=== PATIENT | male | born 1940 | race Caucasian/White ===

== ENCOUNTER 2017-05-14 09:44 | Inpatient (IN) | payer MEDICARE, OTHER ==
[2017-05-14] MEDS ORDERED: Sodium Chloride 0.9% 1000 ML 1,000 ML IV STA ×2 (09:52→10:19)
[2017-05-14] MEDS ORDERED: TYLENOL 325 MG PO STA (10:02)
[2017-05-14] MEDS: Sodium Chloride 0.9% 1000 ML 1,000 ML IV SCH ×5 (10:09→23:11)
--- NOTE | 2017-05-14 10:10 | ERPHSYRPT ---
- History of Present Illness Time Seen by Provider: 05/14/17 09:48 Source: patient Exam Limitations: clinical condition Patient Subjective Stated Complaint: patient fell at home having weakness this morning, loss of bowels , nausea, has history of stroke, left side weakness from original stroke Triage Nursing Assessment: patient alert and oriented x3, lung sounds clear diminished, handgrips equal bialteral , smile symetrical, able to hold both hands up without issue , pulses equal bialteral r adius, pedal pulses present bialteral, bowel sounds present x4, skin warm to touch clean, dry and intact Physician History: PATIENT WITH HISTORY OF CVA WITH RESIDUAL LEFT HEMIPARESIS, SLID OUT OF HIS BED LANDING ONTO HIS BUTTOCKS, DENIES PAIN, HEAD OR NECK INJURY. UNABLE TO GET BACK INTO BED BY FRIENDS. PATIENT DENIES COMPLAINS OF PAIN, COUGH, FEVER, URINARY SYMPTOMS. Occurred: just prior to arrival Reason for Fall: slipped Injuries/Pain Location: no injury Loss of Consciousness: no loss of consciousness Quality: other (WEAKNESS) Severity of Pain-Max: none Severity of Pain-Current: none Modifying Factors: Improves With: nothing Associated Symptoms (Fall): other (GENERALIZED WEAKNESS) Allergies/Adverse Reactions: Sulfa (Sulfonamide Antibiotics) Allergy (Unknown, Verified 04/14/13 03:26) STATES CAN'T REMEMBER THE REACTION, BUT TOLD NOT TO TAKE IT ANYMORE. Home Medications: Metoprolol Tartrate 50 mg [Lopressor 50 MG] 50 mg PO DAILY 04/13/13 [ History] Warfarin Sodium 7 mg PO DAILY 04/13/13 [History] Hx Tetanus, Diphtheria Vaccination/Date Given: Yes Hx Influenza Vaccination/Date Given: Yes Hx Pneumococcal Vaccination/Date Given: Yes Immunizations Up to Date: Yes - Review of Systems Constitutional: Weakness Eyes: No Symptoms Ears, Nose, & Throat: No Symptoms Respiratory: No Symptoms, No Cough, No Dyspnea Cardiac: No Symptoms, No Chest Pain, No Edema, No Syncope Abdominal/Gastrointestinal: Nausea, No Abdominal Pain, No Vomiting, No Diarrhea Genitourinary Symptoms: No Symptoms, No Dysuria Musculoskeletal: No Symptoms, No Back Pain, No Neck Pain Skin: No Symptoms, No Rash Neurological: No Dizziness, No Focal Weakness, No Sensory Changes Psychological: No Symptoms Endocrine: No Symptoms All Other Systems: Reviewed and Negative - Past Medical History Pertinent Past Medical History: No Neurological History: Stroke ENT History: Cataracts Cardiac History: Arrhythmia, Hypertension Respiratory History: No Pertinent History Endocrine Medical History: No Pertinent History Musculoskeletal History: Arthritis GI Medical History: No Pertinent History History: No Pertinent History Psycho-Social History: No Pertinent History Male Reproductive Disorders: No Pertinent History Other Medical History: R TKA 12/08; R CVA W/ L HEMIPLEGIA 2003, A FIB. - Past Surgical History Past Surgical History: Yes Neuro Surgical History: No Pertinent History Cardiac: No Pertinent History Respiratory: No Pertinent History Gastrointestinal: No Pertinent History Genitourinary: No Pertinent History Musculoskeletal: No Pertinent History Male Surgical History: Prostate Surgery - Social History Smoking Status: Former smoker Exposure to second hand smoke: No Drug Use: none Patient Lives Alone: Yes - Nursing Vital Signs Nursing Vital Signs: Initial Vital Signs Temperature 103.8 F 05/14/17 09:45 Pulse Rate 102 H 05/14/17 09:45 Respiratory Rate 20 05/14/17 09:45 Blood Pressure 101/42 05/14/17 09:45 O2 Sat by Pulse Oximetry 92 L 05/14/17 09:45 Pain Scale Pain Intensity 0 - [place] Coma Score Best Eye Response (Alice): (4) open spontaneously Best Verbal Response (Alice): (5) oriented Best Motor Response (Alice): (6) obeys commands [place] Total: 15 - Physical Exam General Appearance: no apparent distress Head Injury: no evidence of injury Eye Exam: PERRL/EOMI ENT Exam: other (DRY MUCOUS MEMBRANES) Neck Exam: supple, trachea midline Respiratory/Chest Exam: normal breath sounds Cardiovascular Exam: normal heart sounds, tachycardia Back Exam: normal inspection, No vertebral tenderness Extremity Exam: normal inspection, normal range of motion, pelvis stable, No deformities Peripheral Pulses: carotid (R): 2+, carotid (L): 2+, femoral (R): 2+, femoral (L ): 2+, dorsalis-pedis (R): 2+, dorsalis-pedis (L): 2+ Neurologic Exam: alert, oriented x 3, other (LEFT HEMIPARESIS) SpO2 Interpretation: normal SpO2: 97 - Course EKG Interpreted by Me: RATE, Sinus Rhythm, Sinus Tach, Right [place] Deviation, 1st degree AV Block - Radiology Exams Chest X-ray Interpretation: Interpreted by me (RIGHT LOWER LOBE INFILTRATE) - CT Exams Head CT Interpretation: Tele-radiologist Report (STABLE ATROPHY AND STABLE CHRONIC RIGHT SIDED INFARCT) Ordered Tests: Active Orders 24 hr Category Date Time Status Up With Assistance ROUTINE Activity 05/14/17 13:06 Ordered Admission/Status Order ROUTINE Care 05/14/17 13:06 Ordered Call Admit Doctor for Orders ON ADMISSION Care 05/14/17 13:07 Ordered Code Status Order ROUTINE Care 05/14/17 13:06 Ordered EKG-ER Only STAT Care 05/14/17 09:52 Active IV Care Q6H Care 05/14/17 13:06 Ordered IV Insertion STAT Care 05/14/17 09:52 Active IV Insertion STAT Care 05/14/17 10:19 Active Intake and Output TID Care 05/14/17 13:06 Ordered Oxygen-ED Only NASAL CANNULA 2 lpm Care 05/14/17 09:52 Active Telemetry ROUTINE Care 05/14/17 13:06 Ordered Vital Signs Q4H Care 05/14/17 13:06 Ordered Regular Diet Diet 05/14/17 Dinner Ordered CHEST 1 VIEW (PORTABLE) Stat Exams 05/14/17 09:54 Taken HEAD WITHOUT CONTRAST [CT] Stat Exams 05/14/17 09:55 Taken ABG [ARTERIAL BLOOD GASES] Stat Lab 05/14/17 12:15 Completed ARTERIAL BLOOD GASES Stat Lab 05/14/17 10:10 Completed BLOOD CULTURE Stat Lab 05/14/17 10:20 Received CBC W DIFF Stat Lab 05/14/17 10:20 Completed CMP Routine Lab 05/14/17 10:20 Completed CULTURE,URINE Stat Lab 05/14/17 12:00 Received Lactic Acid Stat Lab 05/14/17 10:10 Completed Lactic Acid Stat Lab 05/14/17 12:15 Results Manual Differential NC Stat Lab 05/14/17 10:20 Completed PROTIME WITH INR Stat Lab 05/14/17 10:20 Completed TROPONIN Q3H Lab 05/14/17 10:20 Completed TROPONIN Q3H Lab 05/14/17 12:58 Received TROPONIN Q3H Lab 05/14/17 16:00 Ordered TROPONIN Q3H Lab 05/14/17 19:00 Ordered TROPONIN Q3H Lab 05/14/17 22:00 Ordered UA W/ MICROSCOPIC Stat Lab 05/14/17 12:00 Completed Oxygen NASAL CANNULA 4 lpm RT 05/14/17 13:06 Ordered Respiratory Nebulizer STAT RT 05/14/17 10:26 Completed Transfer Order Routine Transfer 05/14/17 Ordered Medication Summary Generic Name Dose Route Start Last Admin Trade Name Freq PRN Reason Stop Dose Admin Sodium Chloride 1,000 mls @ 999 mls/hr 05/14/17 10:00 05/14/17 12:05 Sodium Chloride 0.9% 1000 Ml IV 05/14/17 13:00 999 mls/hr .Q1H1M HALINA Administration Cefepime HCl 2 g/ Dextrose 100 mls @ 200 mls/hr 05/14/17 11:30 05/14/17 11:31 IV 06/13/17 11:29 200 mls/hr Q12HT HALINA Administration Discontinued Medications Generic Name Dose Route Start Last Admin Trade Name Harrisonq PRN Reason Stop Dose Admin Acetaminophen 975 mg 05/14/17 10:02 05/14/17 10:11 Tylenol 325 Mg PO 05/14/17 10:03 975 mg STAT STA Administration Acetaminophen Confirm 05/14/17 10:11 Tylenol 325 Mg Administered 05/14/17 10:12 Dose 975 mg .ROUTE .STK-MED ONE Albuterol/Ipratropium 3 ml 05/14/17 10:26 05/14/17 10:27 Duoneb 0.5-3 Mg/3 Ml Neb IH 05/14/17 10:27 3 ml STAT ONE Administration Albuterol/Ipratropium Confirm 05/14/17 10:26 Duoneb 0.5-3 Mg/3 Ml Neb Administered 05/14/17 10:27 Dose 3 ml IH .STK-MED ONE Sodium Chloride 1,000 mls @ 500 mls/hr 05/14/17 09:52 05/14/17 12:12 Sodium Chloride 0.9% 1000 Ml IV 05/14/17 11:51 Not Given .Q2H STA Sodium Chloride 1,000 mls @ 999 mls/hr 05/14/17 10:19 05/14/17 11:20 Sodium Chloride 0.9% 1000 Ml IV 05/14/17 11:19 999 mls/hr .Q1H1M STA Administration Lab/Rad Data: Laboratory Result Diagrams 05/14/17 10:20 05/14/17 10:20 Laboratory Results 11/19/17 11/19/17 11/19/17 Range/Units 12:15 12:15 12:00 WBC (4.0-10.5) K/mm3 RBC (4.1-5.6) M/mm3 Hgb (12.5-18.0) gm/dl Hct (42-50) % MCV (78-100) fl MCH (26-32) pg MCHC (32-36) g/dl RDW (11.5-14.0) % Plt Count (150-450) K/mm3 MPV (6-9.5) fl Segmented Neutrophils (36.-66.) % Band Neutrophils (0.0-2.0) % Lymphocytes (Manual) (24-44) % Differential Comment Toxic Granulation Platelet Estimate (NORMAL) INR (0.8-3.0) Puncture Site RIGHT BRACHIAL pCO2 30 L (35-45) mmHg pO2 66 L (75-100) mmHg Base Excess -3.8 L (-2.0-2.0) O2 Saturation 94.4 (94-100) g/dF ABG pH 7.42 (7.35-7.45) ABG HCO3 19.5 L (22-28) ABG O2 Sat (Measured) 98.6 (95-100) % Arsenio Test YES A-a Gradient 182 a/A Ratio 0.27 Hemoglobin 14.4 Carboxyhemoglobin 3.7 (0.0-6.9) % THgb Methemoglobin 0.6 L (1.4-1.5) % Potassium 3.6 (3.5-5.1) Temperature 37.0 C POC O2 Flow Rate 40 % Sodium (136-145) mEq/L Chloride (98-107) mEq/L Carbon Dioxide (21-32) mEq/L Anion Gap (5-15) MEQ/L BUN (9-20) mg/dL Creatinine (0.55-1.30) mg/dl Estimated GFR ML/MIN Glucose (70-110) MG/DL Lactic Acid 2.8 H (0.4-2.0) Calcium (8.5-10.1) mg/dL Total Bilirubin (0.2-1.0) mg/dL AST (15-37) U/L ALT (12-78) U/L Alkaline Phosphatase (46-116) U/L Troponin I (0.000-0.056) ng/ml Serum Total Protein (6.4-8.2) gm/dL Albumin (3.4-5.0) g/dL Ur Collection Type VOID Urine Color DARK YELLOW (YELLOW) Urine Appearance HAZY (CLEAR) Urine pH 5.0 (5-6) Ur Specific [place] 1.015 (1.005-1.025) Urine Protein 2+ (Negative) Urine Ketones NEGATIVE (NEGATIVE) Urine Blood 250 (0-5) Hitesh/ul Urine Nitrite NEGATIVE (NEGATIVE) Urine Bilirubin NEGATIVE (NEGATIVE) Urine Urobilinogen NORMAL (0-1) mg/dL Ur Leukocyte Esterase 2+ (NEGATIVE) Urine Microscopic RBC >100 (0-2) /HPF Urine Microscopic WBC >100 (0-5) /HPF Ur Epithelial Cells FEW (FEW) /HPF Urine Bacteria MODERATE (NEGATIVE) /HPF Urine Culture Reflexed YES (NO) Urine Glucose NEGATIVE (NEGATIVE) mg/dL Influenza Type A Ag (NEGATIVE) Influenza Type B Ag (NEGATIVE) RSV (PCR) (Negative) Specimen Received 05/14/17 1200 05/14/17 05/14/17 05/14/17 Range/Units 10:20 10:20 10:20 WBC (4.0-10.5) K/mm3 RBC (4.1-5.6) M/mm3 Hgb (12.5-18.0) gm/dl Hct (42-50) % MCV (78-100) fl MCH (26-32) pg MCHC (32-36) g/dl RDW (11.5-14.0) % Plt Count (150-450) K/mm3 MPV (6-9.5) fl Segmented Neutrophils (36.-66.) % Band Neutrophils (0.0-2.0) % Lymphocytes (Manual) (24-44) % Differential Comment Toxic Granulation Platelet Estimate (NORMAL) INR 1.96 (0.8-3.0) Puncture Site pCO2 (35-45) mmHg pO2 (75-100) mmHg Base Excess (-2.0-2.0) O2 Saturation (94-100) g/dF ABG pH (7.35-7.45) ABG HCO3 (22-28) ABG O2 Sat (Measured) (95-100) % Arsenio Test A-a Gradient a/A Ratio Hemoglobin Carboxyhemoglobin (0.0-6.9) % THgb Methemoglobin (1.4-1.5) % Potassium 4.2 (3.5-5.1) Temperature C POC O2 Flow Rate % Sodium 138 (136-145) mEq/L Chloride 105 (98-107) mEq/L Carbon Dioxide 19.6 L (21-32) mEq/L Anion Gap 17.7 H (5-15) MEQ/L BUN 16 (9-20) mg/dL Creatinine 1.49 H (0.55-1.30) mg/dl Estimated GFR 48 ML/MIN Glucose 145 H (70-110) MG/DL Lactic Acid (0.4-2.0) Calcium 9.0 (8.5-10.1) mg/dL Total Bilirubin 1.00 (0.2-1.0) mg/dL AST 26 (15-37) U/L ALT 20 (12-78) U/L Alkaline Phosphatase 97 (46-116) U/L Troponin I < 0.017 (0.000-0.056) ng/ml Serum Total Protein 7.2 (6.4-8.2) gm/dL Albumin 3.5 (3.4-5.0) g/dL Ur Collection Type Urine Color (YELLOW) Urine Appearance (CLEAR) Urine pH (5-6) Ur Specific [place] (1.005-1.025) Urine Protein (Negative) Urine Ketones (NEGATIVE) Urine Blood (0-5) Hitesh/ul Urine Nitrite (NEGATIVE) Urine Bilirubin (NEGATIVE) Urine Urobilinogen (0-1) mg/dL Ur Leukocyte Esterase (NEGATIVE) Urine Microscopic RBC (0-2) /HPF Urine Microscopic WBC (0-5) /HPF Ur Epithelial Cells (FEW) /HPF Urine Bacteria (NEGATIVE) /HPF Urine Culture Reflexed (NO) Urine Glucose (NEGATIVE) mg/dL Influenza Type A Ag NEGATIVE (NEGATIVE) Influenza Type B Ag NEGATIVE (NEGATIVE) RSV (PCR) NEGATIVE (Negative) Specimen Received 05/14/17 05/14/17 05/14/17 Range/Units 10:20 10:10 10:10 WBC 21.9 H (4.0-10.5) K/mm3 RBC 4.88 (4.1-5.6) M/mm3 Hgb 15.9 (12.5-18.0) gm/dl Hct 47.7 (42-50) % MCV 97.7 (78-100) fl MCH 32.6 H (26-32) pg MCHC 33.3 (32-36) g/dl RDW 13.4 (11.5-14.0) % Plt Count 144 L (150-450) K/mm3 MPV 11.2 H (6-9.5) fl Segmented Neutrophils 94 H (36.-66.) % Band Neutrophils 4 H (0.0-2.0) % Lymphocytes (Manual) 2 L (24-44) % Differential Comment NORMAL Toxic Granulation 1+ Platelet Estimate NORMAL (NORMAL) INR (0.8-3.0) Puncture Site LEFT BRACHIAL pCO2 30 L (35-45) mmHg pO2 48 L* (75-100) mmHg Base Excess -1.8 (-2.0-2.0) O2 Saturation 89.1 L (94-100) g/dF ABG pH 7.45 (7.35-7.45) ABG HCO3 20.9 L (22-28) ABG O2 Sat (Measured) 92.9 L (95-100) % Arsenio Test YES A-a Gradient 64 a/A Ratio 0.43 Hemoglobin 16.2 Carboxyhemoglobin 3.2 (0.0-6.9) % THgb Methemoglobin 0.9 L (1.4-1.5) % Potassium 4.0 (3.5-5.1) Temperature 37.0 C POC O2 Flow Rate 21 % Sodium (136-145) mEq/L Chloride (98-107) mEq/L Carbon Dioxide (21-32) mEq/L Anion Gap (5-15) MEQ/L BUN (9-20) mg/dL Creatinine (0.55-1.30) mg/dl Estimated GFR ML/MIN Glucose (70-110) MG/DL Lactic Acid 3.4 H (0.4-2.0) Calcium (8.5-10.1) mg/dL Total Bilirubin (0.2-1.0) mg/dL AST (15-37) U/L ALT (12-78) U/L Alkaline Phosphatase (46-116) U/L Troponin I (0.000-0.056) ng/ml Serum Total Protein (6.4-8.2) gm/dL Albumin (3.4-5.0) g/dL Ur Collection Type Urine Color (YELLOW) Urine Appearance (CLEAR) Urine pH (5-6) Ur Specific [place] (1.005-1.025) Urine Protein (Negative) Urine Ketones (NEGATIVE) Urine Blood (0-5) Hitesh/ul Urine Nitrite (NEGATIVE) Urine Bilirubin (NEGATIVE) Urine Urobilinogen (0-1) mg/dL Ur Leukocyte Esterase (NEGATIVE) Urine Microscopic RBC (0-2) /HPF Urine Microscopic WBC (0-5) /HPF Ur Epithelial Cells (FEW) /HPF Urine Bacteria (NEGATIVE) /HPF Urine Culture Reflexed (NO) Urine Glucose (NEGATIVE) mg/dL Influenza Type A Ag (NEGATIVE) Influenza Type B Ag (NEGATIVE) RSV (PCR) (Negative) Specimen Received - Progress Progress: improved Progress Note: 05/14/17 10:12 PLACED ONTO SEPSIS PROTOCOL 30ML/127 KG, AT 1015 PULSE OX 98% INITIALLY, TYLENOL 975MG ORALLY, 2 IV SITES 1 LITER BOLUS X 2 05/14/17 10:20- LACTIC ACID 3.5 05/14/17 10:30 AFTER 2 SETS OF BLOOD CULTURES ADMINISTERED LEVAQUIN 750MG IVPB 05/14/17 11:38-REPEAT LACTIC ACID -2.8, CLINICAL EXAM ALERT APPROPRIATE, CHEST CLEAR BREATH SOUNDS, PULSES 2+ 05/14/17 13:00 Discussed with DrGenesis: Darnell (DISCUSSED WITH DR BALBUENA AT 1245 FOR ADMISSION) - Departure Time of Disposition: 13:20 Departure Disposition: In-patient Admission Clinical Impression: ACUTE CYSTITIS, PNEUMONIA, SEPTICEMIA Condition: Stable Critical Care Time: No Referrals: FIDE GOODRICH MD [Primary Care Provider] -
[2017-05-14] MEDS ORDERED: TYLENOL 325 MG ONE (10:11)
[2017-05-14 10:14] LABS: A-aADO2 64; ARTERIAL BLD GAS O2 SATURATION 92.9 % (95-100); ARTERIAL BLOOD GAS BASE EXCESS -1.8 (-2.0-2.0); ARTERIAL BLOOD GAS FIO2 21 %; ARTERIAL BLOOD GAS pH 7.45 (7.35-7.45)
[2017-05-14 10:15] LABS: ALLEN TEST OK? YES; ARTERIAL BLOOD GAS PO2 48 mmHg (75-100)
[2017-05-14 10:17] LABS: Lactic Acid 3.4 (0.4-2.0)
[2017-05-14] MEDS ORDERED: DUONEB 0.5-3 MG/3 ml Neb IH ONE ×2 (10:26)
[2017-05-14 10:31] LABS: Mean Cell Volume 97.7 fl (78-100); Mean Corpuscular Hemoglobin 32.6 pg (26-32); Mean Platelet Volume 11.2 fl (6-9.5); Platelet Count 144 K/mm3 (150-450); Red Blood Count 4.88 M/mm3 (4.1-5.6); Red Cell Distribution Width 13.4 % (11.5-14.0); White Blood Count 21.9 K/mm3 (4.0-10.5)
[2017-05-14 10:40] LABS: INR 1.96 (0.8-3.0); PROTIME 21.9 SECONDS (8.83-12.87)
[2017-05-14 10:49] LABS: ALBUMIN 3.5 g/dL (3.4-5.0); ALKALINE PHOSPHATASE 97 U/L (46-116); ANION GAP 17.7 MEQ/L (5-15); BLOOD UREA NITROGEN 16 mg/dL (9-20); CHLORIDE 105 mEq/L (98-107); Carbon Dioxide 19.6 mEq/L (21-32); Glucose 145 MG/DL (70-110); Potassium 4.2 mEq/L (3.5-5.1); SGOT/AST 26 U/L (15-37); SGPT/ALT 20 U/L (12-78); SODIUM 138 mEq/L (136-145); Total Protein 7.2 gm/dL (6.4-8.2)
[2017-05-14 10:50] LABS: BAND 4 % (0.0-2.0); Platelet Estimate NORMAL (NORMAL); Total Cells Counted 100; Toxic Granulation 1+
[2017-05-14 10:52] LABS: TROPONIN < 0.017 ng/ml (0.000-0.056)
[2017-05-14] MEDS ORDERED: Maxipime 2 GM** 2 G in Dextrose 5%/Water IV Soln. 100ML PLUS BAG 100 ML IV SCH (11:30)
[2017-05-14 12:09] LABS: Collection Type VOID
[2017-05-14 12:10] LABS: ADD URINE CULTURE? YES (NO); Bacteria MODERATE /HPF (NEGATIVE); Bilirubin NEGATIVE (NEGATIVE); Blood 250 Ery/ul (0-5); COMPLETE URINE MICROSCOPIC? YES; Epithelial Cells FEW /HPF (FEW); Glucose NEGATIVE (NEGATIVE); Leukocyte Esterase 2+ (NEGATIVE); WBC >100 /HPF (0-5)
[2017-05-14 12:19] LABS: A-aADO2 182; ARTERIAL BLD GAS O2 SATURATION 98.6 % (95-100); ARTERIAL BLOOD GAS BASE EXCESS -3.8 (-2.0-2.0); ARTERIAL BLOOD GAS FIO2 40 %; ARTERIAL BLOOD GAS PO2 66 mmHg (75-100); ARTERIAL BLOOD GAS pH 7.42 (7.35-7.45)
[2017-05-14 12:20] LABS: ALLEN TEST OK? YES
[2017-05-14 12:21] LABS: Lactic Acid 2.8 (0.4-2.0)
[2017-05-14] MEDS ORDERED: DUONEB 0.5-3 MG/3 ml Neb IH PRN (13:06)
[2017-05-14] MEDS ORDERED: Zofran 4 MG/2 ML VIAL IV PRN (13:06)
[2017-05-14] MEDS ORDERED: TYLENOL 325 MG PO PRN (13:06)
--- NOTE | 2017-05-14 16:53 | XRAY ---
Indication: Weakness. Comparison: April 13, 2013. Portable apical lordotic chest now demonstrates right base infiltrate versus atelectasis. Remaining heart and lungs unremarkable. Bony thorax intact again with mild osteopenia and degenerative changes.
--- NOTE | 2017-05-14 16:59 | XRAY ---
Indication: Weakness. Multiple contiguous axial images obtained through the head without contrast. Comparison: April 13, 2013. Again age-appropriate global atrophy and mild periventricular degenerative microvascular ischemia bilaterally. Stable small old right mid periventricular and right occipital infarcts. New 1 cm focus of old left frontal lobe infarct. No acute intracranial hemorrhage, abnormal extra-axial fluid collection, or mass effect. Fourth ventricle is midline. Bony calvarium intact. Incidental bilateral maxillary sinus subcentimeter polyp/retention cyst. Mastoid air cells clear. Impression: Again nonacute senile brain again with old right ventricular and right occipital infarcts. New finding for small old left frontal lobe infarct. Incidental paranasal sinus polyp/retention cyst. Comment: Preliminary interpretation was made by [facility]. No critical discrepancy. CTDI 62.52
[2017-05-14] MEDS: LEVOFLOXACIN 750MG/150ML D5W 750 MG/150 ML BAG IV SCH ×2 (17:16→17:17)
[2017-05-14] MEDS ORDERED: LEVOFLOXACIN 750MG/150ML D5W 750 MG/150 ML BAG IV ONE (17:16)
[2017-05-14] MEDS: Coumadin 2 MG PO SCH (17:37)
[2017-05-14] MEDS: Coumadin 5 MG PO SCH (17:38)
--- NOTE | 2017-05-14 18:54 | PCM.HP ---
History of Present Illness - Chief Complaint Chief Complaint: SEPSIS, PNEUMONIA, UTI Date: 05/14/17 History of Present Illness: is a 77 year old male. he says he started having a funny feeling when he urinated today but otherwise was feeling ok but tried to get up out of bed and just slid to the ground and was too weak to get up. He came to ED by EMS and was found to be febrile. He does not recall fever or chills at home and no cough or shortness of breath. He denies chest pain nausea, vomiting or diarrhea. - Review of Systems Constitutional: No Fever, No Chills Eyes: No Symptoms Ears, Nose, & Throat: No Symptoms Respiratory: No Cough, No Short Of Breath Cardiac: No Chest Pain, No Edema, No Syncope Abdominal/Gastrointestinal: No Abdominal Pain, No Nausea, No Vomiting, No Diarrhea Genitourinary Symptoms: No Dysuria Musculoskeletal: No Back Pain, No Neck Pain Skin: No Rash Neurological: No Dizziness, No Focal Weakness, No Sensory Changes Psychological: No Symptoms Endocrine: No Symptoms Hematologic/Lymphatic: No Symptoms Immunological/Allergic: No Symptoms Medications & Allergies Home Medications: Home Medication List Metoprolol Tartrate 50 mg [Lopressor 50 MG] 50 mg PO DAILY 04/13/13 [ History Confirmed 05/14/17] Warfarin Sodium 7 mg PO DAILY 04/13/13 [History Confirmed 05/14/17] Cephalexin Mh 500 mg [Keflex 500 mg] 500 mg PO TID 05/14/17 [History Confirmed 05/14/17] Allergies/Adverse Reactions: Allergies Allergy/AdvReac Type Severity Reaction Status Date / Time Sulfa (Sulfonamide Allergy Unknown Verified 04/14/13 03:26 Antibiotics) - Past Medical History Past Medical History: No Neurological History: Stroke ENT History: Cataracts Cardiac History: Arrhythmia, Hypertension Respiratory History: No Pertinent History Endocrine Medical History: No Pertinent History Musculoskelatal History: Arthritis GI Medical History: No Pertinent History History: No Pertinent History Pyscho-Social History: No Pertinent History Male Reproductive Disorders: No Pertinent History Comment: R CVA W/ L HEMIPLEGIA 2003, A FIB. - Past Surgical History Past Surgical History: Yes Neuro Surgical History: No Pertinent History Cardiac History: No Pertinent History Respiratory Surgery: No Pertinent History GI Surgical History: No Pertinent History Genitourinary Surgical Hx: No Pertinent History Musculskeletal Surgical Hx: No Pertinent History Male Surgical History: Prostate Surgery Other Surgical History: Prostate removed 2003, right hip replacement 2014 - Social History Smoking Status: Former smoker Exposure to second hand smoke: No Alcohol: None Drug Use: none - Physical Exam Vital Signs: Vital Signs - 24 hr Temp Pulse Resp BP Pulse Ox 05/14/17 16:34 93 L 05/14/17 16:00 98.3 F 91 H 18 94/52 91 L 05/14/17 15:06 84 20 95 05/14/17 14:10 98.5 F 91 H 115/58 05/14/17 14:09 98.5 F 91 H 115/58 97 05/14/17 13:17 97 05/14/17 12:34 88 22 95/47 93 L 05/14/17 11:25 96 H 20 98 05/14/17 10:31 98 H 22 89 L 05/14/17 09:45 103.8 F 102 H 20 101/42 92 L Oxygen-Last 24 hours O2 Percentage 5 Liters = 40% O2 Percentage 5 Liters = 40% O2 Percentage 6 Liters = 44% O2 Percentage 2 Liters = 28% General Appearance: no apparent distress, alert, obese Neurologic Exam: alert, oriented x 3, cooperative, normal mood/affect, nml cerebellar function, nml station & gait, sensation nml, No motor deficits Eye Exam: PERRL/EOMI, eyes nml inspection Ears, Nose, Throat Exam: normal ENT inspection, TMs normal, pharynx normal, moist mucous membranes Neck Exam: normal inspection, non-tender, supple, full range of motion Respiratory Exam: normal breath sounds, lungs clear, No respiratory distress Cardiovascular Exam: normal heart sounds, normal peripheral pulses, irregular Gastrointestinal/Abdomen Exam: soft, normal bowel sounds, No tenderness, No mass Back Exam: normal inspection, normal range of motion, No CVA tenderness, No vertebral tenderness Extremity Exam: normal inspection, normal range of motion, pelvis stable Skin Exam: normal color, warm, dry, No rash Lymphatic Exam: No adenopathy Results - Labs Lab/Micro Results: Lab Results-Last 24 Hours 05/14/17 Range/Units 16:00 Troponin I 0.023 (0.000-0.056) ng/ml - Other Procedures and Tests Respiratory Therapy 05/14/17 13:06 Oxygen NASAL CANNULA 4 lpm 05/14/17 15:05 Respiratory Nebulizer UD Assessment/Plan (1) UTI (urinary tract infection) Current Visit: Yes Status: Acute Assessment & Plan: he received 3 L of NS in ED bolus and was started on 150 mL/h NS. his lactic acid improved vital remain stable. he has good peripheral perfusion now eating and drinking well will decrease iv fluids now to 60mL/h on levaquin will continue for now monitor cultures continue warfarin he had troponins ordered and the 3rd shows some very minimal increase below cutoff will complete the series but he has no chest pain now and denies any previous. 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
[2017-05-15 06:11] LABS: Mean Corpuscular Hemoglobin 32.2 pg (26-32); Mean Platelet Volume 11.3 fl (6-9.5); Platelet Count 124 K/mm3 (150-450); Red Blood Count 4.32 M/mm3 (4.1-5.6); Red Cell Distribution Width 13.8 % (11.5-14.0)
[2017-05-15 06:13] LABS: White Blood Count 25.1 K/mm3 (4.0-10.5)
[2017-05-15 06:52] LABS: BAND 3 % (0.0-2.0); Total Cells Counted 100
[2017-05-15 06:59] LABS: Platelet Estimate NORMAL (NORMAL)
[2017-05-15 07:00] LABS: ALBUMIN 2.7 g/dL (3.4-5.0); ANION GAP 15.6 MEQ/L (5-15); BILIRUBIN,TOTAL 1.2 mg/dL (0.2-1.0); Carbon Dioxide 20.1 mEq/L (21-32); Potassium 3.9 mEq/L (3.5-5.1); Total Protein 6.1 gm/dL (6.4-8.2)
[2017-05-15 07:29] LABS: INR 2.49 (0.8-3.0); PROTIME 27.9 SECONDS (8.83-12.87)
--- NOTE | 2017-05-15 08:13 | PCM.NOTE ---
Date and Time: 05/15/17809 Subjective Assessment: patient has very little cough, has been able to ambulate to his restroom with no problems. strength seems a little better. tolerating po, no vomiting or diarrhea. no abd pain Objective Exam General Appearance: no apparent distress, alert Respiratory Exam: normal breath sounds, lungs clear, No respiratory distress Cardiovascular Exam: regular rate/rhythm, normal heart sounds Gastrointestinal/Abdomen Exam: soft, No tenderness, No mass Extremity Exam: normal inspection, normal range of motion OBJECTIVE DATA Vital Signs: Vital Signs - 24 hr Temp Pulse Resp BP Pulse Ox 05/15/17 07:00 98.5 F 73 18 113/57 93 L 05/15/17 04:00 97.8 F 69 21 110/56 96 05/15/17 00:00 12 05/14/17 23:53 98.4 F 78 12 104/56 92 L 05/14/17 20:00 99.5 F 85 20 107/53 93 L 05/14/17 19:40 18 05/14/17 16:34 93 L 05/14/17 16:00 98.3 F 91 H 18 94/52 91 L 05/14/17 15:06 84 20 95 05/14/17 14:10 98.5 F 91 H 115/58 05/14/17 14:09 98.5 F 91 H 115/58 97 05/14/17 13:17 97 05/14/17 12:34 88 22 95/47 93 L 05/14/17 11:25 96 H 20 98 05/14/17 10:31 98 H 22 89 L 05/14/17 09:45 103.8 F 102 H 20 101/42 92 L Oxygen-Last 24 hours O2 Percentage 3 Liters = 32% O2 Percentage 4 Liters = 36% O2 Percentage 4 Liters = 36% O2 Percentage 5 Liters = 40% O2 Percentage 5 Liters = 40% O2 Percentage 5 Liters = 40% O2 Percentage 6 Liters = 44% O2 Percentage 2 Liters = 28% Pain Assessment - Last Documented Pain Scale Used 0-10 Pain Scale Intake and Output: Intake & Output 05/12/17 05/13/17 05/14/17 05/15/17 11:59 11:59 11:59 11:59 Intake Total 1686 Output Total 750 Balance 936 Weight 128.775 kg Lab Results: Lab Results-Last 24 Hours 05/14/17 05/14/17 05/14/17 Range/Units 16:00 19:12 22:13 WBC (4.0-10.5) K/mm3 RBC (4.1-5.6) M/mm3 Hgb (12.5-18.0) gm/dl Hct (42-50) % MCV (78-100) fl MCH (26-32) pg MCHC (32-36) g/dl RDW (11.5-14.0) % Plt Count (150-450) K/mm3 MPV (6-9.5) fl Segmented Neutrophils (36.-66.) % Band Neutrophils (0.0-2.0) % Lymphocytes (Manual) (24-44) % Monocytes (Manual) (0.0-12.0) % Differential Comment Platelet Estimate (NORMAL) INR (0.8-3.0) Sodium (136-145) mEq/L Potassium (3.5-5.1) mEq/L Chloride (98-107) mEq/L Carbon Dioxide (21-32) mEq/L Anion Gap (5-15) MEQ/L BUN (9-20) mg/dL Creatinine (0.55-1.30) mg/dl Estimated GFR ML/MIN Glucose (70-110) MG/DL Calcium (8.5-10.1) mg/dL Total Bilirubin (0.2-1.0) mg/dL AST (15-37) U/L ALT (12-78) U/L Alkaline Phosphatase (46-116) U/L Troponin I 0.023 0.055 0.087 H* (0.000-0.056) ng/ml Serum Total Protein (6.4-8.2) gm/dL Albumin (3.4-5.0) g/dL 05/15/17 05/15/17 05/15/17 Range/Units 05:18 05:18 05:18 WBC 25.1 H* (4.0-10.5) K/mm3 RBC 4.32 (4.1-5.6) M/mm3 Hgb 13.9 (12.5-18.0) gm/dl Hct 43.2 (42-50) % MCV 100.0 (78-100) fl MCH 32.2 H (26-32) pg MCHC 32.2 (32-36) g/dl RDW 13.8 (11.5-14.0) % Plt Count 124 L (150-450) K/mm3 MPV 11.3 H (6-9.5) fl Segmented Neutrophils 82 H (36.-66.) % Band Neutrophils 3 H (0.0-2.0) % Lymphocytes (Manual) 13 L (24-44) % Monocytes (Manual) 2 (0.0-12.0) % Differential Comment NORMAL Platelet Estimate NORMAL (NORMAL) INR 2.49 (0.8-3.0) Sodium 141 (136-145) mEq/L Potassium 3.9 (3.5-5.1) mEq/L Chloride 109 H (98-107) mEq/L Carbon Dioxide 20.1 L (21-32) mEq/L Anion Gap 15.6 H (5-15) MEQ/L BUN 21 H (9-20) mg/dL Creatinine 1.35 H (0.55-1.30) mg/dl Estimated GFR 54 ML/MIN Glucose 105 (70-110) MG/DL Calcium 8.0 L (8.5-10.1) mg/dL Total Bilirubin 1.20 H (0.2-1.0) mg/dL AST 41 H (15-37) U/L ALT 17 (12-78) U/L Alkaline Phosphatase 68 (46-116) U/L Troponin I (0.000-0.056) ng/ml Serum Total Protein 6.1 L (6.4-8.2) gm/dL Albumin 2.7 L (3.4-5.0) g/dL Assessment/Plan (1) UTI (urinary tract infection) Current Visit: Yes Status: Acute Assessment & Plan: on Levaquin, no obvious clinical signs of pneumonia in spite of infiltrate vs atelectasis on xray Code(s): N39.0 - URINARY TRACT INFECTION, SITE NOT SPECIFIED (2) Sepsis Current Visit: Yes Status: Acute Assessment & Plan: hemodynamically stable, wbc improving. (3) Atrial fibrillation Current Visit: Yes Status: Acute Assessment & Plan: on coumadin, INR therapeutic today. will monitor due to levaquin use, increased since admission Code(s): I48.91 - UNSPECIFIED ATRIAL FIBRILLATION
[2017-05-15] MEDS ORDERED: Coumadin 5 MG*** 5 MG, Coumadin 2.5 MG*** 2.5 MG PO SCH ×2 (10:00)
[2017-05-15] MEDS ORDERED: FLUZONE HIGH-DOSE 2017-18 SYR IM ONE (10:00)
[2017-05-15] MEDS ORDERED: Lopressor 50 MG PO SCH (10:00)
[2017-05-15] MEDS ORDERED: WARFARIN SODIUM 7 MG PO SCH (10:00)
[2017-05-15] MEDS: Protonix 40MG Tablet PO SCH (11:11)
[2017-05-15] MEDS: LEVOFLOXACIN 750MG/150ML D5W 750 MG/150 ML BAG IV SCH (17:00)
[2017-05-15] MEDS: Coumadin 5 MG PO SCH (17:01)
[2017-05-15] MEDS: Coumadin 2 MG PO SCH (17:01)
[2017-05-15] MEDS: Sodium Chloride 0.9% 1000 ML 1,000 ML IV SCH (18:19)
[2017-05-16 05:38] LABS: BASOPHIL % 0.2 % (0.0-0.4); Eosinophil % 0.4 % (0.00-5.0); Granulocytes % 83.4 % (36.0-66.0); Lymphocytes % 9.3 % (24.0-44.0); Mean Cell Volume 98.4 fl (78-100); Mean Platelet Volume 11.1 fl (6-9.5); Monocytes % 6.7 % (0.0-12.0); Platelet Count 142 K/mm3 (150-450); Red Cell Distribution Width 13.8 % (11.5-14.0)
[2017-05-16 06:18] LABS: ANION GAP 12.2 MEQ/L (5-15); Carbon Dioxide 22.8 mEq/L (21-32); INR 1.63 (0.8-3.0); PROTIME 18.2 SECONDS (8.83-12.87)
[2017-05-16] MEDS: Protonix 40MG Tablet PO SCH (08:04)
--- NOTE | 2017-05-16 08:57 | PCM.NOTE ---
Date and Time: 05/16/17 08 Subjective Assessment: Feeling fine, eating well, denies feeling badly during this hospitalization. hasn't been up much. - Review of Systems Constitutional: No Fever Abdominal/Gastrointestinal: No Vomiting Objective Exam General Appearance: no apparent distress, alert, obese Neurologic Exam: oriented x 3, cooperative Skin Exam: normal color, warm, dry Respiratory Exam: normal breath sounds, lungs clear, No crackles/rales, No rhonchi, No wheezing Cardiovascular Exam: regular rate/rhythm, normal heart sounds, No murmur Gastrointestinal/Abdomen Exam: soft, normal bowel sounds, No tenderness, No distention Extremity Exam: normal inspection, No pedal edema, No swelling OBJECTIVE DATA Vital Signs: Vital Signs - 24 hr Temp Pulse Resp BP Pulse Ox 05/16/17 07:41 97.4 F 65 20 126/60 94 L 05/16/17 03:22 98.3 F 79 20 141/72 94 L 05/16/17 00:00 98.2 F 71 20 145/69 93 L 05/15/17 19:25 97.9 F 73 20 130/89 92 L 05/15/17 16:00 18 05/15/17 15:36 98.9 F 80 18 113/56 93 L 05/15/17 15:05 77 18 93 L 05/15/17 12:00 98.4 F 72 18 112/56 94 L 05/15/17 11:40 18 Oxygen-Last 24 hours O2 Percentage 4 Liters = 36% O2 Percentage 3 Liters = 32% O2 Percentage 3 Liters = 32% O2 Percentage 3 Liters = 32% O2 Percentage 3 Liters = 32% O2 Percentage 3 Liters = 32% Pain Assessment - Last Documented Pain Scale Used 0-10 Pain Scale Intake and Output: Intake & Output 05/13/17 05/14/17 05/15/17 05/16/17 11:59 11:59 11:59 11:59 Intake Total 2166 2394 Output Total 1050 2800 Balance 1116 -406 Weight 128.775 kg Lab Results: Lab Results-Last 24 Hours 05/16/17 05/16/17 05/16/17 Range/Units 05:12 05:12 05:12 WBC 18.0 H (4.0-10.5) K/mm3 RBC 4.40 (4.1-5.6) M/mm3 Hgb 14.1 (12.5-18.0) gm/dl Hct 43.3 (42-50) % MCV 98.4 (78-100) fl MCH 32.0 (26-32) pg MCHC 32.6 (32-36) g/dl RDW 13.8 (11.5-14.0) % Plt Count 142 L (150-450) K/mm3 MPV 11.1 H (6-9.5) fl Gran % 83.4 H (36.0-66.0) % Lymphocytes % 9.3 L (24.0-44.0) % Monocytes % 6.7 (0.0-12.0) % Eosinophils % 0.4 (0.00-5.0) % Basophils % 0.2 (0.0-0.4) % Basophils # 0.03 (0-0.4) INR 1.63 (0.8-3.0) Sodium 140 (136-145) mEq/L Potassium 4.0 (3.5-5.1) mEq/L Chloride 109 H (98-107) mEq/L Carbon Dioxide 22.8 (21-32) mEq/L Anion Gap 12.2 (5-15) MEQ/L BUN 19 (9-20) mg/dL Creatinine 1.26 (0.55-1.30) mg/dl Estimated GFR 59 ML/MIN Glucose 105 (70-110) MG/DL Calcium 8.3 L (8.5-10.1) mg/dL Assessment/Plan (1) Sepsis Current Visit: Yes Status: Acute Qualifiers: Sepsis type: sepsis due to unspecified organism Qualified Code(s): A41.9 - Sepsis, unspecified organism Assessment & Plan: Vitals are stable, his WBC are decreased from 25 to 18. (2) UTI (urinary tract infection) Current Visit: Yes Status: Acute Qualifiers: Urinary tract infection type: acute cystitis Hematuria presence: without hematuria Qualified Code(s): N30.00 - Acute cystitis without hematuria Assessment & Plan: on levaquin Code(s): N39.0 - URINARY TRACT INFECTION, SITE NOT SPECIFIED (3) Atrial fibrillation Current Visit: Yes Status: Acute Qualifiers: Atrial fibrillation type: chronic Qualified Code(s): I48.2 - Chronic atrial fibrillation Assessment & Plan: INR low this morning, 1.63, will increase coumadin to 7.5mg po daily. Code(s): I48.91 - UNSPECIFIED ATRIAL FIBRILLATION
[2017-05-16] MEDS: Coumadin 5 MG PO SCH ×2 (17:04→17:05)
[2017-05-16] MEDS: LEVOFLOXACIN 750MG/150ML D5W 750 MG/150 ML BAG IV SCH (17:06)
[2017-05-16] MEDS ORDERED: Coumadin 2.5 MG PO SCH (18:00)
[2017-05-17] MEDS: Protonix 40MG Tablet PO SCH (08:33)
--- NOTE | 2017-05-17 09:42 | PCM.DS ---
Discharge Summary Date of Admission: 05/14/17 13:50 Admitting Physician: PRATIK BALBUENA Primary Care Provider: FIDE GOODRICH MANA Allergies Allergies Sulfa (Sulfonamide Antibiotics) Allergy (Unknown, Verified 04/14/13 03:26) STATES CAN'T REMEMBER THE REACTION, BUT TOLD NOT TO TAKE IT ANYMORE. Hospital Summary - Hospital Course Hospital Course: Yannick was admitted with weakness and fall at home, he has been steady on his feet with his walker since admission. has proteus in urine culture, chest xray with infiltrate vs atelectasis right base. - Vitals & Intake/Output Vital Signs: Vital Signs Temperature 98.2 F 05/17/17 07:41 Pulse Rate 56 L 05/17/17 07:41 Respiratory Rate 16 05/17/17 08:00 Blood Pressure 134/62 05/17/17 07:41 O2 Sat by Pulse Oximetry 95 05/17/17 08:20 Oxygen-Last Documented O2 Percentage 4 Liters = 36% Intake & Output: Intake & Output 05/14/17 05/15/17 05/16/17 05/17/17 11:59 11:59 11:59 11:59 Intake Total 2166 2394 2460 Output Total 1050 3200 2875 Balance 1116 -806 -415 Weight 128.775 kg 128.775 kg - Lab Result Diagrams: 05/16/17 05:12 05/16/17 05:12 - Procedures and Test Procedures and Tests throughout Hospitalization: Therapy Orders & Screens 05/14/17 13:06 Oxygen NASAL CANNULA 4 lpm Comment: Diagnosis: Shortness of Breath 05/14/17 15:05 Respiratory Nebulizer UD Comment: DUONEB Q4PRN Diagnosis: SEPSIS, PNEUMONIA, ACUTE CYSTITIS 05/16/17 08:58 PT Eval & Treat ( Order) ROUTINE Evaluate: Yes Treat: Yes Reason for Eval:: weakness with UTI Diagnosis: SEPSIS, PNEUMONIA, UTI Discharge Exam General Appearance: no apparent distress, alert Respiratory Exam: normal breath sounds, lungs clear, No respiratory distress Cardiovascular Exam: regular rate/rhythm, normal heart sounds Gastrointestinal/Abdomen Exam: soft, No tenderness, No mass Extremity Exam: normal inspection, normal range of motion Final Diagnosis/Problem List - Final Discharge Diagnosis/Problem (1) UTI (urinary tract infection) Current Visit: Yes Status: Acute Assessment & Plan: home on po augmentin based on urine culture and with coumadin (2) Sepsis Current Visit: Yes Status: Acute (3) Atrial fibrillation Current Visit: Yes Status: Acute - Discharge Disposition: Home, Self-Care Condition: Stable Prescriptions: New Amoxicillin/Potassium Clav [Augmentin 500-125 Tablet] 500 mg PO TID #30 tablet Continue Metoprolol Tartrate 50 mg [Lopressor 50 MG] 50 mg PO DAILY Warfarin Sodium 7 mg PO DAILY PANTOPRAZOLE 40 mg Tablet [Protonix 40MG Tablet] 40 mg PO QAM Discontinued Cephalexin Mh 500 mg [Keflex 500 mg] 500 mg PO TID Follow up with: FIDE GOODRICH MD [Primary Care Provider] -
[2017-05-17 11:58] VITALS: BP 123/60; PULSE 60; O2SAT 92
== END 2017-05-17 13:20 | disposition home or self-care (01) | DRG 689 ==
LOC: ED 09:44 → MED SURG 13:50
PROVIDERS: ADMIT Family Medicine; ATTEND Family Medicine
DX: N30.00 Acute cystitis without hematuria (principal); A41.9 Sepsis, unspecified organism; G81.94 Hemiplegia, unspecified affecting left nondominant side; B96.4 Proteus (mirabilis) (morganii) as the cause of diseases classified elsewhere; I48.2 Chronic atrial fibrillation; Z79.01 Long term (current) use of anticoagulants; I10 Essential (primary) hypertension; M19.90 Unspecified osteoarthritis, unspecified site; Z86.73 Personal history of transient ischemic attack (TIA), and cerebral infarction without residual deficits; W17.89XA Other fall from one level to another, initial encounter; Y93.89 Activity, other specified; Y92.092 Bedroom in other non-institutional residence as the place of occurrence of the external cause; Z87.891 Personal history of nicotine dependence
CPT/HCPCS: 36000; 36415; 36600; 70450; 71010; 80048; 80053; 81000; 82375; 82803; 83605; 84484; 85025; 85610; 87040; 87077; 87086; 87186; 87631; 93005; 94640; 94760; 96360; 96361; 96365; 99285; G0008; J0692; J1956; 90662; A9270-GY

== ENCOUNTER 2017-07-02 18:05 | Inpatient (IN) | payer MEDICARE, OTHER ==
[2017-07-02 18:46] LABS: BASOPHIL % 0.3 % (0.0-0.4); Basophil (Absolute #) 0.04 (0-0.4); Eosinophil % 0.5 % (0.00-5.0); Eosinophil (Absolute #) 0.07 (0-0.5); Granulocyte Absolute (ANC) 11.97 (1.4-6.9); Granulocytes % 79.1 % (36.0-66.0); Hematocrit 46.4 % (42-50); Hemoglobin 15.3 gm/dl (12.5-18.0); Lymphocyte (Absolute #) 1.65 (1.0-4.6); Lymphocytes % 10.9 % (24.0-44.0); Mean Cell Volume 95.7 fl (78-100); Mean Corpuscular Hemoglobin 31.5 pg (26-32); Mean Platelet Volume 10.8 fl (6-9.5); Monocyte (Absolute #) 1.39 (0.0-1.3); Monocytes % 9.2 % (0.0-12.0); Platelet Count 236 K/mm3 (150-450); Red Blood Count 4.85 M/mm3 (4.1-5.6); Red Cell Distribution Width 13.4 % (11.5-14.0); White Blood Count 15.1 K/mm3 (4.0-10.5)
--- NOTE | 2017-07-02 18:47 | ERPHSYRPT ---
- History of Present Illness Source: patient, EMS Patient Subjective Stated Complaint: PT BROUGHT TO ED PER EMS FROM HOME-REPROTS LEFT TESTICULAR PAIN BEGINNING ON MONDAY-WORSENING WITH TIME-DENIES INJURY- DENIES DIFFICUTLY WITH URINATION-STATES IT FEELS LIKE SOMEONE IS STICKING NEEDLES IN ME Triage Nursing Assessment: PT PINK WARM ET [id number] QUESTIONS CORRECTLY-NO SWELLING NOTED-NO INJURY Severity of Pain-Max: severe Severity of Pain-Current: moderate Hx Tetanus, Diphtheria Vaccination/Date Given: Yes Hx Influenza Vaccination/Date Given: Yes Hx Pneumococcal Vaccination/Date Given: Yes Immunizations Up to Date: Yes <PATRICIA CHAVEZ - Last Filed: 07/02/17 18:50> <TREV MENJIVAR - Last Filed: 07/02/17 21:08> - History of Present Illness Time Seen by Provider: 07/02/17 18:18 Physician History: CC: left testicle pain Hx: 77 y/o patient of Dr Torres. He has left testicle pain for 3 days. It is some better but now markedly swollen. No fever or chills. He is able to urinate. Prior prostatectomy for BPH. Came to ER per EMS. (PATRICIA CHAVEZ) Allergies/Adverse Reactions: Sulfa (Sulfonamide Antibiotics) Allergy (Unknown, Verified 07/02/17 18:07) STATES CAN'T REMEMBER THE REACTION, BUT TOLD NOT TO TAKE IT ANYMORE. Home Medications: Metoprolol Tartrate 50 mg [Lopressor 50 MG] 50 mg PO DAILY 04/13/13 [ History] Warfarin Sodium 7 mg PO DAILY 04/13/13 [History] - Past Medical History Pertinent Past Medical History: Yes Neurological History: Stroke ENT History: Cataracts Cardiac History: Arrhythmia, Hypertension Respiratory History: No Pertinent History Endocrine Medical History: No Pertinent History Musculoskeletal History: Arthritis GI Medical History: No Pertinent History History: No Pertinent History Psycho-Social History: No Pertinent History Male Reproductive Disorders: No Pertinent History Other Medical History: R CVA W/ L HEMIPLEGIA 2003, A FIB. - Past Surgical History Past Surgical History: Yes Neuro Surgical History: No Pertinent History Cardiac: No Pertinent History Respiratory: No Pertinent History Gastrointestinal: No Pertinent History Genitourinary: No Pertinent History Musculoskeletal: No Pertinent History Male Surgical History: Prostate Surgery Other Surgical History: Prostate removed 2003, right hip replacement 2014 - Social History Smoking Status: Former smoker Exposure to second hand smoke: No Drug Use: none Patient Lives Alone: No <CHAVEZPATRICIA COUCH - Last Filed: 07/02/17 18:50> - Review of Systems Constitutional: Malaise, No Fever, No Chills Eyes: No Symptoms Ears, Nose, & Throat: No Symptoms Respiratory: No Cough, No Dyspnea Cardiac: No Chest Pain Abdominal/Gastrointestinal: No Abdominal Pain, No Nausea, No Vomiting Genitourinary Symptoms: Testicle Pain (left), Penile Discharge (clear), No Dysuria Skin: No Rash Neurological: No Headache All Other Systems: Reviewed and Negative <SCOTTIDRIS - Last Filed: 07/02/17 18:50> - Physical Exam General Appearance: alert Eye Exam: PERRL/EOMI Ears, Nose, Throat Exam: moist mucous membranes Neck Exam: normal inspection, non-tender, supple Respiratory Exam: normal breath sounds Cardiovascular Exam: regular rate/rhythm Gastrointestinal/Abdomen Exam: soft, No tenderness, No distention Male Genital Exam: uncircumcised (left testicle tender with firm induration, clear penile discharge, phimosis, atrophic right testicle.) Extremity Exam: normal inspection, normal range of motion Neurologic Exam: alert, oriented x 3, cooperative, sensation nml, No motor deficits Skin Exam: warm, dry, No rash Lymphatic Exam: inguinal node tender (L) SpO2 Interpretation: normal SpO2: 94 Oxygen Delivery: Room Air <PATRICIA CHAVEZ - Last Filed: 07/02/17 18:50> - Nursing Vital Signs Nursing Vital Signs: Initial Vital Signs Temperature 98.3 F 07/02/17 18:06 Pulse Rate 73 07/02/17 18:06 Respiratory Rate 20 07/02/17 18:06 Blood Pressure 138/62 07/02/17 18:06 O2 Sat by Pulse Oximetry 94 L 07/02/17 18:06 Pain Scale Pain Intensity 1 - Course Nursing assessment & vital signs reviewed: Yes <PATRICIA CHAVEZ - Last Filed: 07/02/17 18:50> - Radiology Ultrasound Exam Scrotal Ultrasound: Other (TECH REPORT: NO TORSION. EPIDIDYMITIS.) <TREV MENJIVAR - Last Filed: 07/02/17 21:08> Ordered Tests: Active Orders 24 hr Category Date Time Status Clean Catch Urine Specimen STAT Care 07/02/17 18:18 Active IV Insertion STAT Care 07/02/17 18:18 Active TESTICLE [US] Stat Exams 07/02/17 19:15 Taken BLOOD CULTURE Stat Lab 07/02/17 18:30 Received CBC W DIFF Stat Lab 07/02/17 18:40 Completed CMP Stat Lab 07/02/17 18:40 Completed CULTURE,URINE Stat Lab 07/02/17 18:18 Ordered Lactic Acid Stat Lab 07/02/17 18:18 Completed PROTIME WITH INR Stat Lab 07/02/17 18:40 Completed UA W/RFX UR CULTURE Stat Lab 07/02/17 18:18 Ordered Medication Summary Discontinued Medications Generic Name Dose Route Start Last Admin Trade Name Freq PRN Reason Stop Dose Admin Clindamycin HCl/Dextrose 900 mg in 50 mls @ 100 mls/hr 07/02/17 19:15 19:24 Clindamycin-D5w 900 Mg/50 Ml IV 07/02/17 19:44 100 mls/hr STAT STA Administration Clindamycin HCl/Dextrose Confirm 07/02/17 19:19 Clindamycin-D5w 900 Mg/50 Ml Administered 07/02/17 19:20 Dose 900 mg in 50 mls @ ud IV .STK-MED ONE Sodium Chloride 1,000 mls @ 999 mls/hr 07/02/17 19:21 07/02/17 19:25 Sodium Chloride 0.9% 1000 Ml IV 07/02/17 20:21 999 mls/hr .Q1H1M STA Administration Sodium Chloride Confirm 07/02/17 19:26 Sodium Chloride 0.9% 1000 Ml Administered 07/02/17 19:27 Dose 1,000 mls @ ud .ROUTE .STK-MED ONE Lab/Rad Data: Laboratory Result Diagrams 07/02/17 18:40 07/02/17 18:40 Laboratory Results 07/02/17 07/02/17 07/02/17 Range/Units 18:40 18:40 18:40 WBC 15.1 H (4.0-10.5) K/mm3 RBC 4.85 (4.1-5.6) M/mm3 Hgb 15.3 (12.5-18.0) gm/dl Hct 46.4 (42-50) % MCV 95.7 (78-100) fl MCH 31.5 (26-32) pg MCHC 33.0 (32-36) g/dl RDW 13.4 (11.5-14.0) % Plt Count 236 (150-450) K/mm3 MPV 10.8 H (6-9.5) fl Gran % 79.1 H (36.0-66.0) % Lymphocytes % 10.9 L (24.0-44.0) % Monocytes % 9.2 (0.0-12.0) % Eosinophils % 0.5 (0.00-5.0) % Basophils % 0.3 (0.0-0.4) % Basophils # 0.04 (0-0.4) INR 1.50 (0.8-3.0) Sodium 136 (136-145) mEq/L Potassium 3.8 (3.5-5.1) mEq/L Chloride 103 (98-107) mEq/L Carbon Dioxide 21.0 (21-32) mEq/L Anion Gap 15.4 H (5-15) MEQ/L BUN 22 H (9-20) mg/dL Creatinine 1.24 (0.55-1.30) mg/dl Estimated GFR 60 ML/MIN Glucose 139 H (70-110) MG/DL Lactic Acid (0.4-2.0) Calcium 8.7 (8.5-10.1) mg/dL Total Bilirubin 1.40 H (0.2-1.0) mg/dL AST 19 (15-37) U/L ALT 14 (12-78) U/L Alkaline Phosphatase 108 (46-116) U/L Serum Total Protein 7.5 (6.4-8.2) gm/dL Albumin 3.2 L (3.4-5.0) g/dL 07/02/17 Range/Units 18:18 WBC (4.0-10.5) K/mm3 RBC (4.1-5.6) M/mm3 Hgb (12.5-18.0) gm/dl Hct (42-50) % MCV (78-100) fl MCH (26-32) pg MCHC (32-36) g/dl RDW (11.5-14.0) % Plt Count (150-450) K/mm3 MPV (6-9.5) fl Gran % (36.0-66.0) % Lymphocytes % (24.0-44.0) % Monocytes % (0.0-12.0) % Eosinophils % (0.00-5.0) % Basophils % (0.0-0.4) % Basophils # (0-0.4) INR (0.8-3.0) Sodium (136-145) mEq/L Potassium (3.5-5.1) mEq/L Chloride (98-107) mEq/L Carbon Dioxide (21-32) mEq/L Anion Gap (5-15) MEQ/L BUN (9-20) mg/dL Creatinine (0.55-1.30) mg/dl Estimated GFR ML/MIN Glucose (70-110) MG/DL Lactic Acid 1.5 (0.4-2.0) Calcium (8.5-10.1) mg/dL Total Bilirubin (0.2-1.0) mg/dL AST (15-37) U/L ALT (12-78) U/L Alkaline Phosphatase (46-116) U/L Serum Total Protein (6.4-8.2) gm/dL Albumin (3.4-5.0) g/dL <PATRICIA CHAVEZ - Last Filed: 07/02/17 18:50> - Progress Discussed with : Kishor (LKL - [phone]) <TREV MENJIVAR - Last Filed: 07/02/17 21:08> - Progress Progress Note: 07/02/17 18:46 He appears to have left orchitis. 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 Will need Abtx. 07/02/17 18:50 Labs pending. Unable to urinate as yet. Report to Dr Menjivar for further care and disposition. (PATRICIA CHAVEZ) 07/02/17 19:[address] MENJIVAR 1909: PHARYNX PINK, MOIST mm, LUNGS CLEAR, NO CARDIAC RUB, ABDOMINAL B.S. NORMAL, LEFT TESTICLE VERY EDEMATOUS, MILDLY TENDER AND ERYTHEMATOUS, NO ANKLE EDEMA, NO USE OF LEFT UPPER EXTREMITY, GOOD ROM OF LOWER EXTREMITIES, ALERT & COOPERATIVE. (TREV MENJIVAR) <PATRICIA CHAVEZ - Last Filed: 07/02/17 18:50> - Departure Time of Disposition: 21:08 Departure Disposition: Observation Critical Care Time: No <TREV MENJIVAR - Last Filed: 07/02/17 21:08> - Departure Clinical Impression: EPIDIDYMITIS, HTN, ARTHRITIS, HX CVA, HX A.FIB Condition: Stable Referrals: FIDE TORRES MD [Primary Care Provider] -
[2017-07-02 19:00] LABS: INR 1.5 (0.8-3.0)
[2017-07-02 19:12] LABS: ALBUMIN 3.2 g/dL (3.4-5.0); ANION GAP 15.4 MEQ/L (5-15); BILIRUBIN,TOTAL 1.4 mg/dL (0.2-1.0); Calcium 8.7 mg/dL (8.5-10.1); Creatinine 1 1.24 mg/dl (0.55-1.30); Potassium 3.8 mEq/L (3.5-5.1); Total Protein 7.5 gm/dL (6.4-8.2)
[2017-07-02] MEDS ORDERED: CLINDAMYCIN-D5W 900 MG/50 ML*** 900 MG/50 ML BAG IV STA (19:15)
[2017-07-02] MEDS ORDERED: CLINDAMYCIN-D5W 900 MG/50 ML*** 900 MG/50 ML BAG IV ONE (19:19)
[2017-07-02] MEDS ORDERED: Sodium Chloride 0.9% 1000 ML 1,000 ML IV STA (19:21)
[2017-07-02] MEDS ORDERED: Sodium Chloride 0.9% 1000 ML 1,000 ML ONE (19:26)
[2017-07-02] MEDS ORDERED: Phenergan 25 MG INJ IV PRN (21:52)
[2017-07-02] MEDS ORDERED: TYLENOL 325 MG PO PRN (21:52)
[2017-07-02] MEDS: Sodium Chloride 0.9% 1000 ML 1,000 ML IV SCH (22:06)
[2017-07-02 23:57] LABS: Appearance CLEAR (CLEAR)
[2017-07-02 23:59] LABS: Bilirubin NEGATIVE (NEGATIVE); Blood NEGATIVE Ery/ul (0-5); Glucose NEGATIVE (NEGATIVE); Ketones NEGATIVE (NEGATIVE); Leukocyte Esterase NEGATIVE (NEGATIVE); Nitrite NEGATIVE (NEGATIVE); Protein,Urine Dip NEGATIVE (Negative); Urobilinogen 8 mg/dL (0-1)
[2017-07-03] MEDS: CLINDAMYCIN-D5W 600 MG/50 ML*** 600 MG/50 ML BAG IV SCH ×4 (00:34→17:06)
[2017-07-03 06:02] LABS: BASOPHIL % 0.3 % (0.0-0.4); Basophil (Absolute #) 0.04 (0-0.4); Eosinophil % 0.6 % (0.00-5.0); Eosinophil (Absolute #) 0.07 (0-0.5); Granulocyte Absolute (ANC) 9.51 (1.4-6.9); Hematocrit 44.6 % (42-50); Hemoglobin 14.7 gm/dl (12.5-18.0); Lymphocytes % 12.1 % (24.0-44.0); Mean Cell Volume 96.3 fl (78-100); Mean Corpuscular Hemoglobin 31.7 pg (26-32); Mean Platelet Volume 11.2 fl (6-9.5); Monocyte (Absolute #) 1.23 (0.0-1.3); Platelet Count 221 K/mm3 (150-450); Red Blood Count 4.63 M/mm3 (4.1-5.6); Red Cell Distribution Width 13.3 % (11.5-14.0); White Blood Count 12.4 K/mm3 (4.0-10.5)
[2017-07-03 06:29] LABS: ALBUMIN 2.9 g/dL (3.4-5.0); ALKALINE PHOSPHATASE 106 U/L (46-116); ANION GAP 16.4 MEQ/L (5-15); BLOOD UREA NITROGEN 18 mg/dL (9-20); CHLORIDE 103 mEq/L (98-107); Calcium 8.5 mg/dL (8.5-10.1); Carbon Dioxide 20.5 mEq/L (21-32); Creatinine 1 1.03 mg/dl (0.55-1.30); EST GLOMERULAR FILTRATION RATE > 60 ML/MIN; Glucose 109 MG/DL (70-110); Potassium 3.6 mEq/L (3.5-5.1); SGOT/AST 21 U/L (15-37); SGPT/ALT 14 U/L (12-78); SODIUM 136 mEq/L (136-145)
--- NOTE | 2017-07-03 08:28 | PCM.HP ---
History of Present Illness - Chief Complaint Chief Complaint: EPIDIDYMITIS. History of Present Illness: is a 77 year old male who presented to the ER with testicular pain and swelling that began 2 days prior to arrival. He denies any fever, dysuria or other complaints. First noticed tenderness, hasn't had similar incident in the past. - Review of Systems Constitutional: No Fever, No Chills Respiratory: No Cough, No Short Of Breath Abdominal/Gastrointestinal: No Abdominal Pain, No Nausea, No Vomiting, No Diarrhea Genitourinary Symptoms: Testicle Pain, No Dysuria, No Frequency, No Hematuria, No Penile Discharge Skin: No Rash All Other Systems: Reviewed and Negative Medications & Allergies Home Medications: Home Medication List Metoprolol Tartrate 50 mg [Lopressor 50 MG] 50 mg PO DAILY 04/13/13 [ History Confirmed 07/02/17] Warfarin Sodium 7 mg PO DAILY 04/13/13 [History Confirmed 07/02/17] Allergies/Adverse Reactions: Allergies Allergy/AdvReac Type Severity Reaction Status Date / Time Sulfa (Sulfonamide Allergy Unknown Verified 07/02/17 18:07 Antibiotics) Penicillins Allergy Verified 07/03/17 06:34 - Past Medical History Past Medical History: Yes Neurological History: Stroke ENT History: Cataracts Cardiac History: Arrhythmia, Hypertension Respiratory History: No Pertinent History Endocrine Medical History: No Pertinent History Musculoskelatal History: Arthritis GI Medical History: Other History: No Pertinent History Pyscho-Social History: No Pertinent History Male Reproductive Disorders: Scrotal Mass, Other Comment: R CVA W/ L HEMIPLEGIA 2003, A FIB. stomach ulcers, enlarged protate - Past Surgical History Past Surgical History: Yes Neuro Surgical History: No Pertinent History Cardiac History: No Pertinent History Respiratory Surgery: No Pertinent History GI Surgical History: No Pertinent History Genitourinary Surgical Hx: No Pertinent History Musculskeletal Surgical Hx: No Pertinent History Male Surgical History: Prostate Surgery Other Surgical History: Prostate removed 2003, right hip replacement 2014 - Social History Smoking Status: Former smoker Exposure to second hand smoke: No Alcohol: None Drug Use: none - Physical Exam Vital Signs: Vital Signs - 24 hr Temp Pulse Resp BP Pulse Ox 07/03/17 07:46 98.6 F 60 18 104/53 93 L 07/03/17 04:00 98.5 F 57 L 20 159/71 95 07/03/17 00:00 98.5 F 62 20 134/68 95 07/02/17 22:17 98.2 F 64 22 152/73 95 07/02/17 21:05 64 16 115/72 95 07/02/17 19:51 64 16 110/53 93 L 07/02/17 18:51 94 L 07/02/17 18:47 72 18 103/65 92 L 07/02/17 18:06 98.3 F 73 20 138/62 94 L General Appearance: no apparent distress, alert Respiratory Exam: normal breath sounds, lungs clear, No respiratory distress Cardiovascular Exam: regular rate/rhythm, normal heart sounds, normal peripheral pulses Gastrointestinal/Abdomen Exam: soft, normal bowel sounds, No tenderness, No mass Male Genitalia Exam: other (left testicle enlarged, tender and swollen. no obvious fluctuance. warm to palpation, right testicle atrophic) Extremity Exam: normal inspection, normal range of motion, pelvis stable Skin Exam: normal color, warm, dry, No rash Results - Labs Lab/Micro Results: Lab Results-Last 24 Hours 07/02/17 07/03/17 07/03/17 Range/Units 23:35 00:00 05:28 WBC 12.4 H (4.0-10.5) K/mm3 RBC 4.63 (4.1-5.6) M/mm3 Hgb 14.7 (12.5-18.0) gm/dl Hct 44.6 (42-50) % MCV 96.3 (78-100) fl MCH 31.7 (26-32) pg MCHC 33.0 (32-36) g/dl RDW 13.3 (11.5-14.0) % Plt Count 221 (150-450) K/mm3 MPV 11.2 H (6-9.5) fl Gran % 77.0 H (36.0-66.0) % Lymphocytes % 12.1 L (24.0-44.0) % Monocytes % 10.0 (0.0-12.0) % Eosinophils % 0.6 (0.00-5.0) % Basophils % 0.3 (0.0-0.4) % Basophils # 0.04 (0-0.4) Sodium (136-145) mEq/L Potassium (3.5-5.1) mEq/L Chloride (98-107) mEq/L Carbon Dioxide (21-32) mEq/L Anion Gap (5-15) MEQ/L BUN (9-20) mg/dL Creatinine (0.55-1.30) mg/dl Estimated GFR ML/MIN Glucose (70-110) MG/DL Calcium (8.5-10.1) mg/dL Total Bilirubin (0.2-1.0) mg/dL AST (15-37) U/L ALT (12-78) U/L Alkaline Phosphatase (46-116) U/L Serum Total Protein (6.4-8.2) gm/dL Albumin (3.4-5.0) g/dL Ur Collection Type CLEAN CATCH Urine Color PRADEEP (YELLOW) Urine Appearance CLEAR (CLEAR) Urine pH 6.0 (5-6) Ur Specific [place] 1.020 (1.005-1.025) Urine Protein NEGATIVE (Negative) Urine Ketones NEGATIVE (NEGATIVE) Urine Blood NEGATIVE (0-5) Hitesh/ul Urine Nitrite NEGATIVE (NEGATIVE) Urine Bilirubin NEGATIVE (NEGATIVE) Urine Urobilinogen 8 (0-1) mg/dL Ur Leukocyte Esterase NEGATIVE (NEGATIVE) Urine Culture Reflexed NO (NO) Urine Glucose NEGATIVE (NEGATIVE) mg/dL Ur Chlamydia DNA Probe NEGATIVE Urine GC DNA Probe NEGATIVE Specimen Received 07/02/17 2335 07/03/17 Range/Units 05:28 WBC (4.0-10.5) K/mm3 RBC (4.1-5.6) M/mm3 Hgb (12.5-18.0) gm/dl Hct (42-50) % MCV (78-100) fl MCH (26-32) pg MCHC (32-36) g/dl RDW (11.5-14.0) % Plt Count (150-450) K/mm3 MPV (6-9.5) fl Gran % (36.0-66.0) % Lymphocytes % (24.0-44.0) % Monocytes % (0.0-12.0) % Eosinophils % (0.00-5.0) % Basophils % (0.0-0.4) % Basophils # (0-0.4) Sodium 136 (136-145) mEq/L Potassium 3.6 (3.5-5.1) mEq/L Chloride 103 (98-107) mEq/L Carbon Dioxide 20.5 L (21-32) mEq/L Anion Gap 16.4 H (5-15) MEQ/L BUN 18 (9-20) mg/dL Creatinine 1.03 (0.55-1.30) mg/dl Estimated GFR > 60 ML/MIN Glucose 109 (70-110) MG/DL Calcium 8.5 (8.5-10.1) mg/dL Total Bilirubin 1.90 H (0.2-1.0) mg/dL AST 21 (15-37) U/L ALT 14 (12-78) U/L Alkaline Phosphatase 106 (46-116) U/L Serum Total Protein 7.0 (6.4-8.2) gm/dL Albumin 2.9 L (3.4-5.0) g/dL Ur Collection Type Urine Color (YELLOW) Urine Appearance (CLEAR) Urine pH (5-6) Ur Specific [place] (1.005-1.025) Urine Protein (Negative) Urine Ketones (NEGATIVE) Urine Blood (0-5) Hitesh/ul Urine Nitrite (NEGATIVE) Urine Bilirubin (NEGATIVE) Urine Urobilinogen (0-1) mg/dL Ur Leukocyte Esterase (NEGATIVE) Urine Culture Reflexed (NO) Urine Glucose (NEGATIVE) mg/dL Ur Chlamydia DNA Probe Urine GC DNA Probe Specimen Received Assessment/Plan (1) Epididymo-orchitis Current Visit: Yes Status: Acute Assessment & Plan: currently on clindamycin, will continue. had testicular u/s in ER with apparently no abscess, showed epididymitis. GC/CT are negative, will monitor for improvement. Code(s): N45.3 - EPIDIDYMO-ORCHITIS (2) Atrial fibrillation Current Visit: No Status: Acute Qualifiers: Assessment & Plan: continue warfarin and metoprolol Code(s): I48.91 - UNSPECIFIED ATRIAL FIBRILLATION
--- NOTE | 2017-07-03 08:40 | XRAY ---
Indication: Left scrotal pain and swelling. Two-dimensional testicular sonogram performed. Comparison: None Right testicle measures 4.5 x 2.4 x 3.0 cm and the left measures 4.6 x 3.5 x 2.8 cm. Color Doppler flow present, hyperemic on the left. There is moderate left-sided hydrocele with low-level echogenicities. Right epididymis within normal limits with tiny 6 mm cyst. Left epididymis enlarged measuring 1.5 x 2.5 x 1.2 cm with increased color flow. Incidental left epididymal cysts, largest 8 mm. No solid extratesticular mass. Impression: Sonographic features favoring left-sided epididymoorchitis with reactive hydrocele. Tiny bilateral epididymal cysts. Comment: Preliminary report was given.
[2017-07-03] MEDS: Sodium Chloride 0.9% 1000 ML 1,000 ML IV SCH ×2 (09:17→17:47)
[2017-07-03] MEDS ORDERED: WARFARIN SODIUM 7 MG PO SCH (10:00)
[2017-07-03] MEDS: Lopressor 50 MG PO SCH (10:29)
[2017-07-03] MEDS ORDERED: IMODIUM 2 MG PO PRN (16:56)
[2017-07-03] MEDS ORDERED: Coumadin 2 MG PO SCH (18:00)
[2017-07-03] MEDS ORDERED: Coumadin 5 MG PO SCH (18:00)
[2017-07-04] MEDS: CLINDAMYCIN-D5W 600 MG/50 ML*** 600 MG/50 ML BAG IV SCH ×3 (00:07→12:02)
[2017-07-04 07:29] LABS: INR 1.43 (0.8-3.0)
[2017-07-04 07:36] LABS: BASOPHIL % 0.3 % (0.0-0.4); Basophil (Absolute #) 0.03 (0-0.4); Eosinophil % 2.3 % (0.00-5.0); Eosinophil (Absolute #) 0.22 (0-0.5); Granulocyte Absolute (ANC) 6.61 (1.4-6.9); Hematocrit 43.5 % (42-50); Hemoglobin 14.3 gm/dl (12.5-18.0); Lymphocyte (Absolute #) 1.85 (1.0-4.6); Mean Cell Volume 96.5 fl (78-100); Mean Corpuscular Hemoglobin 31.7 pg (26-32); Mean Corpuscular Hgb Concent. 32.9 g/dl (32-36); Mean Platelet Volume 11.6 fl (6-9.5); Monocyte (Absolute #) 1.01 (0.0-1.3); Monocytes % 10.4 % (0.0-12.0); Platelet Count 221 K/mm3 (150-450); Red Blood Count 4.51 M/mm3 (4.1-5.6); Red Cell Distribution Width 13.3 % (11.5-14.0); White Blood Count 9.7 K/mm3 (4.0-10.5)
--- NOTE | 2017-07-04 08:06 | PCM.NOTE ---
Date and Time: 07/04/17800 Subjective Assessment: Pt complains to me of slurred speech this morning that is new on onset, he thinks since 5 or 6 am. He has a hx CVA affecting his L side. He is denying any pain or paresthesia this morning. the L testical is much smaller and much less tender. - Review of Systems Constitutional: No Fever Objective Exam General Appearance: no apparent distress, anxiety Neurologic Exam: alert, cooperative, other (His speech slurred, R cotton roll packer 1/5. L cotton roll packer 3/5. CN III-XII intact bilat. Lower extremities movement intact bilat.) Skin Exam: normal color, warm, dry Neck Exam: normal inspection Respiratory Exam: normal breath sounds, lungs clear, No crackles/rales, No rhonchi, No wheezing Cardiovascular Exam: regular rate/rhythm, normal heart sounds, No murmur Extremity Exam: No pedal edema, No swelling Male Genitalia Exam: other (L testicle enlarged and firm, mildly ttp. no exudates or lesions.) OBJECTIVE DATA Vital Signs: Vital Signs - 24 hr Temp Pulse Resp BP Pulse Ox 07/04/17 07:33 97.4 F 52 L 18 139/65 93 L 07/04/17 04:00 97.6 F 55 L 28 H 132/62 93 L 07/04/17 00:00 97.8 F 58 L 20 132/59 93 L 07/03/17 20:00 98.0 F 55 L 18 152/67 96 07/03/17 16:00 98.5 F 61 22 146/68 94 L 07/03/17 12:00 98.2 F 63 20 133/61 92 L Oxygen-Last 24 hours O2 Percentage 2 Liters = 28% Pain Assessment - Last Documented Pain Intensity 0 Pain Scale Used 0-10 Pain Scale Intake and Output: Intake & Output 07/01/17 07/02/17 07/03/17 07/04/17 11:59 11:59 11:59 11:59 Intake Total 848 2915 Output Total 671 550 Balance 173 2365 Weight 119.068 kg 119.4 kg Lab Results: Lab Results-Last 24 Hours 07/04/17 Range/Units 05:15 WBC 9.7 (4.0-10.5) K/mm3 RBC 4.51 (4.1-5.6) M/mm3 Hgb 14.3 (12.5-18.0) gm/dl Hct 43.5 (42-50) % MCV 96.5 (78-100) fl MCH 31.7 (26-32) pg MCHC 32.9 (32-36) g/dl RDW 13.3 (11.5-14.0) % Plt Count 221 (150-450) K/mm3 MPV 11.6 H (6-9.5) fl Gran % 68.0 H (36.0-66.0) % Lymphocytes % 19.0 L (24.0-44.0) % Monocytes % 10.4 (0.0-12.0) % Eosinophils % 2.3 (0.00-5.0) % Basophils % 0.3 (0.0-0.4) % Basophils # 0.03 (0-0.4) Radiology Exams: Radiology Procedures Category Date Time Status HEAD WITHOUT CONTRAST [CT] Stat Exams 07/04/17 07:58 Ordered Assessment/Plan (1) Slurred speech Current Visit: Yes Status: Acute Assessment & Plan: concern for new CVA. Stat CT head this morning, followed by MRI if negative. ST consult, pt NPO until then. He also has a new deficit in strength of RUE. Code(s): R47.81 - SLURRED SPEECH (2) Epididymo-orchitis Current Visit: Yes Status: Acute Assessment & Plan: Pt indicates this is improved. There is still noticeable enlargement and induration of L testicle. Remain on abx. Check CBC again. Code(s): N45.3 - EPIDIDYMO-ORCHITIS (3) Atrial fibrillation Current Visit: No Status: Chronic Qualifiers: Atrial fibrillation type: chronic Assessment & Plan: on warfarin, but INR was 1.5 when pt was admitted. recheck. Code(s): I48.91 - UNSPECIFIED ATRIAL FIBRILLATION (4) Hemiplegia affecting left nondominant side Current Visit: No Status: Chronic Qualifiers: Hemiplegia type: flaccid Hemiplegia etiology: cerebrovascular Cerebrovascular disease type: unspecified Qualified Code(s): I67.9 - Cerebrovascular disease, unspecified; G81.04 - Flaccid hemiplegia affecting left nondominant side; G81.04 - Flaccid hemiplegia affecting left nondominant side; G81.04 - Flaccid hemiplegia affecting left nondominant side Code(s): G81.94 - HEMIPLEGIA, UNSPECIFIED AFFECTING LEFT NONDOMINANT SIDE
[2017-07-04 08:25] LABS: BLOOD UREA NITROGEN 14 mg/dL (9-20); CHLORIDE 108 mEq/L (98-107); Calcium 8.5 mg/dL (8.5-10.1); Carbon Dioxide 19.3 mEq/L (21-32); Creatinine 1 1.07 mg/dl (0.55-1.30); EST GLOMERULAR FILTRATION RATE > 60 ML/MIN; Glucose 107 MG/DL (70-110); Potassium 3.6 mEq/L (3.5-5.1); SODIUM 139 mEq/L (136-145)
--- NOTE | 2017-07-04 09:00 | XRAY ---
Indication: Slurred speech. History stroke. Multiple contiguous axial images obtained through the head without contrast. Comparison: May 14, 2017. Again age-appropriate global atrophy and mild periventricular degenerative micro-ischemia bilaterally. Also stable small old infarcts in the right mid periventricular region, right occipital lobe, and left frontal lobe. No acute intracranial hemorrhage, hydrocephalus, or mass effect. Fourth ventricle is midline. Bony calvarium intact. Stable incidental paranasal sinus polyps/retention cysts. Impression: 1. Stable nonacute senile brain with again multifocal remote infarcts bilaterally. 2. Stable incidental paranasal sinus polyps/retention cysts. CT DI 69.52
[2017-07-04] MEDS: Lopressor 50 MG PO SCH (09:04)
[2017-07-04] MEDS: Sodium Chloride 0.9% 1000 ML 1,000 ML IV SCH (10:18)
--- NOTE | 2017-07-04 13:27 | XRAY ---
Indication: Slurred speech. Possible CVA. Conventional contrast-enhanced CTA carotid arteries of the neck performed using 100 cc Isovue 370 contrast. Two-dimensional sagittal and coronal reformatted images obtained. Additional three-dimensional reformatted images obtained using a separate workstation. Comparison: None Visualized aortic arch is mildly calcified without aneurysm. Anatomic variant for bovine arch. Examination of the right carotid circulation demonstrates normal course and caliber of the common carotid artery. Very minimal punctate plaquing seen at the level of the bulb extending into the origin of the external carotid artery. Remaining internal and external carotid arteries normal in CTA appearance. Examination of the left carotid circulation demonstrates a few punctate plaquing in the mid common carotid. Minimal eccentric calcified plaquing at the level of the bulb and origin of the internal and external carotid arteries. No critical stenosis or poststenotic dilatation. Remaining visualized internal and external carotid arteries normal in CTA appearance. Vertebral arteries are bilaterally patent. Left vertebral artery is larger in size. Visualized soft tissues demonstrates biapical subpleural cystic changes. Thyroid gland enhances homogeneously. CT head reported separately. Cervical spine demonstrates lordotic reversal and C4-T1 degenerative spondylosis. Old right clavicle head fracture. Impression: 1. Anatomic variant for bovine aortic arch. 2. Very minimal carotid plaquing bilaterally as detailed. Negative for critical stenosis, obstruction, or AV malformation. CT DI 89.54
--- NOTE | 2017-07-04 13:28 | XRAY ---
Indication: Slurred speech. Possible CVA. Conventional contrast-enhanced CTA head performed using 100 cc Isovue 370 contrast. Two-dimensional sagittal and coronal reformatted images obtained. Additional three-dimensional reformatted images obtained using a separate workstation. Comparison: None CTA neck and CT head reported separately. Distal internal carotid arteries are bilaterally symmetric with mild bilateral calcifications at the level of the parasellar segments. No critical stenosis or obstruction. Normal carotid terminus with normal branching A1 and M1 segments bilaterally. More distal anterior and middle cerebral arteries are normal in CTA appearance. Anterior [place] indicating and posterior communicating arteries not seen presumed too small for resolution of exam. Examination of the posterior circulation demonstrates distal vertebral arteries patent with left larger in size. Normal branching posterior inferior cerebellar arteries bilaterally. Basilar artery is normal in course and caliber with normal branching superior cerebellar and anterior inferior cerebellar arteries bilaterally. Normal appearing basilar tip and posterior cerebral arteries bilaterally. No AV malformation. Venous drainage including superior/inferior sagittal, transverse, and sigmoid sinuses unremarkable. Impression: Mild bilateral parasellar internal carotid artery calcifications without critical stenosis/obstruction. Remaining CTA [place] point of [place] is negative. CT DI 89.54
[2017-07-04 16:38] VITALS: BP 143/63; PULSE 51; O2SAT 94
== END 2017-07-04 17:55 | disposition home or self-care (01) | DRG 728 ==
LOC: ED 18:05 → MED SURG 21:37 → OBSVTOIN 07-04 08:01
PROVIDERS: ADMIT Family Medicine; ATTEND Family Medicine
DX: N45.1 Epididymitis (principal); N45.3 Epididymo-orchitis; G81.94 Hemiplegia, unspecified affecting left nondominant side; Z86.73 Personal history of transient ischemic attack (TIA), and cerebral infarction without residual deficits; I48.91 Unspecified atrial fibrillation; I10 Essential (primary) hypertension; M19.90 Unspecified osteoarthritis, unspecified site; N40.0 Benign prostatic hyperplasia without lower urinary tract symptoms; Z87.891 Personal history of nicotine dependence; R47.81 Slurred speech
CPT/HCPCS: 36000; 36415; 70450; 70496; 70498; 76870; 80048; 80053; 81002; 83605; 85025; 85610; 87040; 87077; 87086; 87186; 87491; 87591; 93268; 94760; 96360; 96365; 99285; G0378; A9270-GY

== ENCOUNTER 2018-02-26 17:51 | Inpatient (IN) | payer MEDICARE, OTHER ==
[2018-02-26] MEDS ORDERED: Sodium Chloride 0.9% 1000 ML 1,000 ML ONE (18:07)
--- NOTE | 2018-02-26 18:10 | ERPHSYRPT ---
- History of Present Illness Time Seen by Provider: 02/26/18 18:05 Source: patient, EMS Exam Limitations: no limitations Patient Subjective Stated Complaint: pt here for weakness sudden onset today, was unable to get self out of chair, pt has no other cos Triage Nursing Assessment: pt alert, slurred speech but is normal for pt he had old stroke in past that also left side, he has minimal movement of left arm and leg, pt skin is hot to touch , pink ,no edema Physician History: 77 y/o white male with h/o stroke, htn and afib with residual speech difficulties and left side flaccidity. pt primary c/o weakness that began this am. ordinarily he can maneuver around using his right side. unable to do so today. pt denies cp, pt denies cough, soa, and abd pain. pt denies vomiting and denies diarrhea Timing/Duration: today Severity: moderate Associated Symptoms: fever, weakness, No nausea, No vomiting, No abdominal pain , No shortness of breath, No heartburn, No diaphoresis, No cough, No chest pain , No malaise, No rash, No syncope Allergies/Adverse Reactions: Sulfa (Sulfonamide Antibiotics) Allergy (Unknown, Verified 02/26/18 18:00) STATES CAN'T REMEMBER THE REACTION, BUT TOLD NOT TO TAKE IT ANYMORE. Penicillins Allergy (Verified 02/26/18 18:00) Home Medications: Metoprolol Tartrate 50 mg [Lopressor 50 MG] 50 mg PO DAILY 04/13/13 [ History] Warfarin Sodium 10 mg PO DAILY 04/13/13 [History] Hx Tetanus, Diphtheria Vaccination/Date Given: Yes Hx Influenza Vaccination/Date Given: No Hx Pneumococcal Vaccination/Date Given: Yes Immunizations Up to Date: Yes - Review of Systems Constitutional: Fever, Fatigue, Weakness Eyes: No Symptoms, No Eye Pain Ears, Nose, & Throat: No Symptoms, No Ear Pain, No Nose Congestion, No Mouth Pain, No Throat Pain, No Throat Swelling Respiratory: No Symptoms, No Cough, No Dyspnea, No Wheezing Cardiac: No Symptoms, No Chest Pain, No Palpitations, No Syncope Abdominal/Gastrointestinal: No Symptoms, No Abdominal Pain, No Nausea, No Vomiting, No Diarrhea Genitourinary Symptoms: No Symptoms, No Dysuria, No Frequency, No Hematuria Musculoskeletal: No Symptoms, No Back Pain, No Neck Pain Skin: No Symptoms Neurological: No Symptoms, No Dizziness, No Focal Weakness Psychological: No Symptoms Hematologic/Lymphatic: No Symptoms Immunological/Allergic: No Symptoms All Other Systems: Reviewed and Negative - Past Medical History Pertinent Past Medical History: Yes Neurological History: Stroke ENT History: Cataracts Cardiac History: Arrhythmia, Hypertension Respiratory History: No Pertinent History Endocrine Medical History: No Pertinent History Musculoskeletal History: Arthritis GI Medical History: Other History: No Pertinent History Psycho-Social History: No Pertinent History Male Reproductive Disorders: Scrotal Mass, Other Other Medical History: R CVA W/ L HEMIPLEGIA 2003, A FIB. stomach ulcers, enlarged protate - Past Surgical History Past Surgical History: Yes Neuro Surgical History: No Pertinent History Cardiac: No Pertinent History Respiratory: No Pertinent History Gastrointestinal: No Pertinent History Genitourinary: No Pertinent History Musculoskeletal: No Pertinent History Male Surgical History: Prostate Surgery Other Surgical History: Prostate removed 2003, right hip replacement 2014 - Social History Smoking Status: Former smoker Exposure to second hand smoke: No Drug Use: none Patient Lives Alone: No - Nursing Vital Signs Nursing Vital Signs: Initial Vital Signs Temperature 101.7 F 02/26/18 17:52 Pulse Rate 105 H 02/26/18 17:52 Respiratory Rate 18 02/26/18 17:52 Blood Pressure 128/62 02/26/18 17:52 O2 Sat by Pulse Oximetry 92 L 02/26/18 17:52 Pain Scale Pain Intensity 0 - Physical Exam General Appearance: mild distress, alert Eye Exam: PERRL/EOMI, eyes nml inspection Ears, Nose, Throat Exam: normal ENT inspection, TMs normal Neck Exam: normal inspection, non-tender, supple, full range of motion Respiratory Exam: normal breath sounds, lungs clear, airway intact, accessory muscle use, wheezing, stridor, No chest tenderness, No respiratory distress Cardiovascular Exam: regular rate/rhythm, normal heart sounds, normal peripheral pulses Gastrointestinal/Abdomen Exam: soft, normal bowel sounds, No tenderness, No guarding, No rebound Rectal Exam: not done Extremity Exam: normal inspection, normal range of motion, pelvis stable Neurologic Exam: alert, oriented x 3, cooperative, slurred speech (chronic), other (chronic left side near completely flaccid) Skin Exam: normal color, warm, dry Lymphatic Exam: No adenopathy SpO2 Interpretation: borderline oxygenation SpO2: 92 Oxygen Delivery: Room Air - Course Nursing assessment & vital signs reviewed: Yes Ordered Tests: Active Orders 24 hr Category Date Time Status Services Executive STAT Care 02/26/18 18:18 Active Clean Catch Urine Specimen STAT Care 02/26/18 18:17 Active EKG-ER Only STAT Care 02/26/18 18:17 Active IV Insertion STAT Care 02/26/18 18:17 Active Oxygen-ED Only NASAL CANNULA 2 lpm Care 02/26/18 18:31 Active Pulse Oximetry (ED) STAT Care 02/26/18 18:17 Active CHEST 1 VIEW (PORTABLE) Stat Exams 02/26/18 18:18 Taken BLOOD CULTURE Stat Lab 02/26/18 Ordered CBC W DIFF Stat Lab 02/26/18 18:35 Completed CMP Stat Lab 02/26/18 18:35 Completed CULTURE,URINE Stat Lab 02/26/18 18:35 Received Lactic Acid Stat Lab 02/26/18 18:25 Results Manual Differential NC Stat Lab 02/26/18 18:35 Completed UA W/ MICROSCOPIC Stat Lab 02/26/18 18:35 Completed Transfer Order Routine Transfer 02/26/18 Ordered Medication Summary Generic Name Dose Route Start Last Admin Trade Name Freq PRN Reason Stop Dose Admin Levofloxacin/Dextrose 750 mg in 150 mls @ 100 mls/hr 02/26/18 19:27 02/26/18 19:49 Levofloxacin 750mg/150ml D5w IV 02/26/18 20:56 100 mls/hr STAT STA 100 mls/hr Administration Discontinued Medications Generic Name Dose Route Start Last Admin Trade Name Freq PRN Reason Stop Dose Admin Acetaminophen 650 mg 02/26/18 18:17 02/26/18 18:33 Tylenol 325 Mg PO 02/26/18 18:18 650 mg STAT STA Administration Acetaminophen Confirm 02/26/18 18:33 Tylenol 325 Mg Administered 02/26/18 18:34 Dose 650 mg .ROUTE .STK-MED ONE Sodium Chloride Confirm 02/26/18 18:07 Sodium Chloride 0.9% 1000 Ml Administered 02/26/18 18:08 Dose 1,000 mls @ ud .ROUTE .STK-MED ONE Sodium Chloride 1,000 mls @ 999 mls/hr 02/26/18 18:17 02/26/18 18:34 Sodium Chloride 0.9% 1000 Ml IV 02/26/18 19:17 999 mls/hr .Q1H1M STA Administration Levofloxacin/Dextrose Confirm 02/26/18 19:43 Levofloxacin 750mg/150ml D5w Administered 02/26/18 19:44 Dose 750 mg in 150 mls @ ud IV .STK-MED ONE Lab/Rad Data: Laboratory Result Diagrams 02/26/18 18:35 02/26/18 18:35 Laboratory Results 02/26/18 02/26/18 02/26/18 Range/Units 18:35 18:35 18:35 WBC 17.3 H (4.0-10.5) K/mm3 RBC 4.64 (4.1-5.6) M/mm3 Hgb 15.2 (12.5-18.0) gm/dl Hct 44.4 (42-50) % MCV 95.7 (78-100) fl MCH 32.8 H (26-32) pg MCHC 34.2 (32-36) g/dl RDW 13.7 (11.5-14.0) % Plt Count 152 (150-450) K/mm3 MPV 11.5 H (6-9.5) fl Absolute Granulocytes 15.59 H (1.4-6.9) Segmented Neutrophils 83 H (36.-66.) % Band Neutrophils 7 H (0.0-2.0) % Lymphocytes (Manual) 5 L (24-44) % Monocytes (Manual) 5 (0.0-12.0) % Platelet Estimate NORMAL (NORMAL) RBC Morphology NORMAL Sodium 139 (137-145) mmol/L Potassium 4.0 (3.5-5.1) mmol/L Chloride 104 (98-107) mmol/L Carbon Dioxide 24 (22-30) mmol/L Anion Gap 15.6 H (5-15) MEQ/L BUN 15 (9-20) mg/dL Creatinine 1.00 (0.66-1.25) mg/dL Estimated GFR > 60.0 ML/MIN Glucose 154 H (74-106) mg/dL Lactic Acid (0.4-2.0) Calcium 9.1 (8.4-10.2) mg/dL Total Bilirubin 1.50 H (0.2-1.3) mg/dL AST 27 (17-59) U/L ALT 25 (0-50) U/L Alkaline Phosphatase 126 (38-126) U/L Serum Total Protein 7.2 (6.3-8.2) g/dL Albumin 4.1 (3.5-5.0) g/dL Ur Collection Type VOID Urine Color YELLOW (YELLOW) Urine Appearance CLOUDY (CLEAR) Urine pH 6.0 (5-6) Ur Specific [place] 1.010 (1.005-1.025) Urine Protein TRACE (Negative) Urine Ketones NEGATIVE (NEGATIVE) Urine Blood 50 (0-5) Hitesh/ul Urine Nitrite NEGATIVE (NEGATIVE) Urine Bilirubin NEGATIVE (NEGATIVE) Urine Urobilinogen NORMAL (0-1) mg/dL Ur Leukocyte Esterase 2+ (NEGATIVE) Urine Microscopic RBC 5-10 (0-2) /HPF Urine Microscopic WBC 25-50 (0-5) /HPF Ur Epithelial Cells FEW (FEW) /HPF Urine Bacteria MODERATE (NEGATIVE) /HPF Urine Mucus SLIGHT (NEGATIVE) /HPF Urine Culture Reflexed YES (NO) Urine Glucose NEGATIVE (NEGATIVE) mg/dL Specimen Received 02/26/18 1830 02/26/18 Range/Units 18:25 WBC (4.0-10.5) K/mm3 RBC (4.1-5.6) M/mm3 Hgb (12.5-18.0) gm/dl Hct (42-50) % MCV (78-100) fl MCH (26-32) pg MCHC (32-36) g/dl RDW (11.5-14.0) % Plt Count (150-450) K/mm3 MPV (6-9.5) fl Absolute Granulocytes (1.4-6.9) Segmented Neutrophils (36.-66.) % Band Neutrophils (0.0-2.0) % Lymphocytes (Manual) (24-44) % Monocytes (Manual) (0.0-12.0) % Platelet Estimate (NORMAL) RBC Morphology Sodium (137-145) mmol/L Potassium (3.5-5.1) mmol/L Chloride (98-107) mmol/L Carbon Dioxide (22-30) mmol/L Anion Gap (5-15) MEQ/L BUN (9-20) mg/dL Creatinine (0.66-1.25) mg/dL Estimated GFR ML/MIN Glucose (74-106) mg/dL Lactic Acid 2.2 H (0.4-2.0) Calcium (8.4-10.2) mg/dL Total Bilirubin (0.2-1.3) mg/dL AST (17-59) U/L ALT (0-50) U/L Alkaline Phosphatase (38-126) U/L Serum Total Protein (6.3-8.2) g/dL Albumin (3.5-5.0) g/dL Ur Collection Type Urine Color (YELLOW) Urine Appearance (CLEAR) Urine pH (5-6) Ur Specific [place] (1.005-1.025) Urine Protein (Negative) Urine Ketones (NEGATIVE) Urine Blood (0-5) Hitesh/ul Urine Nitrite (NEGATIVE) Urine Bilirubin (NEGATIVE) Urine Urobilinogen (0-1) mg/dL Ur Leukocyte Esterase (NEGATIVE) Urine Microscopic RBC (0-2) /HPF Urine Microscopic WBC (0-5) /HPF Ur Epithelial Cells (FEW) /HPF Urine Bacteria (NEGATIVE) /HPF Urine Mucus (NEGATIVE) /HPF Urine Culture Reflexed (NO) Urine Glucose (NEGATIVE) mg/dL Specimen Received - Progress Progress: improved Progress Note: 02/26/18 20:10 pt feeling better. spoke with dr. ni. ok for levaquin now secondary to pts reaction to penicillin pruritis. cxr no acute process. Discussed with : Terry Will see patient in: hospital (full admit) Counseled pt/family regarding: lab results, diagnosis, rad results - Departure Time of Disposition: 20:00 Departure Disposition: In-patient Admission Clinical Impression: Sepsis, Fever Condition: Stable Critical Care Time: Yes Critical Care Time(excluding separately billable procedures): 30-74 minutes Referrals: FIDE GOODRICH MD [Primary Care Provider] -
[2018-02-26] MEDS ORDERED: TYLENOL 325 MG PO STA (18:17)
[2018-02-26] MEDS ORDERED: Sodium Chloride 0.9% 1000 ML 1,000 ML IV STA (18:17)
[2018-02-26 18:31] LABS: Lactic Acid 2.2 (0.4-2.0)
[2018-02-26] MEDS ORDERED: TYLENOL 325 MG ONE (18:33)
[2018-02-26 18:42] LABS: Granulocyte Absolute (ANC) 15.59 (1.4-6.9); Hematocrit 44.4 % (42-50); Hemoglobin 15.2 gm/dl (12.5-18.0); Mean Cell Volume 95.7 fl (78-100); Mean Corpuscular Hemoglobin 32.8 pg (26-32); Mean Corpuscular Hgb Concent. 34.2 g/dl (32-36); Mean Platelet Volume 11.5 fl (6-9.5); Platelet Count 152 K/mm3 (150-450); Red Blood Count 4.64 M/mm3 (4.1-5.6); Red Cell Distribution Width 13.7 % (11.5-14.0); White Blood Count 17.3 K/mm3 (4.0-10.5)
[2018-02-26 18:55] LABS: Appearance CLOUDY (CLEAR); Bilirubin NEGATIVE (NEGATIVE); Blood 50 Ery/ul (0-5); Glucose NEGATIVE (NEGATIVE); Ketones NEGATIVE (NEGATIVE); Leukocyte Esterase 2+ (NEGATIVE); Mucus SLIGHT /HPF (NEGATIVE); Nitrite NEGATIVE (NEGATIVE); Protein,Urine Dip TRACE (Negative); Urobilinogen NORMAL mg/dL (0-1)
[2018-02-26 18:56] LABS: Bacteria MODERATE /HPF (NEGATIVE); Epithelial Cells FEW /HPF (FEW); WBC 25-50 /HPF (0-5)
[2018-02-26 18:58] LABS: ALBUMIN 4.1 g/dL (3.5-5.0); ALKALINE PHOSPHATASE 126 U/L (38-126); ANION GAP 15.6 MEQ/L (5-15); BLOOD UREA NITROGEN 15 mg/dL (9-20); CHLORIDE 104 mmol/L (98-107); Calcium 9.1 mg/dL (8.4-10.2); Carbon Dioxide 24 mmol/L (22-30); Glucose 154 mg/dL (74-106); SGOT/AST 27 U/L (17-59); SGPT/ALT 25 U/L (0-50); SODIUM 139 mmol/L (137-145); Total Protein 7.2 g/dL (6.3-8.2)
[2018-02-26 19:17] LABS: BAND 7 % (0.0-2.0); Lymphocytes 5 % (24-44); Monocyte 5 % (0.0-12.0); Neutrophils 83 % (36.-66.); Platelet Estimate NORMAL (NORMAL); Total Cells Counted 100
[2018-02-26] MEDS ORDERED: LEVOFLOXACIN 750MG/150ML D5W 750 MG/150 ML BAG IV STA (19:27)
[2018-02-26] MEDS ORDERED: LEVOFLOXACIN 750MG/150ML D5W 750 MG/150 ML BAG IV ONE (19:43)
--- NOTE | 2018-02-26 20:43 | XRAY ---
Indication: Fever and weakness. Comparison: May 14, 2017. Portable demonstrates new bibasilar infiltrates versus atelectasis and small left effusion. Heart is not enlarged. Bony thorax intact again with mild osteopenia and degenerative changes.
[2018-02-26] MEDS ORDERED: TYLENOL 325 MG PO PRN (20:49)
[2018-02-26 22:02] LABS: INR 3.45 (0.8-3.0)
[2018-02-26] MEDS ORDERED: Coumadin 5 MG PO ONE ×2 (22:17→22:38)
[2018-02-26] MEDS ORDERED: NORCO 5/325 MG PO PRN (22:18)
[2018-02-26] MEDS ORDERED: Coumadin 2 MG ONE (23:20)
[2018-02-27 05:36] LABS: BASOPHIL % 0.4 % (0.0-0.4); Basophil (Absolute #) 0.06 (0-0.4); Eosinophil % 0.3 % (0.00-5.0); Eosinophil (Absolute #) 0.05 (0-0.5); Granulocyte Absolute (ANC) 13.36 (1.4-6.9); Granulocytes % 79.9 % (36.0-66.0); Hematocrit 42.3 % (42-50); Lymphocyte (Absolute #) 1.78 (1.0-4.6); Lymphocytes % 10.7 % (24.0-44.0); Mean Cell Volume 97.5 fl (78-100); Mean Corpuscular Hemoglobin 32.3 pg (26-32); Mean Corpuscular Hgb Concent. 33.1 g/dl (32-36); Mean Platelet Volume 11.3 fl (6-9.5); Monocyte (Absolute #) 1.46 (0.0-1.3); Monocytes % 8.7 % (0.0-12.0); Platelet Count 151 K/mm3 (150-450); Red Blood Count 4.34 M/mm3 (4.1-5.6); Red Cell Distribution Width 13.9 % (11.5-14.0); White Blood Count 16.7 K/mm3 (4.0-10.5)
[2018-02-27 06:03] LABS: ALBUMIN 3.6 g/dL (3.5-5.0); ALKALINE PHOSPHATASE 109 U/L (38-126); ANION GAP 11.9 MEQ/L (5-15); BLOOD UREA NITROGEN 14 mg/dL (9-20); CHLORIDE 107 mmol/L (98-107); Calcium 8.5 mg/dL (8.4-10.2); Carbon Dioxide 25 mmol/L (22-30); Creatinine 1 0.92 mg/dL (0.66-1.25); Glucose 116 mg/dL (74-106); NT PRO BNP 583 pg/mL (0-1800); SGOT/AST 22 U/L (17-59); SGPT/ALT 20 U/L (0-50); SODIUM 140 mmol/L (137-145); Total Protein 6.4 g/dL (6.3-8.2)
[2018-02-27 06:12] LABS: INR 3.41 (0.8-3.0)
[2018-02-27] MEDS: Sodium Chloride 0.9% 1000 ML 1,000 ML IV SCH ×2 (07:47→19:31)
--- NOTE | 2018-02-27 08:58 | PCM.HP ---
History of Present Illness - Chief Complaint Chief Complaint: Sepsis, Fever History of Present Illness: is a 77 year old male pt of Dr. Torres with hx CVA x 3 in June 2017 who was so weak he could not get out of bed yesterday. He came to ER and found to be septic with fever to 101.7 and UTI. He was unaware of fever at home. Was david po fine. - Review of Systems Constitutional: Fever, Weakness Neurological: Focal Weakness (residual L arm and leg weakness from CVA) Psychological: No Anxiety, No Depression, No Suicidal Ideations Medications & Allergies Home Medications: Home Medication List Metoprolol Tartrate 50 mg [Lopressor 50 MG] 50 mg PO DAILY 04/13/13 [ History Confirmed 02/26/18] Warfarin Sodium 10 mg PO DAILY 04/13/13 [History Confirmed 07/02/17] Allergies/Adverse Reactions: Allergies Allergy/AdvReac Type Severity Reaction Status Date / Time Sulfa (Sulfonamide Allergy Unknown Verified 02/26/18 18:00 Antibiotics) Penicillins Allergy Verified 02/26/18 18:00 - Past Medical History Past Medical History: Yes Neurological History: Stroke ENT History: Cataracts Cardiac History: Arrhythmia, Hypertension, Other Respiratory History: No Pertinent History Endocrine Medical History: No Pertinent History Musculoskelatal History: Arthritis GI Medical History: Ulcer History: No Pertinent History Pyscho-Social History: No Pertinent History Male Reproductive Disorders: Scrotal Mass, Other Comment: R CVA W/ L HEMIPLEGIA 2003, A FIB. stomach ulcers, enlarged protate, chronic UTI , patient says he has a "small hole in the back of his heart" - Past Surgical History Past Surgical History: Yes Neuro Surgical History: No Pertinent History Cardiac History: No Pertinent History Respiratory Surgery: No Pertinent History GI Surgical History: No Pertinent History Genitourinary Surgical Hx: No Pertinent History Musculskeletal Surgical Hx: Joint Replacement Male Surgical History: Prostate Surgery Other Surgical History: Prostate removed 2003, right hip replacement 2014 - Social History Smoking Status: Former smoker Exposure to second hand smoke: No Alcohol: None Drug Use: none - Physical Exam Vital Signs: Vital Signs - 24 hr Temp Pulse Resp BP Pulse Ox 02/27/18 07:35 98.9 F 60 20 127/59 97 02/27/18 04:00 98.8 F 65 17 108/59 94 L 02/27/18 00:00 98.8 F 63 20 117/56 96 02/26/18 21:47 99 F 74 27 H 122/58 91 L 02/26/18 21:24 99 F 74 27 H 122/58 91 L 02/26/18 21:10 74 27 H 94 L 02/26/18 20:32 99.0 F 02/26/18 20:19 92 L 02/26/18 19:50 16 99/59 95 02/26/18 19:09 94 H 16 113/66 93 L 02/26/18 18:32 92 L 02/26/18 18:30 89 L 02/26/18 17:52 101.7 F 105 H 18 128/62 92 L Oxygen-Last 24 hours O2 Percentage 2 Liters = 28% O2 Percentage 3 Liters = 32% O2 Percentage 3 Liters = 32% O2 Percentage 3 Liters = 32% O2 Percentage 3 Liters = 32% O2 Percentage 2 Liters = 28% O2 Percentage 2 Liters = 28% General Appearance: no apparent distress, alert Neurologic Exam: oriented x 3, cooperative Eye Exam: eyes nml inspection Respiratory Exam: normal breath sounds, lungs clear, No crackles/rales, No rhonchi, No wheezing Cardiovascular Exam: regular rate/rhythm, normal heart sounds, No murmur Gastrointestinal/Abdomen Exam: soft, normal bowel sounds, No tenderness, No distention, No guarding, No rebound Back Exam: normal inspection, No CVA tenderness, No rash Extremity Exam: No pedal edema, No swelling Skin Exam: normal color, warm, dry, No rash Results - Labs Lab/Micro Results: Lab Results-Last 24 Hours 02/26/18 02/26/18 02/26/18 Range/Units 18:15 18:25 18:35 WBC 17.3 H (4.0-10.5) K/mm3 RBC 4.64 (4.1-5.6) M/mm3 Hgb 15.2 (12.5-18.0) gm/dl Hct 44.4 (42-50) % MCV 95.7 (78-100) fl MCH 32.8 H (26-32) pg MCHC 34.2 (32-36) g/dl RDW 13.7 (11.5-14.0) % Plt Count 152 (150-450) K/mm3 MPV 11.5 H (6-9.5) fl Gran % (36.0-66.0) % Eos # (Auto) (0-0.5) Absolute Lymphs (auto) (1.0-4.6) Absolute Monos (auto) (0.0-1.3) Lymphocytes % (24.0-44.0) % Monocytes % (0.0-12.0) % Eosinophils % (0.00-5.0) % Basophils % (0.0-0.4) % Absolute Granulocytes 15.59 H (1.4-6.9) Segmented Neutrophils 83 H (36.-66.) % Band Neutrophils 7 H (0.0-2.0) % Lymphocytes (Manual) 5 L (24-44) % Monocytes (Manual) 5 (0.0-12.0) % Basophils # (0-0.4) Platelet Estimate NORMAL (NORMAL) RBC Morphology NORMAL PT 40.6 H (8.83-12.87) SECONDS INR 3.45 H (0.8-3.0) Sodium (137-145) mmol/L Potassium (3.5-5.1) mmol/L Chloride (98-107) mmol/L Carbon Dioxide (22-30) mmol/L Anion Gap (5-15) MEQ/L BUN (9-20) mg/dL Creatinine (0.66-1.25) mg/dL Estimated GFR ML/MIN Glucose (74-106) mg/dL Lactic Acid 2.2 H (0.4-2.0) Calcium (8.4-10.2) mg/dL Total Bilirubin (0.2-1.3) mg/dL AST (17-59) U/L ALT (0-50) U/L Alkaline Phosphatase (38-126) U/L NT-Pro-B Natriuret Pep (0-1800) pg/mL Serum Total Protein (6.3-8.2) g/dL Albumin (3.5-5.0) g/dL Ur Collection Type Urine Color (YELLOW) Urine Appearance (CLEAR) Urine pH (5-6) Ur Specific [place] (1.005-1.025) Urine Protein (Negative) Urine Ketones (NEGATIVE) Urine Blood (0-5) Hitesh/ul Urine Nitrite (NEGATIVE) Urine Bilirubin (NEGATIVE) Urine Urobilinogen (0-1) mg/dL Ur Leukocyte Esterase (NEGATIVE) Urine Microscopic RBC (0-2) /HPF Urine Microscopic WBC (0-5) /HPF Ur Epithelial Cells (FEW) /HPF Urine Bacteria (NEGATIVE) /HPF Urine Mucus (NEGATIVE) /HPF Urine Culture Reflexed (NO) Urine Glucose (NEGATIVE) mg/dL Specimen Received 02/26/18 02/26/18 02/26/18 Range/Units 18:35 18:35 21:12 WBC (4.0-10.5) K/mm3 RBC (4.1-5.6) M/mm3 Hgb (12.5-18.0) gm/dl Hct (42-50) % MCV (78-100) fl MCH (26-32) pg MCHC (32-36) g/dl RDW (11.5-14.0) % Plt Count (150-450) K/mm3 MPV (6-9.5) fl Gran % (36.0-66.0) % Eos # (Auto) (0-0.5) Absolute Lymphs (auto) (1.0-4.6) Absolute Monos (auto) (0.0-1.3) Lymphocytes % (24.0-44.0) % Monocytes % (0.0-12.0) % Eosinophils % (0.00-5.0) % Basophils % (0.0-0.4) % Absolute Granulocytes (1.4-6.9) Segmented Neutrophils (36.-66.) % Band Neutrophils (0.0-2.0) % Lymphocytes (Manual) (24-44) % Monocytes (Manual) (0.0-12.0) % Basophils # (0-0.4) Platelet Estimate (NORMAL) RBC Morphology PT (8.83-12.87) SECONDS INR (0.8-3.0) Sodium 139 (137-145) mmol/L Potassium 4.0 (3.5-5.1) mmol/L Chloride 104 (98-107) mmol/L Carbon Dioxide 24 (22-30) mmol/L Anion Gap 15.6 H (5-15) MEQ/L BUN 15 (9-20) mg/dL Creatinine 1.00 (0.66-1.25) mg/dL Estimated GFR > 60.0 ML/MIN Glucose 154 H (74-106) mg/dL Lactic Acid 1.6 (0.4-2.0) Calcium 9.1 (8.4-10.2) mg/dL Total Bilirubin 1.50 H (0.2-1.3) mg/dL AST 27 (17-59) U/L ALT 25 (0-50) U/L Alkaline Phosphatase 126 (38-126) U/L NT-Pro-B Natriuret Pep (0-1800) pg/mL Serum Total Protein 7.2 (6.3-8.2) g/dL Albumin 4.1 (3.5-5.0) g/dL Ur Collection Type VOID Urine Color YELLOW (YELLOW) Urine Appearance CLOUDY (CLEAR) Urine pH 6.0 (5-6) Ur Specific [place] 1.010 (1.005-1.025) Urine Protein TRACE (Negative) Urine Ketones NEGATIVE (NEGATIVE) Urine Blood 50 (0-5) Hitesh/ul Urine Nitrite NEGATIVE (NEGATIVE) Urine Bilirubin NEGATIVE (NEGATIVE) Urine Urobilinogen NORMAL (0-1) mg/dL Ur Leukocyte Esterase 2+ (NEGATIVE) Urine Microscopic RBC 5-10 (0-2) /HPF Urine Microscopic WBC 25-50 (0-5) /HPF Ur Epithelial Cells FEW (FEW) /HPF Urine Bacteria MODERATE (NEGATIVE) /HPF Urine Mucus SLIGHT (NEGATIVE) /HPF Urine Culture Reflexed YES (NO) Urine Glucose NEGATIVE (NEGATIVE) mg/dL Specimen Received 02/26/18 1830 02/27/18 02/27/18 02/27/18 Range/Units 05:15 05:20 05:25 WBC 16.7 H (4.0-10.5) K/mm3 RBC 4.34 (4.1-5.6) M/mm3 Hgb 14.0 (12.5-18.0) gm/dl Hct 42.3 (42-50) % MCV 97.5 (78-100) fl MCH 32.3 H (26-32) pg MCHC 33.1 (32-36) g/dl RDW 13.9 (11.5-14.0) % Plt Count 151 (150-450) K/mm3 MPV 11.3 H (6-9.5) fl Gran % 79.9 H (36.0-66.0) % Eos # (Auto) 0.05 (0-0.5) Absolute Lymphs (auto) 1.78 (1.0-4.6) Absolute Monos (auto) 1.46 H (0.0-1.3) Lymphocytes % 10.7 L (24.0-44.0) % Monocytes % 8.7 (0.0-12.0) % Eosinophils % 0.3 (0.00-5.0) % Basophils % 0.4 (0.0-0.4) % Absolute Granulocytes 13.36 H (1.4-6.9) Segmented Neutrophils (36.-66.) % Band Neutrophils (0.0-2.0) % Lymphocytes (Manual) (24-44) % Monocytes (Manual) (0.0-12.0) % Basophils # 0.06 (0-0.4) Platelet Estimate (NORMAL) RBC Morphology PT 40.2 H (8.83-12.87) SECONDS INR 3.41 H (0.8-3.0) Sodium (137-145) mmol/L Potassium (3.5-5.1) mmol/L Chloride (98-107) mmol/L Carbon Dioxide (22-30) mmol/L Anion Gap (5-15) MEQ/L BUN (9-20) mg/dL Creatinine (0.66-1.25) mg/dL Estimated GFR ML/MIN Glucose (74-106) mg/dL Lactic Acid 1.2 (0.4-2.0) Calcium (8.4-10.2) mg/dL Total Bilirubin (0.2-1.3) mg/dL AST (17-59) U/L ALT (0-50) U/L Alkaline Phosphatase (38-126) U/L NT-Pro-B Natriuret Pep (0-1800) pg/mL Serum Total Protein (6.3-8.2) g/dL Albumin (3.5-5.0) g/dL Ur Collection Type Urine Color (YELLOW) Urine Appearance (CLEAR) Urine pH (5-6) Ur Specific [place] (1.005-1.025) Urine Protein (Negative) Urine Ketones (NEGATIVE) Urine Blood (0-5) Hitesh/ul Urine Nitrite (NEGATIVE) Urine Bilirubin (NEGATIVE) Urine Urobilinogen (0-1) mg/dL Ur Leukocyte Esterase (NEGATIVE) Urine Microscopic RBC (0-2) /HPF Urine Microscopic WBC (0-5) /HPF Ur Epithelial Cells (FEW) /HPF Urine Bacteria (NEGATIVE) /HPF Urine Mucus (NEGATIVE) /HPF Urine Culture Reflexed (NO) Urine Glucose (NEGATIVE) mg/dL Specimen Received 02/27/18 Range/Units 05:25 WBC (4.0-10.5) K/mm3 RBC (4.1-5.6) M/mm3 Hgb (12.5-18.0) gm/dl Hct (42-50) % MCV (78-100) fl MCH (26-32) pg MCHC (32-36) g/dl RDW (11.5-14.0) % Plt Count (150-450) K/mm3 MPV (6-9.5) fl Gran % (36.0-66.0) % Eos # (Auto) (0-0.5) Absolute Lymphs (auto) (1.0-4.6) Absolute Monos (auto) (0.0-1.3) Lymphocytes % (24.0-44.0) % Monocytes % (0.0-12.0) % Eosinophils % (0.00-5.0) % Basophils % (0.0-0.4) % Absolute Granulocytes (1.4-6.9) Segmented Neutrophils (36.-66.) % Band Neutrophils (0.0-2.0) % Lymphocytes (Manual) (24-44) % Monocytes (Manual) (0.0-12.0) % Basophils # (0-0.4) Platelet Estimate (NORMAL) RBC Morphology PT (8.83-12.87) SECONDS INR (0.8-3.0) Sodium 140 (137-145) mmol/L Potassium 4.0 (3.5-5.1) mmol/L Chloride 107 (98-107) mmol/L Carbon Dioxide 25 (22-30) mmol/L Anion Gap 11.9 (5-15) MEQ/L BUN 14 (9-20) mg/dL Creatinine 0.92 (0.66-1.25) mg/dL Estimated GFR > 60.0 ML/MIN Glucose 116 H (74-106) mg/dL Lactic Acid (0.4-2.0) Calcium 8.5 (8.4-10.2) mg/dL Total Bilirubin 1.90 H (0.2-1.3) mg/dL AST 22 (17-59) U/L ALT 20 (0-50) U/L Alkaline Phosphatase 109 (38-126) U/L NT-Pro-B Natriuret Pep 583 (0-1800) pg/mL Serum Total Protein 6.4 (6.3-8.2) g/dL Albumin 3.6 (3.5-5.0) g/dL Ur Collection Type Urine Color (YELLOW) Urine Appearance (CLEAR) Urine pH (5-6) Ur Specific [place] (1.005-1.025) Urine Protein (Negative) Urine Ketones (NEGATIVE) Urine Blood (0-5) Hitesh/ul Urine Nitrite (NEGATIVE) Urine Bilirubin (NEGATIVE) Urine Urobilinogen (0-1) mg/dL Ur Leukocyte Esterase (NEGATIVE) Urine Microscopic RBC (0-2) /HPF Urine Microscopic WBC (0-5) /HPF Ur Epithelial Cells (FEW) /HPF Urine Bacteria (NEGATIVE) /HPF Urine Mucus (NEGATIVE) /HPF Urine Culture Reflexed (NO) Urine Glucose (NEGATIVE) mg/dL Specimen Received Microbiology 02/26/18 18:35 Urine Culture - Preliminary Urine, Void GRAM NEGATIVE ID AND SENSITIVITY PENDING - Radiology Impressions Radiology Exams & Impressions: Radiology Procedures Category Date Time Status CHEST 1 VIEW (PORTABLE) Stat Exams 02/26/18 18:18 Completed - Other Procedures and Tests Respiratory Therapy 02/26/18 21:26 Oxygen NASAL CANNULA 3 lpm 02/26/18 21:27 Respiratory Therapy Assessment DAILY Assessment/Plan (1) UTI (urinary tract infection) Current Visit: Yes Status: Acute Qualifiers: Urinary tract infection type: acute cystitis Hematuria presence: without hematuria Qualified Code(s): N30.00 - Acute cystitis without hematuria Assessment & Plan: on levaquin. will need to stay at least another day; Dr. Torres to re-evaluate in the morning. Code(s): N39.0 - URINARY TRACT INFECTION, SITE NOT SPECIFIED (2) Fever Current Visit: Yes Status: Acute Qualifiers: Fever type: unspecified Qualified Code(s): R50.9 - Fever, unspecified Code(s): R50.9 - FEVER, UNSPECIFIED (3) Sepsis Current Visit: Yes Status: Acute Qualifiers: Sepsis type: sepsis due to unspecified organism Qualified Code(s): A41.9 - Sepsis, unspecified organism Assessment & Plan: Urine and blood cultures pending. On Levaquin day #2. Feeling much better. (4) Atrial fibrillation Current Visit: No Status: Chronic Qualifiers: Atrial fibrillation type: chronic Code(s): I48.91 - UNSPECIFIED ATRIAL FIBRILLATION (5) Hemiplegia affecting left nondominant side Current Visit: No Status: Chronic Qualifiers: Hemiplegia type: flaccid Hemiplegia etiology: cerebrovascular Cerebrovascular disease type: unspecified Code(s): G81.94 - HEMIPLEGIA, UNSPECIFIED AFFECTING LEFT NONDOMINANT SIDE (6) Anticoagulant long-term use Current Visit: Yes Status: Acute Assessment & Plan: on warfarin alternating 10mg and 9mg; however last night had him take 9mg for th esecond night in a row as INR was between 3 and 4. 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
[2018-02-27] MEDS: Protonix 40MG Tablet PO SCH (13:23)
[2018-02-27] MEDS ORDERED: Coumadin 3 MG PO SCH (18:00)
[2018-02-27] MEDS ORDERED: ZOCOR 20MG PO SCH (22:00)
[2018-02-27] MEDS ORDERED: LEVOFLOXACIN 750MG/150ML D5W 750 MG/150 ML BAG IV SCH (22:00)
[2018-02-27] MEDS ORDERED: Coumadin 2 MG PO ONE (22:38)
[2018-02-28 06:02] LABS: Hemoglobin 14.3 gm/dl (12.5-18.0); Mean Cell Volume 97.7 fl (78-100); Mean Corpuscular Hemoglobin 32.5 pg (26-32); Mean Corpuscular Hgb Concent. 33.3 g/dl (32-36); Mean Platelet Volume 11.7 fl (6-9.5); Platelet Count 143 K/mm3 (150-450); Red Cell Distribution Width 13.9 % (11.5-14.0); White Blood Count 9.6 K/mm3 (4.0-10.5)
[2018-02-28 06:10] LABS: ALBUMIN 3.3 g/dL (3.5-5.0); ALKALINE PHOSPHATASE 110 U/L (38-126); ANION GAP 11.4 MEQ/L (5-15); BLOOD UREA NITROGEN 15 mg/dL (9-20); CHLORIDE 109 mmol/L (98-107); Calcium 8.4 mg/dL (8.4-10.2); Carbon Dioxide 23 mmol/L (22-30); Creatinine 1 0.95 mg/dL (0.66-1.25); Glucose 112 mg/dL (74-106); SGOT/AST 18 U/L (17-59); SGPT/ALT 17 U/L (0-50); SODIUM 139 mmol/L (137-145); Total Protein 6.3 g/dL (6.3-8.2)
[2018-02-28] MEDS: Sodium Chloride 0.9% 1000 ML 1,000 ML IV SCH (06:43)
[2018-02-28 07:50] VITALS: O2SAT 94
[2018-02-28] MEDS: Protonix 40MG Tablet PO SCH (09:20)
--- NOTE | 2018-02-28 09:51 | PCM.DS ---
Discharge Summary Date of Admission: 02/26/18 20:41 Admitting Physician: FIDE GOODRICH Primary Care Provider: FIDE GOODRICH Allergies Allergies Sulfa (Sulfonamide Antibiotics) Allergy (Unknown, Verified 02/26/18 18:00) STATES CAN'T REMEMBER THE REACTION, BUT TOLD NOT TO TAKE IT ANYMORE. Penicillins Allergy (Verified 02/26/18 18:00) Hospital Summary - Hospital Course Hospital Course: patient was admitted with weakness, uti, fever and inability to walk. he has been afebrile, on levaquin which klebsiella in urine is sensitive to. he is feeling normal, able to ambulate and tolerating po well. no fever since 02/26/18 - Vitals & Intake/Output Vital Signs: Vital Signs Temperature 97.8 F 02/28/18 07:49 Pulse Rate 54 L 02/28/18 07:49 Respiratory Rate 18 02/28/18 08:00 Blood Pressure 134/65 02/28/18 07:49 O2 Sat by Pulse Oximetry 94 L 02/28/18 07:49 Oxygen-Last Documented O2 Percentage 3 Liters = 32% Intake & Output: Intake & Output 02/25/18 02/26/18 02/27/18 02/28/18 11:59 11:59 11:59 11:59 Intake Total 1098 3761 Output Total 2350 3100 Balance -1252 661 Weight 118.1 kg - Lab Result Diagrams: 02/28/18 05:20 02/28/18 05:20 Lab Results-Last 24 Hrs: Lab Results-Last 24 Hours 02/28/18 02/28/18 Range/Units 05:20 05:20 WBC 9.6 (4.0-10.5) K/mm3 RBC 4.40 (4.1-5.6) M/mm3 Hgb 14.3 (12.5-18.0) gm/dl Hct 43.0 (42-50) % MCV 97.7 (78-100) fl MCH 32.5 H (26-32) pg MCHC 33.3 (32-36) g/dl RDW 13.9 (11.5-14.0) % Plt Count 143 L (150-450) K/mm3 MPV 11.7 H (6-9.5) fl Sodium 139 (137-145) mmol/L Potassium 4.0 (3.5-5.1) mmol/L Chloride 109 H (98-107) mmol/L Carbon Dioxide 23 (22-30) mmol/L Anion Gap 11.4 (5-15) MEQ/L BUN 15 (9-20) mg/dL Creatinine 0.95 (0.66-1.25) mg/dL Estimated GFR > 60.0 ML/MIN Glucose 112 H (74-106) mg/dL Calcium 8.4 (8.4-10.2) mg/dL Total Bilirubin 1.20 (0.2-1.3) mg/dL AST 18 (17-59) U/L ALT 17 (0-50) U/L Alkaline Phosphatase 110 (38-126) U/L Serum Total Protein 6.3 (6.3-8.2) g/dL Albumin 3.3 L (3.5-5.0) g/dL Micro Results-Entire Visit: Microbiology 02/26/18 18:15 Blood Culture - Preliminary Blood NO GROWTH TO DATE 02/26/18 18:35 Urine Culture - Final Urine, Void Klebsiella Oxytoca - Radiology Exams Ordered Rad Exams-Entire Visit: Radiology Procedures Category Date Time Status CHEST 1 VIEW (PORTABLE) Stat Exams 02/26/18 18:18 Completed - Procedures and Test Procedures and Tests throughout Hospitalization: Therapy Orders & Screens 02/26/18 20:49 Respiratory Therapy Consult ROUTINE Comment: Reason For Exam: 02/26/18 21:26 Oxygen NASAL CANNULA 3 lpm Comment: 02/26/18 21:27 Respiratory Therapy Assessment DAILY Comment: 02/26/18 22:07 ST Screen per Nursing Assess Comment: Protocol Order Physician Instructions: Greater than [address] Admission Screening Reason For Exam: Triggered on Admission Diagnosis: Sepsis, Fever CVA/Dyshpagia/Aphasia: Yes Cognitive Deficits: No Dehydration/Nutrition Deficit: No Reflux: No Oral-Motor Difficulties: Yes Pneumonia: No Prison Resident: No Total Points: 8 Discharge Exam General Appearance: no apparent distress, alert Neurologic Exam: alert, oriented x 3, cooperative Skin Exam: normal color, warm, dry Respiratory Exam: normal breath sounds, lungs clear, No respiratory distress Cardiovascular Exam: regular rate/rhythm, normal heart sounds Gastrointestinal/Abdomen Exam: soft, No tenderness, No mass Final Diagnosis/Problem List - Final Discharge Diagnosis/Problem (1) Sepsis Current Visit: Yes Status: Acute Onset Date: ~02/26/18 Assessment & Plan: resolved, doing well (2) UTI (urinary tract infection) Current Visit: Yes Status: Acute Onset Date: ~02/26/18 Assessment & Plan: home on levaquin (3) Anticoagulant long-term use Current Visit: Yes Status: Chronic Onset Date: ~02/26/18 Assessment & Plan: due to INR 3.4 on arrival and current levaquin use, will decrease dose of coumadin to 8mg daily and repeat INR on monday (4) Atrial fibrillation Current Visit: No Status: Chronic (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 please have your INR checked at the hospital on 03/02/18 in the morning. Follow up with: FIDE GOODRICH MD [Primary Care Provider] - 1 Week
[2018-02-28] MEDS ORDERED: NON-FORMULARY ITEM (Warfarin Sodium [Coumadin] 4 MG) PO SCH (10:00)
[2018-02-28] MEDS ORDERED: NON-FORMULARY ITEM (Atorvastatin Calcium 20 MG) PO SCH (10:00)
[2018-02-28 11:51] VITALS: BP 120/59
[2018-02-28 12:16] VITALS: PULSE 60
[2018-02-28] MEDS ORDERED: Coumadin 5 MG PO SCH (18:00)
== END 2018-02-28 14:30 | disposition home or self-care (01) | DRG 872 ==
LOC: ED 17:51 → MED SURG 20:41
PROVIDERS: ADMIT Family Medicine; ATTEND Family Medicine
DX: A41.9 Sepsis, unspecified organism (principal); N30.00 Acute cystitis without hematuria; G81.94 Hemiplegia, unspecified affecting left nondominant side; B96.1 Klebsiella pneumoniae [K. pneumoniae] as the cause of diseases classified elsewhere; R50.9 Fever, unspecified; R53.1 Weakness; I10 Essential (primary) hypertension; M19.90 Unspecified osteoarthritis, unspecified site; Z86.73 Personal history of transient ischemic attack (TIA), and cerebral infarction without residual deficits; N50.89 Other specified disorders of the male genital organs; I48.91 Unspecified atrial fibrillation; N40.0 Benign prostatic hyperplasia without lower urinary tract symptoms; R47.81 Slurred speech; Z79.01 Long term (current) use of anticoagulants; Z79.899 Other long term (current) drug therapy
CPT/HCPCS: 36415; 71045; 80053; 81000; 83605; 83880; 85025; 85027; 85610; 87040; 87077; 87086; 87186; 93005; 93041; 94760; 96360; 96365; 99285; J1956; A9270-GY

== ENCOUNTER 2019-03-25 08:31 | Emergency (ER) | payer MEDICARE, OTHER ==
--- NOTE | 2019-03-25 09:01 | ERPHSYRPT ---
- History of Present Illness Time Seen by Provider: 03/25/19 08:50 Source: patient Exam Limitations: no limitations Patient Subjective Stated Complaint: Began getting dizzy a couple of weeks ago and the doctor placed him on Losartan on Monday, and yesterday morning he began urinating about every 5 minutes, denies pain on urination, stated that it does smell at times Triage Nursing Assessment: Pt brought in via a wheelchair but he does have a walker with him, vitals wnl, denies pain, pulses normal, S1-S2 sounds heard, bowel sounds heard in all 4, lungs clear Physician History: 78 y/o white male presents with 2 weeks h/o dizziness. pt was seen by pcp 4 days ago. dizziness has persisted. pt was placed on losartan. 3 days ago pt has had urinary frequency with a strong odor. 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 he has a h/o of afib and is taking warfarin. pt also has a h/o recurrent utis. pt denies cp, denies abd pain and denies soa. Timing/Duration: week(s) (2) Severity: mild Associated Symptoms: denies symptoms Allergies/Adverse Reactions: Sulfa (Sulfonamide Antibiotics) Allergy (Unknown, Verified 03/25/19 08:48) STATES CAN'T REMEMBER THE REACTION, BUT TOLD NOT TO TAKE IT ANYMORE. Penicillins Allergy (Verified 03/25/19 08:48) Home Medications: Atorvastatin Calcium [Lipitor 20MG Tablet] 20 mg PO DAILY 02/27/18 [History] Warfarin Sodium 4 mg PO QPM 11/27/18 [History] Warfarin Sodium 5 mg PO QPM 11/27/18 [History] Losartan Potassium 50 mg [Cozaar 50 MG] 50 mg PO BID 03/25/19 [History] Hx Tetanus, Diphtheria Vaccination/Date Given: Yes Hx Influenza Vaccination/Date Given: No Hx Pneumococcal Vaccination/Date Given: Yes - Review of Systems Constitutional: No Symptoms Eyes: No Symptoms Ears, Nose, & Throat: No Symptoms Respiratory: No Symptoms Cardiac: No Symptoms Abdominal/Gastrointestinal: No Symptoms Genitourinary Symptoms: Frequency Musculoskeletal: No Symptoms Skin: No Symptoms Neurological: Dizziness Psychological: No Symptoms Endocrine: No Symptoms Hematologic/Lymphatic: No Symptoms Immunological/Allergic: No Symptoms All Other Systems: Reviewed and Negative - Past Medical History Pertinent Past Medical History: Yes Neurological History: Stroke ENT History: Cataracts Cardiac History: Arrhythmia, Hypertension, Other Respiratory History: No Pertinent History Endocrine Medical History: No Pertinent History Musculoskeletal History: Arthritis GI Medical History: Ulcer History: No Pertinent History Psycho-Social History: No Pertinent History Male Reproductive Disorders: Scrotal Mass, Other Other Medical History: R CVA W/ L HEMIPLEGIA 2003, A FIB. stomach ulcers, enlarged protate, chronic UTI , patient says he has a "small hole in the back of his heart" - Past Surgical History Past Surgical History: Yes Neuro Surgical History: No Pertinent History Cardiac: No Pertinent History Respiratory: No Pertinent History Gastrointestinal: No Pertinent History Genitourinary: No Pertinent History Musculoskeletal: Joint Replacement Male Surgical History: Prostate Surgery Other Surgical History: Prostate removed 2003, right hip replacement 2014 - Social History Smoking Status: Former smoker Exposure to second hand smoke: No Drug Use: none Patient Lives Alone: Yes - Nursing Vital Signs Nursing Vital Signs: Initial Vital Signs Temperature 98.5 F 03/25/19 08:33 Pulse Rate 98 H 03/25/19 08:33 Blood Pressure 116/61 03/25/19 08:33 O2 Sat by Pulse Oximetry 95 03/25/19 08:33 Pain Scale Pain Intensity 0 - Physical Exam General Appearance: no apparent distress, alert Eye Exam: PERRL/EOMI, eyes nml inspection Ears, Nose, Throat Exam: dry mucous membranes Neck Exam: normal inspection, non-tender, supple, full range of motion Respiratory Exam: normal breath sounds, lungs clear, airway intact, No chest tenderness, No respiratory distress Cardiovascular Exam: regular rate/rhythm, normal heart sounds, normal peripheral pulses Gastrointestinal/Abdomen Exam: soft, normal bowel sounds, No tenderness Rectal Exam: not done Back Exam: normal inspection, normal range of motion, No CVA tenderness, No vertebral tenderness Extremity Exam: normal inspection, normal range of motion, pelvis stable Neurologic Exam: alert, oriented x 3, cooperative, motor deficits (left side chronic) Skin Exam: normal color, warm, dry Lymphatic Exam: No adenopathy SpO2 Interpretation: normal SpO2: 95 O2 Delivery: Room Air - Course Nursing assessment & vital signs reviewed: Yes EKG Interpreted by Me: RATE (96), Sinus Rhythm, NORMAL AXIS, NORMAL INTERVALS, NORMAL QRS, Non-specific ST Changes, Other (comparison ekg-SI/QIII persistent. new nonspecific st segment changes) Ordered Tests: Active Orders 24 hr Category Date Time Status Historiography Teacher STAT Care 03/25/19 09:08 Active EKG-ER Only STAT Care 03/25/19 09:07 Active IV Insertion STAT Care 03/25/19 09:07 Active HEAD WITHOUT CONTRAST [CT] Stat Exams 03/25/19 09:08 Completed CBC W DIFF Stat Lab 03/25/19 09:20 Completed CMP Stat Lab 03/25/19 09:20 Completed PT INR [PROTIME WITH INR] Stat Lab 03/25/19 09:20 Completed UA W/RFX UR CULTURE Stat Lab 03/25/19 09:07 Ordered Lab/Rad Data: Laboratory Result Diagrams 03/25/19 09:20 03/25/19 09:20 Laboratory Results 03/25/19 03/25/19 03/25/19 Range/Units 09:20 09:20 09:20 WBC 15.9 H (4.0-10.5) K/mm3 RBC 4.85 (4.1-5.6) M/mm3 Hgb 16.0 (12.5-18.0) gm/dl Hct 47.1 (42-50) % MCV 97.1 (78-100) fl MCH 33.0 H (26-32) pg MCHC 34.0 (32-36) g/dl RDW 13.6 (11.5-14.0) % Plt Count 208 (150-450) K/mm3 MPV 11.6 H (6-9.5) fl Gran % 83.4 H (36.0-66.0) % Eos # (Auto) 0.09 (0-0.5) Absolute Lymphs (auto) 1.41 (1.0-4.6) Absolute Monos (auto) 1.12 (0.0-1.3) Lymphocytes % 8.9 L (24.0-44.0) % Monocytes % 7.0 (0.0-12.0) % Eosinophils % 0.6 (0.00-5.0) % Basophils % 0.1 (0.0-0.4) % Absolute Granulocytes 13.27 H (1.4-6.9) Basophils # 0.02 (0-0.4) PT 28.3 H (8.83-12.87) SECONDS INR 2.46 (0.8-3.0) Sodium 139 (137-145) mmol/L Potassium 4.1 (3.5-5.1) mmol/L Chloride 105 (98-107) mmol/L Carbon Dioxide 20 L (22-30) mmol/L Anion Gap 18.2 H (5-15) MEQ/L BUN 17 (9-20) mg/dL Creatinine 0.91 (0.66-1.25) mg/dL Estimated GFR > 60.0 ML/MIN Glucose 159 H (74-106) mg/dL Calcium 9.1 (8.4-10.2) mg/dL Total Bilirubin 1.70 H (0.2-1.3) mg/dL AST 33 (17-59) U/L ALT 21 (0-50) U/L Alkaline Phosphatase 148 H (38-126) U/L Serum Total Protein 7.9 (6.3-8.2) g/dL Albumin 4.2 (3.5-5.0) g/dL - Progress Progress: unchanged Progress Note: 03/25/19 10:40 pt states he does now recall he fell and hit his head just over [address] head-large right subacute subdural hematoma with a few foci of acute blood with mild mid line shift. spoke with dr. Salgado, [facility] hospitalist, he accepts pt in transfer. Discussed with : Other (dr. Salgado [facility] hospitalist) Counseled pt/family regarding: lab results, diagnosis, rad results - Departure Departure Disposition: Home, Transfer Clinical Impression: Subdural hematoma Condition: Stable Critical Care Time: Yes Critical Care Time(excluding separately billable procedures): Critical 30-74 mins Referrals: FIDE GOODRICH MD [Primary Care Provider] -
[2019-03-25 09:24] LABS: Absolute Neutrophil Ct (ANC) 13.27 (1.4-6.9); BASOPHIL % 0.1 % (0.0-0.4); Basophil (Absolute #) 0.02 (0-0.4); Eosinophil % 0.6 % (0.00-5.0); Eosinophil (Absolute #) 0.09 (0-0.5); Hematocrit 47.1 % (42-50); Lymphocyte (Absolute #) 1.41 (1.0-4.6); Lymphocytes % 8.9 % (24.0-44.0); Mean Cell Volume 97.1 fl (78-100); Mean Platelet Volume 11.6 fl (6-9.5); Monocyte (Absolute #) 1.12 (0.0-1.3); Neutrophil % 83.4 % (36.0-66.0); Platelet Count 208 K/mm3 (150-450); Red Blood Count 4.85 M/mm3 (4.1-5.6); Red Cell Distribution Width 13.6 % (11.5-14.0); White Blood Count 15.9 K/mm3 (4.0-10.5)
[2019-03-25 09:28] LABS: INR 2.46 (0.8-3.0); PROTIME 28.3 SECONDS (8.83-12.87)
[2019-03-25 09:32] LABS: ALBUMIN 4.2 g/dL (3.5-5.0); ALKALINE PHOSPHATASE 148 U/L (38-126); ANION GAP 18.2 MEQ/L (5-15); BLOOD UREA NITROGEN 17 mg/dL (9-20); CHLORIDE 105 mmol/L (98-107); Calcium 9.1 mg/dL (8.4-10.2); Carbon Dioxide 20 mmol/L (22-30); Creatinine 1 0.91 mg/dL (0.66-1.25); Glucose 159 mg/dL (74-106); Potassium 4.1 mmol/L (3.5-5.1); SGOT/AST 33 U/L (17-59); SGPT/ALT 21 U/L (0-50); SODIUM 139 mmol/L (137-145); Total Protein 7.9 g/dL (6.3-8.2)
--- NOTE | 2019-03-25 10:14 | XRAY ---
Indication: Lightheaded 3 weeks. Multiple contiguous axial images obtained through the head without contrast. Comparison: July 04, 2017. Right cerebral convexity demonstrates new large predominantly subacute appearing subdural hematoma at least 1.5 cm in thickness. A few foci of acute blood is present and there is approximately 5 mm midline shifting. Elsewhere stable age-appropriate global atrophy, mild periventricular degenerative micro-ischemia, and old right mid periventricular/basal ganglia infarct. Fourth ventricle is midline without hydrocephalus. Bony calvarium intact. Stable left sphenoid sinus polyp/retention cyst. Remaining visualized paranasal sinuses and mastoid air cells are clear. Impression: 1. New large right cerebral subdural hematoma appearing predominantly subacute in appearance with a few foci of acute blood and mild midline shifting. 2. Stable atrophy, degenerative micro-ischemia, and old right periventricular/basal ganglia infarct. 3. Stable left sphenoid sinus polyp/retention cyst. Comment: Telephone report given to Dr. Hansen in the ER at 0955 hours on March 25, 2019. CT DI 70.94
[2019-03-25 10:22] VITALS: BP 138/61; PULSE 92
[2019-03-25 10:27] LABS: Bilirubin NEGATIVE (NEGATIVE); Glucose NEGATIVE (NEGATIVE); Ketones NEGATIVE (NEGATIVE); Mucus SLIGHT /HPF (NEGATIVE); Nitrite NEGATIVE (NEGATIVE)
[2019-03-25 10:44] VITALS: O2SAT 95
[2019-03-25 10:45] LABS: Epithelial Cells RARE /HPF (FEW)
[2019-03-25 11:01] LABS: Appearance SLIGHTLY CLOUDY (CLEAR)
[2019-03-25 11:02] LABS: Leukocyte Esterase SMALL (NEGATIVE)
[2019-03-25 11:03] LABS: Protein,Urine Dip 30 (Negative)
[2019-03-25 11:04] LABS: Urobilinogen 4 mg/dL (0-1)
[2019-03-25 11:05] LABS: Blood SMALL Ery/ul (0-5); WBC 51-100 /HPF (0-5)
[2019-03-25 11:06] LABS: Bacteria MODERATE /HPF (NEGATIVE)
== END 2019-03-25 11:10 | disposition short-term general hospital (02) ==
LOC: ED 08:31
DX: I62.00 Nontraumatic subdural hemorrhage, unspecified (principal); I10 Essential (primary) hypertension; Z86.73 Personal history of transient ischemic attack (TIA), and cerebral infarction without residual deficits; Z79.01 Long term (current) use of anticoagulants; Z79.899 Other long term (current) drug therapy; Z86.79 Personal history of other diseases of the circulatory system
CPT/HCPCS: 36000; 36415; 70450; 80053; 81001; 85025; 85610; 87077; 87086; 87186; 93005; 93041; 99285; 99291

== ENCOUNTER 2019-11-21 08:07 | Emergency (ER) | payer MEDICARE, OTHER ==
--- NOTE | 2019-11-21 08:31 | ERPHSYRPT ---
- History of Present Illness Time Seen by Provider: 11/21/19 08:25 Source: patient Exam Limitations: no limitations Patient Subjective Stated Complaint: pt to ER with complaints of dizziness/ lightheaded feeling. pt was at coumadin clinic and felt dizzy. pt states he fell 2 weeks ago and hit his head. wasnt checked after that. pt states he felt like this in march when he had a head bleed. Triage Nursing Assessment: pt A&Ox4. pt appears to be unsteady on his feet. pt skin pwd. Physician History: This is an 79-year-old gentleman who is on Coumadin and presented to the Coumadin clinic this morning for his routine blood draw. Today's PT/INR is 30/ 2.61 he had complained of some dizziness and lightheadedness. Patient had similar symptoms back in February 2019 after a fall and hitting his head. At that time he was found to have a head bleed. Patient fell 2 weeks ago and has not been evaluated radiographically. Patient has no visual changes. Patient has chronic changes in his speech from a old CVA. His speech has not changed per his report. Patient has no shortness of breath and has no chest pain. She has no abdominal pain. Patient was sent to the emergency department for further management. Patient denies taking any new medications. Timing/Duration: yesterday Severity: mild Character of Deficits: none Deficits: no difficulties Baseline/Normal Cognition: alert oriented x 3 Current Cognition: alert oriented x 3 Baseline Gait: walks w/o assistance Associated Symptoms: other (Lightheaded and dizziness) Allergies/Adverse Reactions: Sulfa (Sulfonamide Antibiotics) Allergy (Unknown, Verified 11/21/19 08:22) STATES CAN'T REMEMBER THE REACTION, BUT TOLD NOT TO TAKE IT ANYMORE. Penicillins Allergy (Verified 11/21/19 08:22) Home Medications: Atorvastatin Calcium [Lipitor 20MG Tablet] 20 mg PO DAILY 02/27/18 [History] Losartan Potassium 50 mg [Cozaar 50 MG] 50 mg PO BID 03/25/19 [History] Pantoprazole Sodium 40 mg PO DAILY 08/22/19 [History] Hx Tetanus, Diphtheria Vaccination/Date Given: No Hx Influenza Vaccination/Date Given: Yes Hx Pneumococcal Vaccination/Date Given: Yes Immunizations Up to Date: Yes Travel Risk - International Travel Have you traveled outside of the country in past 3 weeks: No (N) Have you or anyone close to you been diagnosed with or: No Do your reside in a community with a known COVID-19 case?: Yes If Yes where:: [place] - Coronavirus Screening Has patient experienced Coronavirus symptoms: No - Review of Systems Constitutional: No Symptoms Eyes: No Symptoms Ears, Nose, & Throat: No Symptoms Respiratory: No Symptoms Cardiac: No Symptoms Abdominal/Gastrointestinal: No Symptoms Genitourinary Symptoms: No Symptoms Musculoskeletal: No Symptoms Skin: No Symptoms Neurological: Dizziness, Other (Mild light headedness), No Headache Psychological: No Symptoms Endocrine: No Symptoms Hematologic/Lymphatic: No Symptoms Immunological/Allergic: No Symptoms All Other Systems: Reviewed and Negative - Past Medical History Pertinent Past Medical History: Yes Neurological History: Stroke ENT History: Cataracts Cardiac History: Arrhythmia, Hypertension, Other Respiratory History: No Pertinent History Endocrine Medical History: No Pertinent History Musculoskeletal History: Arthritis GI Medical History: Ulcer History: No Pertinent History Psycho-Social History: No Pertinent History Male Reproductive Disorders: Scrotal Mass, Other Other Medical History: R CVA W/ L HEMIPLEGIA 2003, A FIB. stomach ulcers, enlarged protate, chronic UTI , patient says he has a "small hole in the back of his heart" - Past Surgical History Past Surgical History: Yes Neuro Surgical History: No Pertinent History Cardiac: No Pertinent History Respiratory: No Pertinent History Gastrointestinal: No Pertinent History Genitourinary: No Pertinent History Musculoskeletal: Joint Replacement Male Surgical History: Prostate Surgery Other Surgical History: Prostate removed 2003, right hip replacement 2014 - Social History Smoking Status: Never smoker Exposure to second hand smoke: No Drug Use: none Patient Lives Alone: Yes - Nursing Vital Signs Nursing Vital Signs: Initial Vital Signs Temperature 97.9 F 11/21/19 08:12 Pulse Rate 84 11/21/19 08:12 Respiratory Rate 24 11/21/19 08:12 Blood Pressure 123/57 11/21/19 08:12 O2 Sat by Pulse Oximetry 94 L 11/21/19 08:12 Pain Scale Pain Intensity 0 - [place] Coma Scale Best Eye Response ([place]): (4) open spontaneously Best Verbal Response ([place]): (5) oriented Best Motor Response ([place]): (6) obeys commands [place] Total: 15 - Physical Exam General Appearance: no apparent distress, alert Eye Exam: bilateral eye: normal inspection, PERRL, EOMI Ears, Nose, Throat Exam: normal ENT inspection, moist mucous membranes Neck Exam: normal inspection, non-tender, supple, full range of motion Respiratory: normal breath sounds, lungs clear, airway intact, No chest tenderness, No respiratory distress Cardiovascular: regular rate/rhythm, normal heart sounds, normal peripheral pulses Gastrointestinal: soft, normal bowel sounds, No tenderness Rectal Exam: not done Back Exam: normal inspection, normal range of motion, No CVA tenderness Extremity Exam: normal inspection, normal range of motion, pelvis stable Mental 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 No comparison EKG) Ordered Tests: Active Orders 24 hr Category Date Time Status Manager Of Maintenance STAT Care 11/21/19 08:49 Active EKG-ER Only STAT Care 11/21/19 08:48 Active IV Insertion STAT Care 11/21/19 08:48 Active NPO (ED) STAT Care 11/21/19 08:48 Active Pulse Oximetry (ED) STAT Care 11/21/19 08:48 Active HEAD WITHOUT CONTRAST [CT] Stat Exams 11/21/19 08:48 Completed CBC W DIFF Stat Lab 11/21/19 08:53 Completed CMP Stat Lab 11/21/19 08:53 Completed TROPONIN Q3H Lab 11/21/19 08:53 Completed TROPONIN Q3H Lab 11/21/19 12:00 Ordered TROPONIN Q3H Lab 11/21/19 15:00 Ordered TROPONIN Q3H Lab 11/21/19 18:00 Ordered TROPONIN Q3H Lab 11/21/19 21:00 Ordered UA W/RFX UR CULTURE Stat Lab 11/21/19 08:48 Uncollected Lab/Rad Data: Laboratory Result Diagrams 11/21/19 08:53 11/21/19 08:53 Laboratory Results 11/21/19 11/21/19 11/21/19 Range/Units 08:53 08:53 08:53 WBC 8.8 (4.0-10.5) K/mm3 RBC 5.02 (4.1-5.6) M/mm3 Hgb 16.4 (12.5-18.0) gm/dl Hct 48.7 (42-50) % MCV 97.0 (78-100) fl MCH 32.7 H (26-32) pg MCHC 33.7 (32-36) g/dl RDW 14.2 H (11.5-14.0) % Plt Count 178 (150-450) K/mm3 MPV 12.1 H (7.5-11.0) fl Gran % 63.6 (36.0-66.0) % Eos # (Auto) 0.09 (0-0.5) Absolute Lymphs (auto) 2.38 (1.0-4.6) Absolute Monos (auto) 0.73 (0.0-1.3) Lymphocytes % 26.9 (24.0-44.0) % Monocytes % 8.3 (0.0-12.0) % Eosinophils % 1.0 (0.00-5.0) % Basophils % 0.2 (0.0-0.4) % Absolute Granulocytes 5.62 (1.4-6.9) Basophils # 0.02 (0-0.4) Sodium 142 (137-145) mmol/L Potassium 4.0 (3.5-5.1) mmol/L Chloride 111 H (98-107) mmol/L Carbon Dioxide 18 L (22-30) mmol/L Anion Gap 16.6 H (5-15) MEQ/L BUN 21 H (9-20) mg/dL Creatinine 1.44 H (0.66-1.25) mg/dL Estimated GFR 50.2 ML/MIN Glucose 175 H (74-106) mg/dL Calcium 9.1 (8.4-10.2) mg/dL Total Bilirubin 1.40 H (0.2-1.3) mg/dL AST 36 (17-59) U/L ALT 26 (0-50) U/L Alkaline Phosphatase 177 H (38-126) U/L Troponin I < 0.012 (0.000-0.034) ng/mL Serum Total Protein 7.9 (6.3-8.2) g/dL Albumin 4.3 (3.5-5.0) g/dL - Progress Progress: unchanged Progress Note: 11/21/19 09:58 CAT scan of the head reveals no acute intracranial abnormalities. Counseled pt/family regarding: lab results, diagnosis, need for follow-up, rad results - Departure Departure Disposition: Home Clinical Impression: Lightheadedness Condition: Stable Critical Care Time: No Referrals: [facility]LOCATION] - Additional Instructions: Continue your medication as prescribed. Follow-up with your primary care physician for persistent symptoms.
[2019-11-21 09:08] LABS: ALBUMIN 4.3 g/dL (3.5-5.0); ANION GAP 16.6 MEQ/L (5-15); BILIRUBIN,TOTAL 1.4 mg/dL (0.2-1.3); Calcium 9.1 mg/dL (8.4-10.2); Creatinine 1 1.44 mg/dL (0.66-1.25); Total Protein 7.9 g/dL (6.3-8.2)
--- NOTE | 2019-11-21 09:35 | XRAY ---
Indication: Lightheaded. Status post frontal head injury following fall 2 weeks ago. Multiple contiguous axial images obtained through the head without contrast. Comparison: March 25, 2019. Previous right cerebral subdural hematoma with midline shifting has resolved. Stable age-appropriate global atrophy, mild/moderate periventricular degenerative micro-ischemia, and small old right mid periventricular infarct. No acute intracranial hemorrhage, hydrocephalus, or mass effect. Fourth ventricle is midline. Bony calvarium intact with 2 new right parietal coral holes. Stable small left frontal/sphenoid/maxillary sinus polyp/retention cyst. Remaining paranasal sinuses and mastoid air cells are clear. Impression: 1. Stable atrophy, degenerative micro-ischemia, small old right periventricular infarct, and paranasal sinus polyps/retention cysts. 2. No acute intracranial abnormalities.
[2019-11-21 09:53] LABS: Absolute Neutrophil Ct (ANC) 5.62 (1.4-6.9); BASOPHIL % 0.2 % (0.0-0.4); Basophil (Absolute #) 0.02 (0-0.4); Eosinophil (Absolute #) 0.09 (0-0.5); Hematocrit 48.7 % (42-50); Hemoglobin 16.4 gm/dl (12.5-18.0); Lymphocyte (Absolute #) 2.38 (1.0-4.6); Lymphocytes % 26.9 % (24.0-44.0); Mean Corpuscular Hemoglobin 32.7 pg (26-32); Mean Corpuscular Hgb Concent. 33.7 g/dl (32-36); Mean Platelet Volume 12.1 fl (7.5-11.0); Monocyte (Absolute #) 0.73 (0.0-1.3); Monocytes % 8.3 % (0.0-12.0); Neutrophil % 63.6 % (36.0-66.0); Platelet Count 178 K/mm3 (150-450); Red Blood Count 5.02 M/mm3 (4.1-5.6); Red Cell Distribution Width 14.2 % (11.5-14.0); White Blood Count 8.8 K/mm3 (4.0-10.5)
[2019-11-21 10:08] VITALS: BP 143/73; PULSE 70; O2SAT 96
== END 2019-11-21 10:22 | disposition home or self-care (01) ==
LOC: ED 08:07
DX: R42 Dizziness and giddiness (principal); Z79.01 Long term (current) use of anticoagulants; Z91.81 History of falling; Z87.828 Personal history of other (healed) physical injury and trauma; Z86.79 Personal history of other diseases of the circulatory system
CPT/HCPCS: 36415; 70450; 80053; 84484; 85025; 85610; 93005; 93041; 94760; 99284

== ENCOUNTER 2020-07-28 13:27 | Emergency (ER) | payer MEDICARE, OTHER ==
--- NOTE | 2020-07-28 13:50 | ERPHSYRPT ---
- History of Present Illness Time Seen by Provider: 07/28/20 13:35 Source: patient Exam Limitations: no limitations Patient Subjective Stated Complaint: L hip pain after fall Triage Nursing Assessment: pt to ED by EMS c/o L hip pain after fall outside today. pt states he lost balance and fell to L side. denies CP, SOB, blurred vision prior to fall. rates 4/10 pain in L hip. no obvious signs of trauma to hip, no shortening or rotation. 2 in approx rounda abrasion noted to L elbow. denies pain there. is on blood thinners but denies hitting head and no LOC. Physician History: Patient is a 80-year-old male presents to our ED via EMS for evaluation of left hip pain. Patient has a history of a stroke affecting his left side. Patient states he tends to fall. Patient was outdoors when he states he lost his balance and fell. The fall was not associated with any neuro cardiovascular symptomology. No chest pain or shortness of breath. No numbness tingling or weakness. Patient's left hip pain described as an ache that is well localized. No radiation. Pain rated 4/10. Pain worse with movement. Patient currently on Coumadin. No BHT or LOC. No neck pain. Cervical spine cleared clinically. Patient voices no other complaints or concerns at this time. Timing/Duration: today Severity: moderate Modifying Factors: Improves With: nothing Associated Symptoms: denies symptoms Allergies/Adverse Reactions: Sulfa (Sulfonamide Antibiotics) Allergy (Unknown, Verified 07/28/20 13:43) STATES CAN'T REMEMBER THE REACTION, BUT TOLD NOT TO TAKE IT ANYMORE. Penicillins Allergy (Verified 07/28/20 13:43) Home Medications: Atorvastatin Calcium [Lipitor 20MG Tablet] 20 mg PO DAILY 02/27/18 [History] Losartan Potassium 50 mg [Cozaar 50 MG] 50 mg PO BID 03/25/19 [History] Pantoprazole Sodium 40 mg PO DAILY 08/22/19 [History] Hx Tetanus, Diphtheria Vaccination/Date Given: No Hx Influenza Vaccination/Date Given: Yes Hx Pneumococcal Vaccination/Date Given: Yes Immunizations Up to Date: Yes Travel Risk - International Travel Have you traveled outside of the country in past 3 weeks: No - Coronavirus Screening Are you exhibiting any of the following symptoms?: No Close contact with a COVID-19 positive Pt in past 14-21 Days: No - Review of Systems Constitutional: No Symptoms Eyes: No Symptoms Ears, Nose, & Throat: No Symptoms Respiratory: No Symptoms, No Cough, No Dyspnea Cardiac: No Symptoms, No Chest Pain, No Edema, No Syncope Abdominal/Gastrointestinal: No Symptoms, No Abdominal Pain, No Nausea, No Vomiting, No Diarrhea Genitourinary Symptoms: No Symptoms, No Dysuria Musculoskeletal: No Symptoms, No Back Pain, No Neck Pain Skin: No Symptoms, No Rash Neurological: No Symptoms, Other (Residual left-sided hemiparesis.), No Dizziness, No Focal Weakness, No Sensory Changes Psychological: No Symptoms Endocrine: No Symptoms Hematologic/Lymphatic: No Symptoms Immunological/Allergic: No Symptoms All Other Systems: Reviewed and Negative - Past Medical History Pertinent Past Medical History: Yes Neurological History: Stroke ENT History: Cataracts Cardiac History: Arrhythmia, Hypertension, Other Respiratory History: No Pertinent History Endocrine Medical History: No Pertinent History Musculoskeletal History: Arthritis GI Medical History: Ulcer History: No Pertinent History Psycho-Social History: No Pertinent History Male Reproductive Disorders: Scrotal Mass, Other Other Medical History: R CVA W/ L HEMIPLEGIA 2003, A FIB. stomach ulcers, enlarged protate, chronic UTI , patient says he has a "small hole in the back of his heart" - Past Surgical History Past Surgical History: Yes Neuro Surgical History: No Pertinent History Cardiac: No Pertinent History Respiratory: No Pertinent History Gastrointestinal: No Pertinent History Genitourinary: No Pertinent History Musculoskeletal: Joint Replacement Male Surgical History: Prostate Surgery Other Surgical History: Prostate removed 2003, right hip replacement 2014 - Social History Smoking Status: Never smoker Exposure to second hand smoke: No Drug Use: none Patient Lives Alone: No - Nursing Vital Signs Nursing Vital Signs: Initial Vital Signs Pulse Rate 85 07/28/20 13:29 Respiratory Rate 20 07/28/20 13:29 Blood Pressure 149/63 07/28/20 13:29 O2 Sat by Pulse Oximetry 93 L 07/28/20 13:29 Pain Scale Pain Intensity 4 - Physical Exam General Appearance: no apparent distress, alert Eye Exam: PERRL/EOMI, eyes nml inspection Ears, Nose, Throat Exam: normal ENT inspection, TMs normal, pharynx normal, moist mucous membranes Neck Exam: normal inspection, non-tender, supple, full range of motion Respiratory Exam: normal breath sounds, lungs clear, No respiratory distress Cardiovascular Exam: regular rate/rhythm, normal heart sounds, normal peripheral pulses Gastrointestinal/Abdomen Exam: soft, normal bowel sounds, No tenderness, No mass Back Exam: normal inspection, normal range of motion, No CVA tenderness, No vertebral tenderness Extremity Exam: normal inspection, normal range of motion, pelvis stable, tenderness (Tenderness palpation of left hip. Overlying soft tissue intact. The involved extremity is neurovascularly intact distally. Compartments are soft. Cap refill less than 2 seconds.), other (Abrasion to left elbow. No elbow pain. No bony tenderness. The involved left upper extremity is neurov ascularly a intact distally.) Neurologic Exam: alert, oriented x 3, cooperative, normal mood/affect, nml cerebellar function, sensation nml, No motor deficits, No disoriented, No confusion, No uncooperative, No intoxicated appearance, No depressed mood/affect, No motor weakness Skin Exam: normal color, warm, dry, No rash Lymphatic Exam: No adenopathy SpO2 Interpretation: normal SpO2: 93 O2 Delivery: Room Air - Course Nursing assessment & vital signs reviewed: Yes EKG Interpreted by Me: RATE (79), Sinus Rhythm, NORMAL AXIS, NORMAL INTERVALS, prolonged QT interval - CT Exams Lower Extremity CT Interpretation: Tele-radiologist Report (New impacted subcapital fracture and mild angulation. Osteopenia with progressive joint space narrowing and increase superior acetabular spurring. Extensive scattered vascular calcific ations and mid sigmoid diverticulosis remaining visualized noncontrast soft tissue are unremarkable.) Ordered Tests: Active Orders 24 hr Category Date Time Status Strap Buckler STAT Care 07/28/20 13:43 Active EKG-ER Only STAT Care 07/28/20 13:42 Active IV Insertion STAT Care 07/28/20 13:42 Active Pulse Oximetry (ED) STAT Care 07/28/20 13:42 Active LOWER EXTREMITY WO CONTRAST [CT] Stat Exams 07/28/20 13:41 Completed CBC W DIFF Stat Lab 07/28/20 14:00 Completed CMP Stat Lab 07/28/20 14:00 Completed MAGNESIUM Stat Lab 07/28/20 14:00 Completed Manual Differential NC Stat Lab 07/28/20 14:00 Completed PROTIME WITH INR Stat Lab 07/28/20 14:00 Completed PTT Stat Lab 07/28/20 14:00 Completed TROPONIN Q3H Lab 07/28/20 14:00 Completed TROPONIN Q3H Lab 07/28/20 16:45 Ordered TROPONIN Q3H Lab 07/28/20 19:45 Ordered TROPONIN Q3H Lab 07/28/20 22:45 Ordered TROPONIN Q3H Lab 07/29/20 01:45 Ordered UA W/RFX UR CULTURE Stat Lab 07/28/20 13:43 Ordered Medication Summary Discontinued Medications Generic Name Dose Route Start Last Admin Trade Name Harrisonq PRN Reason Stop Dose Admin Morphine Sulfate 4 mg 07/28/20 14:04 07/28/20 14:09 Morphine Sulfate 4 Mg Inj IV 07/28/20 14:05 4 mg STAT ONE Administration Morphine Sulfate Confirm 07/28/20 14:07 Morphine Sulfate 4 Mg Inj Administered 07/28/20 14:08 Dose 4 mg .ROUTE [employer] ONE Lab/Rad Data: Laboratory Result Diagrams 07/28/20 14:00 07/28/20 14:00 Laboratory Results 07/28/20 07/28/20 07/28/20 Range/Units 14:00 14:00 14:00 WBC (4.0-10.5) K/mm3 RBC (4.1-5.6) M/mm3 Hgb (12.5-18.0) gm/dl Hct (42-50) % MCV (78-100) fl MCH (26-32) pg MCHC (32-36) g/dl RDW (11.5-14.0) % Plt Count (150-450) K/mm3 MPV (7.5-11.0) fl PT 27.9 H (8.83-12.87) SECONDS INR 2.45 (0.8-3.0) APTT 43.4 H (24.1-36.1) SECONDS Sodium 137 (137-145) mmol/L Potassium 3.7 (3.5-5.1) mmol/L Chloride 103 (98-107) mmol/L Carbon Dioxide 22 (22-30) mmol/L Anion Gap 15.0 (5-15) MEQ/L BUN 14 (9-20) mg/dL Creatinine 1.17 (0.66-1.25) mg/dL Estimated GFR > 60.0 ML/MIN Glucose 162 H (74-106) mg/dL Calcium 9.1 (8.4-10.2) mg/dL Magnesium 1.9 (1.6-2.3) mg/dL Total Bilirubin 0.80 (0.2-1.3) mg/dL AST 39 (17-59) U/L ALT 33 (0-50) U/L Alkaline Phosphatase 182 H (38-126) U/L Troponin I < 0.012 (0.000-0.034) ng/mL Serum Total Protein 8.0 (6.3-8.2) g/dL Albumin 4.1 (3.5-5.0) g/dL 07/28/20 Range/Units 14:00 WBC 6.4 (4.0-10.5) K/mm3 RBC 4.81 (4.1-5.6) M/mm3 Hgb 15.2 (12.5-18.0) gm/dl Hct 46.8 (42-50) % MCV 97.3 (78-100) fl MCH 31.6 (26-32) pg MCHC 32.5 (32-36) g/dl RDW 13.6 (11.5-14.0) % Plt Count 136 L (150-450) K/mm3 MPV 11.0 (7.5-11.0) fl PT (8.83-12.87) SECONDS INR (0.8-3.0) APTT (24.1-36.1) SECONDS Sodium (137-145) mmol/L Potassium (3.5-5.1) mmol/L Chloride (98-107) mmol/L Carbon Dioxide (22-30) mmol/L Anion Gap (5-15) MEQ/L BUN (9-20) mg/dL Creatinine (0.66-1.25) mg/dL Estimated GFR ML/MIN Glucose (74-106) mg/dL Calcium (8.4-10.2) mg/dL Magnesium (1.6-2.3) mg/dL Total Bilirubin (0.2-1.3) mg/dL AST (17-59) U/L ALT (0-50) U/L Alkaline Phosphatase (38-126) U/L Troponin I (0.000-0.034) ng/mL Serum Total Protein (6.3-8.2) g/dL Albumin (3.5-5.0) g/dL - Progress Progress: improved Progress Note: 07/28/20 15:04 CAT scan reveals new impacted subcapital fracture. Case discussed with Dr. Greene of trauma service at [facility]. Patient accepted. We will transfer from ED to ED. Plan of care discussed with patient. He agrees to transfer to [facility] for further evaluation and treatment. - Departure Departure Disposition: Transfer Clinical Impression: Fall, Subcapital fracture of hip Condition: Stable Critical Care Time: No Referrals: [facility] [LOCATION] -
[2020-07-28] MEDS ORDERED: MORPHINE SULFATE 4 MG INJ IV ONE (14:04)
[2020-07-28] MEDS ORDERED: MORPHINE SULFATE 4 MG INJ ONE (14:07)
[2020-07-28 14:09] LABS: Hematocrit 46.8 % (42-50); Hemoglobin 15.2 gm/dl (12.5-18.0); Mean Cell Volume 97.3 fl (78-100); Mean Corpuscular Hemoglobin 31.6 pg (26-32); Mean Corpuscular Hgb Concent. 32.5 g/dl (32-36); Platelet Count 136 K/mm3 (150-450); Red Blood Count 4.81 M/mm3 (4.1-5.6); Red Cell Distribution Width 13.6 % (11.5-14.0); White Blood Count 6.4 K/mm3 (4.0-10.5)
[2020-07-28 14:18] LABS: INR 2.45 (0.8-3.0); PROTIME 27.9 SECONDS (8.83-12.87)
[2020-07-28 14:21] LABS: PTT 43.4 SECONDS (24.1-36.1)
[2020-07-28 14:22] LABS: ALBUMIN 4.1 g/dL (3.5-5.0); ALKALINE PHOSPHATASE 182 U/L (38-126); BLOOD UREA NITROGEN 14 mg/dL (9-20); CHLORIDE 103 mmol/L (98-107); Calcium 9.1 mg/dL (8.4-10.2); Carbon Dioxide 22 mmol/L (22-30); Creatinine 1 1.17 mg/dL (0.66-1.25); EST GLOMERULAR FILTRATION RATE > 60.0 ML/MIN; Glucose 162 mg/dL (74-106); MAGNESIUM 1.9 mg/dL (1.6-2.3); Potassium 3.7 mmol/L (3.5-5.1); SGOT/AST 39 U/L (17-59); SGPT/ALT 33 U/L (0-50); SODIUM 137 mmol/L (137-145)
--- NOTE | 2020-07-28 14:42 | XRAY ---
Indication: Pain following fall. Multiple contiguous axial images obtained through the left hip. Sagittal and coronal reformatted images obtained. Comparison: April 13, 2013. Left hip articulation intact with new impacted subcapital fracture and mild angulation. Elsewhere there remains osteopenia with progressive joint space narrowing and increasing superior acetabular spurring. Again extensive diffuse scattered vascular calcifications and mild sigmoid diverticulosis. Remaining visualized noncontrasted soft tissues are unremarkable. Impression: 1. New impacted subcapital fracture. 2. Again incidental osteopenia, degenerative hip arthropathy, sigmoid diverticulosis, and extensive vascular calcifications.
[2020-07-28 15:19] VITALS: BP 155/60; PULSE 74; O2SAT 92
[2020-07-28 15:54] LABS: Lymphocytes 24 % (24-44); Monocyte 2 % (0.0-12.0); Neutrophils 74 % (36.-66.); Total Cells Counted 100
[2020-07-28 15:56] LABS: ANISOCYTOSIS 1+; Platelet Estimate NORMAL (NORMAL)
== END 2020-07-28 15:24 | disposition short-term general hospital (02) ==
LOC: ED 13:27
DX: M25.552 Pain in left hip (principal); S72.012A Unspecified intracapsular fracture of left femur, initial encounter for closed fracture; W18.30XA Fall on same level, unspecified, initial encounter; I10 Essential (primary) hypertension; Z91.81 History of falling; Z79.01 Long term (current) use of anticoagulants; Z86.73 Personal history of transient ischemic attack (TIA), and cerebral infarction without residual deficits
CPT/HCPCS: 36000; 36415; 73700; 80053; 83735; 84484; 85025; 85610; 85730; 93005; 93041; 94760; 96374; 99284; J2270

== ENCOUNTER 2020-07-31 10:54 | Inpatient (IN) | payer MEDICARE, OTHER ==
[2020-07-31] MEDS ORDERED: Aplisol ID ONE (10:58)
[2020-07-31] MEDS ORDERED: TYLENOL EXTRA STRENGTH 500 MG PO PRN (17:23)
[2020-07-31] MEDS ORDERED: Robaxin 500 MG PO PRN (17:23)
[2020-07-31] MEDS ORDERED: Coumadin 3 MG PO SCH (18:00)
[2020-07-31 19:19] LABS: Hematocrit 42.2 % (42-50); Hemoglobin 13.4 gm/dl (12.5-18.0); Mean Cell Volume 99.3 fl (78-100); Mean Corpuscular Hemoglobin 31.5 pg (26-32); Mean Corpuscular Hgb Concent. 31.8 g/dl (32-36); Mean Platelet Volume 11.4 fl (7.5-11.0); Platelet Count 160 K/mm3 (150-450); Red Blood Count 4.25 M/mm3 (4.1-5.6); White Blood Count 10.5 K/mm3 (4.0-10.5)
[2020-07-31 19:39] LABS: Calcium 8.3 mg/dL (8.4-10.2); Creatinine 1 1.35 mg/dL (0.66-1.25); EST GLOMERULAR FILTRATION RATE 53.9 ML/MIN; PREALBUMIN 9.49 mg/dL (17.6-36.0); Potassium 4.2 mmol/L (3.5-5.1)
[2020-07-31] MEDS ORDERED: MICONAZOLE NITRATE TP SCH (22:00)
[2020-07-31] MEDS: Senokot-S Tablet PO SCH (22:25)
[2020-07-31] MEDS: Oxy-IR 5 MG PO PRN (22:25)
[2020-07-31] MEDS: ZOCOR 20MG PO SCH (22:26)
[2020-07-31] MEDS: Cozaar 50 MG PO SCH (22:26)
[2020-07-31] MEDS: NYSTOP POWDER 15 GM TOP SCH (22:27)
[2020-07-31] MEDS: MILK OF MAGNESIA 30 ML PO SCH (22:28)
[2020-08-01 06:24] LABS: INR 2.07 (0.8-3.0); PROTIME 23.6 SECONDS (8.83-12.87)
[2020-08-01] MEDS: Oxy-IR 5 MG PO PRN ×3 (08:40→23:25)
[2020-08-01] MEDS: Senokot-S Tablet PO SCH ×2 (08:41→21:32)
[2020-08-01] MEDS: Protonix 40MG Tablet PO SCH (08:41)
[2020-08-01] MEDS: THERAGRAN MULTIVITAMIN PO SCH (08:41)
[2020-08-01] MEDS: Cozaar 50 MG PO SCH ×2 (08:41→21:33)
[2020-08-01] MEDS: NYSTOP POWDER 15 GM TOP SCH ×2 (08:42→21:33)
[2020-08-01] MEDS: MILK OF MAGNESIA 30 ML PO SCH ×2 (08:42→21:33)
[2020-08-01] MEDS ORDERED: Aplisol ID ONE (10:00)
[2020-08-01] MEDS ORDERED: [UNRECOGNIZED DRUG - OTHER] PO SCH (10:00)
[2020-08-01] MEDS ORDERED: NON-FORMULARY ITEM (Atorvastatin Calcium 20 MG) PO SCH (10:00)
[2020-08-01] MEDS: Coumadin 5 MG PO SCH (17:42)
[2020-08-01] MEDS: Coumadin 3 MG PO SCH (17:42)
[2020-08-01] MEDS ORDERED: WARFARIN SODIUM 8 MG PO SCH (18:00)
[2020-08-01] MEDS: ZOCOR 20MG PO SCH (21:32)
[2020-08-01] MEDS ORDERED: Ativan 2 MG/1 ML VIAL IM ONE (21:40)
[2020-08-01] MEDS ORDERED: Haldol 5 MG IM ONE (21:40)
[2020-08-01] MEDS ORDERED: BENADRYL 25 MG CAPSULE PO PRN (21:41)
[2020-08-01 23:59] LABS: Appearance SLIGHTLY CLOUDY (CLEAR); Bacteria RARE /HPF (NEGATIVE); Bilirubin NEGATIVE (NEGATIVE); Blood LARGE Ery/ul (0-5); Glucose NEGATIVE (NEGATIVE); Ketones NEGATIVE (NEGATIVE); Leukocyte Esterase SMALL (NEGATIVE); Nitrite NEGATIVE (NEGATIVE); Protein,Urine Dip NEGATIVE (Negative); Specific Gravity 1.017 (1.005-1.025); Urobilinogen NEGATIVE mg/dL (0-1); WBC 26-50 /HPF (0-5)
[2020-08-02 00:04] LABS: RBC >101 /HPF (0-2)
[2020-08-02] MEDS: Oxy-IR 5 MG PO PRN ×2 (03:25→08:58)
[2020-08-02] MEDS ORDERED: MOTRIN 600 MG PO ONE (04:06)
[2020-08-02 06:27] LABS: Absolute Neutrophil Ct (ANC) 8.41 (1.4-6.9); BASOPHIL % 0.3 % (0.0-0.4); Basophil (Absolute #) 0.03 (0-0.4); Eosinophil % 0.7 % (0.00-5.0); Eosinophil (Absolute #) 0.08 (0-0.5); Hemoglobin 12.7 gm/dl (12.5-18.0); Lymphocyte (Absolute #) 1.12 (1.0-4.6); Lymphocytes % 10.2 % (24.0-44.0); Mean Cell Volume 97.8 fl (78-100); Mean Corpuscular Hemoglobin 31.1 pg (26-32); Mean Corpuscular Hgb Concent. 31.8 g/dl (32-36); Mean Platelet Volume 11.2 fl (7.5-11.0); Monocyte (Absolute #) 1.39 (0.0-1.3); Monocytes % 12.6 % (0.0-12.0); Neutrophil % 76.2 % (36.0-66.0); Platelet Count 182 K/mm3 (150-450); Red Blood Count 4.09 M/mm3 (4.1-5.6); Red Cell Distribution Width 13.8 % (11.5-14.0)
[2020-08-02 07:34] LABS: ALBUMIN 3.1 g/dL (3.5-5.0); ANION GAP 11.4 MEQ/L (5-15); BILIRUBIN,TOTAL 1.2 mg/dL (0.2-1.3); Calcium 8.4 mg/dL (8.4-10.2); Creatinine 1 1.3 mg/dL (0.66-1.25); EST GLOMERULAR FILTRATION RATE 56.3 ML/MIN; Potassium 4.7 mmol/L (3.5-5.1); Total Protein 6.6 g/dL (6.3-8.2)
[2020-08-02] MEDS: Cozaar 50 MG PO SCH ×2 (08:58→20:53)
[2020-08-02] MEDS: MILK OF MAGNESIA 30 ML PO SCH ×3 (08:59→20:55)
[2020-08-02] MEDS: NYSTOP POWDER 15 GM TOP SCH ×2 (08:59→20:52)
[2020-08-02] MEDS: THERAGRAN MULTIVITAMIN PO SCH (09:27)
[2020-08-02] MEDS: Senokot-S Tablet PO SCH ×2 (09:27→20:55)
[2020-08-02] MEDS ORDERED: Ativan 2 MG/1 ML VIAL IM ONE (09:46)
[2020-08-02] MEDS ORDERED: Haldol 5 MG IM ONE (09:48)
[2020-08-02] MEDS ORDERED: BENADRYL 25 MG CAPSULE PO ONE (09:49)
[2020-08-02] MEDS: ROCEPHIN 1 Gm-D5w 50 ml Bag** 1 G/50 ML IVPB IV SCH (11:02)
--- NOTE | 2020-08-02 12:12 | PCM.HP ---
History of Present Illness - Chief Complaint Chief Complaint: DECONDITIONING R/T L HIP FX REPAIR, FALL History of Present Illness: is a 80 year old male pt of Dr. Torres with hx CVA and hemiplegia, afib, HTN, and hx gastric ulcer who had a hip fx repair and came to [facility] for swing bed/PT. Yesterday he did have a UA that showed 26-50 WBC and RBC; was not seen by me until today. He was recently treated for UTI. Yesterday he was conversant and oriented, but overnight and today he has been disoriented and combative. He pulled out his IV and has been pulling on his piper catheter. CT head was done stat today and is nonacute. CMP and CBC were done this morning, and lactate, Mg, and NH4 are pending. Pt just received haldol and ativan IM so IV could be replaced and rocephin and IV fluids given. - Review of Systems All Other Systems: Unable due to condition Medications & Allergies Home Medications: Home Medication List Atorvastatin Calcium [Lipitor 20MG Tablet] 20 mg PO DAILY 02/27/18 [History Confirmed 07/31/20] Losartan Potassium 50 mg [Cozaar 50 MG] 25 mg PO BID 03/25/19 [History Confirmed 07/31/20] Warfarin Sodium 8 mg PO DAILY@1800 90 Days #180 tablet 07/25/19 [Rx Confirmed 07/31/20] Pantoprazole Sodium 40 mg PO DAILY 08/22/19 [History Confirmed 07/31/20] Acetaminophen 500 mg [Tylenol Extra Strength 500 mg] 1,000 mg PO Q6HPRN PRN 07/31/20 [History Confirmed 07/31/20] Magnesium Hydroxide 30 ml [Milk of Magnesia 30 ml] 30 ml PO BID 07/31/20 [History Confirmed 07/31/20] Methocarbamol 500 mg [Robaxin 500 MG] 500 mg PO Q4HPRN PRN 07/31/20 [History Confirmed 07/31/20] Miconazole Nitrate [Zeasorb AF] 1 applic TP BID 07/31/20 [History Confirmed 07/31/20] Multivit-Min/FA/Lycopen/Lutein [Centrum Silver Ultra Men's Tab] 1 each PO DAILY 07/31/20 [History Confirmed 07/31/20] Oxycodone HCl 5 mg Ir [Oxy-IR 5 MG] 10 mg PO Q4HPRN PRN 07/31/20 [History Confirmed 07/31/20] Sennosides/Docusate Sodium [Senokot-S Tablet] 1 each PO BID 07/31/20 [History Confirmed 07/31/20] Warfarin Sodium 9 mg PO DAILY 07/31/20 [History Confirmed 07/31/20] Allergies/Adverse Reactions: Allergies Allergy/AdvReac Type Severity Reaction Status Date / Time Sulfa (Sulfonamide Allergy Unknown Verified 07/28/20 13:43 Antibiotics) Penicillins Allergy Verified 07/28/20 13:43 - Past Medical History Past Medical History: Yes Neurological History: Stroke ENT History: Cataracts Cardiac History: Arrhythmia, Hypertension, Other Respiratory History: No Pertinent History Endocrine Medical History: No Pertinent History Musculoskelatal History: Arthritis, Fractures GI Medical History: Ulcer History: No Pertinent History Pyscho-Social History: No Pertinent History Male Reproductive Disorders: Scrotal Mass, Other Comment: R CVA W/ L HEMIPLEGIA 2003, A FIB. stomach ulcers, enlarged protate, chronic UTI , patient says he has a "small hole in the back of his heart"; Left hip fracture 08/16 - Past Surgical History Past Surgical History: Yes Neuro Surgical History: No Pertinent History Cardiac History: No Pertinent History Respiratory Surgery: No Pertinent History GI Surgical History: No Pertinent History Genitourinary Surgical Hx: No Pertinent History Musculskeletal Surgical Hx: Joint Replacement Male Surgical History: Prostate Surgery Other Surgical History: Prostate removed 2003, right hip replacement 2014; left hip replacement 08/16 - Social History Smoking Status: Never smoker Exposure to second hand smoke: No Alcohol: None Drug Use: none - Physical Exam Vital Signs: Vital Signs - 24 hr Temp Pulse Resp BP Pulse Ox 08/02/20 07:26 98.1 F 95 H 16 114/60 96 08/02/20 07:08 95 08/02/20 03:45 101 F 98 H 16 143/63 08/01/20 23:43 100.5 F 103 H 12 108/53 93 L 08/01/20 20:15 94 L 08/01/20 20:00 99.4 F 90 16 160/73 94 L General Appearance: other (somnolent; restless but does not wake with exam.) Respiratory Exam: normal breath sounds, lungs clear, No crackles/rales, No rhonchi, No wheezing Cardiovascular Exam: regular rate/rhythm, normal heart sounds, No murmur Gastrointestinal/Abdomen Exam: soft, normal bowel sounds, No distention, No mass Extremity Exam: other (LLE - surgical dressing present lateral thigh, with mild erythema noted and marked by RN) Skin Exam: warm, dry, No rash Wound Assessment: Skin/Wound Assessment Wound/Incision Assessment Start: 07/31/20 18:46 Text: Status: Active Freq: Q6H Protocol: Document 08/02/20 02:00 ROSENDO (Rec: 08/02/20 02:15 ROSENDO [id number]) Wound/Incision Assessment Medial Sacrum Wound Assessment Shift Assessment Wound Type Pressure Ulcer Wound Stage Stage II Drainage Amount None Drainage Odor None/Absent General Appearance Open to air,Clean/Dry Surrounding Tissue [place] Left Hip Wound Assessment Shift Assessment Wound Type Incision Wound Stage Non Pressure Wound Dressing Status Drainage circled Drainage Amount Large Surrounding Tissue [place] Primary Dressing aquacel Comment Circled additional drainage, appears to be a large amount. Drainage contained within bandage Wound Photo Photo Taken Yes Date: 08/01/20 Results - Labs Lab/Micro Results: Lab Results-Last 24 Hours 08/01/20 08/02/20 08/02/20 Range/Units 23:00 05:38 05:38 WBC 11.0 H (4.0-10.5) K/mm3 RBC 4.09 L (4.1-5.6) M/mm3 Hgb 12.7 (12.5-18.0) gm/dl Hct 40.0 L (42-50) % MCV 97.8 (78-100) fl MCH 31.1 (26-32) pg MCHC 31.8 L (32-36) g/dl RDW 13.8 (11.5-14.0) % Plt Count 182 (150-450) K/mm3 MPV 11.2 H (7.5-11.0) fl Gran % 76.2 H (36.0-66.0) % Eos # (Auto) 0.08 (0-0.5) Absolute Lymphs (auto) 1.12 (1.0-4.6) Absolute Monos (auto) 1.39 H (0.0-1.3) Lymphocytes % 10.2 L (24.0-44.0) % Monocytes % 12.6 H (0.0-12.0) % Eosinophils % 0.7 (0.00-5.0) % Basophils % 0.3 (0.0-0.4) % Absolute Granulocytes 8.41 H (1.4-6.9) Basophils # 0.03 (0-0.4) Sodium 134 L (137-145) mmol/L Potassium 4.7 (3.5-5.1) mmol/L Chloride 104 (98-107) mmol/L Carbon Dioxide 23 (22-30) mmol/L Anion Gap 11.4 (5-15) MEQ/L BUN 32 H (9-20) mg/dL Creatinine 1.30 H (0.66-1.25) mg/dL Estimated GFR 56.3 ML/MIN Glucose 139 H (74-106) mg/dL Calcium 8.4 (8.4-10.2) mg/dL Total Bilirubin 1.20 (0.2-1.3) mg/dL AST 56 (17-59) U/L ALT 24 (0-50) U/L Alkaline Phosphatase 167 H (38-126) U/L Serum Total Protein 6.6 (6.3-8.2) g/dL Albumin 3.1 L (3.5-5.0) g/dL Urine Color YELLOW (YELLOW) Urine Appearance SLIGHTLY CLOUDY (CLEAR) Urine pH 6.0 (5-6) Ur Specific [place] 1.017 (1.005-1.025) Urine Protein NEGATIVE (Negative) Urine Ketones NEGATIVE (NEGATIVE) Urine Blood LARGE (0-5) Hitesh/ul Urine Nitrite NEGATIVE (NEGATIVE) Urine Bilirubin NEGATIVE (NEGATIVE) Urine Urobilinogen NEGATIVE (0-1) mg/dL Ur Leukocyte Esterase SMALL (NEGATIVE) Urine WBC (Auto) 26-50 (0-5) /HPF Urine RBC (Auto) >101 (0-2) /HPF U Epithel Cells (Auto) NONE (FEW) /HPF Urine Bacteria (Auto) RARE (NEGATIVE) /HPF Urine Culture Reflexed YES (NO) Urine Glucose NEGATIVE (NEGATIVE) mg/dL - Radiology Impressions Radiology Exams & Impressions: Radiology Procedures Category Date Time Status HEAD WITHOUT CONTRAST [CT] Stat Exams 02/07/21 11:00 Taken Assessment/Plan (1) S/P hip hemiarthroplasty Current Visit: Yes Status: Acute Assessment & Plan: Unsure the surgeon, but RN is finding out - would like to notify him of the erythema and pt's AMS Code(s): Z96.649 - PRESENCE OF UNSPECIFIED ARTIFICIAL HIP JOINT (2) Altered mental status Current Visit: Yes Status: Acute Qualifiers: Altered mental status type: delirium Qualified Code(s): R41.0 - Disorientation, unspecified Assessment & Plan: likely due to UTI. WIll get CXR as well. CT head was neg. Code(s): R41.82 - ALTERED MENTAL STATUS, UNSPECIFIED (3) UTI (urinary tract infection) Current Visit: No Status: Acute Onset Date: ~02/26/18 Qualifiers: Urinary tract infection type: acute cystitis Hematuria presence: without hematuria Qualified Code(s): N30.00 - Acute cystitis without hematuria Assessment & Plan: On rocephin IV day #1. Code(s): N39.0 - URINARY TRACT INFECTION, SITE NOT SPECIFIED
[2020-08-02] MEDS: MORPHINE SULFATE 4 MG INJ IV PRN ×2 (12:13→16:45)
[2020-08-02] MEDS: Protonix 40MG Tablet PO SCH (12:15)
[2020-08-02] MEDS ORDERED: BENADRYL 50 MG/ML IV ONE (12:17)
[2020-08-02] MEDS: Sodium Chloride 0.9% 1000 ML 1,000 ML IV SCH ×2 (12:31→20:52)
[2020-08-02 12:48] LABS: INR 3.56 (0.8-3.0); PROTIME 40.7 SECONDS (8.83-12.87)
[2020-08-02] MEDS: Ativan 2 MG/1 ML VIAL IV PRN ×4 (13:56→21:38)
[2020-08-02] MEDS: Coumadin 3 MG PO SCH (15:53)
[2020-08-02] MEDS: Coumadin 5 MG PO SCH (15:54)
[2020-08-02] MEDS: CLINDAMYCIN-D5W 600 MG/50 ML*** 600 MG/50 ML BAG IV SCH ×3 (15:54→23:04)
--- NOTE | 2020-08-02 18:05 | XRAY ---
Indication: Acute mental status change. Status post hip surgery. Multiple contiguous axial images obtained through the head without contrast. Comparison: November 21, 2019. Stable age-appropriate global atrophy, moderate periventricular degenerative micro-ischemia, and small old right mid periventricular/basal ganglia infarct. No acute intracranial hemorrhage, abnormal extra-axial fluid collection, or mass effect. Fourth ventricle is midline. Bony calvarium intact again with 2 right parietal coral holes. Stable small left frontal/sphenoid/maxillary sinus polyps/retention cysts. Mastoid air cells are clear. Impression: Stable nonacute senile brain with small old right periventricular/basal ganglia infarct, right parietal coral holes, and paranasal sinus polyps/retention cysts. Comment: Preliminary interpretation was made by [facility]. No critical discrepancy.
--- NOTE | 2020-08-02 18:16 | XRAY ---
Indication: Acute mental status change. Comparison: February 26, 2018. Portable chest again demonstrates bibasilar infiltrates/atelectasis slightly improved in the interim with stable small left effusion. Borderline enlarged heart. Bony thorax intact again with osteopenia and degenerative changes. Comment: Preliminary interpretation was made by [facility]. No critical discrepancy.
--- NOTE | 2020-08-02 18:29 | XRAY ---
Indication: Drainage from bandage following hip surgery. Comparison: None Single AP portable left hip demonstrates total hip arthroplasty with intact bipolar prosthesis, osteopenia, scattered vascular calcifications, and multiple cutaneous [place]. No other bony, articular, or soft tissue abnormalities. Comment: Preliminary interpretation was made by [facility]. No critical discrepancy.
[2020-08-02] MEDS: FEVERALL 650 MG PR PRN (19:51)
[2020-08-02] MEDS: ZOCOR 20MG PO SCH (20:56)
[2020-08-03] MEDS: MORPHINE SULFATE 4 MG INJ IV PRN ×4 (00:12→20:51)
[2020-08-03] MEDS: Ativan 2 MG/1 ML VIAL IV PRN ×5 (00:49→23:49)
[2020-08-03] MEDS: CLINDAMYCIN-D5W 600 MG/50 ML*** 600 MG/50 ML BAG IV SCH ×4 (05:23→23:22)
[2020-08-03 08:08] LABS: Hemoglobin 13.6 gm/dl (12.5-18.0); Mean Cell Volume 99.3 fl (78-100); Mean Corpuscular Hemoglobin 32.2 pg (26-32); Mean Corpuscular Hgb Concent. 32.4 g/dl (32-36); Mean Platelet Volume 10.4 fl (7.5-11.0); Platelet Count 161 K/mm3 (150-450); Red Blood Count 4.23 M/mm3 (4.1-5.6); Red Cell Distribution Width 14.3 % (11.5-14.0); White Blood Count 13.1 K/mm3 (4.0-10.5)
--- NOTE | 2020-08-03 08:34 | PCM.NOTE ---
Date and Time: 08/03/20825 Subjective Assessment: Pt had ativan at midnight, then did not require a dose until 8 am (was pulling at his IV and catheter). I did speak to his daughter, Pari ([phone]) who said he has been having frequent UTIs. Pt had fever to 101.1 last night. Objective Exam General Appearance: other (Pt answers some questions with one word.) Neurologic Exam: disoriented (scratching vaguely at face. Moves RUE > LUE.) Skin Exam: normal color, warm, dry, No rash Wound Assessment: Skin/Wound Assessment Wound/Incision Assessment Start: 07/31/20 18:46 Text: Status: Active Freq: Q6H Protocol: Document 08/03/20 02:00 LL (Rec: 08/03/20 02:13 LL [id number]) Wound/Incision Assessment Medial Sacrum Wound Assessment Shift Assessment Wound Type Pressure Ulcer Wound Stage Stage II Drainage Amount None Drainage Description Other Drainage Odor None/Absent General Appearance Clean/Dry Surrounding Tissue [place] Comment MD aware Left Hip Wound Assessment Shift Assessment Wound Type Incision Wound Stage Non Pressure Wound Dressing Status Drainage circled Drainage Amount Large Drainage Odor None/Absent Surrounding Tissue [place] Primary Dressing aquacel Comment drainage, appears to be a large amount and previously marked. Drainage contained within bandage. Red area around dressing marked and no increase from earlier in shift , MD Aware Wound Photo Photo Taken No Ears, Nose, Throat Exam: moist mucous membranes Respiratory Exam: normal breath sounds, lungs clear, other (tachypneic), No crackles/rales, No rhonchi, No wheezing Cardiovascular Exam: regular rate/rhythm, normal heart sounds, No murmur Gastrointestinal/Abdomen Exam: soft, normal bowel sounds, No distention, No mass Extremity Exam: other (wlower extremities with wedge in place. Dressing of L lateral thigh has dried blood surrounding; decreased area of erythema superiorly.) OBJECTIVE DATA Vital Signs: Vital Signs - 24 hr Temp Pulse Resp BP Pulse Ox 08/03/20 07:20 98.8 F 67 26 H 111/58 98 08/03/20 06:52 97 08/03/20 00:00 99.1 F 66 24 101/52 93 L 08/02/20 21:51 99.4 F 70 22 101/46 93 L 08/02/20 19:58 101.1 F 68 24 88/47 95 08/02/20 16:40 100.1 F 16 95 Pain Assessment - Last Documented Pain Intensity 0 Pain Scale Used [facility] Intake and Output: Intake & Output 07/31/20 08/01/20 08/02/20 08/03/20 11:59 11:59 11:59 11:59 Intake Total 784 417 6460 Output Total 825 1200 925 Balance -465 -240 843 Weight 128.6 kg Lab Results: Lab Results-Last 24 Hours 08/02/20 08/02/20 08/02/20 Range/Units 11:33 12:35 12:35 PT 40.7 H (8.83-12.87) SECONDS INR 3.56 H D (0.8-3.0) Lactic Acid 1.7 (0.4-2.0) Magnesium 2.3 (1.6-2.3) mg/dL Ammonia (9-30) umol/L 08/02/20 Range/Units 12:35 PT (8.83-12.87) SECONDS INR (0.8-3.0) Lactic Acid (0.4-2.0) Magnesium (1.6-2.3) mg/dL Ammonia < 9 L (9-30) umol/L Radiology Exams: Radiology Procedures Category Date Time Status CHEST 1 VIEW (PORTABLE) Stat Exams 08/02/20 12:34 Completed HEAD WITHOUT CONTRAST [CT] Stat Exams 08/02/20 11:00 Completed HIP UNILATERAL (1 VIEW) Routine Exams 08/02/20 15:38 Completed Assessment/Plan (1) Altered mental status Current Visit: Yes Status: Acute Qualifiers: Altered mental status type: delirium Qualified Code(s): R41.0 - Disorientation, unspecified Assessment & Plan: He continues to be altered, although seems to me a touch better than yesterday. I think likeyl due to double insult of recent surgery and UTI. When I spoke with his daughter, she noted that he has been acting differently when he has the urinary infections. Code(s): R41.82 - ALTERED MENTAL STATUS, UNSPECIFIED (2) S/P hip hemiarthroplasty Current Visit: Yes Status: Acute Assessment & Plan: POD#5. Treating for infection, although I think it is more likely that it's just bleeding due to his movements when he's disoriented. I spoke with Dr. Dagoberto August yesterday, pt's orthopedist, and he agreed with any antibiotic I would choose. Code(s): Z96.649 - PRESENCE OF UNSPECIFIED ARTIFICIAL HIP JOINT (3) UTI (urinary tract infection) Current Visit: No Status: Acute Onset Date: ~02/26/18 Qualifiers: Urinary tract infection type: acute cystitis Hematuria presence: without hematuria Qualified Code(s): N30.00 - Acute cystitis without hematuria Assessment & Plan: On IV rocephin. UCx is still pending. Code(s): N39.0 - URINARY TRACT INFECTION, SITE NOT SPECIFIED
[2020-08-03 09:18] LABS: PROTIME 59.5 SECONDS (8.83-12.87)
[2020-08-03] MEDS: NYSTOP POWDER 15 GM TOP SCH ×2 (09:42→20:50)
[2020-08-03] MEDS: Sodium Chloride 0.9% 1000 ML 1,000 ML IV SCH ×2 (09:42→19:35)
[2020-08-03] MEDS: ROCEPHIN 1 Gm-D5w 50 ml Bag** 1 G/50 ML IVPB IV SCH (09:43)
[2020-08-03 10:05] LABS: ANION GAP 12.1 MEQ/L (5-15); Calcium 8.1 mg/dL (8.4-10.2); Creatinine 1 1.64 mg/dL (0.66-1.25); EST GLOMERULAR FILTRATION RATE 43.1 ML/MIN; Potassium 4.9 mmol/L (3.5-5.1)
[2020-08-03 10:35] LABS: INR 5.16 (0.8-3.0)
[2020-08-03] MEDS: MILK OF MAGNESIA 30 ML PO SCH ×2 (10:51→21:08)
[2020-08-03] MEDS: Cozaar 50 MG PO SCH ×2 (10:51→21:08)
[2020-08-03] MEDS: THERAGRAN MULTIVITAMIN PO SCH (10:52)
[2020-08-03] MEDS: Protonix 40MG Tablet PO SCH (10:52)
[2020-08-03] MEDS: Senokot-S Tablet PO SCH ×2 (10:52→21:08)
[2020-08-03 11:36] LABS: Eosinophil 2 % (0.00-3.0); Lymphocytes 19 % (24-44); Monocyte 7 % (0.0-12.0); Neutrophils 72 % (36.-66.); Platelet Estimate NORMAL (NORMAL); Total Cells Counted 100
[2020-08-03] MEDS: FEVERALL 650 MG PR PRN ×2 (12:14→20:50)
[2020-08-03] MEDS: ZOCOR 20MG PO SCH (21:09)
[2020-08-04] MEDS: MORPHINE SULFATE 4 MG INJ IV PRN ×4 (00:55→15:18)
[2020-08-04] MEDS: Ativan 2 MG/1 ML VIAL IV PRN ×7 (04:21→21:02)
[2020-08-04] MEDS: Sodium Chloride 0.9% 1000 ML 1,000 ML IV SCH (04:28)
[2020-08-04] MEDS: CLINDAMYCIN-D5W 600 MG/50 ML*** 600 MG/50 ML BAG IV SCH ×4 (04:59→23:49)
[2020-08-04 05:27] LABS: Absolute Neutrophil Ct (ANC) 7.65 (1.4-6.9); BASOPHIL % 0.3 % (0.0-0.4); Basophil (Absolute #) 0.03 (0-0.4); Eosinophil % 3.3 % (0.00-5.0); Eosinophil (Absolute #) 0.34 (0-0.5); Hematocrit 41.7 % (42-50); Hemoglobin 12.9 gm/dl (12.5-18.0); Lymphocyte (Absolute #) 1.42 (1.0-4.6); Lymphocytes % 13.9 % (24.0-44.0); Mean Cell Volume 101.2 fl (78-100); Mean Corpuscular Hemoglobin 31.3 pg (26-32); Mean Corpuscular Hgb Concent. 30.9 g/dl (32-36); Mean Platelet Volume 10.7 fl (7.5-11.0); Monocyte (Absolute #) 0.81 (0.0-1.3); Monocytes % 7.9 % (0.0-12.0); Neutrophil % 74.6 % (36.0-66.0); Platelet Count 171 K/mm3 (150-450); Red Blood Count 4.12 M/mm3 (4.1-5.6); Red Cell Distribution Width 14.4 % (11.5-14.0); White Blood Count 10.3 K/mm3 (4.0-10.5)
[2020-08-04 05:52] LABS: ALBUMIN 2.9 g/dL (3.5-5.0); ANION GAP 11.1 MEQ/L (5-15); BILIRUBIN,TOTAL 2.1 mg/dL (0.2-1.3); Calcium 8.3 mg/dL (8.4-10.2); Creatinine 1 1.63 mg/dL (0.66-1.25); EST GLOMERULAR FILTRATION RATE 43.4 ML/MIN; Potassium 4.4 mmol/L (3.5-5.1); Total Protein 6.3 g/dL (6.3-8.2)
[2020-08-04 05:57] LABS: PROTIME 73.4 SECONDS (8.83-12.87)
[2020-08-04 06:06] LABS: INR 6.44 (0.8-3.0)
[2020-08-04] MEDS ORDERED: Lasix 40 MG/4 ML IV ONE (08:52)
--- NOTE | 2020-08-04 08:54 | PCM.NOTE ---
Date and Time: 08/04/2048 Subjective Assessment: Pt received ativan twice last night and once this morning. received morphine x 1 overnight. Did recognize one of the staff overnight. Occasionally answers questions. Objective Exam General Appearance: no apparent distress, alert Neurologic Exam: disoriented, other (somnolent but rouses briefly to touch) Skin Exam: normal color, warm, dry, No rash Wound Assessment: Skin/Wound Assessment Wound/Incision Assessment Start: 07/31/20 18:46 Text: Status: Active Freq: Q6H Protocol: Document 08/04/20 07:26 LUX (Rec: 08/04/20 07:29 LUX [id number]) Wound/Incision Assessment Medial Sacrum Wound Assessment Shift Assessment Wound Type Pressure Ulcer Wound Stage Stage II Drainage Amount None Drainage Description Other Drainage Odor None/Absent General Appearance Clean/Dry Surrounding Tissue [place] Comment stage II to saccrum, unstageable to sacral area also, left heel with unstageable, pt turned off areas Left Hip Wound Assessment Shift Assessment Wound Type Incision Wound Stage Non Pressure Wound Dressing Status Reinforced Drainage Amount Large Drainage Odor None/Absent General Appearance Draining,Bleeding Surrounding Tissue Bright Red Primary Dressing aquacel Comment - Wound Photo Photo Taken No Ears, Nose, Throat Exam: other (mouth breathing with oximask) Respiratory Exam: diminished breath sounds, crackles/rales (scattered), No rhonchi, No wheezing Cardiovascular Exam: regular rate/rhythm, normal heart sounds, No murmur Gastrointestinal/Abdomen Exam: soft, No normal bowel sounds (hypoactive but present), No tenderness, No distention, No mass Extremity Exam: other (L thigh dressing has been reinforced; no exudate. no erythema) OBJECTIVE DATA Vital Signs: Vital Signs - 24 hr Temp Pulse Resp BP Pulse Ox 08/04/20 08:12 90 L 08/04/20 04:58 97.5 F 71 20 127/55 96 08/03/20 19:55 100.3 F 87 22 124/56 97 08/03/20 19:31 97 08/03/20 15:26 101 F 08/03/20 14:46 24 08/03/20 14:00 100.7 F 08/03/20 11:41 100.3 F 80 24 127/58 94 L Pain Assessment - Last Documented Pain Intensity 0 Pain Scale Used [facility] Intake and Output: Intake & Output 08/01/20 08/02/20 08/03/20 08/04/20 11:59 11:59 11:59 11:59 Intake Total 952 270 0784 2187 Output Total 826 2396 925 900 Balance -465 -654 51327 651 5382 Weight 128.6 kg 121.3 kg Lab Results: Lab Results-Last 24 Hours 08/03/20 08/03/20 08/03/20 Range/Units 07:55 07:55 07:55 WBC 13.1 H (4.0-10.5) K/mm3 RBC 4.23 (4.1-5.6) M/mm3 Hgb 13.6 (12.5-18.0) gm/dl Hct 42.0 (42-50) % MCV 99.3 (78-100) fl MCH 32.2 H (26-32) pg MCHC 32.4 (32-36) g/dl RDW 14.3 H (11.5-14.0) % Plt Count 161 (150-450) K/mm3 MPV 10.4 (7.5-11.0) fl Gran % (36.0-66.0) % Eos # (Auto) (0-0.5) Absolute Lymphs (auto) (1.0-4.6) Absolute Monos (auto) (0.0-1.3) Lymphocytes % (24.0-44.0) % Monocytes % (0.0-12.0) % Eosinophils % (0.00-5.0) % Basophils % (0.0-0.4) % Absolute Granulocytes (1.4-6.9) Segmented Neutrophils 72 H (36.-66.) % Lymphocytes (Manual) 19 L (24-44) % Monocytes (Manual) 7 (0.0-12.0) % Eosinophils (Manual) 2 (0.00-3.0) % Basophils # (0-0.4) Platelet Estimate NORMAL (NORMAL) RBC Morphology NORMAL PT 59.5 H (8.83-12.87) SECONDS INR 5.16 H* D (0.8-3.0) Sodium 138 (137-145) mmol/L Potassium 4.9 (3.5-5.1) mmol/L Chloride 106 (98-107) mmol/L Carbon Dioxide 24 (22-30) mmol/L Anion Gap 12.1 (5-15) MEQ/L BUN 41 H (9-20) mg/dL Creatinine 1.64 H (0.66-1.25) mg/dL Estimated GFR 43.1 ML/MIN Glucose 112 H (74-106) mg/dL POC Glucometer (74 to 106) mg/dL Calcium 8.1 L (8.4-10.2) mg/dL Total Bilirubin (0.2-1.3) mg/dL AST (17-59) U/L ALT (0-50) U/L Alkaline Phosphatase (38-126) U/L NT-Pro-B Natriuret Pep (0-1800) pg/mL Serum Total Protein (6.3-8.2) g/dL Albumin (3.5-5.0) g/dL SARS-CoV-2 (PCR) (NEGATIVE) 08/03/20 08/03/20 08/04/20 Range/Units 16:30 20:36 05:15 WBC (4.0-10.5) K/mm3 RBC (4.1-5.6) M/mm3 Hgb (12.5-18.0) gm/dl Hct (42-50) % MCV (78-100) fl MCH (26-32) pg MCHC (32-36) g/dl RDW (11.5-14.0) % Plt Count (150-450) K/mm3 MPV (7.5-11.0) fl Gran % (36.0-66.0) % Eos # (Auto) (0-0.5) Absolute Lymphs (auto) (1.0-4.6) Absolute Monos (auto) (0.0-1.3) Lymphocytes % (24.0-44.0) % Monocytes % (0.0-12.0) % Eosinophils % (0.00-5.0) % Basophils % (0.0-0.4) % Absolute Granulocytes (1.4-6.9) Segmented Neutrophils (36.-66.) % Lymphocytes (Manual) (24-44) % Monocytes (Manual) (0.0-12.0) % Eosinophils (Manual) (0.00-3.0) % Basophils # (0-0.4) Platelet Estimate (NORMAL) RBC Morphology PT 73.4 H (8.83-12.87) SECONDS INR 6.44 H* (0.8-3.0) Sodium (137-145) mmol/L Potassium (3.5-5.1) mmol/L Chloride (98-107) mmol/L Carbon Dioxide (22-30) mmol/L Anion Gap (5-15) MEQ/L BUN (9-20) mg/dL Creatinine (0.66-1.25) mg/dL Estimated GFR ML/MIN Glucose (74-106) mg/dL POC Glucometer 100 (74 to 106) mg/dL Calcium (8.4-10.2) mg/dL Total Bilirubin (0.2-1.3) mg/dL AST (17-59) U/L ALT (0-50) U/L Alkaline Phosphatase (38-126) U/L NT-Pro-B Natriuret Pep (0-1800) pg/mL Serum Total Protein (6.3-8.2) g/dL Albumin (3.5-5.0) g/dL SARS-CoV-2 (PCR) NEGATIVE (NEGATIVE) 08/04/20 08/04/20 Range/Units 05:15 05:15 WBC 10.3 (4.0-10.5) K/mm3 RBC 4.12 (4.1-5.6) M/mm3 Hgb 12.9 (12.5-18.0) gm/dl Hct 41.7 L (42-50) % MCV 101.2 H (78-100) fl MCH 31.3 (26-32) pg MCHC 30.9 L (32-36) g/dl RDW 14.4 H (11.5-14.0) % Plt Count 171 (150-450) K/mm3 MPV 10.7 (7.5-11.0) fl Gran % 74.6 H (36.0-66.0) % Eos # (Auto) 0.34 (0-0.5) Absolute Lymphs (auto) 1.42 (1.0-4.6) Absolute Monos (auto) 0.81 (0.0-1.3) Lymphocytes % 13.9 L (24.0-44.0) % Monocytes % 7.9 (0.0-12.0) % Eosinophils % 3.3 (0.00-5.0) % Basophils % 0.3 (0.0-0.4) % Absolute Granulocytes 7.65 H (1.4-6.9) Segmented Neutrophils (36.-66.) % Lymphocytes (Manual) (24-44) % Monocytes (Manual) (0.0-12.0) % Eosinophils (Manual) (0.00-3.0) % Basophils # 0.03 (0-0.4) Platelet Estimate (NORMAL) RBC Morphology PT (8.83-12.87) SECONDS INR (0.8-3.0) Sodium 138 (137-145) mmol/L Potassium 4.4 (3.5-5.1) mmol/L Chloride 109 H (98-107) mmol/L Carbon Dioxide 23 (22-30) mmol/L Anion Gap 11.1 (5-15) MEQ/L BUN 44 H (9-20) mg/dL Creatinine 1.63 H (0.66-1.25) mg/dL Estimated GFR 43.4 ML/MIN Glucose 114 H (74-106) mg/dL POC Glucometer (74 to 106) mg/dL Calcium 8.3 L (8.4-10.2) mg/dL Total Bilirubin 2.10 H (0.2-1.3) mg/dL AST 54 (17-59) U/L ALT 26 (0-50) U/L Alkaline Phosphatase 161 H (38-126) U/L NT-Pro-B Natriuret Pep 361 (0-1800) pg/mL Serum Total Protein 6.3 (6.3-8.2) g/dL Albumin 2.9 L (3.5-5.0) g/dL SARS-CoV-2 (PCR) (NEGATIVE) Radiology Exams: Radiology Procedures Category Date Time Status CHEST 1 VIEW (PORTABLE) Stat Exams 08/02/20 12:34 Completed HEAD WITHOUT CONTRAST [CT] Stat Exams 08/02/20 11:00 Completed HIP UNILATERAL (1 VIEW) Routine Exams 08/02/20 15:38 Completed Multi-Disciplinary Progress Notes: Multi-Disciplinary Progress Notes 08/03/20 14:26 Speech Therapy Note by Aurelia Plascencia tx: 08/03/20 at 1427: Patient on full mask oxygen at 3L. Poorly re sponsive to verbal or tactile stimuli. Slight vocalization demonstrated after ST said his name. Oral care completed with nurse at bedside. He made minimal labial/lingual response to swab with ice water stimuli. Recommend npo with alternative feeding method be initiated at this time. Nurse, Destinee, agrees with ST recommendation. notified Dr. Saleh's nurse, who indicated that Dr. Riojas was Dr director of instructional technology at this time. Attempted to call Dr. Riojas. Will await for physician to return call. Helen MS, CCC/TURN DOWN WORKER Initialized on 08/03/20 14:26 - END OF NOTE 08/03/20 13:52 Physical Therapy Note by Aleyda Monae PT. SEEN BY P.T. BID THIS DATE. PT. MINIMALLY RESPONSIVE AND VERY LETHARGIC. C/O OCCASIONAL DIFFUSE PN. P.T. ASSISTED NSG W/ BED MOBILITY FOR PT. CARE. PT. DEPENDENT FOR ALL ROLLING; KEPT ABD PILLOW IN PLACE W/ BED MOBILITY TO PROECT L HIP. REINFORCED POST-OP DRESSING W/ ABDS AND FOAM TAPE. SANGUINEOUS DRAINAGE CONTAINED AT PRESENT. THIS PM ATTEMPTED TO AROUSE PT. W/ MINIMAL RESPONSE. PERFORMED GENTLE L HIP, KNEE AND ANKLE PROM WITHIN LIMITS OF PROTOCOL. ATTEMPTED TO ELICIT PT. ASSISTANCE W/ ROM BUT PT. NOT RESPONSIVE TO THIS. REPOSITIONED ABD PILLOW AND PLACED ROLLED UP BLANKETS UNDER LLS TO ELIMINATE PRESSURE ON HEELS. PT. IN IV ATB FOR UTI. HOPEFUL THAT HE WILL BECOME MORE ALERT UTI RESOLVES. WILL CONT. PT 5X/WK TOLERATED. ALEYDA MONAE, PT Initialized on 08/03/20 13:52 - END OF NOTE Assessment/Plan (1) Altered mental status Current Visit: Yes Status: Acute Qualifiers: Altered mental status type: delirium Qualified Code(s): R41.0 - Disorientation, unspecified Assessment & Plan: Some clearing of mental status intermittently. Can start some po if he is alert enough. Still likely due to double insult of surgery + UTI. Code(s): R41.82 - ALTERED MENTAL STATUS, UNSPECIFIED (2) S/P hip hemiarthroplasty Current Visit: Yes Status: Acute Assessment & Plan: On IV clindamycin day #3. Code(s): Z96.649 - PRESENCE OF UNSPECIFIED ARTIFICIAL HIP JOINT (3) UTI (urinary tract infection) Current Visit: No Status: Acute Onset Date: ~02/26/18 Qualifiers: Urinary tract infection type: acute cystitis Hematuria presence: without hematuria Qualified Code(s): N30.00 - Acute cystitis without hematuria Assessment & Plan: On rocephin day #3; Proteus mirabilis which is susceptible to rocephin. Code(s): N39.0 - URINARY TRACT INFECTION, SITE NOT SPECIFIED (4) Fever Current Visit: No Status: Acute Onset Date: ~02/26/18 Qualifiers: Fever type: due to other condition Qualified Code(s): R50.81 - Fever presenting with conditions classified elsewhere Assessment & Plan: Was Covid negative yesterday. Code(s): R50.9 - FEVER, UNSPECIFIED
[2020-08-04] MEDS: NYSTOP POWDER 15 GM TOP SCH ×2 (09:25→21:13)
[2020-08-04] MEDS: Lactated Ringers 1,000 ML IV SCH ×3 (09:29→23:50)
[2020-08-04] MEDS: MILK OF MAGNESIA 30 ML PO SCH ×2 (09:30→21:23)
[2020-08-04] MEDS: Cozaar 50 MG PO SCH ×2 (09:30→21:23)
[2020-08-04] MEDS: ROCEPHIN 1 Gm-D5w 50 ml Bag** 1 G/50 ML IVPB IV SCH (09:30)
[2020-08-04] MEDS: Protonix 40MG Tablet PO SCH (09:31)
[2020-08-04] MEDS: Senokot-S Tablet PO SCH ×2 (09:31→21:23)
[2020-08-04] MEDS: THERAGRAN MULTIVITAMIN PO SCH (09:31)
[2020-08-04] MEDS: ZOCOR 20MG PO SCH (21:24)
[2020-08-05] MEDS: Ativan 2 MG/1 ML VIAL IV PRN ×5 (02:00→16:43)
[2020-08-05] MEDS: MORPHINE SULFATE 4 MG INJ IV PRN ×3 (02:49→17:21)
[2020-08-05] MEDS: CLINDAMYCIN-D5W 600 MG/50 ML*** 600 MG/50 ML BAG IV SCH (05:00)
[2020-08-05 05:11] LABS: Absolute Neutrophil Ct (ANC) 7.55 (1.4-6.9); BASOPHIL % 0.2 % (0.0-0.4); Basophil (Absolute #) 0.02 (0-0.4); Eosinophil % 2.5 % (0.00-5.0); Eosinophil (Absolute #) 0.25 (0-0.5); Hematocrit 43.4 % (42-50); Hemoglobin 13.6 gm/dl (12.5-18.0); Lymphocyte (Absolute #) 1.33 (1.0-4.6); Lymphocytes % 13.1 % (24.0-44.0); Mean Cell Volume 99.1 fl (78-100); Mean Corpuscular Hemoglobin 31.1 pg (26-32); Mean Corpuscular Hgb Concent. 31.3 g/dl (32-36); Mean Platelet Volume 10.9 fl (7.5-11.0); Monocytes % 9.9 % (0.0-12.0); Neutrophil % 74.3 % (36.0-66.0); Platelet Count 206 K/mm3 (150-450); Red Blood Count 4.38 M/mm3 (4.1-5.6); Red Cell Distribution Width 14.4 % (11.5-14.0); White Blood Count 10.2 K/mm3 (4.0-10.5)
[2020-08-05 05:26] LABS: PROTIME 70.3 SECONDS (8.83-12.87)
[2020-08-05 05:27] LABS: ALBUMIN 3.1 g/dL (3.5-5.0); ANION GAP 11.4 MEQ/L (5-15); BILIRUBIN,TOTAL 2.4 mg/dL (0.2-1.3); Calcium 8.5 mg/dL (8.4-10.2); Creatinine 1 1.35 mg/dL (0.66-1.25); EST GLOMERULAR FILTRATION RATE 53.9 ML/MIN; Potassium 4.6 mmol/L (3.5-5.1); Total Protein 6.7 g/dL (6.3-8.2)
[2020-08-05 05:30] LABS: INR 6.11 (0.8-3.0)
[2020-08-05] MEDS: Lactated Ringers 1,000 ML IV SCH (08:10)
--- NOTE | 2020-08-05 09:01 | PCM.NOTE ---
Date and Time: 08/05/20 0855 Subjective Assessment: patient continues to be agitated, poorly communicative. he does respond to his name, I asked him how he feels and he responded "some better" although he is pulling at his sheets and wearing oxygen mask at this time. Objective Exam General Appearance: mild distress Neurologic Exam: alert, No oriented x 3, No cooperative Wound Assessment: Skin/Wound Assessment Wound/Incision Assessment Start: 07/31/20 18:46 Text: Status: Active Freq: Q6H Protocol: Document 08/05/20 07:59 LIONELKEVAN (Rec: 08/05/20 08:08 LIONELKEVAN [id number]) Wound/Incision Assessment Medial Sacrum Wound Assessment Shift Assessment Wound Type Pressure Ulcer Wound Stage Stage II Drainage Amount None Drainage Odor None/Absent General Appearance Clean/Dry Surrounding Tissue [place] Comment FISSURE NOTED, BARRIER CREAM APPLIED Left Hip Wound Assessment Shift Assessment Wound Type Incision Wound Stage Non Pressure Wound Dressing Status Dry & Intact Drainage Amount None Drainage Odor None/Absent Comment DRESSING IN PLACE, FOAM TAPE Respiratory Exam: crackles/rales Cardiovascular Exam: regular rate/rhythm, normal heart sounds Gastrointestinal/Abdomen Exam: soft, No tenderness, No mass Extremity Exam: other (dressing to left hip, no surrounding erythema, no drainage noted) OBJECTIVE DATA Vital Signs: Vital Signs - 24 hr Temp Pulse Resp BP Pulse Ox 08/05/20 07:35 96.5 F 66 22 132/62 08/05/20 07:20 96 08/04/20 21:29 100.2 F 80 28 H 153/66 98 08/04/20 19:03 96 08/04/20 16:00 97.9 F 88 20 137/67 92 L Pain Assessment - Last Documented Pain Intensity 0 Pain Scale Used 0-10 Pain Scale Intake and Output: Intake & Output 08/02/20 08/03/20 08/04/20 08/05/20 11:59 11:59 11:59 11:59 Intake Total 960 1768 2187 2934 Output Total 1200 047 021 0325 Balance -385 069 4070 -2066 Weight 121.3 kg Lab Results: Lab Results-Last 24 Hours 08/05/20 08/05/20 08/05/20 Range/Units 04:40 04:40 04:40 WBC 10.2 (4.0-10.5) K/mm3 RBC 4.38 (4.1-5.6) M/mm3 Hgb 13.6 (12.5-18.0) gm/dl Hct 43.4 (42-50) % MCV 99.1 (78-100) fl MCH 31.1 (26-32) pg MCHC 31.3 L (32-36) g/dl RDW 14.4 H (11.5-14.0) % Plt Count 206 (150-450) K/mm3 MPV 10.9 (7.5-11.0) fl Gran % 74.3 H (36.0-66.0) % Eos # (Auto) 0.25 (0-0.5) Absolute Lymphs (auto) 1.33 (1.0-4.6) Absolute Monos (auto) 1.00 (0.0-1.3) Lymphocytes % 13.1 L (24.0-44.0) % Monocytes % 9.9 (0.0-12.0) % Eosinophils % 2.5 (0.00-5.0) % Basophils % 0.2 (0.0-0.4) % Absolute Granulocytes 7.55 H (1.4-6.9) Basophils # 0.02 (0-0.4) PT 70.3 H (8.83-12.87) SECONDS INR 6.11 H* (0.8-3.0) D-Dimer (215-500) ng/mL Sodium 138 (137-145) mmol/L Potassium 4.6 (3.5-5.1) mmol/L Chloride 108 H (98-107) mmol/L Carbon Dioxide 24 (22-30) mmol/L Anion Gap 11.4 (5-15) MEQ/L BUN 37 H (9-20) mg/dL Creatinine 1.35 H (0.66-1.25) mg/dL Estimated GFR 53.9 ML/MIN Glucose 106 (74-106) mg/dL Calcium 8.5 (8.4-10.2) mg/dL Total Bilirubin 2.40 H (0.2-1.3) mg/dL AST 55 (17-59) U/L ALT 27 (0-50) U/L Alkaline Phosphatase 190 H (38-126) U/L Serum Total Protein 6.7 (6.3-8.2) g/dL Albumin 3.1 L (3.5-5.0) g/dL 08/05/20 Range/Units 04:40 WBC (4.0-10.5) K/mm3 RBC (4.1-5.6) M/mm3 Hgb (12.5-18.0) gm/dl Hct (42-50) % MCV (78-100) fl MCH (26-32) pg MCHC (32-36) g/dl RDW (11.5-14.0) % Plt Count (150-450) K/mm3 MPV (7.5-11.0) fl Gran % (36.0-66.0) % Eos # (Auto) (0-0.5) Absolute Lymphs (auto) (1.0-4.6) Absolute Monos (auto) (0.0-1.3) Lymphocytes % (24.0-44.0) % Monocytes % (0.0-12.0) % Eosinophils % (0.00-5.0) % Basophils % (0.0-0.4) % Absolute Granulocytes (1.4-6.9) Basophils # (0-0.4) PT (8.83-12.87) SECONDS INR (0.8-3.0) D-Dimer 4278 H* (215-500) ng/mL Sodium (137-145) mmol/L Potassium (3.5-5.1) mmol/L Chloride (98-107) mmol/L Carbon Dioxide (22-30) mmol/L Anion Gap (5-15) MEQ/L BUN (9-20) mg/dL Creatinine (0.66-1.25) mg/dL Estimated GFR ML/MIN Glucose (74-106) mg/dL Calcium (8.4-10.2) mg/dL Total Bilirubin (0.2-1.3) mg/dL AST (17-59) U/L ALT (0-50) U/L Alkaline Phosphatase (38-126) U/L Serum Total Protein (6.3-8.2) g/dL Albumin (3.5-5.0) g/dL Radiology Exams: Radiology Procedures Category Date Time Status CHEST 1 VIEW (PORTABLE) Routine Exams 08/05/20 08:49 Ordered Ultrasound Gallbladder [GALLBLADDER] [US] Routine Exams 08/05/20 Ordered Assessment/Plan (1) UTI (urinary tract infection) Current Visit: No Status: Acute Onset Date: ~02/26/18 Qualifiers: Urinary tract infection type: acute cystitis Hematuria presence: without hematuria Qualified Code(s): N30.00 - Acute cystitis without hematuria Assessment & Plan: on rocephin, proteus is sensitive Code(s): N39.0 - URINARY TRACT INFECTION, SITE NOT SPECIFIED (2) Delirium Current Visit: Yes Status: Acute Assessment & Plan: secondary to UTI as well as recent surgery, 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 Visit: No Status: Chronic Qualifiers: Hemiplegia type: flaccid Hemiplegia etiology: cerebrovascular Cerebrovascular disease type: unspecified Code(s): G81.94 - HEMIPLEGIA, UNSPECIFIED AFFECTING LEFT NONDOMINANT SIDE (7) Elevated bilirubin Current Visit: Yes Status: Acute Assessment & Plan: ruq ultrasound orderd, adding meropenem Code(s): R17 - UNSPECIFIED JAUNDICE (8) Bilateral pulmonary infiltrates on chest x-ray Current Visit: No Status: Acute Onset Date: ~02/26/18 Assessment & Plan: plan to change from clindamycin and rocephin to meropenem and vanc to cover nosocomial pathogens, repeat chest xray pending. ?worsening infiltrates vs volume overload. covid was negative. Code(s): R91.8 - OTHER NONSPECIFIC ABNORMAL FINDING OF LUNG FIELD
[2020-08-05] MEDS ORDERED: Invanz 1 GM*** 1 G in Sodium Chloride 100ML MINI-BAG PLUS 100 ML IV SCH (09:15)
[2020-08-05] MEDS ORDERED: VANCOCIN 1 GM VIAL*** 1 GM in Sodium Chloride 0.9% 250 ML 250 ML IV SCH (09:30)
--- NOTE | 2020-08-05 09:30 | XRAY ---
Indication: Lethargy. Status post hip surgery. Comparison: August 02, 2020. Portable chest demonstrates worsening bibasilar infiltrates/atelectasis again left greater than right. Stable small left effusion and borderline cardiomegaly. Remaining chest unremarkable.
[2020-08-05] MEDS: NYSTOP POWDER 15 GM TOP SCH ×2 (09:40→22:24)
[2020-08-05] MEDS: MERREM 500MG 500 MG in Sodium Chloride 100ML MINI-BAG PLUS 100 ML IV SCH ×3 (09:40→22:14)
--- NOTE | 2020-08-05 10:02 | XRAY ---
Indication: Fever, delirium, and elevated bilirubin. Two-dimensional gallbladder sonogram performed. Comparison: None Census Enumerator notes difficult exam due to uncooperative patient. Gallbladder normally distended without gallstones, wall thickening, or pericholecystic fluid. Common bile duct measures 5.2 mm. No intrahepatic biliary distention. Tail of the pancreas demonstrate subcentimeter hyperechogenicity with posterior shadowing favoring calcification. No other focal solid/cystic pancreatic mass or ductal dilatation. Remaining visualized liver and right kidney appear sonographically unremarkable. Right kidney measures 12.2 cm in length. No ascites. Impression: 1. Pancreatic tail subcentimeter calcification possibly sequela to chronic pancreatitis. CT abdomen with and without contrast exam may yield further information if clinically warranted. 2. Remaining gallbladder sonogram is negative.
[2020-08-05] MEDS: VANCOMYCIN 2 GRAM/400 ML BAG 2 GM/400 ML PIGGYBACK IV SCH (11:07)
[2020-08-05] MEDS: MILK OF MAGNESIA 30 ML PO SCH ×2 (11:07→22:23)
[2020-08-05] MEDS: Protonix 40MG Tablet PO SCH (11:07)
[2020-08-05] MEDS: Senokot-S Tablet PO SCH ×2 (11:07→22:18)
[2020-08-05] MEDS: Cozaar 50 MG PO SCH ×2 (11:07→22:17)
[2020-08-05] MEDS: THERAGRAN MULTIVITAMIN PO SCH (11:07)
[2020-08-05] MEDS ORDERED: Oxy-IR 5 MG PO PRN (17:23)
[2020-08-05] MEDS: ZOCOR 20MG PO SCH (22:18)
[2020-08-06 05:00] LABS: Hematocrit 44.9 % (42-50); Hemoglobin 14.3 gm/dl (12.5-18.0); Mean Cell Volume 98.9 fl (78-100); Mean Corpuscular Hemoglobin 31.5 pg (26-32); Mean Corpuscular Hgb Concent. 31.8 g/dl (32-36); Mean Platelet Volume 10.6 fl (7.5-11.0); Neutrophil % 74.4 % (36.0-66.0); Platelet Count 209 K/mm3 (150-450); Red Blood Count 4.54 M/mm3 (4.1-5.6); Red Cell Distribution Width 14.6 % (11.5-14.0); White Blood Count 7.7 K/mm3 (4.0-10.5)
[2020-08-06 05:15] LABS: ALBUMIN 3.1 g/dL (3.5-5.0); ALKALINE PHOSPHATASE 217 U/L (38-126); ANION GAP 12.7 MEQ/L (5-15); BLOOD UREA NITROGEN 30 mg/dL (9-20); CHLORIDE 106 mmol/L (98-107); Calcium 8.7 mg/dL (8.4-10.2); Carbon Dioxide 22 mmol/L (22-30); Creatinine 1 1.15 mg/dL (0.66-1.25); EST GLOMERULAR FILTRATION RATE > 60.0 ML/MIN; Glucose 110 mg/dL (74-106); Potassium 4.4 mmol/L (3.5-5.1); SGOT/AST 61 U/L (17-59); SGPT/ALT 31 U/L (0-50); SODIUM 136 mmol/L (137-145); Total Protein 6.9 g/dL (6.3-8.2)
[2020-08-06 05:24] LABS: PROTIME 58.7 SECONDS (8.83-12.87)
[2020-08-06 05:49] LABS: INR 5.08 (0.8-3.0)
[2020-08-06 05:54] LABS: BAND 2 % (0.0-2.0); Eosinophil 4 % (0.00-3.0); Lymphocytes 16 % (24-44); Monocyte 8 % (0.0-12.0); Neutrophils 70 % (36.-66.); Total Cells Counted 100
[2020-08-06 05:55] LABS: ANISOCYTOSIS 1+; Platelet Estimate NORMAL (NORMAL); Poikilocytosis 1+; Polychromasia 1+
[2020-08-06] MEDS: MERREM 500MG 500 MG in Sodium Chloride 100ML MINI-BAG PLUS 100 ML IV SCH (06:04)
[2020-08-06] MEDS: Ativan 2 MG/1 ML VIAL IV PRN (06:05)
[2020-08-06] MEDS: MORPHINE SULFATE 4 MG INJ IV PRN ×2 (07:52→12:04)
[2020-08-06] MEDS: Lactated Ringers 1,000 ML IV SCH (07:54)
--- NOTE | 2020-08-06 08:45 | PCM.NOTE ---
Date and Time: 08/06/20 0844 Subjective Assessment: patient continues to be quite agitated and combative, requiring IV ativan and morphine. he is resting comfortably this morning during rounds. Objective Exam General Appearance: no apparent distress Neurologic Exam: No oriented x 3 Skin Exam: normal color, warm, dry Wound Assessment: Skin/Wound Assessment Wound/Incision Assessment Start: 07/31/20 18:46 Text: Status: Active Freq: Q6H Protocol: Document 08/06/20 02:00 LM (Rec: 08/06/20 02:25 LM [id number]) Wound/Incision Assessment Left Heel Wound Assessment Shift Assessment Wound Type Pressure Ulcer Wound Stage Unstageable Drainage Amount None Comment PURPLE AREA NOTED Medial Sacrum Wound Assessment Shift Assessment Wound Type Pressure Ulcer Wound Stage Stage II Drainage Amount None Drainage Odor None/Absent General Appearance Clean/Dry Surrounding Tissue [place] Comment FISSURE NOTED, BARRIER CREAM APPLIED Left Hip Wound Assessment Shift Assessment Wound Type Incision Wound Stage Non Pressure Wound Dressing Status Dry & Intact Drainage Amount None Drainage Odor None/Absent Comment DRESSING IN PLACE, FOAM TAPE Wound Photo Photo Taken No Respiratory Exam: rhonchi Cardiovascular Exam: irregular Gastrointestinal/Abdomen Exam: soft, No tenderness, No mass Extremity Exam: normal inspection, normal range of motion OBJECTIVE DATA Vital Signs: Vital Signs - 24 hr Temp Pulse Resp BP Pulse Ox 08/06/20 07:22 98 08/06/20 07:07 97.9 F 110 H 24 140/63 97 08/06/20 04:38 97.9 F 67 20 155/70 96 08/05/20 21:41 94 L 08/05/20 19:34 98.1 F 66 20 148/73 97 08/05/20 17:44 98.7 F 68 20 169/74 95 08/05/20 11:46 98.3 F 68 18 140/62 92 L Pain Assessment - Last Documented Pain Intensity 4 Pain Scale Used [facility] Intake and Output: Intake & Output 08/03/20 08/04/20 08/05/20 08/06/20 11:59 11:59 11:59 11:59 Intake Total 1768 2187 2934 1679 Output Total 038 695 7461 950 Balance 843 1797 -1682 729 Weight 121.3 kg Lab Results: Lab Results-Last 24 Hours 08/05/20 08/06/20 08/06/20 Range/Units 04:30 04:30 04:30 WBC 7.7 (4.0-10.5) K/mm3 RBC 4.54 (4.1-5.6) M/mm3 Hgb 14.3 (12.5-18.0) gm/dl Hct 44.9 (42-50) % MCV 98.9 (78-100) fl MCH 31.5 (26-32) pg MCHC 31.8 L (32-36) g/dl RDW 14.6 H (11.5-14.0) % Plt Count 209 (150-450) K/mm3 MPV 10.6 (7.5-11.0) fl Gran % 74.4 H (36.0-66.0) % Segmented Neutrophils 70 H (36.-66.) % Band Neutrophils 2 (0.0-2.0) % Lymphocytes (Manual) 16 L (24-44) % Monocytes (Manual) 8 (0.0-12.0) % Eosinophils (Manual) 4 H (0.00-3.0) % Platelet Estimate NORMAL (NORMAL) RBC Morphology ABNORMAL Polychromasia 1+ Poikilocytosis 1+ Anisocytosis 1+ PT 58.7 H (8.83-12.87) SECONDS INR 5.08 H* (0.8-3.0) Sodium (137-145) mmol/L Potassium (3.5-5.1) mmol/L Chloride (98-107) mmol/L Carbon Dioxide (22-30) mmol/L Anion Gap (5-15) MEQ/L BUN (9-20) mg/dL Creatinine (0.66-1.25) mg/dL Estimated GFR ML/MIN Glucose (74-106) mg/dL Calcium (8.4-10.2) mg/dL Total Bilirubin (0.2-1.3) mg/dL AST (17-59) U/L ALT (0-50) U/L Alkaline Phosphatase (38-126) U/L NT-Pro-B Natriuret Pep 574 (0-1800) pg/mL Serum Total Protein (6.3-8.2) g/dL Albumin (3.5-5.0) g/dL 08/06/20 Range/Units 04:30 WBC (4.0-10.5) K/mm3 RBC (4.1-5.6) M/mm3 Hgb (12.5-18.0) gm/dl Hct (42-50) % MCV (78-100) fl MCH (26-32) pg MCHC (32-36) g/dl RDW (11.5-14.0) % Plt Count (150-450) K/mm3 MPV (7.5-11.0) fl Gran % (36.0-66.0) % Segmented Neutrophils (36.-66.) % Band Neutrophils (0.0-2.0) % Lymphocytes (Manual) (24-44) % Monocytes (Manual) (0.0-12.0) % Eosinophils (Manual) (0.00-3.0) % Platelet Estimate (NORMAL) RBC Morphology Polychromasia Poikilocytosis Anisocytosis PT (8.83-12.87) SECONDS INR (0.8-3.0) Sodium 136 L (137-145) mmol/L Potassium 4.4 (3.5-5.1) mmol/L Chloride 106 (98-107) mmol/L Carbon Dioxide 22 (22-30) mmol/L Anion Gap 12.7 (5-15) MEQ/L BUN 30 H (9-20) mg/dL Creatinine 1.15 (0.66-1.25) mg/dL Estimated GFR > 60.0 ML/MIN Glucose 110 H (74-106) mg/dL Calcium 8.7 (8.4-10.2) mg/dL Total Bilirubin 2.70 H (0.2-1.3) mg/dL AST 61 H (17-59) U/L ALT 31 (0-50) U/L Alkaline Phosphatase 217 H (38-126) U/L NT-Pro-B Natriuret Pep (0-1800) pg/mL Serum Total Protein 6.9 (6.3-8.2) g/dL Albumin 3.1 L (3.5-5.0) g/dL Radiology Exams: Radiology Procedures Category Date Time Status ABDOMEN AND PELVIS W/0 CONTRAS [CT] Routine Exams 08/06/20 08:43 Ordered CHEST 1 VIEW (PORTABLE) Routine Exams 08/05/20 08:49 Completed HEAD WITHOUT CONTRAST [CT] Routine Exams 08/06/20 08:42 Ordered Ultrasound Gallbladder [GALLBLADDER] [US] Routine Exams 08/05/20 09:45 Completed Multi-Disciplinary Progress Notes: Multi-Disciplinary Progress Notes 08/05/20 11:43 Speech Therapy Note by Aurelia Plascencia 08/05/20 Swallow Tx addendum: Recommend continue npo with alternative feeding method at this time. Patient is not a candidate for safe oral intake. MS Helen, CCC/BEAD PREPARER Initialized on 08/05/20 11:43 - END OF NOTE 08/05/20 11:39 Speech Therapy Note by Aurelia Plascencia 08/05/20 Swallow Tx: Patient aroused to name and vocalized in response. Strength/volume of vocalization improved from previous ST attempt. Oral care completed. Mouth swabbed with water on toothette. Patient responded to tactile stimuli to tongue and moved tongue in response to toothette. When ST attempted applesauce, patient made no response to teaspoon in oral cavity. Verbal stimuli to name with vocalization again, but patient made no attempt to swallow what was placed in his oral cavity. ST completed oral care again to remove all applesauce from oral cavity. No swallow was attempted by patient. MS Helen, CCC/BEAD PREPARER Initialized on 08/05/20 11:39 - END OF NOTE 08/05/20 09:23 Pharmacy Note by Nic Huston Pharmacokinetic dosing service Date: 08/05/20 Time: Objective: Patient: Floor: Age: 80 yo Serum creatinine: 1.35 mg/dL Height: 74 Inches Weight (kg): 121 Diagnosis:UROSEPSIS Relevant medical/social history:ALSO ON MEROPENEM Cultures and sensitivities: Other labs: Assessment: IBW (kg): 82.20 Dosing wt(kg): 121 Estimated Creatinine clearance (ml/min): 49.9 CRCL method: Cockcroft and Gault using ibw(default). Drug selected: Vancomycin Loading dose (mg): 0 Vd (liters): 90.8 (factor used: 0.75 L/kg) Tyshawn (hr-1): 0.046 Half life (hrs): 15.07 Recommended dose: 2000 mg Interval: 24 hrs Infusion time (hrs): 2.0 Predicted peak (mcg/mL): 31.5 Predicted trough (mcg/mL): 11.45 Total body weight is being used for vancomycin dosing. Renal function is stable [ ] /unstable [X ] Recommendations: Give Vancomycin 2000 mg q 24 hrs with an expected Cpeak of 31.5 mcg/ml and an expected Ctrough of 11.45 mcg/ml Renal dosing of other antibiotics (review renal dosing of other medications and list guidelines here): Thank you for the consult, will continue to follow. Signature: Initialized on 08/05/20 09:23 - END OF NOTE Assessment/Plan (1) UTI (urinary tract infection) Current Visit: No Status: Acute Onset Date: ~02/26/18 Qualifiers: Urinary tract infection type: acute cystitis Hematuria presence: without h ematuria Qualified Code(s): N30.00 - Acute cystitis without hematuria Assessment & Plan: on meropenem, sensitive Code(s): N39.0 - URINARY TRACT INFECTION, SITE NOT SPECIFIED (2) Delirium Current Visit: Yes Status: Acute Code(s): R41.0 - DISORIENTATION, UNSPECIFIED (3) S/P hip hemiarthroplasty Current Visit: Yes Status: Acute Code(s): Z96.649 - PRESENCE OF UNSPECIFIED ARTIFICIAL HIP JOINT (4) Subcapital fracture of hip Current Visit: No Status: Acute Code(s): S72.019A - UNSP INTRACAPSULAR FRACTURE OF UNSP FEMUR, INIT FOR CLOS FX (5) Atrial fibrillation Current Visit: No Status: Chronic Qualifiers: Atrial fibrillation type: chronic Code(s): I48.91 - UNSPECIFIED ATRIAL FIBRILLATION (6) Hemiplegia affecting left nondominant side Current Visit: No Status: Chronic Qualifiers: Hemiplegia type: flaccid Hemiplegia etiology: cerebrovascular Cerebrovascular disease type: unspecified Code(s): G81.94 - HEMIPLEGIA, UNSPECIFIED AFFECTING LEFT NONDOMINANT SIDE (7) Elevated bilirubin Current Visit: Yes Status: Acute Code(s): R17 - UNSPECIFIED JAUNDICE (8) Bilateral pulmonary infiltrates on chest x-ray Current Visit: No Status: Acute Onset Date: ~02/26/18 Code(s): R91.8 - OTHER NONSPECIFIC ABNORMAL FINDING OF LUNG FIELD
[2020-08-06] MEDS: Cozaar 50 MG PO SCH (09:57)
[2020-08-06] MEDS: MILK OF MAGNESIA 30 ML PO SCH (09:58)
[2020-08-06] MEDS: NYSTOP POWDER 15 GM TOP SCH (09:58)
[2020-08-06] MEDS: THERAGRAN MULTIVITAMIN PO SCH (09:59)
[2020-08-06] MEDS: Senokot-S Tablet PO SCH (09:59)
[2020-08-06] MEDS: Protonix 40MG Tablet PO SCH (09:59)
[2020-08-06] MEDS: VANCOMYCIN 2 GRAM/400 ML BAG 2 GM/400 ML PIGGYBACK IV SCH (10:31)
--- NOTE | 2020-08-06 10:49 | XRAY ---
Indication: Acute mental status change. Uncooperative patient. Multiple contiguous axial images obtained through the head without contrast. Comparison: August 02, 2020. Stable age-appropriate global atrophy, moderate periventricular degenerative micro-ischemia, small old right mid periventricular/basal ganglia infarct, and tiny old left cerebellum infarct. Again no acute intracranial hemorrhage, abnormal extra-axial fluid collection, or mass effect. Fourth ventricle is midline. Bony calvarium remains intact again with right parietal coral holes. Stable small left paranasal sinus polyp/retention cyst. Impression: Continued aging brain with small old right cerebral infarct, tiny old left cerebellum infarct, and left paranasal sinus polyps/retention cysts. No new or acute intracranial abnormalities.
--- NOTE | 2020-08-06 10:52 | XRAY ---
Indication: Acute mental status change. Uncooperative patient. Multiple contiguous axial images obtained through the abdomen and pelvis without contrast as ordered. Comparison: None Study is degraded by respiration artifact throughout and beam artifact from patient's arms. Images through the pelvis also markedly limited due to extreme beam artifact from bilateral total hip arthroplasty. Lung bases demonstrates moderate bibasilar infiltrates versus atelectasis and cardiomegaly. Noncontrasted stomach and bowel loops appear grossly nonobstructed. No large free fluid/air. Urinary bladder is empty with Nelson balloon catheter in situ. Gallbladder mildly distended without gallstones or biliary distention. Left kidney mildly atrophic with cortical scarring anteriorly. Remaining liver, gallbladder, pancreas, spleen, adrenal glands, kidneys, and ureters are grossly unremarkable for noncontrast exam. Diffuse scattered vascular calcifications without AAA. Osseous structures demonstrate osteopenia and mild/moderate multilevel thoracolumbar degenerative spondylosis. Impression: 1. Limited exam due to diffuse respiration artifact and beam artifact. 2. Distended gallbladder without gallstones. 3. Chronic findings including left renal atrophy with cortical scarring, scattered arteriosclerotic disease, and chronic bony findings. 4. Bibasilar infiltrates versus atelectasis and cardiomegaly.
[2020-08-06 11:43] VITALS: BP 137/64; PULSE 66; O2SAT 94
== END 2020-08-06 08:44 | disposition critical access hospital (66) | DRG 560 ==
LOC: OBSVTOIN 16:00 → INTOOBSV 16:00 → MED SURG 16:00 → INTOOBSV 08-06 08:04 → OBSVTOIN 08-06 08:04
PROVIDERS: ADMIT Family Medicine; ATTEND Family Medicine
DX: Z47.1 Aftercare following joint replacement surgery (principal); N39.0 Urinary tract infection, site not specified; R17 Unspecified jaundice; G81.94 Hemiplegia, unspecified affecting left nondominant side; Z96.642 Presence of left artificial hip joint; R41.82 Altered mental status, unspecified; L89.152 Pressure ulcer of sacral region, stage 2; R50.9 Fever, unspecified; I48.91 Unspecified atrial fibrillation; R91.8 Other nonspecific abnormal finding of lung field; L89.620 Pressure ulcer of left heel, unstageable
CPT/HCPCS: 36415; 70450; 71045; 73501; 74176; 76705; 80048; 80053; 81001; 82140; 82947; 83605; 83735; 83880; 84134; 84145; 85025; 85027; 85379; 85610; 87040; 87077; 87086; 87186; 94760; J0696; J1200; J1630; J1940; J2060; J2270; L0625; U0003; 97110-GP; A9270-GY; J3370

== ENCOUNTER 2020-08-06 08:44 | Inpatient (IN) | payer MEDICARE, OTHER ==
[2020-08-06] MEDS ORDERED: TYLENOL EXTRA STRENGTH 500 MG PO PRN (13:20)
[2020-08-06] MEDS ORDERED: Robaxin 500 MG PO PRN (13:21)
[2020-08-06] MEDS ORDERED: BENADRYL 25 MG CAPSULE PO PRN (13:23)
[2020-08-06] MEDS ORDERED: Oxy-IR 5 MG PO PRN (13:26)
[2020-08-06] MEDS: MERREM 500MG 500 MG in Sodium Chloride 100ML MINI-BAG PLUS 100 ML IV SCH ×2 (14:08→22:47)
[2020-08-06] MEDS: Lactated Ringers 1,000 ML IV SCH (14:08)
[2020-08-06] MEDS: Ativan 2 MG/1 ML VIAL IV PRN ×2 (15:45→22:47)
[2020-08-06] MEDS: MORPHINE SULFATE 4 MG INJ IV PRN ×2 (16:01→20:08)
[2020-08-06] MEDS ORDERED: ZOCOR 20MG PO SCH (22:00)
[2020-08-06] MEDS: Cozaar 50 MG PO SCH (22:42)
[2020-08-06] MEDS: MILK OF MAGNESIA 30 ML PO SCH (22:42)
[2020-08-06] MEDS: Senokot-S Tablet PO SCH (22:46)
[2020-08-06] MEDS: NYSTOP POWDER 15 GM TOP SCH (22:55)
[2020-08-07] MEDS: MORPHINE SULFATE 4 MG INJ IV PRN ×5 (00:29→21:08)
[2020-08-07 05:18] LABS: Hematocrit 41.2 % (42-50); Hemoglobin 12.9 gm/dl (12.5-18.0); Mean Cell Volume 99.5 fl (78-100); Mean Corpuscular Hemoglobin 31.2 pg (26-32); Mean Corpuscular Hgb Concent. 31.3 g/dl (32-36); Mean Platelet Volume 10.5 fl (7.5-11.0); Platelet Count 202 K/mm3 (150-450); Red Blood Count 4.14 M/mm3 (4.1-5.6); Red Cell Distribution Width 14.6 % (11.5-14.0); White Blood Count 6.8 K/mm3 (4.0-10.5)
[2020-08-07] MEDS: Lactated Ringers 1,000 ML IV SCH (05:33)
[2020-08-07] MEDS: MERREM 500MG 500 MG in Sodium Chloride 100ML MINI-BAG PLUS 100 ML IV SCH ×3 (05:34→21:08)
[2020-08-07 05:36] LABS: INR 4.15 (0.8-3.0); PROTIME 47.6 SECONDS (8.83-12.87)
[2020-08-07 05:40] LABS: ALBUMIN 2.6 g/dL (3.5-5.0); ALKALINE PHOSPHATASE 197 U/L (38-126); ANION GAP 9.2 MEQ/L (5-15); BLOOD UREA NITROGEN 28 mg/dL (9-20); CHLORIDE 107 mmol/L (98-107); Calcium 8.4 mg/dL (8.4-10.2); Carbon Dioxide 25 mmol/L (22-30); EST GLOMERULAR FILTRATION RATE > 60.0 ML/MIN; Glucose 100 mg/dL (74-106); Potassium 4.3 mmol/L (3.5-5.1); SGOT/AST 54 U/L (17-59); SGPT/ALT 30 U/L (0-50); SODIUM 137 mmol/L (137-145); Total Protein 6.1 g/dL (6.3-8.2)
[2020-08-07 07:08] LABS: BAND 13 % (0.0-2.0); Basophil 1 % (0.0-1.0); Eosinophil 2 % (0.00-3.0); Lymphocytes 14 % (24-44); Metamyelocyte 1 %; Monocyte 3 % (0.0-12.0); Neutrophils 66 % (36.-66.); Total Cells Counted 100
[2020-08-07 07:09] LABS: ANISOCYTOSIS 1+; Platelet Estimate NORMAL (NORMAL)
[2020-08-07 07:18] LABS: Absolute Neutrophil Ct (ANC) 5.34 (1.4-6.9)
[2020-08-07] MEDS: Ativan 2 MG/1 ML VIAL IV PRN ×6 (07:37→22:52)
--- NOTE | 2020-08-07 09:05 | PCM.HP ---
History of Present Illness - Chief Complaint Chief Complaint: PNEUMONIA, UTI, DELERIUM History of Present Illness: is a 80 year old male who was transferred to [facility] as a swing bed last weekend following left total hip arthroplasty, he developed fever and altered mental status shortly after arrival, has been treated for bilateral pneumonia and UTI, continues to be agitated and unable to take po, requiring morphine and ativan for agitation therefore he is very somnolent, he does open his eyes and following some simple commands this morning. - Review of Systems All Other Systems: Unable due to condition Medications & Allergies Home Medications: Home Medication List Atorvastatin Calcium [Lipitor 20MG Tablet] 20 mg PO DAILY 02/27/18 [History Confirmed 08/06/20] Losartan Potassium 50 mg [Cozaar 50 MG] 25 mg PO BID 03/25/19 [History Confirmed 08/06/20] Warfarin Sodium 8 mg PO DAILY@1800 90 Days #180 tablet 07/25/19 [Rx Confirmed 08/06/20] Pantoprazole Sodium 40 mg PO DAILY 08/22/19 [History Confirmed 08/06/20] Acetaminophen 500 mg [Tylenol Extra Strength 500 mg] 1,000 mg PO Q6HPRN PRN 07/31/20 [History Confirmed 08/06/20] Magnesium Hydroxide 30 ml [Milk of Magnesia 30 ml] 30 ml PO BID 07/31/20 [History Confirmed 08/06/20] Methocarbamol 500 mg [Robaxin 500 MG] 500 mg PO Q4HPRN PRN 07/31/20 [History Confirmed 08/06/20] Miconazole Nitrate [Zeasorb AF] 1 applic TP BID 07/31/20 [History Confirmed 08/06/20] Multivit-Min/FA/Lycopen/Lutein [Centrum Silver Ultra Men's Tab] 1 each PO DAILY 07/31/20 [History Confirmed 08/06/20] Oxycodone HCl 5 mg Ir [Oxy-IR 5 MG] 10 mg PO Q4HPRN PRN 07/31/20 [History Confirmed 08/06/20] Sennosides/Docusate Sodium [Senokot-S Tablet] 1 each PO BID 07/31/20 [History Confirmed 08/06/20] Warfarin Sodium 9 mg PO DAILY 07/31/20 [History Confirmed 08/06/20] Allergies/Adverse Reactions: Allergies Allergy/AdvReac Type Severity Reaction Status Date / Time Sulfa (Sulfonamide Allergy Unknown Verified 07/28/20 13:43 Antibiotics) Penicillins Allergy Verified 07/28/20 13:43 - Past Medical History Past Medical History: Yes Neurological History: Stroke ENT History: Cataracts Cardiac History: Arrhythmia, Hypertension, Other Respiratory History: No Pertinent History Endocrine Medical History: No Pertinent History Musculoskelatal History: Arthritis, Fractures GI Medical History: Ulcer History: No Pertinent History Pyscho-Social History: No Pertinent History Male Reproductive Disorders: Scrotal Mass, Other Comment: R CVA W/ L HEMIPLEGIA 2003, A FIB. stomach ulcers, enlarged protate, chronic UTI , patient says he has a "small hole in the back of his heart"; Left hip fracture 08/16 - Past Surgical History Past Surgical History: Yes Neuro Surgical History: No Pertinent History Cardiac History: No Pertinent History Respiratory Surgery: No Pertinent History GI Surgical History: No Pertinent History Genitourinary Surgical Hx: No Pertinent History Musculskeletal Surgical Hx: Joint Replacement Male Surgical History: Prostate Surgery Other Surgical History: Prostate removed 2003, right hip replacement 2014; left hip replacement 08/16 - Social History Smoking Status: Unknown if ever smoked Exposure to second hand smoke: No Alcohol: None Drug Use: none - Physical Exam Vital Signs: Vital Signs - 24 hr Temp Pulse Resp BP Pulse Ox 08/07/20 07:09 97.9 F 67 24 144/59 97 08/07/20 06:59 92 L 08/07/20 04:00 97.9 F 61 20 139/65 95 08/07/20 00:00 18 08/06/20 20:18 91 L 08/06/20 19:57 98.1 F 70 18 146/64 95 08/06/20 16:00 98.1 F 64 18 136/58 91 L 08/06/20 13:06 97.8 F 66 20 137/64 94 L 08/06/20 13:05 92 L 08/06/20 12:25 97.8 F 66 20 137/64 94 L Oxygen-Last 24 hours Oxygen Flowrate (L/min)-RT 2 General Appearance: mild distress Neurologic Exam: disoriented, confusion, agitation, No oriented x 3 Respiratory Exam: rhonchi (clearing, improved air exchange clinically) Cardiovascular Exam: irregular Gastrointestinal/Abdomen Exam: soft, normal bowel sounds, No tenderness, No mass Skin Exam: normal color, warm, dry, No rash Wound Assessment: Skin/Wound Assessment Wound/Incision Assessment Start: 08/06/20 13:27 Text: Status: Active Freq: Q6H Protocol: Document 08/07/20 02:00 LB (Rec: 08/07/20 03:38 LB [id number]) Wound/Incision Assessment Left Heel Wound Assessment Shift Assessment Wound Type Pressure Ulcer Wound Stage Deep Tissue Injury Drainage Amount None General Appearance Open to air Length (cm) (cm) 3.5 Width (cm) (cm) 3 Comment barrier cream and heel boot applied Left Hip Wound Assessment Shift Assessment Wound Type Incision Dressing Status Dry & Intact Comment dressing CDI Wound Photo Photo Taken Yes Results - Labs Lab/Micro Results: Lab Results-Last 24 Hours 08/07/20 08/07/20 08/07/20 Range/Units 04:30 04:30 04:30 WBC 6.8 (4.0-10.5) K/mm3 RBC 4.14 (4.1-5.6) M/mm3 Hgb 12.9 (12.5-18.0) gm/dl Hct 41.2 L (42-50) % MCV 99.5 (78-100) fl MCH 31.2 (26-32) pg MCHC 31.3 L (32-36) g/dl RDW 14.6 H (11.5-14.0) % Plt Count 202 (150-450) K/mm3 MPV 10.5 (7.5-11.0) fl Absolute Granulocytes 5.34 (1.4-6.9) Segmented Neutrophils 66 (36.-66.) % Band Neutrophils 13 H (0.0-2.0) % Lymphocytes (Manual) 14 L (24-44) % Monocytes (Manual) 3 (0.0-12.0) % Eosinophils (Manual) 2 (0.00-3.0) % Basophils (Manual) 1 (0.0-1.0) % Metamyelocytes 1 % Platelet Estimate NORMAL (NORMAL) RBC Morphology ABNORMAL Anisocytosis 1+ PT 47.6 H (8.83-12.87) SECONDS INR 4.15 H (0.8-3.0) Sodium 137 (137-145) mmol/L Potassium 4.3 (3.5-5.1) mmol/L Chloride 107 (98-107) mmol/L Carbon Dioxide 25 (22-30) mmol/L Anion Gap 9.2 (5-15) MEQ/L BUN 28 H (9-20) mg/dL Creatinine 1.10 (0.66-1.25) mg/dL Estimated GFR > 60.0 ML/MIN Glucose 100 (74-106) mg/dL Calcium 8.4 (8.4-10.2) mg/dL Total Bilirubin 2.40 H (0.2-1.3) mg/dL AST 54 (17-59) U/L ALT 30 (0-50) U/L Alkaline Phosphatase 197 H (38-126) U/L Serum Total Protein 6.1 L (6.3-8.2) g/dL Albumin 2.6 L (3.5-5.0) g/dL - Other Procedures and Tests Respiratory Therapy 08/06/20 12:54 Oxygen Oxymask LPM 2 lpm Assessment/Plan (1) Sepsis Current Visit: Yes Status: Acute Assessment & Plan: continue meropenem and vanc, afebrile and lungs sounds improving. (2) Pneumonia Current Visit: Yes Status: Acute Assessment & Plan: vanc/meropenem Code(s): J18.9 - PNEUMONIA, UNSPECIFIED ORGANISM (3) UTI (urinary tract infection) Current Visit: Yes Status: Acute Assessment & Plan: sens to meropenem Code(s): N39.0 - URINARY TRACT INFECTION, SITE NOT SPECIFIED (4) S/P hip hemiarthroplasty Current Visit: No Status: Acute Code(s): Z96.649 - PRESENCE OF UNSPECIFIED ARTIFICIAL HIP JOINT (5) Subdural hematoma Current Visit: No Status: Acute Assessment & Plan: remoted history, ct nonacute on 08/06 Code(s): S06.5X9A - TRAUM SUBDR HEM W LOC OF UNSP DURATION, INIT (6) Atrial fibrillation Current Visit: No Status: Chronic Qualifiers: Code(s): I48.91 - UNSPECIFIED ATRIAL FIBRILLATION (7) Elevated INR Current Visit: Yes Status: Acute Assessment & Plan: coumadin on hold, no active bleeding, INR is falling Code(s): R79.1 - ABNORMAL COAGULATION PROFILE
[2020-08-07] MEDS ORDERED: Protonix 40MG Tablet PO SCH (10:00)
[2020-08-07] MEDS ORDERED: THERAGRAN MULTIVITAMIN PO SCH (10:00)
[2020-08-07] MEDS: VANCOMYCIN 2 GRAM/400 ML BAG 2 GM/400 ML PIGGYBACK IV SCH (10:43)
[2020-08-07] MEDS: MILK OF MAGNESIA 30 ML PO SCH (12:19)
[2020-08-07] MEDS: Cozaar 50 MG PO SCH (12:19)
[2020-08-07] MEDS: Senokot-S Tablet PO SCH (12:20)
[2020-08-07] MEDS: NYSTOP POWDER 15 GM TOP SCH ×2 (12:20→21:09)
[2020-08-07] MEDS ORDERED: MERREM 500MG IV ONE (13:25)
[2020-08-08] MEDS: MORPHINE SULFATE 4 MG INJ IV PRN ×4 (02:08→20:47)
[2020-08-08] MEDS: Ativan 2 MG/1 ML VIAL IV PRN ×8 (03:32→22:37)
[2020-08-08] MEDS: MERREM 500MG 500 MG in Sodium Chloride 100ML MINI-BAG PLUS 100 ML IV SCH ×3 (05:53→22:37)
[2020-08-08] MEDS: Lactated Ringers 1,000 ML IV SCH (05:56)
[2020-08-08 06:40] LABS: Hematocrit 44.5 % (42-50); Hemoglobin 13.8 gm/dl (12.5-18.0); Mean Cell Volume 99.6 fl (78-100); Mean Corpuscular Hemoglobin 30.9 pg (26-32); Mean Platelet Volume 10.7 fl (7.5-11.0); Platelet Count 234 K/mm3 (150-450); Red Blood Count 4.47 M/mm3 (4.1-5.6); Red Cell Distribution Width 14.6 % (11.5-14.0); White Blood Count 7.7 K/mm3 (4.0-10.5)
[2020-08-08 06:56] LABS: INR 3.37 (0.8-3.0); PROTIME 38.5 SECONDS (8.83-12.87)
[2020-08-08 07:52] LABS: ALBUMIN 2.8 g/dL (3.5-5.0); ALKALINE PHOSPHATASE 244 U/L (38-126); ANION GAP 9.9 MEQ/L (5-15); BLOOD UREA NITROGEN 26 mg/dL (9-20); CHLORIDE 108 mmol/L (98-107); Calcium 8.8 mg/dL (8.4-10.2); Carbon Dioxide 23 mmol/L (22-30); Creatinine 1 0.98 mg/dL (0.66-1.25); EST GLOMERULAR FILTRATION RATE > 60.0 ML/MIN; Glucose 107 mg/dL (74-106); Potassium 4.6 mmol/L (3.5-5.1); SGOT/AST 66 U/L (17-59); SGPT/ALT 36 U/L (0-50); SODIUM 137 mmol/L (137-145); Total Protein 6.5 g/dL (6.3-8.2)
[2020-08-08 08:15] LABS: BAND 3 % (0.0-2.0); Eosinophil 4 % (0.00-3.0); Lymphocytes 16 % (24-44); Monocyte 4 % (0.0-12.0); Neutrophils 73 % (36.-66.); Platelet Estimate NORMAL (NORMAL); Total Cells Counted 100
[2020-08-08] MEDS ORDERED: TROUGH DRUG LEVELS IJ ONE (09:30)
[2020-08-08] MEDS: VANCOMYCIN 2 GRAM/400 ML BAG 2 GM/400 ML PIGGYBACK IV SCH (11:19)
--- NOTE | 2020-08-08 15:11 | PCM.NOTE ---
Date and Time: 08/08/20 1505 Subjective Assessment: Patient has been restless and pulling on his gown.Ativan has helped. He is on Morphine 4 mg q 4H, S/P left hip fracture and hip replacement 07/29/2020,admitted to Swing bed for rehab on 07/31/20 .He has been disoriented and restless since late 08/01/2020. Remote Hx CVA and subdural hematoma . He is NPO after swallow studies. Currently on IV Meropenem and Vancomycin for UTI and pneumonia. On admission he was admitted to swing bed 07/31/2020 and was alert and Ox3,joking with the staff. Objective Exam General Appearance: mild distress (per nursing he has been anxious or in discomfort lwft hip but comfortable now laynig supine in bed with HOB elevated.) Neurologic Exam: other (responds to name but not answering questions,allows exam but not able to follow commands) Skin Exam: normal color, warm, dry Wound Assessment: Skin/Wound Assessment Wound/Incision Assessment Start: 08/06/20 13:27 Text: Status: Active Freq: Q6H Protocol: Document 08/08/20 08:00 AR (Rec: 08/08/20 11:17 AR [id number]) Wound/Incision Assessment Left Heel Wound Assessment Shift Assessment Wound Type Pressure Ulcer Wound Stage Deep Tissue Injury Drainage Amount None General Appearance Open to air Length (cm) (cm) 3.5 Width (cm) (cm) 3 Comment barrier cream and heel boot applied Left Hip Wound Assessment Shift Assessment Wound Type Incision Dressing Status Dry & Intact Comment dressing CDI Wound Photo Photo Taken No Eye Exam: other (left eye conjuctiva injected with ome crusty matter medial canthus) Ears, Nose, Throat Exam: normal ENT inspection Respiratory Exam: rhonchi (right mid) Cardiovascular Exam: bradycardia (65,regular) Gastrointestinal/Abdomen Exam: soft (BS present) Extremity Exam: other (hip dressing is clean and dry. No pitting edema toes are pink and warm) OBJECTIVE DATA Vital Signs: Vital Signs - 24 hr Temp Pulse Resp BP Pulse Ox 08/08/20 12:00 97.9 F 69 22 137/67 95 08/08/20 08:00 98.2 F 66 24 152/72 93 L 08/08/20 07:02 92 L 08/08/20 03:51 98.2 F 71 22 139/63 92 L 08/07/20 23:37 97.9 F 61 22 129/60 96 08/07/20 20:00 98.1 F 67 20 140/65 95 08/07/20 19:38 96 08/07/20 16:00 98.7 F 67 20 144/67 96 Oxygen-Last 24 hours Oxygen Flowrate (L/min)-RT 2 Pain Assessment - Last Documented Pain Intensity 0 Pain Scale Used [facility] Intake and Output: Intake & Output 08/06/20 08/07/20 08/08/20 08/09/20 11:59 11:59 11:59 11:59 Intake Total 1714 1973 Output Total 1750 1625 Balance -36 348 Weight 124.2 kg 121.8 kg Lab Results: Lab Results-Last 24 Hours 08/08/20 08/08/20 08/08/20 Range/Units 06:05 06:05 06:05 WBC 7.7 (4.0-10.5) K/mm3 RBC 4.47 (4.1-5.6) M/mm3 Hgb 13.8 (12.5-18.0) gm/dl Hct 44.5 (42-50) % MCV 99.6 (78-100) fl MCH 30.9 (26-32) pg MCHC 31.0 L (32-36) g/dl RDW 14.6 H (11.5-14.0) % Plt Count 234 (150-450) K/mm3 MPV 10.7 (7.5-11.0) fl Segmented Neutrophils 73 H (36.-66.) % Band Neutrophils 3 H (0.0-2.0) % Lymphocytes (Manual) 16 L (24-44) % Monocytes (Manual) 4 (0.0-12.0) % Eosinophils (Manual) 4 H (0.00-3.0) % Platelet Estimate NORMAL (NORMAL) RBC Morphology NORMAL PT 38.5 H (8.83-12.87) SECONDS INR 3.37 H (0.8-3.0) Sodium 137 (137-145) mmol/L Potassium 4.6 (3.5-5.1) mmol/L Chloride 108 H (98-107) mmol/L Carbon Dioxide 23 (22-30) mmol/L Anion Gap 9.9 (5-15) MEQ/L BUN 26 H (9-20) mg/dL Creatinine 0.98 (0.66-1.25) mg/dL Estimated GFR > 60.0 ML/MIN Glucose 107 H (74-106) mg/dL Calcium 8.8 (8.4-10.2) mg/dL Total Bilirubin 2.90 H (0.2-1.3) mg/dL AST 66 H (17-59) U/L ALT 36 (0-50) U/L Alkaline Phosphatase 244 H (38-126) U/L Serum Total Protein 6.5 (6.3-8.2) g/dL Albumin 2.8 L (3.5-5.0) g/dL Vancomycin Trough (10-20) ug/mL 08/08/20 Range/Units 09:40 WBC (4.0-10.5) K/mm3 RBC (4.1-5.6) M/mm3 Hgb (12.5-18.0) gm/dl Hct (42-50) % MCV (78-100) fl MCH (26-32) pg MCHC (32-36) g/dl RDW (11.5-14.0) % Plt Count (150-450) K/mm3 MPV (7.5-11.0) fl Segmented Neutrophils (36.-66.) % Band Neutrophils (0.0-2.0) % Lymphocytes (Manual) (24-44) % Monocytes (Manual) (0.0-12.0) % Eosinophils (Manual) (0.00-3.0) % Platelet Estimate (NORMAL) RBC Morphology PT (8.83-12.87) SECONDS INR (0.8-3.0) Sodium (137-145) mmol/L Potassium (3.5-5.1) mmol/L Chloride (98-107) mmol/L Carbon Dioxide (22-30) mmol/L Anion Gap (5-15) MEQ/L BUN (9-20) mg/dL Creatinine (0.66-1.25) mg/dL Estimated GFR ML/MIN Glucose (74-106) mg/dL Calcium (8.4-10.2) mg/dL Total Bilirubin (0.2-1.3) mg/dL AST (17-59) U/L ALT (0-50) U/L Alkaline Phosphatase (38-126) U/L Serum Total Protein (6.3-8.2) g/dL Albumin (3.5-5.0) g/dL Vancomycin Trough 26.47 H (10-20) ug/mL Multi-Disciplinary Progress Notes: Multi-Disciplinary Progress Notes 08/08/20 10:42 Pharmacy Note by Neymar Cowart Vancomycin trough high at 26.47 this am. Creatinine is still normal. Will hold today's dose and recheck level tomorrow and re-dose. Initialized on 08/08/20 10:42 - END OF NOTE Assessment/Plan (1) Altered mental status Current Visit: No Status: Acute Qualifiers: Altered mental status type: transient alteration of awareness Qualified Code(s): R40.4 - Transient alteration of awareness Assessment & Plan: due to pneumonia and meds needed for pain and anxiety Code(s): R41.82 - ALTERED MENTAL STATUS, UNSPECIFIED (2) Conjunctivitis Current Visit: Yes Status: Acute Qualifiers: Conjunctivitis type: acute Acute conjunctivitis type: bacterial Laterality: left Qualified Code(s): H10.32 - Unspecified acute conjunctivitis, left eye Assessment & Plan: start Tobradex ophthalmic to left eye Code(s): H10.9 - UNSPECIFIED CONJUNCTIVITIS (3) Pneumonia Current Visit: Yes Status: Acute Assessment & Plan: continue present care Code(s): J18.9 - PNEUMONIA, UNSPECIFIED ORGANISM
[2020-08-08] MEDS: NYSTOP POWDER 15 GM TOP SCH ×2 (15:39→22:37)
[2020-08-09] MEDS: Ativan 2 MG/1 ML VIAL IV PRN ×4 (00:47→21:10)
[2020-08-09] MEDS: MORPHINE SULFATE 4 MG INJ IV PRN (02:52)
[2020-08-09] MEDS: Lactated Ringers 1,000 ML IV SCH (04:06)
[2020-08-09] MEDS ORDERED: MERREM 500MG IV ONE (05:27)
[2020-08-09] MEDS ORDERED: Sodium Chloride 100ML MINI-BAG PLUS 0 ML IV ONE (05:30)
[2020-08-09] MEDS: MERREM 500MG 500 MG in Sodium Chloride 100ML MINI-BAG PLUS 100 ML IV SCH ×3 (05:43→21:09)
[2020-08-09 06:44] LABS: Hemoglobin 13.8 gm/dl (12.5-18.0); Mean Cell Volume 97.1 fl (78-100); Mean Corpuscular Hemoglobin 31.2 pg (26-32); Mean Corpuscular Hgb Concent. 32.1 g/dl (32-36); Mean Platelet Volume 10.7 fl (7.5-11.0); Platelet Count 257 K/mm3 (150-450); Red Blood Count 4.43 M/mm3 (4.1-5.6); Red Cell Distribution Width 14.5 % (11.5-14.0); White Blood Count 7.7 K/mm3 (4.0-10.5)
[2020-08-09 07:35] LABS: ALBUMIN 2.7 g/dL (3.5-5.0); ALKALINE PHOSPHATASE 273 U/L (38-126); BLOOD UREA NITROGEN 20 mg/dL (9-20); CHLORIDE 105 mmol/L (98-107); Calcium 8.6 mg/dL (8.4-10.2); Carbon Dioxide 21 mmol/L (22-30); Creatinine 1 0.77 mg/dL (0.66-1.25); EST GLOMERULAR FILTRATION RATE > 60.0 ML/MIN; Glucose 112 mg/dL (74-106); Potassium 4.7 mmol/L (3.5-5.1); SGOT/AST 74 U/L (17-59); SGPT/ALT 40 U/L (0-50); SODIUM 134 mmol/L (137-145); Total Protein 6.5 g/dL (6.3-8.2)
[2020-08-09] MEDS: MORPHINE SULFATE 2 MG INJ IV PRN ×3 (08:13→22:54)
[2020-08-09 08:55] LABS: INR 2.49 (0.8-3.0); PROTIME 28.4 SECONDS (8.83-12.87)
[2020-08-09] MEDS: NYSTOP POWDER 15 GM TOP SCH ×2 (10:46→21:10)
[2020-08-09 12:29] LABS: BAND 3 % (0.0-2.0); Eosinophil 1 % (0.00-3.0); Lymphocytes 8 % (24-44); Monocyte 4 % (0.0-12.0); Neutrophils 84 % (36.-66.); Total Cells Counted 100
[2020-08-09 12:30] LABS: Platelet Estimate NORMAL (NORMAL)
[2020-08-09 15:51] LABS: Appearance CLEAR (CLEAR); Bilirubin NEGATIVE (NEGATIVE); Blood SMALL Ery/ul (0-5); Glucose NEGATIVE (NEGATIVE); Ketones SMALL (NEGATIVE); Leukocyte Esterase NEGATIVE (NEGATIVE); Mucus SLIGHT /HPF (NEGATIVE); Nitrite NEGATIVE (NEGATIVE); Protein,Urine Dip 30 (Negative); Urobilinogen 2 mg/dL (0-1)
--- NOTE | 2020-08-09 15:52 | PCM.NOTE ---
Date and Time: 08/09/20 1548 Subjective Assessment: Patient is resting better today but not communicative. Morphine was reduced from 4 mg to 2 mg and he is still on Ativan prn anxiety/restlessness trying to stop these meds to see what his mental status is at baseline.Left hip Pain level 3 or less per nursing. Not in any pain at present. - Review of Systems Constitutional: Lethargy Respiratory: No Symptoms Cardiac: No Symptoms Abdominal/Gastrointestinal: No Symptoms Neurological: Other (AMS) Objective Exam General Appearance: no apparent distress, other (laying in bed supine HOB elevated) Neurologic Exam: other (awakes to name but not answering any questions) Skin Exam: normal color, dry Wound Assessment: Skin/Wound Assessment Wound/Incision Assessment Start: 08/06/20 13:27 Text: Status: Active Freq: Q6H Protocol: Document 08/09/20 14:00 LETY (Rec: 08/09/20 15:30 LETY [id number]) Wound/Incision Assessment Left Heel Wound Assessment Shift Assessment Wound Type Pressure Ulcer Wound Stage Deep Tissue Injury Drainage Amount None General Appearance Open to air Length (cm) (cm) 3.5 Width (cm) (cm) 3 Wound Bed Greatest Portion Black (Eschar) Surrounding Tissue [place] Comment HEEL BOOT IN PLACE AND BARRIER CREAM APPLIED Left Hip Wound Assessment Shift Assessment Wound Type Incision Dressing Status Dry & Intact Comment dressing CDI Ears, Nose, Throat Exam: other (mouth/tongue is dry and red,nurse is coming in to do oral care) Respiratory Exam: rhonchi (Oximask 3L ,no resp distress,loose righ mid ant) Cardiovascular Exam: regular rate/rhythm (rate 70) Gastrointestinal/Abdomen Exam: soft (nontender/no guarding) Extremity Exam: other (no pitting edema. Left hip dressing clean and dry no surrounding redness.) OBJECTIVE DATA Vital Signs: Vital Signs - 24 hr Temp Pulse Resp BP Pulse Ox 08/09/20 12:00 97.9 F 69 24 138/62 94 L 08/09/20 07:52 97.3 F 67 20 146/68 93 L 08/09/20 07:31 93 L 08/09/20 04:02 98.2 F 71 20 140/84 95 08/08/20 23:50 98.3 F 79 18 176/94 92 L 08/08/20 19:40 97 08/08/20 19:32 98.0 F 73 20 158/71 93 L 08/08/20 19:26 93 L Pain Assessment - Last Documented Pain Intensity 3 [facility] Intake and Output: Intake & Output 08/07/20 08/08/20 08/09/20 08/10/20 11:59 11:59 11:59 11:59 Intake Total 1714 1973 1421 Output Total 9143 0971 3350 Balance -36 348 -929 Weight 124.2 kg 121.8 kg 122.1 kg Lab Results: Lab Results-Last 24 Hours 08/09/20 08/09/20 08/09/20 Range/Units 06:00 06:00 06:00 WBC 7.7 (4.0-10.5) K/mm3 RBC 4.43 (4.1-5.6) M/mm3 Hgb 13.8 (12.5-18.0) gm/dl Hct 43.0 (42-50) % MCV 97.1 (78-100) fl MCH 31.2 (26-32) pg MCHC 32.1 (32-36) g/dl RDW 14.5 H (11.5-14.0) % Plt Count 257 (150-450) K/mm3 MPV 10.7 (7.5-11.0) fl Segmented Neutrophils 84 H (36.-66.) % Band Neutrophils 3 H (0.0-2.0) % Lymphocytes (Manual) 8 L (24-44) % Monocytes (Manual) 4 (0.0-12.0) % Eosinophils (Manual) 1 (0.00-3.0) % Platelet Estimate NORMAL (NORMAL) RBC Morphology NORMAL PT 28.4 H (8.83-12.87) SECONDS INR 2.49 (0.8-3.0) Sodium 134 L (137-145) mmol/L Potassium 4.7 (3.5-5.1) mmol/L Chloride 105 (98-107) mmol/L Carbon Dioxide 21 L (22-30) mmol/L Anion Gap 13.0 (5-15) MEQ/L BUN 20 (9-20) mg/dL Creatinine 0.77 (0.66-1.25) mg/dL Estimated GFR > 60.0 ML/MIN Glucose 112 H (74-106) mg/dL Calcium 8.6 (8.4-10.2) mg/dL Total Bilirubin 2.90 H (0.2-1.3) mg/dL AST 74 H (17-59) U/L ALT 40 (0-50) U/L Alkaline Phosphatase 273 H (38-126) U/L Serum Total Protein 6.5 (6.3-8.2) g/dL Albumin 2.7 L (3.5-5.0) g/dL Vancomycin Trough (10-20) ug/mL 08/09/20 Range/Units 09:45 WBC (4.0-10.5) K/mm3 RBC (4.1-5.6) M/mm3 Hgb (12.5-18.0) gm/dl Hct (42-50) % MCV (78-100) fl MCH (26-32) pg MCHC (32-36) g/dl RDW (11.5-14.0) % Plt Count (150-450) K/mm3 MPV (7.5-11.0) fl Segmented Neutrophils (36.-66.) % Band Neutrophils (0.0-2.0) % Lymphocytes (Manual) (24-44) % Monocytes (Manual) (0.0-12.0) % Eosinophils (Manual) (0.00-3.0) % Platelet Estimate (NORMAL) RBC Morphology PT (8.83-12.87) SECONDS INR (0.8-3.0) Sodium (137-145) mmol/L Potassium (3.5-5.1) mmol/L Chloride (98-107) mmol/L Carbon Dioxide (22-30) mmol/L Anion Gap (5-15) MEQ/L BUN (9-20) mg/dL Creatinine (0.66-1.25) mg/dL Estimated GFR ML/MIN Glucose (74-106) mg/dL Calcium (8.4-10.2) mg/dL Total Bilirubin (0.2-1.3) mg/dL AST (17-59) U/L ALT (0-50) U/L Alkaline Phosphatase (38-126) U/L Serum Total Protein (6.3-8.2) g/dL Albumin (3.5-5.0) g/dL Vancomycin Trough 25.11 H (10-20) ug/mL Radiology Exams: Radiology Procedures Category Date Time Status CHEST 1 VIEW (PORTABLE) Routine Exams 08/09/20 14:00 Taken Multi-Disciplinary Progress Notes: Multi-Disciplinary Progress Notes 08/09/20 12:13 Pharmacy Note by Neymar Cowart Vancomycin level still high at 25.11. Creatinine down to 0.77. Will continue to hold dose and recheck level Monday. Initialized on 08/09/20 12:13 - END OF NOTE Assessment/Plan (1) Altered mental status Current Visit: No Status: Acute Qualifiers: Altered mental status type: transient alteration of awareness Qualified Code(s): R40.4 - Transient alteration of awareness Assessment & Plan: slight improvement with reduction of Morphine Code(s): R41.82 - ALTERED MENTAL STATUS, UNSPECIFIED (2) Left hip pain Current Visit: Yes Status: Acute Assessment & Plan: Improving S/P left hip arthroplasty ,initially admitted for rehab Code(s): M25.552 - PAIN IN LEFT HIP (3) Pneumonia Current Visit: Yes Status: Acute Assessment & Plan: clinically impoving on current Tx Code(s): J18.9 - PNEUMONIA, UNSPECIFIED ORGANISM (4) Elevated bilirubin Current Visit: No Status: Acute Assessment & Plan: discussed with Dr Torres-just monitoring, scans showed no acute findings,abd exam is unremarkable today Code(s): R17 - UNSPECIFIED JAUNDICE (5) Elevated INR Current Visit: Yes Status: Resolved Assessment & Plan: discussed with Dr Torres-not to restart anticoag at this time Code(s): R79.1 - ABNORMAL COAGULATION PROFILE (6) Paroxysmal A-fib Current Visit: Yes Status: Chronic Assessment & Plan: stable Code(s): I48.0 - PAROXYSMAL ATRIAL FIBRILLATION
--- NOTE | 2020-08-09 18:02 | XRAY ---
Indication: Pneumonia. Comparison: August 05, 2020. Portable chest demonstrates left effusion clearing with small residual. Remaining chest unchanged again demonstrating borderline cardiomegaly and bibasilar infiltrates/atelectasis. No new cardiopulmonary abnormalities.
[2020-08-10] MEDS: MORPHINE SULFATE 2 MG INJ IV PRN ×2 (03:08→15:01)
[2020-08-10] MEDS: Lactated Ringers 1,000 ML IV SCH ×2 (03:08→21:23)
[2020-08-10 05:20] LABS: Hematocrit 44.6 % (42-50); Hemoglobin 14.3 gm/dl (12.5-18.0); Mean Cell Volume 95.9 fl (78-100); Mean Corpuscular Hemoglobin 30.8 pg (26-32); Mean Corpuscular Hgb Concent. 32.1 g/dl (32-36); Mean Platelet Volume 10.8 fl (7.5-11.0); Platelet Count 281 K/mm3 (150-450); Red Blood Count 4.65 M/mm3 (4.1-5.6); Red Cell Distribution Width 14.4 % (11.5-14.0); White Blood Count 9.7 K/mm3 (4.0-10.5)
[2020-08-10 05:33] LABS: INR 2.09 (0.8-3.0); PROTIME 23.8 SECONDS (8.83-12.87)
[2020-08-10] MEDS: MERREM 500MG 500 MG in Sodium Chloride 100ML MINI-BAG PLUS 100 ML IV SCH ×3 (05:33→21:24)
[2020-08-10] MEDS: Ativan 2 MG/1 ML VIAL IV PRN ×2 (05:33→11:15)
[2020-08-10 05:40] LABS: ALBUMIN 3.2 g/dL (3.5-5.0); ALKALINE PHOSPHATASE 337 U/L (38-126); ANION GAP 12.6 MEQ/L (5-15); BLOOD UREA NITROGEN 20 mg/dL (9-20); CHLORIDE 102 mmol/L (98-107); Calcium 8.9 mg/dL (8.4-10.2); Carbon Dioxide 23 mmol/L (22-30); Creatinine 1 0.86 mg/dL (0.66-1.25); EST GLOMERULAR FILTRATION RATE > 60.0 ML/MIN; Glucose 128 mg/dL (74-106); Potassium 4.8 mmol/L (3.5-5.1); SGOT/AST 92 U/L (17-59); SGPT/ALT 51 U/L (0-50); SODIUM 133 mmol/L (137-145); Total Protein 7.6 g/dL (6.3-8.2)
[2020-08-10 09:08] LABS: Eosinophil 4 % (0.00-3.0); Lymphocytes 6 % (24-44); Monocyte 5 % (0.0-12.0); Neutrophils 85 % (36.-66.); Platelet Estimate NORMAL (NORMAL); Total Cells Counted 100
[2020-08-10] MEDS ORDERED: PHARMACY DOSING REQUEST MC ONE (09:24)
--- NOTE | 2020-08-10 09:52 | PCM.NOTE ---
Date and Time: 08/10/20 0948 Subjective Assessment: no improvement clinically, patient responds to his name. speech is not understandable Objective Exam General Appearance: no apparent distress Wound Assessment: Skin/Wound Assessment Wound/Incision Assessment Start: 08/06/20 13:27 Text: Status: Active Freq: Q6H Protocol: Document 08/10/20 02:00 SG (Rec: 08/10/20 02:52 SG [id number]) Wound/Incision Assessment Left Heel Wound Assessment Shift Assessment Wound Type Pressure Ulcer Wound Stage Deep Tissue Injury Drainage Amount None General Appearance Open to air Length (cm) (cm) 3.5 Width (cm) (cm) 3 Wound Bed Greatest Portion Black (Eschar) Surrounding Tissue [place] Comment HEEL BOOT IN PLACE AND BARRIER CREAM APPLIED Left Hip Wound Assessment Shift Assessment Wound Type Incision Dressing Status Dry & Intact Comment dressing CDI Wound Photo Photo Taken No Respiratory Exam: rhonchi Cardiovascular Exam: regular rate/rhythm, normal heart sounds, irregular Gastrointestinal/Abdomen Exam: soft, No tenderness, No mass Extremity Exam: normal inspection, normal range of motion OBJECTIVE DATA Vital Signs: Vital Signs - 24 hr Temp Pulse Resp BP Pulse Ox 08/10/20 08:00 97.9 F 89 24 132/63 94 L 08/10/20 06:45 92 L 08/10/20 04:00 97.7 F 76 24 145/67 94 L 08/10/20 00:00 98.5 F 83 24 136/65 95 08/09/20 19:30 96 08/09/20 19:29 98.4 F 67 19 118/56 96 08/09/20 16:00 98.5 F 71 24 147/73 95 08/09/20 12:00 97.9 F 69 24 138/62 94 L Oxygen-Last 24 hours Oxygen Flowrate (L/min)-RT 3 Oxygen Flowrate (L/min)-RT 3 Pain Assessment - Last Documented Pain Intensity 6 Pain Scale Used [facility] Intake and Output: Intake & Output 08/07/20 08/08/20 08/09/20 08/10/20 11:59 11:59 11:59 11:59 Intake Total 1714 1973 1421 1393 Output Total 1755 1625 2350 2100 Balance -36 008 -311 -981 Weight 124.2 kg 121.8 kg 122.1 kg 117 kg Lab Results: Lab Results-Last 24 Hours 08/09/20 08/09/20 08/09/20 Range/Units 06:00 09:45 15:35 WBC (4.0-10.5) K/mm3 RBC (4.1-5.6) M/mm3 Hgb (12.5-18.0) gm/dl Hct (42-50) % MCV (78-100) fl MCH (26-32) pg MCHC (32-36) g/dl RDW (11.5-14.0) % Plt Count (150-450) K/mm3 MPV (7.5-11.0) fl Segmented Neutrophils 84 H (36.-66.) % Band Neutrophils 3 H (0.0-2.0) % Lymphocytes (Manual) 8 L (24-44) % Monocytes (Manual) 4 (0.0-12.0) % Eosinophils (Manual) 1 (0.00-3.0) % Platelet Estimate NORMAL (NORMAL) RBC Morphology NORMAL PT (8.83-12.87) SECONDS INR (0.8-3.0) Sodium (137-145) mmol/L Potassium (3.5-5.1) mmol/L Chloride (98-107) mmol/L Carbon Dioxide (22-30) mmol/L Anion Gap (5-15) MEQ/L BUN (9-20) mg/dL Creatinine (0.66-1.25) mg/dL Estimated GFR ML/MIN Glucose (74-106) mg/dL Calcium (8.4-10.2) mg/dL Total Bilirubin (0.2-1.3) mg/dL AST (17-59) U/L ALT (0-50) U/L Alkaline Phosphatase (38-126) U/L NT-Pro-B Natriuret Pep (0-1800) pg/mL Serum Total Protein (6.3-8.2) g/dL Albumin (3.5-5.0) g/dL Urine Color [place] (YELLOW) Urine Appearance CLEAR (CLEAR) Urine pH 6.0 (5-6) Ur Specific [place] 1.020 (1.005-1.025) Urine Protein 30 (Negative) Urine Ketones SMALL (NEGATIVE) Urine Blood SMALL (0-5) Hitesh/ul Urine Nitrite NEGATIVE (NEGATIVE) Urine Bilirubin NEGATIVE (NEGATIVE) Urine Urobilinogen 2 (0-1) mg/dL Ur Leukocyte Esterase NEGATIVE (NEGATIVE) Urine WBC (Auto) 3-5 (0-5) /HPF Urine RBC (Auto) 3-5 (0-2) /HPF U Epithel Cells (Auto) NONE (FEW) /HPF Urine Bacteria (Auto) NONE (NEGATIVE) /HPF Urine Mucus (Auto) SLIGHT (NEGATIVE) /HPF Urine Culture Reflexed ORDERED SEPARATELY (NO) Urine Glucose NEGATIVE (NEGATIVE) mg/dL Vancomycin Trough 25.11 H (10-20) ug/mL 08/09/20 08/10/20 08/10/20 Range/Units 20:40 04:35 04:35 WBC 9.7 (4.0-10.5) K/mm3 RBC 4.65 (4.1-5.6) M/mm3 Hgb 14.3 (12.5-18.0) gm/dl Hct 44.6 (42-50) % MCV 95.9 (78-100) fl MCH 30.8 (26-32) pg MCHC 32.1 (32-36) g/dl RDW 14.4 H (11.5-14.0) % Plt Count 281 (150-450) K/mm3 MPV 10.8 (7.5-11.0) fl Segmented Neutrophils 85 H (36.-66.) % Band Neutrophils (0.0-2.0) % Lymphocytes (Manual) 6 L (24-44) % Monocytes (Manual) 5 (0.0-12.0) % Eosinophils (Manual) 4 H (0.00-3.0) % Platelet Estimate NORMAL (NORMAL) RBC Morphology NORMAL PT (8.83-12.87) SECONDS INR (0.8-3.0) Sodium 133 L (137-145) mmol/L Potassium 4.8 (3.5-5.1) mmol/L Chloride 102 (98-107) mmol/L Carbon Dioxide 23 (22-30) mmol/L Anion Gap 12.6 (5-15) MEQ/L BUN 20 (9-20) mg/dL Creatinine 0.86 (0.66-1.25) mg/dL Estimated GFR > 60.0 ML/MIN Glucose 128 H (74-106) mg/dL Calcium 8.9 (8.4-10.2) mg/dL Total Bilirubin 3.30 H (0.2-1.3) mg/dL AST 92 H (17-59) U/L ALT 51 H (0-50) U/L Alkaline Phosphatase 337 H (38-126) U/L NT-Pro-B Natriuret Pep 676 (0-1800) pg/mL Serum Total Protein 7.6 (6.3-8.2) g/dL Albumin 3.2 L (3.5-5.0) g/dL Urine Color (YELLOW) Urine Appearance (CLEAR) Urine pH (5-6) Ur Specific [place] (1.005-1.025) Urine Protein (Negative) Urine Ketones (NEGATIVE) Urine Blood (0-5) Hitesh/ul Urine Nitrite (NEGATIVE) Urine Bilirubin (NEGATIVE) Urine Urobilinogen (0-1) mg/dL Ur Leukocyte Esterase (NEGATIVE) Urine WBC (Auto) (0-5) /HPF Urine RBC (Auto) (0-2) /HPF U Epithel Cells (Auto) (FEW) /HPF Urine Bacteria (Auto) (NEGATIVE) /HPF Urine Mucus (Auto) (NEGATIVE) /HPF Urine Culture Reflexed (NO) Urine Glucose (NEGATIVE) mg/dL Vancomycin Trough (10-20) ug/mL 08/10/20 Range/Units 04:35 WBC (4.0-10.5) K/mm3 RBC (4.1-5.6) M/mm3 Hgb (12.5-18.0) gm/dl Hct (42-50) % MCV (78-100) fl MCH (26-32) pg MCHC (32-36) g/dl RDW (11.5-14.0) % Plt Count (150-450) K/mm3 MPV (7.5-11.0) fl Segmented Neutrophils (36.-66.) % Band Neutrophils (0.0-2.0) % Lymphocytes (Manual) (24-44) % Monocytes (Manual) (0.0-12.0) % Eosinophils (Manual) (0.00-3.0) % Platelet Estimate (NORMAL) RBC Morphology PT 23.8 H (8.83-12.87) SECONDS INR 2.09 (0.8-3.0) Sodium (137-145) mmol/L Potassium (3.5-5.1) mmol/L Chloride (98-107) mmol/L Carbon Dioxide (22-30) mmol/L Anion Gap (5-15) MEQ/L BUN (9-20) mg/dL Creatinine (0.66-1.25) mg/dL Estimated GFR ML/MIN Glucose (74-106) mg/dL Calcium (8.4-10.2) mg/dL Total Bilirubin (0.2-1.3) mg/dL AST (17-59) U/L ALT (0-50) U/L Alkaline Phosphatase (38-126) U/L NT-Pro-B Natriuret Pep (0-1800) pg/mL Serum Total Protein (6.3-8.2) g/dL Albumin (3.5-5.0) g/dL Urine Color (YELLOW) Urine Appearance (CLEAR) Urine pH (5-6) Ur Specific [place] (1.005-1.025) Urine Protein (Negative) Urine Ketones (NEGATIVE) Urine Blood (0-5) Hitesh/ul Urine Nitrite (NEGATIVE) Urine Bilirubin (NEGATIVE) Urine Urobilinogen (0-1) mg/dL Ur Leukocyte Esterase (NEGATIVE) Urine WBC (Auto) (0-5) /HPF Urine RBC (Auto) (0-2) /HPF U Epithel Cells (Auto) (FEW) /HPF Urine Bacteria (Auto) (NEGATIVE) /HPF Urine Mucus (Auto) (NEGATIVE) /HPF Urine Culture Reflexed (NO) Urine Glucose (NEGATIVE) mg/dL Vancomycin Trough (10-20) ug/mL Radiology Exams: Radiology Procedures Category Date Time Status CHEST 1 VIEW (PORTABLE) Routine Exams 08/09/20 14:00 Completed Multi-Disciplinary Progress Notes: Multi-Disciplinary Progress Notes 08/09/20 12:13 Pharmacy Note by Neymar Cowart Vancomycin level still high at 25.11. Creatinine down to 0.77. Will continue to hold dose and recheck level Monday. Initialized on 08/09/20 12:13 - END OF NOTE Assessment/Plan (1) Sepsis Current Visit: Yes Status: Acute Assessment & Plan: starting TPN, unable to tolerate any po intake. prognosis is guarded, would not be unexpected (2) Pneumonia Current Visit: Yes Status: Acute Assessment & Plan: on vanc/meropenem Code(s): J18.9 - PNEUMONIA, UNSPECIFIED ORGANISM (3) UTI (urinary tract infection) Current Visit: Yes Status: Acute Assessment & Plan: has received adequate therapy with meropenem Code(s): N39.0 - URINARY TRACT INFECTION, SITE NOT SPECIFIED (4) S/P hip hemiarthroplasty Current Visit: No Status: Acute Code(s): Z96.649 - PRESENCE OF UNSPECIFIED ARTIFICIAL HIP JOINT (5) Subdural hematoma Current Visit: No Status: Acute Code(s): S06.5X9A - TRAUM SUBDR HEM W LOC OF UNSP DURATION, INIT (6) Atrial fibrillation Current Visit: No Status: Chronic Qualifiers: Code(s): I48.91 - UNSPECIFIED ATRIAL FIBRILLATION (7) Elevated INR Current Visit: Yes Status: Acute Code(s): R79.1 - ABNORMAL COAGULATION PROFILE
[2020-08-10] MEDS: NYSTOP POWDER 15 GM TOP SCH ×2 (10:12→21:24)
[2020-08-10] MEDS ORDERED: INTRALIPID 20% 250 ML 250 ML, TPN Electrolytes 20 ML, Multitrace-4 Conc Vial 1 ML*** 1 ... IV SCH ×5 (14:00)
[2020-08-10] MEDS: Zofran 4 MG/2 ML VIAL IV PRN (22:45)
[2020-08-11] MEDS: Ativan 2 MG/1 ML VIAL IV PRN ×4 (00:21→21:32)
[2020-08-11] MEDS: MORPHINE SULFATE 2 MG INJ IV PRN ×4 (01:20→20:10)
[2020-08-11] MEDS: Zofran 4 MG/2 ML VIAL IV PRN (03:03)
[2020-08-11] MEDS: MERREM 500MG 500 MG in Sodium Chloride 100ML MINI-BAG PLUS 100 ML IV SCH ×3 (05:16→21:32)
[2020-08-11 05:24] LABS: Hematocrit 44.3 % (42-50); Hemoglobin 14.1 gm/dl (12.5-18.0); Mean Cell Volume 96.5 fl (78-100); Mean Corpuscular Hemoglobin 30.7 pg (26-32); Mean Corpuscular Hgb Concent. 31.8 g/dl (32-36); Mean Platelet Volume 11.2 fl (7.5-11.0); Platelet Count 310 K/mm3 (150-450); Red Blood Count 4.59 M/mm3 (4.1-5.6); Red Cell Distribution Width 14.8 % (11.5-14.0); White Blood Count 10.9 K/mm3 (4.0-10.5)
[2020-08-11 05:35] LABS: INR 1.77 (0.8-3.0); PROTIME 20.1 SECONDS (8.83-12.87)
[2020-08-11 05:40] LABS: ALKALINE PHOSPHATASE 357 U/L (38-126); ANION GAP 10.2 MEQ/L (5-15); BLOOD UREA NITROGEN 27 mg/dL (9-20); CHLORIDE 102 mmol/L (98-107); Calcium 8.7 mg/dL (8.4-10.2); Carbon Dioxide 24 mmol/L (22-30); EST GLOMERULAR FILTRATION RATE > 60.0 ML/MIN; Glucose 173 mg/dL (74-106); Potassium 4.5 mmol/L (3.5-5.1); SGOT/AST 76 U/L (17-59); SGPT/ALT 49 U/L (0-50); SODIUM 132 mmol/L (137-145); Total Protein 7.2 g/dL (6.3-8.2)
[2020-08-11 07:53] LABS: BAND 1 % (0.0-2.0); Lymphocytes 4 % (24-44); Monocyte 7 % (0.0-12.0); Neutrophils 88 % (36.-66.); Total Cells Counted 100
[2020-08-11 07:54] LABS: ANISOCYTOSIS 1+; Platelet Estimate NORMAL (NORMAL)
--- NOTE | 2020-08-11 10:12 | PCM.NOTE ---
Date and Time: 08/11/20 1010 Subjective Assessment: patient is more alert and able to converse, relays he has pain "in my left hip" but no other complaints. Objective Exam General Appearance: no apparent distress Neurologic Exam: alert Wound Assessment: Skin/Wound Assessment Wound/Incision Assessment Start: 08/06/20 13:27 Text: Status: Active Freq: Q6H Protocol: Document 08/11/20 02:00 LL (Rec: 08/11/20 02:40 LL [id number]) Wound/Incision Assessment Buttock Wound Assessment Shift Assessment Wound Type Pressure Ulcer Wound Stage Stage II Drainage Amount None Drainage Odor None/Absent General Appearance Open to air Wound Bed Greatest Portion Red (Gran[place]) Wound Bed Lesser Portion Pale [place] Surrounding Tissue [place] Comment shearing stage II CUCO, pt turned off area. Left Heel Wound Assessment Shift Assessment Wound Type Pressure Ulcer Wound Stage Deep Tissue Injury Drainage Amount None General Appearance Open to air Wound Bed Greatest Portion Black (Eschar) Surrounding Tissue [place] Comment HEEL BOOT IN PLACE AND PILLOW SUPPORT USED Left Hip Wound Assessment Shift Assessment Wound Type Incision Dressing Status Dry & Intact Drainage Odor None/Absent Comment dressing CDI Wound Photo Photo Taken No Respiratory Exam: normal breath sounds, lungs clear, No respiratory distress Cardiovascular Exam: regular rate/rhythm, normal heart sounds Gastrointestinal/Abdomen Exam: soft, No tenderness, No mass Extremity Exam: other (dressing to left hip reinforced) OBJECTIVE DATA Vital Signs: Vital Signs - 24 hr Temp Pulse Resp BP Pulse Ox 08/11/20 07:38 98.1 F 57 L 16 120/56 93 L 08/11/20 06:48 90 L 08/11/20 04:00 98.2 F 78 24 144/70 92 L 08/11/20 00:00 99 F 73 24 118/54 94 L 08/10/20 19:11 98.4 F 77 24 99/42 94 L 08/10/20 19:04 94 L 08/10/20 16:00 98.0 F 78 24 137/76 97 08/10/20 12:00 98.3 F 80 22 140/70 94 L Pain Assessment - Last Documented Pain Intensity 2 Pain Scale Used [facility] Intake and Output: Intake & Output 08/08/20 08/09/20 08/10/20 08/11/20 11:59 11:59 11:59 11:59 Intake Total 1973 1421 1393 2303 Output Total 1625 2350 2100 2700 Balance 401 -561 -706 -209 Weight 121.8 kg 122.1 kg 117 kg 93.9 kg Lab Results: Lab Results-Last 24 Hours 08/10/20 08/10/20 08/10/20 Range/Units 09:40 09:40 18:26 WBC (4.0-10.5) K/mm3 RBC (4.1-5.6) M/mm3 Hgb (12.5-18.0) gm/dl Hct (42-50) % MCV (78-100) fl MCH (26-32) pg MCHC (32-36) g/dl RDW (11.5-14.0) % Plt Count (150-450) K/mm3 MPV (7.5-11.0) fl Segmented Neutrophils (36.-66.) % Band Neutrophils (0.0-2.0) % Lymphocytes (Manual) (24-44) % Monocytes (Manual) (0.0-12.0) % Platelet Estimate (NORMAL) RBC Morphology Anisocytosis PT (8.83-12.87) SECONDS INR (0.8-3.0) Sodium (137-145) mmol/L Potassium (3.5-5.1) mmol/L Chloride (98-107) mmol/L Carbon Dioxide (22-30) mmol/L Anion Gap (5-15) MEQ/L BUN (9-20) mg/dL Creatinine (0.66-1.25) mg/dL Estimated GFR ML/MIN Glucose (74-106) mg/dL POC Glucometer 127 H (74 to 106) mg/dL Calcium (8.4-10.2) mg/dL Magnesium 2.3 (1.6-2.3) mg/dL Total Bilirubin (0.2-1.3) mg/dL AST (17-59) U/L ALT (0-50) U/L Alkaline Phosphatase (38-126) U/L Serum Total Protein (6.3-8.2) g/dL Albumin (3.5-5.0) g/dL Random Vancomycin 26.73 ug/mL 08/11/20 08/11/20 08/11/20 Range/Units 00:05 04:20 04:20 WBC 10.9 H (4.0-10.5) K/mm3 RBC 4.59 (4.1-5.6) M/mm3 Hgb 14.1 (12.5-18.0) gm/dl Hct 44.3 (42-50) % MCV 96.5 (78-100) fl MCH 30.7 (26-32) pg MCHC 31.8 L (32-36) g/dl RDW 14.8 H (11.5-14.0) % Plt Count 310 (150-450) K/mm3 MPV 11.2 H (7.5-11.0) fl Segmented Neutrophils 88 H (36.-66.) % Band Neutrophils 1 (0.0-2.0) % Lymphocytes (Manual) 4 L (24-44) % Monocytes (Manual) 7 (0.0-12.0) % Platelet Estimate NORMAL (NORMAL) RBC Morphology ABNORMAL Anisocytosis 1+ PT (8.83-12.87) SECONDS INR (0.8-3.0) Sodium 132 L (137-145) mmol/L Potassium 4.5 (3.5-5.1) mmol/L Chloride 102 (98-107) mmol/L Carbon Dioxide 24 (22-30) mmol/L Anion Gap 10.2 (5-15) MEQ/L BUN 27 H (9-20) mg/dL Creatinine 1.00 (0.66-1.25) mg/dL Estimated GFR > 60.0 ML/MIN Glucose 173 H (74-106) mg/dL POC Glucometer 152 H (74 to 106) mg/dL Calcium 8.7 (8.4-10.2) mg/dL Magnesium (1.6-2.3) mg/dL Total Bilirubin 2.60 H (0.2-1.3) mg/dL AST 76 H (17-59) U/L ALT 49 (0-50) U/L Alkaline Phosphatase 357 H (38-126) U/L Serum Total Protein 7.2 (6.3-8.2) g/dL Albumin 3.0 L (3.5-5.0) g/dL Random Vancomycin ug/mL 08/11/20 08/11/20 Range/Units 04:20 06:04 WBC (4.0-10.5) K/mm3 RBC (4.1-5.6) M/mm3 Hgb (12.5-18.0) gm/dl Hct (42-50) % MCV (78-100) fl MCH (26-32) pg MCHC (32-36) g/dl RDW (11.5-14.0) % Plt Count (150-450) K/mm3 MPV (7.5-11.0) fl Segmented Neutrophils (36.-66.) % Band Neutrophils (0.0-2.0) % Lymphocytes (Manual) (24-44) % Monocytes (Manual) (0.0-12.0) % Platelet Estimate (NORMAL) RBC Morphology Anisocytosis PT 20.1 H (8.83-12.87) SECONDS INR 1.77 (0.8-3.0) Sodium (137-145) mmol/L Potassium (3.5-5.1) mmol/L Chloride (98-107) mmol/L Carbon Dioxide (22-30) mmol/L Anion Gap (5-15) MEQ/L BUN (9-20) mg/dL Creatinine (0.66-1.25) mg/dL Estimated GFR ML/MIN Glucose (74-106) mg/dL POC Glucometer 133 H (74 to 106) mg/dL Calcium (8.4-10.2) mg/dL Magnesium (1.6-2.3) mg/dL Total Bilirubin (0.2-1.3) mg/dL AST (17-59) U/L ALT (0-50) U/L Alkaline Phosphatase (38-126) U/L Serum Total Protein (6.3-8.2) g/dL Albumin (3.5-5.0) g/dL Random Vancomycin ug/mL Radiology Exams: Radiology Procedures Category Date Time Status CHEST 1 VIEW (PORTABLE) Routine Exams 08/09/20 14:00 Completed Multi-Disciplinary Progress Notes: Multi-Disciplinary Progress Notes 08/10/20 14:07 Nutrition Note by Christine Lucero F/u Note: Note PPN started @ 90ml/hour providing 1516 kcals and 84 gms protein meeting 76% of kcal needs and 100% of protein needs. Feeding appropriate for 7-10 days. Labs 08/10= Na 133, glu 128, alb 3.2, elevated liver enzymes. adm weight 124.2kg; current weight 117kg. Pt 131%IBW. Note neg fluid balance. goal #1) tolerance to feeding Will monitor and f/u prn. ROBERT Matthews Initialized on 08/10/20 14:07 - END OF NOTE 08/10/20 12:16 Case Management Note by Concepción Pete PATIENT STILL ACUTELY ILL. STARTING TPN TODAY WILL CONTINUE TO FOLLOW Initialized on 08/10/20 12:16 - END OF NOTE 08/10/20 11:35 Pharmacy Note by Nic Huston Pharmacy TPN Consult Date Initiated:08/10/19 Patient Name: DEBBIE GREGORIO HT:75" ACTUAL WT:117KG Age:80 Patient Current Labs: [id number] Potassium 4.8 Chloride 102 Sr CR 0.86 Glucose 128 Magnesium Calcium 8.9 [place] Body Weight: 84KG 50 kg + 2.3 kg x (each inch height > 5'0") males 45.5 kg + 2.3 kg (each inch height > 5'0") females Nutritional Weight: 93KG IBW + (ABW-IBW) X 0.25 If ABW < IBW, then use ABW Fluid Requirements (maintenance)2945 ML/24HR Determine if patient is currently receiveing any IV Fluids. If so, use all or part of that volume in the PN Formulation. LR AT 50 ML/HR, WILL REDUCE TO 30 ML/HR Is patient Currently on maintenence IV Fluid? Yes - use all or part of that volume in the PN Formulation. DC current maintenance IV or decrease rate after TPN started. No - Calculate Fluid requirements for patient. Fluid Requiremnts =2945ML/24HR a) 1500 ml + 20 ml x (NW kg - 20 kg) or b) 25-30 ml/kg/24 hr Based on hospital available formulations, total daily fluid amount may be the determining factor in the amount of calories that can be given per day: Hospital Formulation: (triple mix) PERIPHERAL FORMULA Dextrose 20% 1000 ml + Amino Acid 8.5% 1000 ml + Intralipid 20% 250 ml Total KCals = 1516 Total Volume = 2250 ml Carbohydrates = 200 gm; Protein = 84 gm; Fat = 55.5 gm KCal Requirements/24hr = 30 kcal x NW Based on above information:2790 KCAL TPN Rate = 90ML/HR Total Calories per 24 hours =1500 KCAL Electrolytes/bag 20ML TPN LYTE Electrolytes/24 hrs Sodium Potassium Calcium Magnesium Chloride Acetate Additional Additives to TPN Bag: MVI: 10ml Trace elements: 1 ml See written TPN order in Chart for actual order. Initialized on 08/10/20 11:35 - END OF NOTE Assessment/Plan (1) Sepsis Current Visit: Yes Status: Acute Assessment & Plan: improved cognition slightly, continue vanc and meropenem. start PICC line and continue TPN, will reevaluate swallowing mechanism as condition improves. (2) Pneumonia Current Visit: Yes Status: Acute Code(s): J18.9 - PNEUMONIA, UNSPECIFIED ORGANISM (3) UTI (urinary tract infection) Current Visit: Yes Status: Acute Code(s): N39.0 - URINARY TRACT INFECTION, SITE NOT SPECIFIED (4) S/P hip hemiarthroplasty Current Visit: No Status: Acute Code(s): Z96.649 - PRESENCE OF UNSPECIFIED ARTIFICIAL HIP JOINT (5) Subdural hematoma Current Visit: No Status: Acute Code(s): S06.5X9A - TRAUM SUBDR HEM W LOC OF UNSP DURATION, INIT (6) Atrial fibrillation Current Visit: No Status: Chronic Qualifiers: Assessment & Plan: INR now subtherapeutic, will start lovenox today, has been therapeutic as INR coming down until today. Code(s): I48.91 - UNSPECIFIED ATRIAL FIBRILLATION (7) Elevated INR Current Visit: Yes Status: Acute Code(s): R79.1 - ABNORMAL COAGULATION PROFILE
[2020-08-11] MEDS: NYSTOP POWDER 15 GM TOP SCH ×2 (12:01→21:32)
[2020-08-11] MEDS: ENOXAPARIN SODIUM SQ SCH ×2 (12:05→21:32)
[2020-08-11] MEDS ORDERED: INTRALIPID 20% 250 ML 250 ML, TPN Electrolytes 20 ML, Multitrace-4 Conc Vial 1 ML*** 1 ... IV SCH ×6 (14:00)
[2020-08-12] MEDS: MORPHINE SULFATE 2 MG INJ IV PRN ×3 (01:11→13:11)
[2020-08-12] MEDS: Ativan 2 MG/1 ML VIAL IV PRN ×3 (02:40→16:26)
[2020-08-12 05:01] LABS: Hematocrit 42.3 % (42-50); Hemoglobin 13.7 gm/dl (12.5-18.0); Mean Corpuscular Hemoglobin 31.4 pg (26-32); Mean Corpuscular Hgb Concent. 32.4 g/dl (32-36); Platelet Count 292 K/mm3 (150-450); Red Blood Count 4.36 M/mm3 (4.1-5.6); Red Cell Distribution Width 14.6 % (11.5-14.0); White Blood Count 8.7 K/mm3 (4.0-10.5)
[2020-08-12] MEDS: MERREM 500MG 500 MG in Sodium Chloride 100ML MINI-BAG PLUS 100 ML IV SCH ×3 (05:01→21:36)
[2020-08-12 05:16] LABS: INR 1.45 (0.8-3.0); PROTIME 16.4 SECONDS (8.83-12.87)
[2020-08-12 05:32] LABS: Lymphocytes 20 % (24-44); Monocyte 5 % (0.0-12.0); Neutrophils 75 % (36.-66.); Total Cells Counted 100
[2020-08-12 05:33] LABS: Platelet Estimate NORMAL (NORMAL)
[2020-08-12 05:40] LABS: ALBUMIN 3.1 g/dL (3.5-5.0); ALKALINE PHOSPHATASE 327 U/L (38-126); ANION GAP 9.1 MEQ/L (5-15); BLOOD UREA NITROGEN 29 mg/dL (9-20); CHLORIDE 102 mmol/L (98-107); Calcium 8.6 mg/dL (8.4-10.2); Carbon Dioxide 26 mmol/L (22-30); Creatinine 1 1.04 mg/dL (0.66-1.25); EST GLOMERULAR FILTRATION RATE > 60.0 ML/MIN; Glucose 152 mg/dL (74-106); Potassium 4.2 mmol/L (3.5-5.1); SGOT/AST 65 U/L (17-59); SGPT/ALT 47 U/L (0-50); SODIUM 133 mmol/L (137-145); Total Protein 7.2 g/dL (6.3-8.2)
--- NOTE | 2020-08-12 08:33 | XRAY ---
Indication: Follow-up pneumonia. Comparison: August 09, 2020. Portable chest demonstrates now demonstrates cardiomegaly with mild pulmonary edema and small bibasilar effusions concerning for cardiac decompensation versus fluid overload. Stable bibasilar infiltrates/atelectasis.
--- NOTE | 2020-08-12 08:50 | PCM.NOTE ---
Date and Time: 08/12/20 0847 Subjective Assessment: no significant change clinically, patient does respond to his voice but speech is very difficult to understand. he appears to be in no distress Objective Exam General Appearance: no apparent distress Skin Exam: normal color, warm, dry Wound Assessment: Skin/Wound Assessment Wound/Incision Assessment Start: 08/06/20 13:27 Text: Status: Active Freq: Q6H Protocol: Document 08/12/20 07:46 MB (Rec: 08/12/20 08:00 MB [id number]) Wound/Incision Assessment Buttock Wound Assessment Shift Assessment Wound Type Pressure Ulcer Wound Stage Stage II Drainage Amount None Drainage Odor None/Absent General Appearance Open to air Wound Bed Greatest Portion Red (Granulation) Wound Bed Lesser Portion Pale [place] Surrounding Tissue [place] Left Heel Wound Assessment Shift Assessment Wound Type Pressure Ulcer Wound Stage Deep Tissue Injury Drainage Amount None Drainage Odor None/Absent General Appearance Open to air Wound Bed Greatest Portion Black (Eschar) Surrounding Tissue [place] Left Hip Wound Assessment Shift Assessment Wound Type Incision Dressing Status Dry & Intact Drainage Amount None Primary Dressing Absorbant Pad Respiratory Exam: normal breath sounds, lungs clear, No respiratory distress Cardiovascular Exam: regular rate/rhythm, normal heart sounds Gastrointestinal/Abdomen Exam: soft, No tenderness, No mass Extremity Exam: other (dressing to left hip clean, dry, intact) Back Exam: normal inspection, normal range of motion, No CVA tenderness, No vertebral tenderness OBJECTIVE DATA Vital Signs: Vital Signs - 24 hr Temp Pulse Resp BP Pulse Ox 08/12/20 07:52 99.1 F 65 22 152/68 96 08/12/20 07:32 97 08/12/20 04:11 98.4 F 70 21 137/58 95 08/12/20 00:05 98.6 F 57 L 20 107/49 94 L 08/11/20 19:56 97.9 F 64 19 139/60 95 08/11/20 18:27 95 08/11/20 15:50 98.0 F 68 16 105/57 95 08/11/20 12:00 98.1 F 70 16 136/86 95 Pain Assessment - Last Documented Pain Intensity 0 Pain Scale Used FLACC Intake and Output: Intake & Output 08/09/20 08/10/20 08/11/20 08/12/20 11:59 11:59 11:59 11:59 Intake Total 1421 1393 2303 742 Output Total 2350 2100 2700 1650 Balance -929 -707 -397 -908 Weight 122.1 kg 117 kg 93.9 kg Lab Results: Lab Results-Last 24 Hours 08/11/20 08/11/20 08/11/20 Range/Units 12:02 12:12 16:07 WBC (4.0-10.5) K/mm3 RBC (4.1-5.6) M/mm3 Hgb (12.5-18.0) gm/dl Hct (42-50) % MCV (78-100) fl MCH (26-32) pg MCHC (32-36) g/dl RDW (11.5-14.0) % Plt Count (150-450) K/mm3 MPV (7.5-11.0) fl Segmented Neutrophils (36.-66.) % Lymphocytes (Manual) (24-44) % Monocytes (Manual) (0.0-12.0) % Platelet Estimate (NORMAL) RBC Morphology PT (8.83-12.87) SECONDS INR (0.8-3.0) Sodium (137-145) mmol/L Potassium (3.5-5.1) mmol/L Chloride (98-107) mmol/L Carbon Dioxide (22-30) mmol/L Anion Gap (5-15) MEQ/L BUN (9-20) mg/dL Creatinine (0.66-1.25) mg/dL Estimated GFR ML/MIN Glucose (74-106) mg/dL POC Glucometer 141 H 121 H (74 to 106) mg/dL Calcium (8.4-10.2) mg/dL Magnesium (1.6-2.3) mg/dL Total Bilirubin (0.2-1.3) mg/dL AST (17-59) U/L ALT (0-50) U/L Alkaline Phosphatase (38-126) U/L Serum Total Protein (6.3-8.2) g/dL Albumin (3.5-5.0) g/dL Random Vancomycin 24.73 ug/mL 08/11/20 08/12/20 08/12/20 Range/Units 23:59 04:30 04:30 WBC 8.7 (4.0-10.5) K/mm3 RBC 4.36 (4.1-5.6) M/mm3 Hgb 13.7 (12.5-18.0) gm/dl Hct 42.3 (42-50) % MCV 97.0 (78-100) fl MCH 31.4 (26-32) pg MCHC 32.4 (32-36) g/dl RDW 14.6 H (11.5-14.0) % Plt Count 292 (150-450) K/mm3 MPV 11.0 (7.5-11.0) fl Segmented Neutrophils 75 H (36.-66.) % Lymphocytes (Manual) 20 L (24-44) % Monocytes (Manual) 5 (0.0-12.0) % Platelet Estimate NORMAL (NORMAL) RBC Morphology NORMAL PT (8.83-12.87) SECONDS INR (0.8-3.0) Sodium 133 L (137-145) mmol/L Potassium 4.2 (3.5-5.1) mmol/L Chloride 102 (98-107) mmol/L Carbon Dioxide 26 (22-30) mmol/L Anion Gap 9.1 (5-15) MEQ/L BUN 29 H (9-20) mg/dL Creatinine 1.04 (0.66-1.25) mg/dL Estimated GFR > 60.0 ML/MIN Glucose 152 H (74-106) mg/dL POC Glucometer 133 H (74 to 106) mg/dL Calcium 8.6 (8.4-10.2) mg/dL Magnesium (1.6-2.3) mg/dL Total Bilirubin 2.60 H (0.2-1.3) mg/dL AST 65 H (17-59) U/L ALT 47 (0-50) U/L Alkaline Phosphatase 327 H (38-126) U/L Serum Total Protein 7.2 (6.3-8.2) g/dL Albumin 3.1 L (3.5-5.0) g/dL Random Vancomycin ug/mL 08/12/20 08/12/20 08/12/20 Range/Units 04:30 04:30 05:58 WBC (4.0-10.5) K/mm3 RBC (4.1-5.6) M/mm3 Hgb (12.5-18.0) gm/dl Hct (42-50) % MCV (78-100) fl MCH (26-32) pg MCHC (32-36) g/dl RDW (11.5-14.0) % Plt Count (150-450) K/mm3 MPV (7.5-11.0) fl Segmented Neutrophils (36.-66.) % Lymphocytes (Manual) (24-44) % Monocytes (Manual) (0.0-12.0) % Platelet Estimate (NORMAL) RBC Morphology PT 16.4 H (8.83-12.87) SECONDS INR 1.45 (0.8-3.0) Sodium (137-145) mmol/L Potassium (3.5-5.1) mmol/L Chloride (98-107) mmol/L Carbon Dioxide (22-30) mmol/L Anion Gap (5-15) MEQ/L BUN (9-20) mg/dL Creatinine (0.66-1.25) mg/dL Estimated GFR ML/MIN Glucose (74-106) mg/dL POC Glucometer 143 H (74 to 106) mg/dL Calcium (8.4-10.2) mg/dL Magnesium 2.3 (1.6-2.3) mg/dL Total Bilirubin (0.2-1.3) mg/dL AST (17-59) U/L ALT (0-50) U/L Alkaline Phosphatase (38-126) U/L Serum Total Protein (6.3-8.2) g/dL Albumin (3.5-5.0) g/dL Random Vancomycin ug/mL Radiology Exams: Radiology Procedures Category Date Time Status CHEST 1 VIEW (PORTABLE) Routine Exams 08/12/20 06:28 Completed PICC LINE PLACEMENT Routine Exams 08/12/20 Ordered Multi-Disciplinary Progress Notes: Multi-Disciplinary Progress Notes 08/11/20 16:09 Pharmacy Note by Neymar Cowart Today is day 7 of Merrem IV. Initialized on 08/11/20 16:09 - END OF NOTE 08/11/20 13:13 Pharmacy Note by Neymar Cowart Vancomycin level remains high at 24.73. Last dose given on 08-07-20. Initialized on 08/11/20 13:13 - END OF NOTE 08/11/20 13:07 Pharmacy Note by Neymar Cowart Sodium low at 132. Will add 30mEq NaCl to PPN bag. Initialized on 08/11/20 13:07 - END OF NOTE 08/11/20 11:22 Case Management Note by Concepción Pete PATIENT STILL ACUTELY ILL- WILL CONTINUE TO FOLLOW Initialized on 08/11/20 11:22 - END OF NOTE Assessment/Plan (1) Sepsis Current Visit: Yes Status: Acute Assessment & Plan: clinically improved, afebrile and has some volume overload on chest xray. will add lasix today, continue TPN. (2) Pneumonia Current Visit: Yes Status: Acute Code(s): J18.9 - PNEUMONIA, UNSPECIFIED ORGANISM (3) UTI (urinary tract infection) Current Visit: Yes Status: Acute Code(s): N39.0 - URINARY TRACT INFECTION, SITE NOT SPECIFIED (4) S/P hip hemiarthroplasty Current Visit: No Status: Acute Code(s): Z96.649 - PRESENCE OF UNSPECIFIED ARTIFICIAL HIP JOINT (5) Subdural hematoma Current Visit: No Status: Acute Code(s): S06.5X9A - TRAUM SUBDR HEM W LOC OF UNSP DURATION, INIT (6) Atrial fibrillation Current Visit: No Status: Chronic Qualifiers: Assessment & Plan: INR now subtherapeutic, giving therapeutic dose of lovenox Code(s): I48.91 - UNSPECIFIED ATRIAL FIBRILLATION (7) Elevated INR Current Visit: Yes Status: Acute Code(s): R79.1 - ABNORMAL COAGULATION PROFILE
[2020-08-12] MEDS: Lasix 20 MG/2 ML IV SCH (09:19)
[2020-08-12] MEDS: NYSTOP POWDER 15 GM TOP SCH ×2 (09:21→21:36)
[2020-08-12] MEDS ORDERED: HEPARIN-NS 1,000 UNITS/500 ML IV ONE (09:30)
[2020-08-12] MEDS: ENOXAPARIN SODIUM SQ SCH ×2 (11:14→21:36)
--- NOTE | 2020-08-12 11:28 | XRAY ---
Indication: Long-term IV access for TPN. Informed consent obtained. Patient was placed on the fluoroscopic table in a supine position. Initial sonographic imaging of the right upper extremity was performed for localization of patent veins. The right upper extremity was then prepped and draped in sterile fashion. Tourniquet applied. 1% lidocaine plain used for local anesthesia. Using ultrasound guidance and a micropuncture needle, a basilic vein above the elbow was successfully percutaneously cannulized. A floppy tip 0.018 guidewire inserted. Tourniquet released. Needle was exchanged for a 5 [place] dilator peel-away sheath catheter. Ultimately a 5 [place] double-lumen PICC line was inserted over a longer 0.018 guidewire with the tip positioned in the distal SVC using fluoroscopic guidance. Guidewire removed. Both ports flushed with heparinized saline. Catheter was secured. Postoperative instructions and orders given. Patient discharged in good condition. Impression: Technically successful right upper extremity PICC line placement using ultrasound and fluoroscopic guidance. No immediate complications. Approximately 1 cc blood loss. Approximately 0.8 minute of fluoroscopy used. Catheter length is 48 cm.
--- NOTE | 2020-08-12 11:31 | XRAY ---
Indication: Ultrasound guidance for PICC line placement. Initial sonographic imaging of the right upper extremity was performed for localization of patent veins. A patent basilic vein identified above the elbow. Ultrasound guidance was then used for PICC line insertion. Full PICC line insertion is reported separately.
[2020-08-12] MEDS ORDERED: MULTITRACE IV SCH ×2 (14:00)
[2020-08-12] MEDS ORDERED: [UNRECOGNIZED DRUG - OTHER] IV SCH ×2 (14:00)
[2020-08-13] MEDS: MORPHINE SULFATE 2 MG INJ IV PRN (00:49)
[2020-08-13] MEDS: Zofran 4 MG/2 ML VIAL IV PRN ×2 (04:11→18:21)
[2020-08-13 04:52] LABS: Hematocrit 46.2 % (42-50); Hemoglobin 14.6 gm/dl (12.5-18.0); Mean Cell Volume 97.9 fl (78-100); Mean Corpuscular Hemoglobin 30.9 pg (26-32); Mean Corpuscular Hgb Concent. 31.6 g/dl (32-36); Mean Platelet Volume 11.1 fl (7.5-11.0); Platelet Count 336 K/mm3 (150-450); Red Blood Count 4.72 M/mm3 (4.1-5.6); Red Cell Distribution Width 14.4 % (11.5-14.0); White Blood Count 13.4 K/mm3 (4.0-10.5)
[2020-08-13 05:27] LABS: INR 1.4 (0.8-3.0); PROTIME 15.9 SECONDS (8.83-12.87)
[2020-08-13 05:32] LABS: ALBUMIN 3.3 g/dL (3.5-5.0); ALKALINE PHOSPHATASE 361 U/L (38-126); BLOOD UREA NITROGEN 30 mg/dL (9-20); CHLORIDE 101 mmol/L (98-107); Calcium 8.9 mg/dL (8.4-10.2); Carbon Dioxide 24 mmol/L (22-30); Creatinine 1 0.97 mg/dL (0.66-1.25); EST GLOMERULAR FILTRATION RATE > 60.0 ML/MIN; Glucose 175 mg/dL (74-106); Potassium 4.5 mmol/L (3.5-5.1); SGOT/AST 67 U/L (17-59); SGPT/ALT 49 U/L (0-50); SODIUM 132 mmol/L (137-145); Total Protein 7.8 g/dL (6.3-8.2)
[2020-08-13] MEDS: MERREM 500MG 500 MG in Sodium Chloride 100ML MINI-BAG PLUS 100 ML IV SCH ×3 (06:16→21:43)
[2020-08-13 08:35] LABS: BAND 2 % (0.0-2.0); Eosinophil 1 % (0.00-3.0); Lymphocytes 11 % (24-44); Neutrophils 86 % (36.-66.); Platelet Estimate NORMAL (NORMAL); Total Cells Counted 100
--- NOTE | 2020-08-13 08:48 | PCM.NOTE ---
Date and Time: 08/13/2047 Subjective Assessment: clinical status unchanged, patient responds to voice, states no when asked if he has pain. Objective Exam General Appearance: no apparent distress, obese Wound Assessment: Skin/Wound Assessment Wound/Incision Assessment Start: 08/06/20 13:27 Text: Status: Active Freq: Q6H Protocol: Document 08/13/20 08:00 AR (Rec: 08/13/20 08:04 AR [id number]) Wound/Incision Assessment Buttock Wound Assessment Shift Assessment Wound Type Pressure Ulcer Wound Stage Stage II Drainage Amount None Drainage Odor None/Absent General Appearance Open to air Wound Bed Greatest Portion Red (Granulation) Wound Bed Lesser Portion Pale [place] Surrounding Tissue [place] Comment barrier cream applied PRN Left Heel Wound Assessment Shift Assessment Wound Type Pressure Ulcer Wound Stage Deep Tissue Injury Drainage Amount None Drainage Odor None/Absent General Appearance Open to air Wound Bed Greatest Portion Black (Eschar) Surrounding Tissue [place] Comment barrier cream applied PRN Left Hip Wound Assessment Shift Assessment Wound Type Incision Dressing Status Dry & Intact Drainage Amount None Comment dressing CDI Wound Photo Photo Taken No Respiratory Exam: normal breath sounds, lungs clear, No respiratory distress Cardiovascular Exam: regular rate/rhythm, normal heart sounds Gastrointestinal/Abdomen Exam: soft, No tenderness, No mass OBJECTIVE DATA Vital Signs: Vital Signs - 24 hr Temp Pulse Resp BP Pulse Ox 08/13/20 07:02 99 F 80 24 101/50 94 L 08/13/20 06:50 94 L 08/13/20 04:00 98.5 F 81 24 105/54 95 08/13/20 00:00 98.1 F 72 24 114/55 94 L 08/12/20 20:00 98.0 F 65 21 113/56 91 L 08/12/20 19:50 91 L 08/12/20 16:00 97.7 F 66 20 140/62 96 08/12/20 11:50 97.9 F 65 20 144/62 94 L Oxygen-Last 24 hours Oxygen Flowrate (L/min)-RT 3 Oxygen Flowrate (L/min)-RT 3 Oxygen Flowrate (L/min)-RT 3 Pain Assessment - Last Documented Pain Intensity 0 Pain Scale Used FLACC Intake and Output: Intake & Output 08/10/20 08/11/20 08/12/20 08/13/20 11:59 11:59 11:59 11:59 Intake Total 1393 2303 1335 2228 Output Total 6598 0020 2300 1700 Balance -945 -903 -898 528 Weight 117 kg 93.9 kg 115.6 kg 114.4 kg Lab Results: Lab Results-Last 24 Hours 08/12/20 08/12/20 08/13/20 Range/Units 11:43 17:59 00:14 WBC (4.0-10.5) K/mm3 RBC (4.1-5.6) M/mm3 Hgb (12.5-18.0) gm/dl Hct (42-50) % MCV (78-100) fl MCH (26-32) pg MCHC (32-36) g/dl RDW (11.5-14.0) % Plt Count (150-450) K/mm3 MPV (7.5-11.0) fl Segmented Neutrophils (36.-66.) % Band Neutrophils (0.0-2.0) % Lymphocytes (Manual) (24-44) % Eosinophils (Manual) (0.00-3.0) % Platelet Estimate (NORMAL) RBC Morphology PT (8.83-12.87) SECONDS INR (0.8-3.0) Sodium (137-145) mmol/L Potassium (3.5-5.1) mmol/L Chloride (98-107) mmol/L Carbon Dioxide (22-30) mmol/L Anion Gap (5-15) MEQ/L BUN (9-20) mg/dL Creatinine (0.66-1.25) mg/dL Estimated GFR ML/MIN Glucose (74-106) mg/dL POC Glucometer 136 H 156 H 162 H (74 to 106) mg/dL Calcium (8.4-10.2) mg/dL Total Bilirubin (0.2-1.3) mg/dL AST (17-59) U/L ALT (0-50) U/L Alkaline Phosphatase (38-126) U/L Serum Total Protein (6.3-8.2) g/dL Albumin (3.5-5.0) g/dL 08/13/20 08/13/20 08/13/20 Range/Units 04:15 04:20 04:20 WBC 13.4 H (4.0-10.5) K/mm3 RBC 4.72 (4.1-5.6) M/mm3 Hgb 14.6 (12.5-18.0) gm/dl Hct 46.2 (42-50) % MCV 97.9 (78-100) fl MCH 30.9 (26-32) pg MCHC 31.6 L (32-36) g/dl RDW 14.4 H (11.5-14.0) % Plt Count 336 (150-450) K/mm3 MPV 11.1 H (7.5-11.0) fl Segmented Neutrophils 86 H (36.-66.) % Band Neutrophils 2 (0.0-2.0) % Lymphocytes (Manual) 11 L (24-44) % Eosinophils (Manual) 1 (0.00-3.0) % Platelet Estimate NORMAL (NORMAL) RBC Morphology NORMAL PT 15.9 H (8.83-12.87) SECONDS INR 1.40 (0.8-3.0) Sodium 132 L (137-145) mmol/L Potassium 4.5 (3.5-5.1) mmol/L Chloride 101 (98-107) mmol/L Carbon Dioxide 24 (22-30) mmol/L Anion Gap 11.0 (5-15) MEQ/L BUN 30 H (9-20) mg/dL Creatinine 0.97 (0.66-1.25) mg/dL Estimated GFR > 60.0 ML/MIN Glucose 175 H (74-106) mg/dL POC Glucometer (74 to 106) mg/dL Calcium 8.9 (8.4-10.2) mg/dL Total Bilirubin 2.00 H (0.2-1.3) mg/dL AST 67 H (17-59) U/L ALT 49 (0-50) U/L Alkaline Phosphatase 361 H (38-126) U/L Serum Total Protein 7.8 (6.3-8.2) g/dL Albumin 3.3 L (3.5-5.0) g/dL 08/13/20 Range/Units 06:12 WBC (4.0-10.5) K/mm3 RBC (4.1-5.6) M/mm3 Hgb (12.5-18.0) gm/dl Hct (42-50) % MCV (78-100) fl MCH (26-32) pg MCHC (32-36) g/dl RDW (11.5-14.0) % Plt Count (150-450) K/mm3 MPV (7.5-11.0) fl Segmented Neutrophils (36.-66.) % Band Neutrophils (0.0-2.0) % Lymphocytes (Manual) (24-44) % Eosinophils (Manual) (0.00-3.0) % Platelet Estimate (NORMAL) RBC Morphology PT (8.83-12.87) SECONDS INR (0.8-3.0) Sodium (137-145) mmol/L Potassium (3.5-5.1) mmol/L Chloride (98-107) mmol/L Carbon Dioxide (22-30) mmol/L Anion Gap (5-15) MEQ/L BUN (9-20) mg/dL Creatinine (0.66-1.25) mg/dL Estimated GFR ML/MIN Glucose (74-106) mg/dL POC Glucometer 151 H (74 to 106) mg/dL Calcium (8.4-10.2) mg/dL Total Bilirubin (0.2-1.3) mg/dL AST (17-59) U/L ALT (0-50) U/L Alkaline Phosphatase (38-126) U/L Serum Total Protein (6.3-8.2) g/dL Albumin (3.5-5.0) g/dL Radiology Exams: Radiology Procedures Category Date Time Status CHEST 1 VIEW (PORTABLE) Routine Exams 08/12/20 06:28 Completed GUIDE FOR VASCULAR ACCESS [US] Routine Exams 08/12/20 09:52 Completed PICC LINE PLACEMENT Routine Exams 08/12/20 10:47 Completed Multi-Disciplinary Progress Notes: Multi-Disciplinary Progress Notes 08/12/20 13:52 Pharmacy Note by Neymar Cowart Pharmacy TPN Consult Date: 08-12-20 TPN Day #: 3 Patient Name: Kyler Lang HT: ACTUAL WT: 115.6kg Age: 80 Patient Current Labs: Sodium 133 Potassium 4.2 Chloride 102 Glucose 152 Magnesium 2.3 Calcium 8.6 Sr Cr 1.04 CR CL 66 [facility] CENTRAL LINE TPN FORMULATION a. Hospital Formulation: (triple mix) [facility] CENTRAL LINE TRIPLE MIX 2053 ML b. Dextrose 9.8% + Amino Acid 3.3% + Intralipid 3.9% PER 2000 ML c. Total KCals = 1745 KCAL per bag d. Total Volume = 2053 ml e. Carbohydrates = 200 gm; Protein = 68 gm; Fat = 80 gm f. Electrolytes/ premixed bag Sodium 64 meq Potassium 47 meq Calcium 8 meq Magnesium 16 meq Chloride 92 meq Acetate 78 meq Sulfate 16 meq Phosphorous 20 mMole 1. CENTRAL LINE - TPN RATE: 90ML/HR Total Volume to be delivered /24 hr: ____2160ml Total Calories to be delivered/24 hr: __1836 supriya.___ 2. Additions to TPN Bag for today (Kwmt___3-27-17 ) A. Sodium chloride B. Potassium chloride C. Trace Metals 1 mg ii. Total Electrolytes per 24 hours: 1. Sodium _64__meq__ 2. Potassium _47__meq__ 3. Calcium _8__meq__ 4. Magnesium _16__meq_ 5. Chloride _92 meq____ 6. Acetate _78 meq____ 7. Sulfate _16 meq____ 8. Phosphorous _20 mmol____ Initialized on 08/12/20 13:52 - END OF NOTE 08/12/20 10:49 Case Management Note by Concepción Pete PATIENT HAVING PICC LINE PLACED TODAY- STILL ACUTELY ILL WILL CONTINUE TO FOLLOW Initialized on 08/12/20 10:49 - END OF NOTE Assessment/Plan (1) Sepsis Current Visit: Yes Status: Acute Assessment & Plan: on vanc/meropenem. had uti and pneumonia (2) Pneumonia Current Visit: Yes Status: Acute Code(s): J18.9 - PNEUMONIA, UNSPECIFIED ORGANISM (3) UTI (urinary tract infection) Current Visit: Yes Status: Acute Code(s): N39.0 - URINARY TRACT INFECTION, SITE NOT SPECIFIED (4) S/P hip hemiarthroplasty Current Visit: No Status: Acute Code(s): Z96.649 - PRESENCE OF UNSPECIFIED ARTIFICIAL HIP JOINT (5) Subdural hematoma Current Visit: No Status: Acute Code(s): S06.5X9A - TRAUM SUBDR HEM W LOC OF UNSP DURATION, INIT (6) Atrial fibrillation Current Visit: No Status: Chronic Qualifiers: Assessment & Plan: continue lovenox Code(s): I48.91 - UNSPECIFIED ATRIAL FIBRILLATION (7) Elevated INR Current Visit: Yes Status: Acute Code(s): R79.1 - ABNORMAL COAGULATION PROFILE
[2020-08-13] MEDS: Lasix 20 MG/2 ML IV SCH (09:32)
[2020-08-13] MEDS: NYSTOP POWDER 15 GM TOP SCH ×2 (09:32→21:44)
[2020-08-13] MEDS: ENOXAPARIN SODIUM SQ SCH (09:32)
[2020-08-13] MEDS: [UNRECOGNIZED DRUG - NUTRITION] IV SCH ×4 (14:07)
[2020-08-13] MEDS ORDERED: Sodium Chloride 0.9% 1000 ML 1,000 ML ONE (18:03)
[2020-08-13] MEDS ORDERED: PROTONIX 40 MG IV IV ONE ×2 (18:20→18:31)
[2020-08-13 18:31] LABS: INR 1.4 (0.8-3.0); PROTIME 15.9 SECONDS (8.83-12.87)
[2020-08-13] MEDS ORDERED: Sodium Chloride 0.9% 1000 ML 1,000 ML IV STA (18:33)
[2020-08-13 18:54] LABS: Hematocrit 41.2 % (42-50); Hemoglobin 12.7 gm/dl (12.5-18.0); Mean Cell Volume 100.2 fl (78-100); Mean Corpuscular Hemoglobin 30.9 pg (26-32); Mean Corpuscular Hgb Concent. 30.8 g/dl (32-36); Mean Platelet Volume 11.6 fl (7.5-11.0); Red Blood Count 4.11 M/mm3 (4.1-5.6); Red Cell Distribution Width 14.5 % (11.5-14.0); White Blood Count 17.2 K/mm3 (4.0-10.5)
[2020-08-13 18:57] LABS: Platelet Count 483 K/mm3 (150-450)
[2020-08-13 19:22] LABS: ABO TYPING A; RH TYPING POSITIVE
[2020-08-13 19:24] LABS: Antibody Screen NEGATIVE (NEGATIVE)
[2020-08-13] MEDS ORDERED: Sodium Chloride 0.9% 500 ML 500 ML IV ONE (20:06)
[2020-08-13] MEDS: PROTONIX 40 MG IV*** 80 MG in Sodium Chloride 0.9% 500 ML 500 ML IV SCH (20:29)
[2020-08-13 22:49] LABS: 027 TOX PROD PRESUMPTIVE NEGATIVE (NEGATIVE); TOXIGENIC C. DIFF ORG NEGATIVE (NEGATIVE)
[2020-08-13 23:26] LABS: Hematocrit 35.9 % (42-50); Hemoglobin 11.2 gm/dl (12.5-18.0); Mean Cell Volume 99.4 fl (78-100); Mean Corpuscular Hgb Concent. 31.2 g/dl (32-36); Mean Platelet Volume 10.9 fl (7.5-11.0); Platelet Count 399 K/mm3 (150-450); Red Blood Count 3.61 M/mm3 (4.1-5.6); Red Cell Distribution Width 14.3 % (11.5-14.0); White Blood Count 17.4 K/mm3 (4.0-10.5)
[2020-08-14] MEDS: MERREM 500MG 500 MG in Sodium Chloride 100ML MINI-BAG PLUS 100 ML IV SCH (05:32)
[2020-08-14 05:39] LABS: Hemoglobin 10.5 gm/dl (12.5-18.0); Mean Cell Volume 99.7 fl (78-100); Mean Corpuscular Hemoglobin 30.8 pg (26-32); Mean Corpuscular Hgb Concent. 30.9 g/dl (32-36); Mean Platelet Volume 11.1 fl (7.5-11.0); Platelet Count 324 K/mm3 (150-450); Red Blood Count 3.41 M/mm3 (4.1-5.6); Red Cell Distribution Width 14.3 % (11.5-14.0); White Blood Count 14.9 K/mm3 (4.0-10.5)
[2020-08-14 05:50] LABS: ALBUMIN 2.5 g/dL (3.5-5.0); ANION GAP 9.8 MEQ/L (5-15); BILIRUBIN,TOTAL 1.2 mg/dL (0.2-1.3); Calcium 8.3 mg/dL (8.4-10.2); Creatinine 1 1.31 mg/dL (0.66-1.25); EST GLOMERULAR FILTRATION RATE 55.8 ML/MIN; Potassium 4.9 mmol/L (3.5-5.1)
[2020-08-14 05:57] LABS: INR 1.39 (0.8-3.0); PROTIME 15.8 SECONDS (8.83-12.87)
[2020-08-14 07:07] LABS: BAND 7 % (0.0-2.0); Lymphocytes 16 % (24-44); Monocyte 3 % (0.0-12.0); Neutrophils 74 % (36.-66.); Total Cells Counted 100
[2020-08-14 07:08] LABS: Platelet Estimate NORMAL (NORMAL)
[2020-08-14 07:09] LABS: Absolute Neutrophil Ct (ANC) 12.05 (1.4-6.9)
[2020-08-14] MEDS: PROTONIX 40 MG IV*** 80 MG in Sodium Chloride 0.9% 500 ML 500 ML IV SCH ×2 (08:22→18:32)
--- NOTE | 2020-08-14 08:38 | PCM.NOTE ---
Date and Time: 08/14/20 0835 Subjective Assessment: patient is much more alert, oriented to self, recognizes me and oriented to time and place. 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 and edentulous) Neurologic Exam: alert, oriented x 3 Wound Assessment: Skin/Wound Assessment Wound/Incision Assessment Start: 08/06/20 13:27 Text: Status: Active Freq: Q6H Protocol: Document 08/14/20 02:00 SG (Rec: 08/14/20 02:04 SG [id number]) Wound/Incision Assessment Buttock Wound Assessment Shift Assessment Wound Type Pressure Ulcer Wound Stage Stage II Drainage Amount None Drainage Odor None/Absent General Appearance Open to air Wound Bed Greatest Portion Red (Granulation) Wound Bed Lesser Portion Pale [employer] Surrounding Tissue [employer] Comment barrier cream applied PRN Left Heel Wound Assessment Shift Assessment Wound Type Pressure Ulcer Wound Stage Deep Tissue Injury Drainage Amount None Drainage Odor None/Absent General Appearance Open to air Wound Bed Greatest Portion Black (Eschar) Surrounding Tissue [employer] Comment barrier cream applied PRN, heels floated Left Hip Wound Assessment Shift Assessment Wound Type Incision Dressing Status Dry & Intact Drainage Amount None Comment dressing CDI Respiratory Exam: normal breath sounds, lungs clear, No respiratory distress Cardiovascular Exam: regular rate/rhythm, normal heart sounds Gastrointestinal/Abdomen Exam: soft, No tenderness, No mass Extremity Exam: normal inspection, normal range of motion OBJECTIVE DATA Vital Signs: Vital Signs - 24 hr Temp Pulse Resp BP Pulse Ox 08/14/20 06:45 98.5 F 75 18 120/46 94 L 08/14/20 06:24 95 08/14/20 04:00 98.6 F 76 24 107/43 97 08/14/20 00:00 98.7 F 93 H 24 96/53 92 L 08/13/20 20:08 94 L 08/13/20 20:00 98.9 F 87 24 103/53 93 L 08/13/20 16:00 98.5 F 81 20 93/57 94 L 08/13/20 12:00 98 F 80 22 90/50 96 Oxygen-Last 24 hours Oxygen Flowrate (L/min)-RT 5 Oxygen Flowrate (L/min)-RT 5 Oxygen Flowrate (L/min)-RT 5 Pain Assessment - Last Documented Pain Intensity 0 Pain Scale Used FLACC Intake and Output: Intake & Output 02/16/21 02/17/21 02/18/21 02/19/21 11:59 11:59 11:59 11:59 Intake Total 2303 1335 2228 3712 Output Total 2700 2300 1700 1350 Balance -397 -964 023 2180 Weight 93.9 kg 115.6 kg 114.4 kg 114.4 kg Lab Results: Lab Results-Last 24 Hours 08/13/20 08/13/20 08/13/20 Range/Units 04:15 10:05 11:45 WBC (4.0-10.5) K/mm3 RBC (4.1-5.6) M/mm3 Hgb (12.5-18.0) gm/dl Hct (42-50) % MCV (78-100) fl MCH (26-32) pg MCHC (32-36) g/dl RDW (11.5-14.0) % Plt Count (150-450) K/mm3 MPV (7.5-11.0) fl Absolute Granulocytes (1.4-6.9) Segmented Neutrophils 86 H (36.-66.) % Band Neutrophils 2 (0.0-2.0) % Lymphocytes (Manual) 11 L (24-44) % Monocytes (Manual) (0.0-12.0) % Eosinophils (Manual) 1 (0.00-3.0) % Platelet Estimate NORMAL (NORMAL) RBC Morphology NORMAL PT (8.83-12.87) SECONDS INR (0.8-3.0) Sodium (137-145) mmol/L Potassium (3.5-5.1) mmol/L Chloride (98-107) mmol/L Carbon Dioxide (22-30) mmol/L Anion Gap (5-15) MEQ/L BUN (9-20) mg/dL Creatinine (0.66-1.25) mg/dL Estimated GFR ML/MIN Glucose (74-106) mg/dL POC Glucometer 166 H (74 to 106) mg/dL Calcium (8.4-10.2) mg/dL Total Bilirubin (0.2-1.3) mg/dL AST (17-59) U/L ALT (0-50) U/L Alkaline Phosphatase (38-126) U/L Serum Total Protein (6.3-8.2) g/dL Albumin (3.5-5.0) g/dL Stool Occult Blood (NEGATIVE) Random Vancomycin 24.53 ug/mL C. difficile Screen (NEGATIVE) C.difficile 027-NAP1-B1 (NEGATIVE) ABO Group Rh Factor Antibody Screen (NEGATIVE) 08/13/20 08/13/20 08/13/20 Range/Units 16:15 18:10 18:10 WBC 17.2 H (4.0-10.5) K/mm3 RBC 4.11 (4.1-5.6) M/mm3 Hgb 12.7 (12.5-18.0) gm/dl Hct 41.2 L (42-50) % MCV 100.2 H (78-100) fl MCH 30.9 (26-32) pg MCHC 30.8 L (32-36) g/dl RDW 14.5 H (11.5-14.0) % Plt Count 483 H D (150-450) K/mm3 MPV 11.6 H (7.5-11.0) fl Absolute Granulocytes (1.4-6.9) Segmented Neutrophils (36.-66.) % Band Neutrophils (0.0-2.0) % Lymphocytes (Manual) (24-44) % Monocytes (Manual) (0.0-12.0) % Eosinophils (Manual) (0.00-3.0) % Platelet Estimate (NORMAL) RBC Morphology PT 15.9 H (8.83-12.87) SECONDS INR 1.40 (0.8-3.0) Sodium (137-145) mmol/L Potassium (3.5-5.1) mmol/L Chloride (98-107) mmol/L Carbon Dioxide (22-30) mmol/L Anion Gap (5-15) MEQ/L BUN (9-20) mg/dL Creatinine (0.66-1.25) mg/dL Estimated GFR ML/MIN Glucose (74-106) mg/dL POC Glucometer 172 H (74 to 106) mg/dL Calcium (8.4-10.2) mg/dL Total Bilirubin (0.2-1.3) mg/dL AST (17-59) U/L ALT (0-50) U/L Alkaline Phosphatase (38-126) U/L Serum Total Protein (6.3-8.2) g/dL Albumin (3.5-5.0) g/dL Stool Occult Blood (NEGATIVE) Random Vancomycin ug/mL C. difficile Screen (NEGATIVE) C.difficile 027-NAP1-B1 (NEGATIVE) ABO Group Rh Factor Antibody Screen (NEGATIVE) 08/13/20 08/13/20 08/13/20 Range/Units 18:10 21:42 21:42 WBC (4.0-10.5) K/mm3 RBC (4.1-5.6) M/mm3 Hgb (12.5-18.0) gm/dl Hct (42-50) % MCV (78-100) fl MCH (26-32) pg MCHC (32-36) g/dl RDW (11.5-14.0) % Plt Count (150-450) K/mm3 MPV (7.5-11.0) fl Absolute Granulocytes (1.4-6.9) Segmented Neutrophils (36.-66.) % Band Neutrophils (0.0-2.0) % Lymphocytes (Manual) (24-44) % Monocytes (Manual) (0.0-12.0) % Eosinophils (Manual) (0.00-3.0) % Platelet Estimate (NORMAL) RBC Morphology PT (8.83-12.87) SECONDS INR (0.8-3.0) Sodium (137-145) mmol/L Potassium (3.5-5.1) mmol/L Chloride (98-107) mmol/L Carbon Dioxide (22-30) mmol/L Anion Gap (5-15) MEQ/L BUN (9-20) mg/dL Creatinine (0.66-1.25) mg/dL Estimated GFR ML/MIN Glucose (74-106) mg/dL POC Glucometer (74 to 106) mg/dL Calcium (8.4-10.2) mg/dL Total Bilirubin (0.2-1.3) mg/dL AST (17-59) U/L ALT (0-50) U/L Alkaline Phosphatase (38-126) U/L Serum Total Protein (6.3-8.2) g/dL Albumin (3.5-5.0) g/dL Stool Occult Blood POSITIVE A (NEGATIVE) Random Vancomycin ug/mL C. difficile Screen NEGATIVE (NEGATIVE) C.difficile 027-NAP1-B1 PRESUMPTIVE NEGATIVE (NEGATIVE) ABO Group A Rh Factor POSITIVE Antibody Screen NEGATIVE (NEGATIVE) 08/13/20 08/13/20 08/14/20 Range/Units 21:48 23:20 05:05 WBC 17.4 H 14.9 H (4.0-10.5) K/mm3 RBC 3.61 L 3.41 L (4.1-5.6) M/mm3 Hgb 11.2 L 10.5 L (12.5-18.0) gm/dl Hct 35.9 L 34.0 L (42-50) % MCV 99.4 99.7 (78-100) fl MCH 31.0 30.8 (26-32) pg MCHC 31.2 L 30.9 L (32-36) g/dl RDW 14.3 H 14.3 H (11.5-14.0) % Plt Count 399 324 (150-450) K/mm3 MPV 10.9 11.1 H (7.5-11.0) fl Absolute Granulocytes 12.05 H (1.4-6.9) Segmented Neutrophils 74 H (36.-66.) % Band Neutrophils 7 H (0.0-2.0) % Lymphocytes (Manual) 16 L (24-44) % Monocytes (Manual) 3 (0.0-12.0) % Eosinophils (Manual) (0.00-3.0) % Platelet Estimate NORMAL (NORMAL) RBC Morphology NORMAL PT (8.83-12.87) SECONDS INR (0.8-3.0) Sodium (137-145) mmol/L Potassium (3.5-5.1) mmol/L Chloride (98-107) mmol/L Carbon Dioxide (22-30) mmol/L Anion Gap (5-15) MEQ/L BUN (9-20) mg/dL Creatinine (0.66-1.25) mg/dL Estimated GFR ML/MIN Glucose (74-106) mg/dL POC Glucometer 151 H (74 to 106) mg/dL Calcium (8.4-10.2) mg/dL Total Bilirubin (0.2-1.3) mg/dL AST (17-59) U/L ALT (0-50) U/L Alkaline Phosphatase (38-126) U/L Serum Total Protein (6.3-8.2) g/dL Albumin (3.5-5.0) g/dL Stool Occult Blood (NEGATIVE) Random Vancomycin ug/mL C. difficile Screen (NEGATIVE) C.difficile 027-NAP1-B1 (NEGATIVE) ABO Group Rh Factor Antibody Screen (NEGATIVE) 08/14/20 08/14/20 08/14/20 Range/Units 05:05 05:05 06:08 WBC (4.0-10.5) K/mm3 RBC (4.1-5.6) M/mm3 Hgb (12.5-18.0) gm/dl Hct (42-50) % MCV (78-100) fl MCH (26-32) pg MCHC (32-36) g/dl RDW (11.5-14.0) % Plt Count (150-450) K/mm3 MPV (7.5-11.0) fl Absolute Granulocytes (1.4-6.9) Segmented Neutrophils (36.-66.) % Band Neutrophils (0.0-2.0) % Lymphocytes (Manual) (24-44) % Monocytes (Manual) (0.0-12.0) % Eosinophils (Manual) (0.00-3.0) % Platelet Estimate (NORMAL) RBC Morphology PT 15.8 H (8.83-12.87) SECONDS INR 1.39 (0.8-3.0) Sodium 134 L (137-145) mmol/L Potassium 4.9 (3.5-5.1) mmol/L Chloride 109 H (98-107) mmol/L Carbon Dioxide 20 L (22-30) mmol/L Anion Gap 9.8 (5-15) MEQ/L BUN 66 H (9-20) mg/dL Creatinine 1.31 H (0.66-1.25) mg/dL Estimated GFR 55.8 ML/MIN Glucose 185 H (74-106) mg/dL POC Glucometer 161 H (74 to 106) mg/dL Calcium 8.3 L (8.4-10.2) mg/dL Total Bilirubin 1.20 (0.2-1.3) mg/dL AST 47 (17-59) U/L ALT 36 (0-50) U/L Alkaline Phosphatase 241 H (38-126) U/L Serum Total Protein 6.0 L (6.3-8.2) g/dL Albumin 2.5 L (3.5-5.0) g/dL Stool Occult Blood (NEGATIVE) Random Vancomycin ug/mL C. difficile Screen (NEGATIVE) C.difficile 027-NAP1-B1 (NEGATIVE) ABO Group Rh Factor Antibody Screen (NEGATIVE) Radiology Exams: Radiology Procedures Category Date Time Status CHEST 1 VIEW (PORTABLE) Stat Exams 08/13/20 18:25 Taken GUIDE FOR VASCULAR ACCESS [US] Routine Exams 08/12/20 09:52 Completed PICC LINE PLACEMENT Routine Exams 08/12/20 10:47 Completed Multi-Disciplinary Progress Notes: Multi-Disciplinary Progress Notes 08/13/20 21:02 Respiratory Note by Issa Ríos CALLED ON PT AT APPROX 1800. RT ISSA RÍOS AND HORACIO HOWARD RESPONDED. PT SPO2 WAS HIGH 80'S ON 3LPM, WE INCREASED TO 6LPM AND SATS WERE 89%. WE PLACED PT ON 12LPM OXYMIZER AND SATS STAYED AROUND 92%. WE PLACED FLOW METER FLUSHED AND SATS RECOVERED TO 95%. WE LEFT PT ON FLUSHED 15LPM OXYMIZER. Initialized on 08/13/20 21:02 - END OF NOTE 08/13/20 14:41 Pharmacy Note by Neymar Cowart Vancomycin level remains high at 24.53. Last dose of Vancomycin on 08-07-20. Initialized on 08/13/20 14:41 - END OF NOTE 08/13/20 13:32 Nutrition Note by Christine Lucero F/u Note: Note pt remains NPO; receiving PPN @ 90 mls/hour. Note pt with vomiting. adm weight 124.2kg; current weight 114.4kg. neg fluid balance. Labs 08/13= Na 132, BUN 30, glu 175, alb 3.3. Note day 5 of PPN. Will con't to monitor and f/u prn. ROBERT Matthews Initialized on 08/13/20 13:32 - END OF NOTE 08/13/20 10:38 Pharmacy Note by Neymar Cowart Pharmacy TPN Consult Date: 08-13-20 TPN Day #: 4 Patient Name: Kyler Lang HT: ACTUAL WT: 114.4kg Age: 80 Patient Current Labs: Sodium 132 Potassium 4.5 Chloride 101 Glucose 175 Magnesium 2.3 Calcium 8.6 Sr Cr 0.97 CR CL 66 [facility] CENTRAL LINE TPN FORMULATION a. Hospital Formulation: (triple mix) [facility] CENTRAL LINE TRIPLE MIX 2053 ML b. Dextrose 9.8% + Amino Acid 3.3% + Intralipid 3.9% PER 2000 ML c. Total KCals = 1745 KCAL per bag d. Total Volume = 2053 ml e. Carbohydrates = 200 gm; Protein = 68 gm; Fat = 80 gm f. Electrolytes/ premixed bag Sodium 64 meq Potassium 47 meq Calcium 8 meq Magnesium 16 meq Chloride 92 meq Acetate 78 meq Sulfate 16 meq Phosphorous 20 mMole 1. CENTRAL LINE - TPN RATE: 90ML/HR Total Volume to be delivered /24 hr: ____2160ml Total Calories to be delivered/24 hr: __1836 supriya.___ 2. Additions to TPN Bag for today (Uaob___3-03-80 ) A. Sodium chloride __30MEQ B. Humulin R 15 units C. Trace Metals 1 mg ii. Total Electrolytes per 24 hours: 1. Sodium _94__meq__ 2. Potassium _47__meq__ 3. Calcium _8__meq__ 4. Magnesium _16__meq_ 5. Chloride _122 meq____ 6. Acetate _78 meq____ 7. Sulfate _16 meq____ 8. Phosphorous _20 mmol____ Initialized on 08/13/20 10:38 - END OF NOTE 08/13/20 09:37 Case Management Note by Concepción Pete PATIENT STILL GETTING ACUTE CARE- WILL MONITOR AND FOLLOW Initialized on 08/13/20 09:37 - END OF NOTE Assessment/Plan (1) Upper GI bleed Current Visit: Yes Status: Acute Assessment & Plan: continue protonix drip for 24 hours, will evaluate swallowing mechanism today, if does ok with speech might start clears. Code(s): K92.2 - GASTROINTESTINAL HEMORRHAGE, UNSPECIFIED (2) Sepsis Current Visit: Yes Status: Acute (3) Pneumonia Current Visit: Yes Status: Acute Assessment & Plan: has been on vanc and meropenem, afebrile, clinically appears to be improved from infection. will d/c vanc and meropenem today Code(s): J18.9 - PNEUMONIA, UNSPECIFIED ORGANISM (4) UTI (urinary tract infection) Current Visit: Yes Status: Acute Assessment & Plan: fully treated with meropenem Code(s): N39.0 - URINARY TRACT INFECTION, SITE NOT SPECIFIED (5) S/P hip hemiarthroplasty Current Visit: No Status: Acute Code(s): Z96.649 - PRESENCE OF UNSPECIFIED ARTIFICIAL HIP JOINT (6) Subdural hematoma Current Visit: No Status: Acute Code(s): S06.5X9A - TRAUM SUBDR HEM W LOC OF UNSP DURATION, INIT (7) Atrial fibrillation Current Visit: No Status: Chronic Qualifiers: Code(s): I48.91 - UNSPECIFIED ATRIAL FIBRILLATION
--- NOTE | 2020-08-14 08:44 | XRAY ---
Indication: Post hematemesis. Comparison: One day earlier. Portable chest demonstrates new right arm PICC line in good position. Heart is now within normal limits. Stable minimal bibasilar infiltrates/atelectasis. No new cardiopulmonary abnormalities.
[2020-08-14 09:33] LABS: Appearance CLEAR (CLEAR); Bacteria FEW /HPF (NEGATIVE); Bilirubin NEGATIVE (NEGATIVE); Blood MODERATE Ery/ul (0-5); Glucose NEGATIVE (NEGATIVE); Ketones NEGATIVE (NEGATIVE); Leukocyte Esterase NEGATIVE (NEGATIVE); Mucus SLIGHT /HPF (NEGATIVE); Nitrite NEGATIVE (NEGATIVE); Protein,Urine Dip NEGATIVE (Negative); Specific Gravity 1.024 (1.005-1.025); Urobilinogen NEGATIVE mg/dL (0-1)
[2020-08-14] MEDS ORDERED: PROTONIX 40 MG IV IV ONE (10:00)
[2020-08-14] MEDS: NYSTOP POWDER 15 GM TOP SCH ×2 (10:11→22:30)
[2020-08-14] MEDS: Ativan 2 MG/1 ML VIAL IV PRN (13:13)
[2020-08-14] MEDS: [UNRECOGNIZED DRUG - NUTRITION] IV SCH ×4 (14:19)
[2020-08-14] MEDS: MORPHINE SULFATE 2 MG INJ IV PRN (18:12)
[2020-08-14] MEDS ORDERED: MORPHINE SULFATE 4 MG INJ IV ONE (19:03)
[2020-08-14] MEDS: MORPHINE SULFATE 4 MG INJ IV PRN (23:21)
[2020-08-15] MEDS: Ativan 2 MG/1 ML VIAL IV PRN ×3 (00:59→21:07)
[2020-08-15] MEDS: MORPHINE SULFATE 4 MG INJ IV PRN ×4 (04:25→20:17)
[2020-08-15] MEDS: PROTONIX 40 MG IV*** 80 MG in Sodium Chloride 0.9% 500 ML 500 ML IV SCH (05:20)
[2020-08-15 06:30] LABS: Hematocrit 33.3 % (42-50); Hemoglobin 10.2 gm/dl (12.5-18.0); Mean Cell Volume 101.2 fl (78-100); Mean Corpuscular Hgb Concent. 30.6 g/dl (32-36); Mean Platelet Volume 11.3 fl (7.5-11.0); Platelet Count 341 K/mm3 (150-450); Red Blood Count 3.29 M/mm3 (4.1-5.6); Red Cell Distribution Width 14.6 % (11.5-14.0); White Blood Count 15.1 K/mm3 (4.0-10.5)
[2020-08-15 06:32] LABS: INR 1.32 (0.8-3.0)
[2020-08-15 06:55] LABS: ALBUMIN 2.8 g/dL (3.5-5.0); ALKALINE PHOSPHATASE 283 U/L (38-126); ANION GAP 9.6 MEQ/L (5-15); BLOOD UREA NITROGEN 47 mg/dL (9-20); CHLORIDE 114 mmol/L (98-107); Calcium 8.5 mg/dL (8.4-10.2); Carbon Dioxide 21 mmol/L (22-30); Creatinine 1 1.11 mg/dL (0.66-1.25); EST GLOMERULAR FILTRATION RATE > 60.0 ML/MIN; Glucose 128 mg/dL (74-106); Potassium 5.2 mmol/L (3.5-5.1); SGOT/AST 60 U/L (17-59); SGPT/ALT 43 U/L (0-50); SODIUM 139 mmol/L (137-145); Total Protein 6.6 g/dL (6.3-8.2)
[2020-08-15] MEDS ORDERED: MULTITRACE IV SCH (09:00)
[2020-08-15] MEDS ORDERED: [UNRECOGNIZED DRUG - OTHER] IV SCH (09:00)
[2020-08-15] MEDS ORDERED: INTRALIPID 20% IV SCH (09:00)
[2020-08-15] MEDS: [UNRECOGNIZED DRUG - OTHER] IV SCH ×4 (09:21)
[2020-08-15] MEDS: INTRALIPID 20% IV SCH ×4 (09:21)
[2020-08-15] MEDS: MULTITRACE IV SCH ×4 (09:21)
[2020-08-15] MEDS: NYSTOP POWDER 15 GM TOP SCH ×2 (09:22→21:53)
[2020-08-15 11:04] LABS: Eosinophil 3 % (0.00-3.0); Lymphocytes 14 % (24-44); Metamyelocyte 1 %; Monocyte 5 % (0.0-12.0); Neutrophils 77 % (36.-66.); Platelet Estimate NORMAL (NORMAL); Total Cells Counted 100
--- NOTE | 2020-08-15 14:35 | PCM.NOTE ---
Date and Time: 08/15/20 1255 Subjective Assessment: 80 yr old male seen and examined this am. Patient had just been given morphine. He is a limited historian due to medical condition. He reports L hip pain and left heel. Nurse reports patient's anticoag have been held due to GI bleed. She reports that patient will not keep his heel protectors on. Nurse reports wrist restraints were not initiated overnight even though they were ordered after patient pulled PICC line. Staff reported incomplete swallow study following patient's refusal to continue with testing. - Review of Systems All Other Systems: Unable due to condition (Patient did comment on his left hip pain and left heel pain. ) Objective Exam General Appearance: mild distress, obese Neurologic Exam: other (Patient responded to some questions but was sleepy following morphine administration) Skin Exam: normal color, warm, dry, other (incision site was not visualized due to intact dressing), No rash Wound Assessment: Skin/Wound Assessment Wound/Incision Assessment Start: 08/06/20 13:27 Text: Status: Active Freq: Q6H Protocol: Document 08/15/20 13:28 RN (Rec: 08/15/20 13:33 RN [id number]) Wound/Incision Assessment Buttock Wound Assessment Shift Assessment Wound Type Pressure Ulcer Wound Stage Stage I Drainage Amount None Drainage Odor None/Absent Surrounding Tissue [place] Comment barrier cream, and turning every 2 hours or as needed Left Heel Wound Assessment Shift Assessment Wound Type Pressure Ulcer Wound Stage Unstageable Drainage Amount None General Appearance Blackened % Eschar (Black) 100 Surrounding Tissue [place] Comment heel protectors and pillows used to help off load pressure when patient will allow and tolerate Left Hip Wound Assessment Shift Assessment Wound Type Incision Wound Stage Non Pressure Wound Dressing Status Dry & Intact Drainage Amount None Drainage Odor None/Absent Surrounding Tissue [place] Primary Dressing Non-Adherent Gauze Pads Secondary Dressing Absorbant Pad Wound Photo Photo Taken No Eye Exam: No scleral icterus Ears, Nose, Throat Exam: dry mucous membranes (Patient is a mouth breather and his dentures are missing) Respiratory Exam: normal breath sounds, lungs clear, No respiratory distress, No diminished breath sounds, No crackles/rales, No wheezing Cardiovascular Exam: regular rate/rhythm, normal heart sounds, No murmur, No friction rub, No gallop Gastrointestinal/Abdomen Exam: soft, normal bowel sounds, No tenderness, No distention Extremity Exam: other (Dressing covering L hip incision. Left heel eschar) Male Genitalia Exam: other OBJECTIVE DATA Vital Signs: Vital Signs - 24 hr Temp Pulse Resp BP Pulse Ox 08/15/20 12:00 98.0 F 85 18 128/62 94 L 08/15/20 08:22 95 08/15/20 07:57 97.9 F 82 16 115/53 93 L 08/15/20 03:57 97.9 F 75 18 119/53 94 L 08/14/20 23:54 97.9 F 71 19 134/62 94 L 08/14/20 20:27 94 L 08/14/20 19:44 98.4 F 85 21 145/58 94 L 08/14/20 15:54 98.6 F 70 20 144/58 100 Pain Assessment - Last Documented Pain Intensity 0 Pain Scale Used [facility] Intake and Output: Intake & Output 08/13/20 08/14/20 08/15/20 08/16/20 11:59 11:59 11:59 11:59 Intake Total 2228 3712 2527 Output Total 1700 1350 1100 950 Balance 528 2362 1427 -950 Weight 114.4 kg 114.4 kg 116.2 kg Lab Results: Lab Results-Last 24 Hours 08/14/20 08/14/20 08/15/20 Range/Units 17:54 22:49 05:45 WBC 15.1 H (4.0-10.5) K/mm3 RBC 3.29 L (4.1-5.6) M/mm3 Hgb 10.2 L (12.5-18.0) gm/dl Hct 33.3 L (42-50) % MCV 101.2 H (78-100) fl MCH 31.0 (26-32) pg MCHC 30.6 L (32-36) g/dl RDW 14.6 H (11.5-14.0) % Plt Count 341 (150-450) K/mm3 MPV 11.3 H (7.5-11.0) fl Segmented Neutrophils 77 H (36.-66.) % Lymphocytes (Manual) 14 L (24-44) % Monocytes (Manual) 5 (0.0-12.0) % Eosinophils (Manual) 3 (0.00-3.0) % Metamyelocytes 1 % Platelet Estimate NORMAL (NORMAL) RBC Morphology NORMAL PT (8.83-12.87) SECONDS INR (0.8-3.0) Sodium (137-145) mmol/L Potassium (3.5-5.1) mmol/L Chloride (98-107) mmol/L Carbon Dioxide (22-30) mmol/L Anion Gap (5-15) MEQ/L BUN (9-20) mg/dL Creatinine (0.66-1.25) mg/dL Estimated GFR ML/MIN Glucose (74-106) mg/dL POC Glucometer 136 H 128 H (74 to 106) mg/dL Calcium (8.4-10.2) mg/dL Magnesium (1.6-2.3) mg/dL Total Bilirubin (0.2-1.3) mg/dL AST (17-59) U/L ALT (0-50) U/L Alkaline Phosphatase (38-126) U/L Serum Total Protein (6.3-8.2) g/dL Albumin (3.5-5.0) g/dL 08/15/20 08/15/20 08/15/20 Range/Units 05:45 05:45 05:45 WBC (4.0-10.5) K/mm3 RBC (4.1-5.6) M/mm3 Hgb (12.5-18.0) gm/dl Hct (42-50) % MCV (78-100) fl MCH (26-32) pg MCHC (32-36) g/dl RDW (11.5-14.0) % Plt Count (150-450) K/mm3 MPV (7.5-11.0) fl Segmented Neutrophils (36.-66.) % Lymphocytes (Manual) (24-44) % Monocytes (Manual) (0.0-12.0) % Eosinophils (Manual) (0.00-3.0) % Metamyelocytes % Platelet Estimate (NORMAL) RBC Morphology PT 15.0 H (8.83-12.87) SECONDS INR 1.32 (0.8-3.0) Sodium 139 (137-145) mmol/L Potassium 5.2 H (3.5-5.1) mmol/L Chloride 114 H (98-107) mmol/L Carbon Dioxide 21 L (22-30) mmol/L Anion Gap 9.6 (5-15) MEQ/L BUN 47 H (9-20) mg/dL Creatinine 1.11 (0.66-1.25) mg/dL Estimated GFR > 60.0 ML/MIN Glucose 128 H (74-106) mg/dL POC Glucometer (74 to 106) mg/dL Calcium 8.5 (8.4-10.2) mg/dL Magnesium 2.6 H (1.6-2.3) mg/dL Total Bilirubin 1.50 H (0.2-1.3) mg/dL AST 60 H (17-59) U/L ALT 43 (0-50) U/L Alkaline Phosphatase 283 H (38-126) U/L Serum Total Protein 6.6 (6.3-8.2) g/dL Albumin 2.8 L (3.5-5.0) g/dL 08/15/20 Range/Units 12:21 WBC (4.0-10.5) K/mm3 RBC (4.1-5.6) M/mm3 Hgb (12.5-18.0) gm/dl Hct (42-50) % MCV (78-100) fl MCH (26-32) pg MCHC (32-36) g/dl RDW (11.5-14.0) % Plt Count (150-450) K/mm3 MPV (7.5-11.0) fl Segmented Neutrophils (36.-66.) % Lymphocytes (Manual) (24-44) % Monocytes (Manual) (0.0-12.0) % Eosinophils (Manual) (0.00-3.0) % Metamyelocytes % Platelet Estimate (NORMAL) RBC Morphology PT (8.83-12.87) SECONDS INR (0.8-3.0) Sodium (137-145) mmol/L Potassium (3.5-5.1) mmol/L Chloride (98-107) mmol/L Carbon Dioxide (22-30) mmol/L Anion Gap (5-15) MEQ/L BUN (9-20) mg/dL Creatinine (0.66-1.25) mg/dL Estimated GFR ML/MIN Glucose (74-106) mg/dL POC Glucometer 155 H (74 to 106) mg/dL Calcium (8.4-10.2) mg/dL Magnesium (1.6-2.3) mg/dL Total Bilirubin (0.2-1.3) mg/dL AST (17-59) U/L ALT (0-50) U/L Alkaline Phosphatase (38-126) U/L Serum Total Protein (6.3-8.2) g/dL Albumin (3.5-5.0) g/dL Radiology Exams: Radiology Procedures Category Date Time Status CHEST 1 VIEW (PORTABLE) Stat Exams 08/13/20 18:25 Completed Assessment/Plan (1) Encephalopathy Current Visit: Yes Status: Acute Assessment & Plan: Encephalopathy likely multifactorial including infectious, related to medication and possibly metabolic. Patient's symptoms related to infection appeared to be resolved. Patient was very confused and more somnolent following morphine administration. He continues to be confused and mildly agitated. He pulled PICC line last night which is used for TPN, wont keep heel protectors on and is restless/agitated. He may have sundowners or delirium as well. He has also had Code(s): G93.40 - ENCEPHALOPATHY, UNSPECIFIED (2) Left hip pain Current Visit: Yes Status: Acute Assessment & Plan: Left hip pain following L hip surgery. Patient should be getting PT. He has morphine ordered PRN. He continues to complain of pain. Code(s): M25.552 - PAIN IN LEFT HIP (3) Pneumonia Current Visit: Yes Status: Acute Assessment & Plan: Patient has completed the course of IV antibiotics for pneumonia. Patient is requiring oxygen unsure if this is baseline for him. Code(s): J18.9 - PNEUMONIA, UNSPECIFIED ORGANISM (4) Sepsis Current Visit: Yes Status: Acute Assessment & Plan: Resolved (5) UTI (urinary tract infection) Current Visit: Yes Status: Acute Assessment & Plan: Patient has completed course of antibiotics Code(s): N39.0 - URINARY TRACT INFECTION, SITE NOT SPECIFIED (6) Upper GI bleed Current Visit: Yes Status: Acute Assessment & Plan: Patient's anticoags have been held. He did get protonixs. Will continue to monitor for dark stools. Code(s): K92.2 - GASTROINTESTINAL HEMORRHAGE, UNSPECIFIED (7) Paroxysmal A-fib Current Visit: Yes Status: Chronic Assessment & Plan: Patient was on anticoags. Will restart anticoags Code(s): I48.0 - PAROXYSMAL ATRIAL FIBRILLATION (8) S/P hip hemiarthroplasty Current Visit: No Status: Acute Assessment & Plan: Patient continues to complain of pain. He should be getting PT and will need to continue with PT following discharge Code(s): Z96.649 - PRESENCE OF UNSPECIFIED ARTIFICIAL HIP JOINT (9) Subdural hematoma Current Visit: No Status: Acute Assessment & Plan: Remote subdural noted on CT scan. Difficult to assess patient's neurologic status as he appears to have waxing/waning mental status Code(s): S06.5X9A - TRAUM SUBDR HEM W LOC OF UNSP DURATION, INIT (10) Dry mouth Current Visit: Yes Status: Acute Assessment & Plan: Patient has dry mouth. He is an open mouth breather and has sores in his mouth. Nursing staff reports that he has been getting oral care about every hour with swabs. Patient's dentures were lost at previous facility. Code(s): R68.2 - DRY MOUTH, UNSPECIFIED
--- NOTE | 2020-08-15 19:28 | XRAY ---
Indication: PICC placement verification. Comparison: August 13, 2020. Limited portable chest does not completely include left lung base. There is again right arm PICC line retracted or replaced with tip projecting over atriocaval junction. Remaining visualized chest unchanged. Comment: Preliminary interpretation was made by [facility]. No critical discrepancy.
[2020-08-16] MEDS: MORPHINE SULFATE 4 MG INJ IV PRN ×3 (00:25→21:03)
[2020-08-16] MEDS: Ativan 2 MG/1 ML VIAL IV PRN ×3 (01:13→20:46)
[2020-08-16 06:08] LABS: INR 1.31 (0.8-3.0); PROTIME 14.9 SECONDS (8.83-12.87)
[2020-08-16 08:55] LABS: Hematocrit 29.8 % (42-50); Hemoglobin 9.2 gm/dl (12.5-18.0); Mean Corpuscular Hemoglobin 31.2 pg (26-32); Mean Corpuscular Hgb Concent. 30.9 g/dl (32-36); Mean Platelet Volume 11.8 fl (7.5-11.0); Platelet Count 188 K/mm3 (150-450); Red Blood Count 2.95 M/mm3 (4.1-5.6); Red Cell Distribution Width 14.3 % (11.5-14.0); White Blood Count 10.4 K/mm3 (4.0-10.5)
[2020-08-16 09:01] LABS: ALBUMIN 2.7 g/dL (3.5-5.0); ALKALINE PHOSPHATASE 232 U/L (38-126); ANION GAP 7.7 MEQ/L (5-15); BLOOD UREA NITROGEN 38 mg/dL (9-20); CHLORIDE 109 mmol/L (98-107); Calcium 8.3 mg/dL (8.4-10.2); Carbon Dioxide 24 mmol/L (22-30); Creatinine 1 0.99 mg/dL (0.66-1.25); EST GLOMERULAR FILTRATION RATE > 60.0 ML/MIN; Glucose 119 mg/dL (74-106); Potassium 5.2 mmol/L (3.5-5.1); SGOT/AST 47 U/L (17-59); SGPT/ALT 35 U/L (0-50); SODIUM 135 mmol/L (137-145); Total Protein 6.5 g/dL (6.3-8.2)
[2020-08-16 09:24] LABS: BAND 2 % (0.0-2.0); Eosinophil 3 % (0.00-3.0); Lymphocytes 14 % (24-44); Monocyte 6 % (0.0-12.0); Neutrophils 75 % (36.-66.); Platelet Estimate NORMAL (NORMAL); Total Cells Counted 100
[2020-08-16] MEDS: INTRALIPID 20% IV SCH ×4 (11:13)
[2020-08-16] MEDS: NYSTOP POWDER 15 GM TOP SCH ×2 (11:13→22:30)
[2020-08-16] MEDS: [UNRECOGNIZED DRUG - OTHER] IV SCH ×4 (11:13)
[2020-08-16] MEDS: MULTITRACE IV SCH ×4 (11:13)
--- NOTE | 2020-08-16 13:03 | PCM.NOTE ---
Date and Time: 08/16/20 1300 Subjective Assessment: 80 yr old male seen and examined this am. Patient was slightly more alert this am. He was not oriented to place and believed he was still in [place]. He reports he still has left hip pain. Nurse reported patient was more restless yesterday than today. She reports that she has again been doing oral care frequently and feels that the patient's mouth appears to have improved. Nurse reports patient's dentures were not present following transfer from outside hospital. Patient got PICC line replaced yesterday. - Review of Systems All Other Systems: Unable due to condition (Patient does report L hip pain. Patient is unable to give more detailed ROS) Objective Exam General Appearance: mild distress Neurologic Exam: alert, cooperative, confusion, other (Patient was oriented to place this am with nurse but was confused when I asked if he knew where he was), No oriented x 3, No normal mood/affect, No agitation Skin Exam: normal color, warm, dry, ecchymosis (Patient does have some ecchymosis on his chest. These were present on yesterday's exam as well.) Wound Assessment: Skin/Wound Assessment Wound/Incision Assessment Start: 08/06/20 13:27 Text: Status: Active Freq: Q6H Protocol: Document 08/16/20 07:50 RN (Rec: 08/16/20 07:57 RN [id number]) Wound/Incision Assessment Buttock Wound Assessment Shift Assessment Wound Type Pressure Ulcer Wound Stage Stage I Drainage Amount None Drainage Odor None/Absent General Appearance Open to air Surrounding Tissue [place] Comment barrier cream, turning every 2 hours and as needed Left Heel Wound Assessment Shift Assessment Wound Type Pressure Ulcer Wound Stage Unstageable Drainage Amount None General Appearance Open to air,Blackened % Eschar (Black) 100 Surrounding Tissue [place] Comment heel protectors, heels floated attempted frequently, and when patient will tolerate Left Hip Wound Assessment Shift Assessment Wound Type Incision Wound Stage Non Pressure Wound Dressing Status Dry & Intact Drainage Amount None Drainage Odor None/Absent Surrounding Tissue [place] Primary Dressing Non-Adherent Gauze Pads Secondary Dressing Absorbant Pad Wound Photo Photo Taken No Eye Exam: other (Pupils are approx 3 mm), No scleral icterus Ears, Nose, Throat Exam: dry mucous membranes (Dentures absent) Neck Exam: normal inspection Respiratory Exam: normal breath sounds, lungs clear, No chest tenderness, No respiratory distress, No diminished breath sounds, No wheezing Cardiovascular Exam: regular rate/rhythm, normal heart sounds, No murmur, No friction rub, No gallop Gastrointestinal/Abdomen Exam: soft, normal bowel sounds, No tenderness, No distention, No mass, No guarding Extremity Exam: No normal inspection, No normal range of motion, No pedal edema, No swelling (L hip with intact dressing. Nurse reports incision appears intact. L heel eschar present. Heel protectors present) Male Genitalia Exam: deferred Rectal Exam: deferred OBJECTIVE DATA Vital Signs: Vital Signs - 24 hr Temp Pulse Resp BP Pulse Ox 08/16/20 12:00 98.5 F 70 20 105/47 95 08/16/20 10:06 94 L 08/16/20 07:21 97.8 F 76 20 112/46 95 08/16/20 04:00 81 20 128/59 08/16/20 00:00 98.8 F 74 19 130/56 94 L 08/15/20 20:36 96 08/15/20 20:00 96.5 F 70 19 139/62 97 08/15/20 16:00 98.3 F 73 20 126/59 96 Oxygen-Last 24 hours Oxygen Flowrate (L/min)-RT 2 Oxygen Flowrate (L/min)-RT 2 Oxygen Flowrate (L/min)-RT 2 Pain Assessment - Last Documented Pain Intensity 1 [facility]ake and Output: Intake & Output 08/14/20 08/15/20 08/16/20 08/17/20 11:59 11:59 11:59 11:59 Intake Total 3712 2527 1648 Output Total 1350 1100 2250 Balance 2362 1427 -602 Weight 114.4 kg 116.2 kg 89.9 kg Lab Results: Lab Results-Last 24 Hours 08/15/20 08/15/20 08/16/20 Range/Units 17:57 23:31 05:28 WBC (4.0-10.5) K/mm3 RBC (4.1-5.6) M/mm3 Hgb (12.5-18.0) gm/dl Hct (42-50) % MCV (78-100) fl MCH (26-32) pg MCHC (32-36) g/dl RDW (11.5-14.0) % Plt Count (150-450) K/mm3 MPV (7.5-11.0) fl Segmented Neutrophils (36.-66.) % Band Neutrophils (0.0-2.0) % Lymphocytes (Manual) (24-44) % Monocytes (Manual) (0.0-12.0) % Eosinophils (Manual) (0.00-3.0) % Platelet Estimate (NORMAL) RBC Morphology PT (8.83-12.87) SECONDS INR (0.8-3.0) Sodium (137-145) mmol/L Potassium (3.5-5.1) mmol/L Chloride (98-107) mmol/L Carbon Dioxide (22-30) mmol/L Anion Gap (5-15) MEQ/L BUN (9-20) mg/dL Creatinine (0.66-1.25) mg/dL Estimated GFR ML/MIN Glucose (74-106) mg/dL POC Glucometer 123 H 124 H 101 (74 to 106) mg/dL Calcium (8.4-10.2) mg/dL Total Bilirubin (0.2-1.3) mg/dL AST (17-59) U/L ALT (0-50) U/L Alkaline Phosphatase (38-126) U/L Serum Total Protein (6.3-8.2) g/dL Albumin (3.5-5.0) g/dL 08/16/20 08/16/20 08/16/20 Range/Units 05:45 08:05 08:05 WBC 10.4 (4.0-10.5) K/mm3 RBC 2.95 L (4.1-5.6) M/mm3 Hgb 9.2 L (12.5-18.0) gm/dl Hct 29.8 L (42-50) % MCV 101.0 H (78-100) fl MCH 31.2 (26-32) pg MCHC 30.9 L (32-36) g/dl RDW 14.3 H (11.5-14.0) % Plt Count 188 D (150-450) K/mm3 MPV 11.8 H (7.5-11.0) fl Segmented Neutrophils 75 H (36.-66.) % Band Neutrophils 2 (0.0-2.0) % Lymphocytes (Manual) 14 L (24-44) % Monocytes (Manual) 6 (0.0-12.0) % Eosinophils (Manual) 3 (0.00-3.0) % Platelet Estimate NORMAL (NORMAL) RBC Morphology NORMAL PT 14.9 H (8.83-12.87) SECONDS INR 1.31 (0.8-3.0) Sodium 135 L (137-145) mmol/L Potassium 5.2 H (3.5-5.1) mmol/L Chloride 109 H (98-107) mmol/L Carbon Dioxide 24 (22-30) mmol/L Anion Gap 7.7 (5-15) MEQ/L BUN 38 H (9-20) mg/dL Creatinine 0.99 (0.66-1.25) mg/dL Estimated GFR > 60.0 ML/MIN Glucose 119 H (74-106) mg/dL POC Glucometer (74 to 106) mg/dL Calcium 8.3 L (8.4-10.2) mg/dL Total Bilirubin 1.40 H (0.2-1.3) mg/dL AST 47 (17-59) U/L ALT 35 (0-50) U/L Alkaline Phosphatase 232 H (38-126) U/L Serum Total Protein 6.5 (6.3-8.2) g/dL Albumin 2.7 L (3.5-5.0) g/dL 08/16/20 Range/Units 12:10 WBC (4.0-10.5) K/mm3 RBC (4.1-5.6) M/mm3 Hgb (12.5-18.0) gm/dl Hct (42-50) % MCV (78-100) fl MCH (26-32) pg MCHC (32-36) g/dl RDW (11.5-14.0) % Plt Count (150-450) K/mm3 MPV (7.5-11.0) fl Segmented Neutrophils (36.-66.) % Band Neutrophils (0.0-2.0) % Lymphocytes (Manual) (24-44) % Monocytes (Manual) (0.0-12.0) % Eosinophils (Manual) (0.00-3.0) % Platelet Estimate (NORMAL) RBC Morphology PT (8.83-12.87) SECONDS INR (0.8-3.0) Sodium (137-145) mmol/L Potassium (3.5-5.1) mmol/L Chloride (98-107) mmol/L Carbon Dioxide (22-30) mmol/L Anion Gap (5-15) MEQ/L BUN (9-20) mg/dL Creatinine (0.66-1.25) mg/dL Estimated GFR ML/MIN Glucose (74-106) mg/dL POC Glucometer 112 H (74 to 106) mg/dL Calcium (8.4-10.2) mg/dL Total Bilirubin (0.2-1.3) mg/dL AST (17-59) U/L ALT (0-50) U/L Alkaline Phosphatase (38-126) U/L Serum Total Protein (6.3-8.2) g/dL Albumin (3.5-5.0) g/dL Radiology Exams: Radiology Procedures Category Date Time Status CHEST 1 VIEW (PORTABLE) Stat Exams 08/15/20 16:34 Completed Multi-Disciplinary Progress Notes: Multi-Disciplinary Progress Notes 08/16/20 12:15 Speech Therapy Note by Aurelia Plascencia treatment: Patient awake and talking. Positioned in bed with head raised. Patient with oral care completed by nurse prior to ST arrival. Tongue looked clean and moist. Patient ate pureed peaches without clinical s/s of aspiration. Patient indicated that he wanted to eat more. Offered mashed potatoes with gravy. Kitchen blended potatoes and gravy together for a smooth, creamy texture. He tolerated these without s/s of aspiration. Volume of intake only 6 bites of potatoes, and 1/2 cup of peaches. He then said that was enough. He did not want a drink at this time, and he was tired. Recommend initiation of oral intake with a pureed diet, intake with staff assist. Recommend honey thick liquids presented via teaspoon. Discussed with nurse patient's need to be awake/alert. MS Helen, CCC/IRRIGATION WORKER Initialized on 08/16/20 12:15 - END OF NOTE Assessment/Plan (1) Encephalopathy Current Visit: Yes Status: Acute Assessment & Plan: Encephalopathy likely multifactorial including infectious, related to medication and possibly metabolic. Patient's symptoms related to infection/sepsis appear to be resolved. Patient was slightly confused this morning but was more alert then yesterday. He had PICC replaced. Patient is keeping heel protectors on for the time being. He will get SCDs due to immobility and having to hold his anticoag medications. WBC has trended down. Nurse has been doing some one to one monitoring to ensure that patient is not pulling at necessary lines and catheter. Patient also had swallow study and was not able to complete. His lack of dentures might make his ability to eat difficult. Code(s): G93.40 - ENCEPHALOPATHY, UNSPECIFIED (2) Left hip pain Current Visit: Yes Status: Acute Assessment & Plan: From recent surgery. Patient upon admission was to critical for most forms of PT. Will have PT come re-evaluate and start working with patient as he is post op and needs to continue with PT. Code(s): M25.552 - PAIN IN LEFT HIP (3) Pneumonia Current Visit: Yes Status: Acute Assessment & Plan: CXR for line placement did not mention pneumonia and VS and labs reflect that pneumonia is likely resolved. Code(s): J18.9 - PNEUMONIA, UNSPECIFIED ORGANISM (4) Sepsis Current Visit: Yes Status: Acute Assessment & Plan: Resolved (5) UTI (urinary tract infection) Current Visit: Yes Status: Acute Assessment & Plan: Urine culture was neg. Patient has already completed course of antibiotics that would treat UTIs Code(s): N39.0 - URINARY TRACT INFECTION, SITE NOT SPECIFIED (6) Upper GI bleed Current Visit: Yes Status: Acute Assessment & Plan: Anticoags being held. Patient did receive protonix. His hgb is trending down and is now mildly anemic. No gross blood noted in stool from yesterday. Will continue to trend hgb and patient may need blood products if hgb continues to trend down. Code(s): K92.2 - GASTROINTESTINAL HEMORRHAGE, UNSPECIFIED (7) Paroxysmal A-fib Current Visit: Yes Status: Chronic Assessment & Plan: Anticoags being held. Will resume once hgb has become more stable and no signs of melena and hematochezia. Code(s): I48.0 - PAROXYSMAL ATRIAL FIBRILLATION (8) S/P hip hemiarthroplasty Current Visit: No Status: Acute Code(s): Z96.649 - PRESENCE OF UNSPECIFIED ARTIFICIAL HIP JOINT (9) Subdural hematoma Current Visit: No Status: Acute Code(s): S06.5X9A - TRAUM SUBDR HEM W LOC OF UNSP DURATION, INIT (10) Dry mouth Current Visit: Yes Status: Acute Assessment & Plan: improved from yesterday. Will continue with routine oral care. Patient is a mouth breather and no longer has his dentures. Code(s): R68.2 - DRY MOUTH, UNSPECIFIED
[2020-08-16] MEDS ORDERED: INTRALIPID 20% IV SCH (14:00)
[2020-08-16] MEDS ORDERED: [UNRECOGNIZED DRUG - OTHER] IV SCH (14:00)
[2020-08-16] MEDS ORDERED: MULTITRACE IV SCH (14:00)
[2020-08-16] MEDS: PROTONIX 40 MG IV IV SCH (14:23)
[2020-08-17] MEDS: Ativan 2 MG/1 ML VIAL IV PRN ×2 (00:03→04:21)
[2020-08-17] MEDS: MORPHINE SULFATE 4 MG INJ IV PRN ×4 (00:04→21:19)
[2020-08-17 05:07] LABS: INR 1.36 (0.8-3.0); PROTIME 15.4 SECONDS (8.83-12.87)
[2020-08-17 05:12] LABS: ALBUMIN 2.9 g/dL (3.5-5.0); ALKALINE PHOSPHATASE 260 U/L (38-126); ANION GAP 10.2 MEQ/L (5-15); BLOOD UREA NITROGEN 29 mg/dL (9-20); CHLORIDE 102 mmol/L (98-107); Calcium 8.3 mg/dL (8.4-10.2); Carbon Dioxide 23 mmol/L (22-30); Creatinine 1 0.98 mg/dL (0.66-1.25); EST GLOMERULAR FILTRATION RATE > 60.0 ML/MIN; Glucose 192 mg/dL (74-106); Potassium 4.3 mmol/L (3.5-5.1); SGOT/AST 42 U/L (17-59); SGPT/ALT 34 U/L (0-50); SODIUM 132 mmol/L (137-145); Total Protein 6.7 g/dL (6.3-8.2)
[2020-08-17 05:13] LABS: Hematocrit 30.9 % (42-50); Hemoglobin 9.7 gm/dl (12.5-18.0); Mean Cell Volume 100.3 fl (78-100); Mean Corpuscular Hemoglobin 31.5 pg (26-32); Mean Corpuscular Hgb Concent. 31.4 g/dl (32-36); Mean Platelet Volume 11.3 fl (7.5-11.0); Platelet Count 328 K/mm3 (150-450); Red Blood Count 3.08 M/mm3 (4.1-5.6); White Blood Count 14.1 K/mm3 (4.0-10.5)
[2020-08-17 06:03] LABS: ANISOCYTOSIS 1+; Lymphocytes 19 % (24-44); Monocyte 5 % (0.0-12.0); Neutrophils 76 % (36.-66.); Poikilocytosis 1+; Polychromasia 1+; Total Cells Counted 100
[2020-08-17 06:04] LABS: Platelet Estimate NORMAL (NORMAL)
[2020-08-17] MEDS: PROTONIX 40 MG IV IV SCH (10:01)
[2020-08-17] MEDS: NYSTOP POWDER 15 GM TOP SCH ×2 (10:03→21:41)
--- NOTE | 2020-08-17 13:06 | PCM.NOTE ---
Date and Time: 08/17/20 1304 Subjective Assessment: patient very drowsy today, had morphine at ativan at 0400 today per nursing, no new problems. no vomiting today Objective Exam General Appearance: no apparent distress Neurologic Exam: cooperative, other (drowsy but responds to voice) Skin Exam: normal color, warm, dry Wound Assessment: Skin/Wound Assessment Wound/Incision Assessment Start: 08/06/20 13:27 Text: Status: Active Freq: Q6H Protocol: Document 08/17/20 08:00 AR (Rec: 08/17/20 08:15 AR [id number]) Wound/Incision Assessment Buttock Wound Assessment Shift Assessment Wound Type Pressure Ulcer Wound Stage Stage I Drainage Amount None General Appearance Open to air Surrounding Tissue [place] Comment barrier cream PRN Left Heel Wound Assessment Shift Assessment Wound Type Pressure Ulcer Wound Stage Unstageable Drainage Amount None General Appearance Open to air,Blackened % Eschar (Black) 100 Surrounding Tissue [place] Left Hip Wound Assessment Shift Assessment Wound Type Incision Wound Stage Non Pressure Wound Dressing Status Dry & Intact Drainage Amount None Surrounding Tissue [place] Wound Photo Photo Taken No Respiratory Exam: normal breath sounds, lungs clear, No respiratory distress Cardiovascular Exam: regular rate/rhythm, normal heart sounds Gastrointestinal/Abdomen Exam: soft, No tenderness, No mass OBJECTIVE DATA Vital Signs: Vital Signs - 24 hr Temp Pulse Resp BP Pulse Ox 08/17/20 12:00 98.8 F 82 20 133/58 96 08/17/20 08:00 98.6 F 78 24 161/76 95 08/17/20 07:13 98 08/17/20 04:00 68 20 133/56 94 L 08/16/20 23:45 88 124/58 08/16/20 19:55 95 08/16/20 19:50 97 F 71 20 132/56 95 08/16/20 15:50 98.7 F 71 16 117/76 94 L Oxygen-Last 24 hours Oxygen Flowrate (L/min)-RT 2 Pain Assessment - Last Documented Pain Intensity 0 Pain Scale Used [facility] Intake and Output: Intake & Output 08/15/20 08/16/20 08/17/20 08/18/20 11:59 11:59 11:59 11:59 Intake Total 6197 1648 1356 Output Total 1100 2250 1500 Balance 1427 602 -144 Weight 116.2 kg 89.9 kg Lab Results: Lab Results-Last 24 Hours 08/16/20 08/16/20 08/17/20 Range/Units 17:19 23:36 04:15 WBC (4.0-10.5) K/mm3 RBC (4.1-5.6) M/mm3 Hgb (12.5-18.0) gm/dl Hct (42-50) % MCV (78-100) fl MCH (26-32) pg MCHC (32-36) g/dl RDW (11.5-14.0) % Plt Count (150-450) K/mm3 MPV (7.5-11.0) fl Segmented Neutrophils (36.-66.) % Lymphocytes (Manual) (24-44) % Monocytes (Manual) (0.0-12.0) % Platelet Estimate (NORMAL) RBC Morphology Polychromasia Poikilocytosis Anisocytosis PT (8.83-12.87) SECONDS INR (0.8-3.0) Sodium (137-145) mmol/L Potassium (3.5-5.1) mmol/L Chloride (98-107) mmol/L Carbon Dioxide (22-30) mmol/L Anion Gap (5-15) MEQ/L BUN (9-20) mg/dL Creatinine (0.66-1.25) mg/dL Estimated GFR ML/MIN Glucose (74-106) mg/dL POC Glucometer 134 H 157 H 166 H (74 to 106) mg/dL Calcium (8.4-10.2) mg/dL Total Bilirubin (0.2-1.3) mg/dL AST (17-59) U/L ALT (0-50) U/L Alkaline Phosphatase (38-126) U/L Serum Total Protein (6.3-8.2) g/dL Albumin (3.5-5.0) g/dL 08/17/20 08/17/20 08/17/20 Range/Units 04:35 04:35 04:35 WBC 14.1 H (4.0-10.5) K/mm3 RBC 3.08 L (4.1-5.6) M/mm3 Hgb 9.7 L (12.5-18.0) gm/dl Hct 30.9 L (42-50) % MCV 100.3 H (78-100) fl MCH 31.5 (26-32) pg MCHC 31.4 L (32-36) g/dl RDW 14.0 (11.5-14.0) % Plt Count 328 D (150-450) K/mm3 MPV 11.3 H (7.5-11.0) fl Segmented Neutrophils 76 H (36.-66.) % Lymphocytes (Manual) 19 L (24-44) % Monocytes (Manual) 5 (0.0-12.0) % Platelet Estimate NORMAL (NORMAL) RBC Morphology ABNORMAL Polychromasia 1+ Poikilocytosis 1+ Anisocytosis 1+ PT 15.4 H (8.83-12.87) SECONDS INR 1.36 (0.8-3.0) Sodium 132 L (137-145) mmol/L Potassium 4.3 (3.5-5.1) mmol/L Chloride 102 (98-107) mmol/L Carbon Dioxide 23 (22-30) mmol/L Anion Gap 10.2 (5-15) MEQ/L BUN 29 H (9-20) mg/dL Creatinine 0.98 (0.66-1.25) mg/dL Estimated GFR > 60.0 ML/MIN Glucose 192 H (74-106) mg/dL POC Glucometer (74 to 106) mg/dL Calcium 8.3 L (8.4-10.2) mg/dL Total Bilirubin 1.30 (0.2-1.3) mg/dL AST 42 (17-59) U/L ALT 34 (0-50) U/L Alkaline Phosphatase 260 H (38-126) U/L Serum Total Protein 6.7 (6.3-8.2) g/dL Albumin 2.9 L (3.5-5.0) g/dL 08/17/20 Range/Units 12:06 WBC (4.0-10.5) K/mm3 RBC (4.1-5.6) M/mm3 Hgb (12.5-18.0) gm/dl Hct (42-50) % MCV (78-100) fl MCH (26-32) pg MCHC (32-36) g/dl RDW (11.5-14.0) % Plt Count (150-450) K/mm3 MPV (7.5-11.0) fl Segmented Neutrophils (36.-66.) % Lymphocytes (Manual) (24-44) % Monocytes (Manual) (0.0-12.0) % Platelet Estimate (NORMAL) RBC Morphology Polychromasia Poikilocytosis Anisocytosis PT (8.83-12.87) SECONDS INR (0.8-3.0) Sodium (137-145) mmol/L Potassium (3.5-5.1) mmol/L Chloride (98-107) mmol/L Carbon Dioxide (22-30) mmol/L Anion Gap (5-15) MEQ/L BUN (9-20) mg/dL Creatinine (0.66-1.25) mg/dL Estimated GFR ML/MIN Glucose (74-106) mg/dL POC Glucometer 166 H (74 to 106) mg/dL Calcium (8.4-10.2) mg/dL Total Bilirubin (0.2-1.3) mg/dL AST (17-59) U/L ALT (0-50) U/L Alkaline Phosphatase (38-126) U/L Serum Total Protein (6.3-8.2) g/dL Albumin (3.5-5.0) g/dL Radiology Exams: Radiology Procedures Category Date Time Status CHEST 1 VIEW (PORTABLE) Stat Exams 08/15/20 16:34 Completed Multi-Disciplinary Progress Notes: Multi-Disciplinary Progress Notes 08/17/20 11:21 Speech Therapy Note by Aurelia Plascencia Swallow Treatment: Patient is less responsive this date. He was unable to open his eyes or verbally respond intelligibly. Vocalizes without articulatory precision. Placed metal spoon in ice then placed on patient's tongue. He made no response to stimuli x 3 trials. He did not close mouth upon request, nor around spoon. This is a marked difference from previous swallow tx. At this time, ST recommends npo with alternative feeding. Patient is receiving TPN via central line. ST will continue to attempt oral intake as patient tolerates. MS Helen, CCC/CENTER MACHINE OPERATOR Initialized on 08/17/20 11:21 - END OF NOTE Assessment/Plan (1) Upper GI bleed Current Visit: Yes Status: Acute Assessment & Plan: no further bleeding h/h stable. tolerating some minimal po, need to avoid sedatives as much as possible Code(s): K92.2 - GASTROINTESTINAL HEMORRHAGE, UNSPECIFIED (2) Sepsis Current Visit: Yes Status: Acute (3) Pneumonia Current Visit: Yes Status: Acute Code(s): J18.9 - PNEUMONIA, UNSPECIFIED ORGANISM (4) UTI (urinary tract infection) Current Visit: Yes Status: Acute Code(s): N39.0 - URINARY TRACT INFECTION, SITE NOT SPECIFIED (5) S/P hip hemiarthroplasty Current Visit: No Status: Acute Code(s): Z96.649 - PRESENCE OF UNSPECIFIED ARTIFICIAL HIP JOINT (6) Subdural hematoma Current Visit: No Status: Acute Code(s): S06.5X9A - TRAUM SUBDR HEM W LOC OF UNSP DURATION, INIT (7) Atrial fibrillation Current Visit: No Status: Chronic Qualifiers: Code(s): I48.91 - UNSPECIFIED ATRIAL FIBRILLATION
[2020-08-17] MEDS: INTRALIPID 20% 250 ML 250 ML, TPN Electrolytes 20 ML, Multitrace-4 Conc Vial 1 ML*** 1 ... IV SCH ×6 (13:23)
[2020-08-17] MEDS ORDERED: [UNRECOGNIZED DRUG - OTHER] IV SCH ×4 (14:00)
[2020-08-17] MEDS ORDERED: MULTITRACE IV SCH ×4 (14:00)
[2020-08-17] MEDS ORDERED: INTRALIPID 20% IV SCH ×4 (14:00)
[2020-08-17] MEDS: Zofran 4 MG/2 ML VIAL IV PRN (21:18)
[2020-08-18] MEDS: FEVERALL 650 MG PR PRN ×2 (00:06→16:13)
[2020-08-18] MEDS: MORPHINE SULFATE 4 MG INJ IV PRN (03:14)
[2020-08-18] MEDS: Zofran 4 MG/2 ML VIAL IV PRN (03:14)
[2020-08-18 05:05] LABS: INR 1.45 (0.8-3.0); PROTIME 16.5 SECONDS (8.83-12.87)
[2020-08-18 07:52] LABS: Hematocrit 29.6 % (42-50); Hemoglobin 9.3 gm/dl (12.5-18.0); Mean Cell Volume 99.7 fl (78-100); Mean Corpuscular Hemoglobin 31.3 pg (26-32); Mean Corpuscular Hgb Concent. 31.4 g/dl (32-36); Mean Platelet Volume 11.8 fl (7.5-11.0); Platelet Count 250 K/mm3 (150-450); Red Blood Count 2.97 M/mm3 (4.1-5.6); White Blood Count 11.8 K/mm3 (4.0-10.5)
[2020-08-18 07:53] LABS: ANION GAP 10.5 MEQ/L (5-15); BLOOD UREA NITROGEN 26 mg/dL (9-20); CHLORIDE 101 mmol/L (98-107); Calcium 8.3 mg/dL (8.4-10.2); Carbon Dioxide 22 mmol/L (22-30); EST GLOMERULAR FILTRATION RATE > 60.0 ML/MIN; Glucose 173 mg/dL (74-106); Potassium 4.4 mmol/L (3.5-5.1); SODIUM 129 mmol/L (137-145)
--- NOTE | 2020-08-18 09:03 | PCM.NOTE ---
Date and Time: 08/18/20 0858 Subjective Assessment: He indicates to me, when asked, that his stomach hurts. He acknowledges me but cannot enunciate any words. Has been restless. - Review of Systems All Other Systems: Unable due to condition Objective Exam General Appearance: other (alert, cannot verbalize. Has taken his gown and covers off and is completely nude.) Neurologic Exam: other (makes grunting noises to answer questions; mouth open.) Wound Assessment: Skin/Wound Assessment Wound/Incision Assessment Start: 08/06/20 13:27 Text: Status: Active Freq: Q6H Protocol: Document 08/18/20 01:48 KS (Rec: 08/18/20 02:45 KS [id number]) Wound/Incision Assessment Buttock Wound Assessment Shift Assessment Wound Type Pressure Ulcer Wound Stage Stage I Drainage Amount None General Appearance Open to air Surrounding Tissue [place] Comment barrier cream PRN Left Heel Wound Assessment Shift Assessment Wound Type Pressure Ulcer Wound Stage Unstageable Drainage Amount None General Appearance Open to air,Blackened % Eschar (Black) 100 Surrounding Tissue [place] Left Hip Wound Assessment Shift Assessment Wound Type Incision Wound Stage Non Pressure Wound Dressing Status Dry & Intact Drainage Amount None General Appearance Well Approximated Surrounding Tissue [place] Primary Dressing Non-Adherent Gauze Pads Comment . Respiratory Exam: diminished breath sounds, No crackles/rales, No rhonchi, No wheezing Cardiovascular Exam: irregular, No murmur Gastrointestinal/Abdomen Exam: soft, normal bowel sounds, No tenderness, No distention, No mass, No guarding, No rebound Extremity Exam: No pedal edema, No swelling OBJECTIVE DATA Vital Signs: Vital Signs - 24 hr Temp Pulse Resp BP BP Pulse Ox 08/18/20 08:00 98.3 F 77 20 119/64 93 L 08/18/20 07:38 97 08/18/20 04:00 99.7 F 80 24 96/44 94 L 08/18/20 00:00 100.4 F 97 H 26 H 155/67 95 08/17/20 19:16 100.3 F 81 28 H 161/91 98 08/17/20 18:52 92 L 08/17/20 16:00 98.6 F 87 20 122/58 95 08/17/20 12:00 98.8 F 82 20 133/58 96 Oxygen-Last 24 hours Oxygen Flowrate (L/min)-RT 2 Pain Assessment - Last Documented Pain Intensity 0 [facility] Intake and Output: Intake & Output 08/15/20 08/16/20 08/17/20 08/18/20 11:59 11:59 11:59 11:59 Intake Total 2527 1648 1356 2179 Output Total 1100 2250 1500 550 Balance 1427 -602 -144 1629 Weight 116.2 kg 89.9 kg Lab Results: Lab Results-Last 24 Hours 08/17/20 08/17/20 08/18/20 Range/Units 12:06 18:41 00:18 WBC (4.0-10.5) K/mm3 RBC (4.1-5.6) M/mm3 Hgb (12.5-18.0) gm/dl Hct (42-50) % MCV (78-100) fl MCH (26-32) pg MCHC (32-36) g/dl RDW (11.5-14.0) % Plt Count (150-450) K/mm3 MPV (7.5-11.0) fl PT (8.83-12.87) SECONDS INR (0.8-3.0) Sodium (137-145) mmol/L Potassium (3.5-5.1) mmol/L Chloride (98-107) mmol/L Carbon Dioxide (22-30) mmol/L Anion Gap (5-15) MEQ/L BUN (9-20) mg/dL Creatinine (0.66-1.25) mg/dL Estimated GFR ML/MIN Glucose (74-106) mg/dL POC Glucometer 166 H 174 H 153 H (74 to 106) mg/dL Calcium (8.4-10.2) mg/dL 08/18/20 08/18/20 08/18/20 Range/Units 04:30 04:30 04:30 WBC 11.8 H (4.0-10.5) K/mm3 RBC 2.97 L (4.1-5.6) M/mm3 Hgb 9.3 L (12.5-18.0) gm/dl Hct 29.6 L (42-50) % MCV 99.7 (78-100) fl MCH 31.3 (26-32) pg MCHC 31.4 L (32-36) g/dl RDW 14.0 (11.5-14.0) % Plt Count 250 (150-450) K/mm3 MPV 11.8 H (7.5-11.0) fl PT 16.5 H (8.83-12.87) SECONDS INR 1.45 (0.8-3.0) Sodium 129 L (137-145) mmol/L Potassium 4.4 (3.5-5.1) mmol/L Chloride 101 (98-107) mmol/L Carbon Dioxide 22 (22-30) mmol/L Anion Gap 10.5 (5-15) MEQ/L BUN 26 H (9-20) mg/dL Creatinine 1.00 (0.66-1.25) mg/dL Estimated GFR > 60.0 ML/MIN Glucose 173 H (74-106) mg/dL POC Glucometer (74 to 106) mg/dL Calcium 8.3 L (8.4-10.2) mg/dL 08/18/20 Range/Units 05:52 WBC (4.0-10.5) K/mm3 RBC (4.1-5.6) M/mm3 Hgb (12.5-18.0) gm/dl Hct (42-50) % MCV (78-100) fl MCH (26-32) pg MCHC (32-36) g/dl RDW (11.5-14.0) % Plt Count (150-450) K/mm3 MPV (7.5-11.0) fl PT (8.83-12.87) SECONDS INR (0.8-3.0) Sodium (137-145) mmol/L Potassium (3.5-5.1) mmol/L Chloride (98-107) mmol/L Carbon Dioxide (22-30) mmol/L Anion Gap (5-15) MEQ/L BUN (9-20) mg/dL Creatinine (0.66-1.25) mg/dL Estimated GFR ML/MIN Glucose (74-106) mg/dL POC Glucometer 163 H (74 to 106) mg/dL Calcium (8.4-10.2) mg/dL Multi-Disciplinary Progress Notes: Multi-Disciplinary Progress Notes 08/17/20 11:21 Speech Therapy Note by Aurelia Plascencia Treatment: Patient is less responsive this date. He was unable to open his eyes or verbally respond intelligibly. Vocalizes without articulatory precision. Placed metal spoon in ice then placed on patient's tongue. He made no response to stimuli x 3 trials. He did not close mouth upon request, nor around spoon. This is a marked difference from previous swallow tx. At this time, ST recommends npo with alternative feeding. Patient is receiving TPN via central line. ST will continue to attempt oral intake as patient tolerates. MS Helen, CCC/MOSAIC WORKER Initialized on 08/17/20 11:21 - END OF NOTE Assessment/Plan (1) Upper GI bleed Current Visit: Yes Status: Acute Code(s): K92.2 - GASTROINTESTINAL HEMORRHAGE, UNSPECIFIED (2) Abdominal pain Current Visit: Yes Status: Acute Qualifiers: Abdominal location: generalized Qualified Code(s): R10.84 - Generalized abdominal pain Assessment & Plan: will do CT abd/pelvis Code(s): R10.9 - UNSPECIFIED ABDOMINAL PAIN (3) Encephalopathy Current Visit: Yes Status: Acute Code(s): G93.40 - ENCEPHALOPATHY, UNSPECIFIED (4) UTI (urinary tract infection) Current Visit: Yes Status: Acute Qualifiers: Urinary tract infection type: acute cystitis Assessment & Plan: has been treated previously with abx. Code(s): N39.0 - URINARY TRACT INFECTION, SITE NOT SPECIFIED (5) Sepsis Current Visit: No Status: Resolved Onset Date: ~02/26/18 Qualifiers: Sepsis type: sepsis due to unspecified organism Qualified Code(s): A41.9 - Sepsis, unspecified organism (6) Anticoagulant long-term use Current Visit: No Status: Chronic Onset Date: ~02/26/18 Assessment & Plan: Still holding coumadin and lovenox due to recent upper GI bleed. Code(s): Z79.01 - INTERMEDIATE (CURRENT) USE OF ANTICOAGULANTS (7) Atrial fibrillation Current Visit: No Status: Chronic Qualifiers: Atrial fibrillation type: paroxysmal Qualified Code(s): I48.0 - Paroxysmal atrial fibrillation Code(s): I48.91 - UNSPECIFIED ATRIAL FIBRILLATION
--- NOTE | 2020-08-18 11:42 | XRAY ---
Indication: GI bleed. Multiple contiguous images obtained through the abdomen and pelvis using 80 cc Isovue 370 contrast. Comparison: August 06, 2020. Study again degraded by respiration artifact, beam artifact from patient's arms, and beam artifact from bilateral total hip arthroplasty. Lung bases again demonstrates moderate bibasilar infiltrates versus atelectasis and cardiomegaly grossly unchanged. No effusion. Noncontrasted stomach and bowel loops remain grossly nonobstructed. No free fluid/air. Gallbladder remains distended without obvious gallstones or biliary distention. Both kidneys enhance and excrete with stable left renal atrophy/cortical scarring. Stable Nelson catheter in situ. Remaining liver, gallbladder, pancreas, spleen, adrenal glands, kidneys, ureters, and bladder are grossly unremarkable. Stable diffuse scattered vascular calcifications without AAA. No athletic retroperitoneal lymphadenopathy. Osseous structures intact again with osteopenia, multilevel degenerative spondylosis, and mild dextroscoliosis. Stable left gluteal/hip cutaneous [place]. Impression: 1. Continued limited CT exam due to respiration and beam artifact. 2. Grossly stable bibasilar infiltrates/atelectasis, cardiomegaly, distended gallbladder without gallstones, left renal atrophy/cortical scarring, arteriosclerotic disease, and chronic bony findings. 3. No gross new intra-abdominal/pelvic abnormalities.
[2020-08-18] MEDS: NYSTOP POWDER 15 GM TOP SCH ×2 (11:52→21:05)
[2020-08-18] MEDS: PROTONIX 40 MG IV IV SCH (11:52)
[2020-08-18] MEDS: INTRALIPID 20% 250 ML 250 ML, TPN Electrolytes 20 ML, Multitrace-4 Conc Vial 1 ML*** 1 ... IV SCH ×6 (15:01)
[2020-08-19] MEDS: MORPHINE SULFATE 4 MG INJ IV PRN (00:27)
[2020-08-19 05:23] LABS: Hematocrit 31.7 % (42-50); Hemoglobin 9.9 gm/dl (12.5-18.0); Mean Cell Volume 98.8 fl (78-100); Mean Corpuscular Hemoglobin 30.8 pg (26-32); Mean Corpuscular Hgb Concent. 31.2 g/dl (32-36); Mean Platelet Volume 11.4 fl (7.5-11.0); Platelet Count 275 K/mm3 (150-450); Red Blood Count 3.21 M/mm3 (4.1-5.6); Red Cell Distribution Width 13.9 % (11.5-14.0); White Blood Count 11.6 K/mm3 (4.0-10.5)
[2020-08-19 05:40] LABS: ALKALINE PHOSPHATASE 315 U/L (38-126); ANION GAP 10.2 MEQ/L (5-15); BLOOD UREA NITROGEN 26 mg/dL (9-20); CHLORIDE 102 mmol/L (98-107); Calcium 8.6 mg/dL (8.4-10.2); Carbon Dioxide 23 mmol/L (22-30); Creatinine 1 1.16 mg/dL (0.66-1.25); EST GLOMERULAR FILTRATION RATE > 60.0 ML/MIN; Glucose 146 mg/dL (74-106); MAGNESIUM 2.3 mg/dL (1.6-2.3); Potassium 4.3 mmol/L (3.5-5.1); SGOT/AST 54 U/L (17-59); SGPT/ALT 36 U/L (0-50); SODIUM 130 mmol/L (137-145); Total Protein 7.1 g/dL (6.3-8.2)
[2020-08-19 05:44] LABS: INR 1.4 (0.8-3.0); PROTIME 15.9 SECONDS (8.83-12.87)
[2020-08-19 07:07] VITALS: O2SAT 95
[2020-08-19 08:32] LABS: BAND 2 % (0.0-2.0); Lymphocytes 13 % (24-44); Monocyte 2 % (0.0-12.0); Neutrophils 83 % (36.-66.); Platelet Estimate NORMAL (NORMAL); Total Cells Counted 100
--- NOTE | 2020-08-19 09:02 | PCM.DS ---
Discharge Summary Date of Admission: 08/06/20 08:44 Admitting Physician: FIDE GOODRICH Primary Care Provider: FIDE GOODRICH Allergies Allergies Sulfa (Sulfonamide Antibiotics) Allergy (Unknown, Verified 07/28/20 13:43) STATES CAN'T REMEMBER THE REACTION, BUT TOLD NOT TO TAKE IT ANYMORE. Penicillins Allergy (Verified 07/28/20 13:43) Hospital Summary - Hospital Course Hospital Course: patient admitted as swingbed following left total hip arthroplasty at [facility], decompensated after arrival, found to have UTI and pneumonia/sepsis. treated with IV meropenem and vanc, sepsis improved. also developed upper gi bleed, lovenox was held and started on ppi drip. has had waxing and waning mental status and times of unresponsive, code status sco. antibiotics have been discontinued, he is stable and tolerating some pureed diet. will likely need alf rehab, discharging to [facility] for further speech therapy, PT and continue TPN until PO intake improves. - Vitals & Intake/Output Vital Signs: Vital Signs Temperature 98.9 F 08/19/20 07:07 Pulse Rate 86 08/19/20 07:07 Respiratory Rate 16 08/19/20 07:07 Blood Pressure 99/53 08/19/20 07:07 O2 Sat by Pulse Oximetry 95 08/19/20 07:07 Intake & Output: Intake & Output 08/16/20 08/17/20 08/18/20 08/19/20 11:59 11:59 11:59 11:59 Intake Total 1648 1356 2179 2011 Output Total 2250 5374 842 1459 Balance -602 144 5099 212 Weight 89.9 kg 86 kg 86 kg 108.9 kg - Lab Result Diagrams: 08/19/20 04:38 08/19/20 04:38 Lab Results-Last 24 Hrs: Lab Results-Last 24 Hours 08/18/20 08/18/20 08/18/20 Range/Units 11:19 17:01 23:37 WBC (4.0-10.5) K/mm3 RBC (4.1-5.6) M/mm3 Hgb (12.5-18.0) gm/dl Hct (42-50) % MCV (78-100) fl MCH (26-32) pg MCHC (32-36) g/dl RDW (11.5-14.0) % Plt Count (150-450) K/mm3 MPV (7.5-11.0) fl Segmented Neutrophils (36.-66.) % Band Neutrophils (0.0-2.0) % Lymphocytes (Manual) (24-44) % Monocytes (Manual) (0.0-12.0) % Platelet Estimate (NORMAL) RBC Morphology PT (8.83-12.87) SECONDS INR (0.8-3.0) Sodium (137-145) mmol/L Potassium (3.5-5.1) mmol/L Chloride (98-107) mmol/L Carbon Dioxide (22-30) mmol/L Anion Gap (5-15) MEQ/L BUN (9-20) mg/dL Creatinine (0.66-1.25) mg/dL Estimated GFR ML/MIN Glucose (74-106) mg/dL POC Glucometer 134 H 151 H 141 H (74 to 106) mg/dL Calcium (8.4-10.2) mg/dL Magnesium (1.6-2.3) mg/dL Total Bilirubin (0.2-1.3) mg/dL AST (17-59) U/L ALT (0-50) U/L Alkaline Phosphatase (38-126) U/L Serum Total Protein (6.3-8.2) g/dL Albumin (3.5-5.0) g/dL 08/19/20 08/19/20 08/19/20 Range/Units 04:38 04:38 04:38 WBC 11.6 H (4.0-10.5) K/mm3 RBC 3.21 L (4.1-5.6) M/mm3 Hgb 9.9 L (12.5-18.0) gm/dl Hct 31.7 L (42-50) % MCV 98.8 (78-100) fl MCH 30.8 (26-32) pg MCHC 31.2 L (32-36) g/dl RDW 13.9 (11.5-14.0) % Plt Count 275 (150-450) K/mm3 MPV 11.4 H (7.5-11.0) fl Segmented Neutrophils 83 H (36.-66.) % Band Neutrophils 2 (0.0-2.0) % Lymphocytes (Manual) 13 L (24-44) % Monocytes (Manual) 2 (0.0-12.0) % Platelet Estimate NORMAL (NORMAL) RBC Morphology NORMAL PT 15.9 H (8.83-12.87) SECONDS INR 1.40 (0.8-3.0) Sodium 130 L (137-145) mmol/L Potassium 4.3 (3.5-5.1) mmol/L Chloride 102 (98-107) mmol/L Carbon Dioxide 23 (22-30) mmol/L Anion Gap 10.2 (5-15) MEQ/L BUN 26 H (9-20) mg/dL Creatinine 1.16 (0.66-1.25) mg/dL Estimated GFR > 60.0 ML/MIN Glucose 146 H (74-106) mg/dL POC Glucometer (74 to 106) mg/dL Calcium 8.6 (8.4-10.2) mg/dL Magnesium 2.3 (1.6-2.3) mg/dL Total Bilirubin 1.60 H (0.2-1.3) mg/dL AST 54 (17-59) U/L ALT 36 (0-50) U/L Alkaline Phosphatase 315 H (38-126) U/L Serum Total Protein 7.1 (6.3-8.2) g/dL Albumin 3.0 L (3.5-5.0) g/dL Micro Results-Entire Visit: Microbiology 08/14/20 08:36 Urine Culture - Final Urine, Indwelling Catheter NO GROWTH 08/09/20 15:42 Urine Culture - Final Urine, Indwelling Catheter NO GROWTH Accuchecks Date 08/19/20 Date 08/18/20 Time 06:00 Time 22:00 - Radiology Exams Ordered Rad Exams-Entire Visit: Radiology Procedures Category Date Time Status ABDOMEN AND PELVIS W CONTRAST [CT] Urgent Exams 08/18/20 09:03 Completed - Procedures and Test Procedures and Tests throughout Hospitalization: Therapy Orders & Screens 08/06/20 12:54 Oxygen Oxymask LPM 2 lpm Comment: Diagnosis: PNEUMONIA, UTI, DELERIUM 08/06/20 12:55 ST Screen per Nursing Assess ONCE Comment: Protocol Order Physician Instructions: Greater than [address] Admission Screening Reason For Exam: Triggered on Admission Diagnosis: PNEUMONIA, UTI, DELERIUM 08/14/20 08:33 Speech Therapy Eval & Treat [ST Eval & Treat ( Order)] .as ordered Comment: Physician Instructions: Reason For Exam: much more alert, please evaluate swallow mechanism Evaluate: Yes Treat: Yes Reason for Eval: altered mental status, has upper gi bleed but much more alert. Diagnosis: PNEUMONIA, UTI, DELERIUM 08/16/20 09:00 PT Eval & Treat ( Order) ONCE Reason for Eval:: left hip replacement Diagnosis: PNEUMONIA, UTI, DELERIUM Discharge Exam General Appearance: obese Neurologic Exam: alert, oriented x 3, cooperative Respiratory Exam: normal breath sounds, lungs clear, No respiratory distress Cardiovascular Exam: regular rate/rhythm, normal heart sounds Gastrointestinal/Abdomen Exam: soft, No tenderness, No mass Extremity Exam: normal inspection, normal range of motion, other (dressing to left hip intact) Wound Assessment: Skin/Wound Assessment Wound/Incision Assessment Start: 08/06/20 13:27 Text: Status: Active Freq: Q6H Protocol: Document 08/19/20 08:00 RN (Rec: 08/19/20 08:11 RN [id number]) Wound/Incision Assessment Buttock Wound Assessment Shift Assessment Wound Type Pressure Ulcer Wound Stage Stage I Drainage Amount None General Appearance Open to air Surrounding Tissue Coolin Comment barrier cream PRN Left Heel Wound Assessment Shift Assessment Wound Type Pressure Ulcer Wound Stage Unstageable Drainage Amount None General Appearance Open to air,Blackened Surrounding Tissue Coolin Left Hip Wound Assessment Shift Assessment Wound Type Incision Wound Stage Non Pressure Wound Dressing Status Dry & Intact Drainage Amount None General Appearance Well Approximated Surrounding Tissue Coolin Primary Dressing Non-Adherent Gauze Pads Comment . Final Diagnosis/Problem List - Final Discharge Diagnosis/Problem (1) Upper GI bleed Current Visit: Yes Status: Acute Assessment & Plan: resolved, continue IV protonix, advancing to pureed diet Code(s): K92.2 - GASTROINTESTINAL HEMORRHAGE, UNSPECIFIED (2) Sepsis Current Visit: Yes Status: Acute Assessment & Plan: resolved, fully treated infection. no further abx therapy required. (3) Pneumonia Current Visit: Yes Status: Acute Code(s): J18.9 - PNEUMONIA, UNSPECIFIED ORGANISM (4) UTI (urinary tract infection) Current Visit: Yes Status: Acute Code(s): N39.0 - URINARY TRACT INFECTION, SITE NOT SPECIFIED (5) S/P hip hemiarthroplasty Current Visit: No Status: Acute Code(s): Z96.649 - PRESENCE OF UNSPECIFIED ARTIFICIAL HIP JOINT (6) Subdural hematoma Current Visit: No Status: Acute Code(s): S06.5X9A - TRAUM SUBDR HEM W LOC OF UNSP DURATION, INIT (7) Atrial fibrillation Current Visit: No Status: Chronic Assessment & Plan: anticoags on hold secondary to recent gi bleed Code(s): I48.91 - UNSPECIFIED ATRIAL FIBRILLATION - Discharge Disposition: Swing Bed @ COUNT INCLUDES THE [facility] Condition: Stable Prescriptions: New Acetaminophen 650 mg [Feverall 650 mg] 650 mg SD Q4H PRN PRN supp.rect PRN Reason: Pain And/Or Fever Fat Emulsion 250 ml [Intralipid 20% 250 ml] 250 ml IV .Q24H 10 Days bottle Pantoprazole 40 mg [Protonix 40 mg IV] 40 mg IV DAILY #30 vial Electrolyte Solution [TPN Electrolytes] 20 ml IV .Q24H 10 Days vial Continue Miconazole Nitrate [Zeasorb AF] 1 applic TP BID Discontinued Atorvastatin Calcium [Lipitor 20MG Tablet] 20 mg PO DAILY Losartan Potassium 50 mg [Cozaar 50 MG] 25 mg PO BID Warfarin Sodium 8 mg PO DAILY@1800 90 Days #180 tablet Oxycodone HCl 5 mg Ir [Oxy-IR 5 MG] 10 mg PO Q4HPRN PRN PRN Reason: Pain Multivit-Min/FA/Lycopen/Lutein [Centrum Silver Ultra Men's Tab] 1 each PO DAILY Methocarbamol 500 mg [Robaxin 500 MG] 500 mg PO Q4HPRN PRN PRN Reason: SPASMS Magnesium Hydroxide 30 ml [Milk of Magnesia 30 ml] 30 ml PO BID Acetaminophen 500 mg [Tylenol Extra Strength 500 mg] 1,000 mg PO Q6HPRN PRN PRN Reason: Pain Sennosides/Docusate Sodium [Senokot-S Tablet] 1 each PO BID Warfarin Sodium 9 mg PO DAILY No Action Pantoprazole Sodium 40 mg PO DAILY Additional Instructions: will be out so, will see patient on 08/13/20@ 10:00. [facility] #[phone]. Their address is [address] [place] [address] [place] [address] Follow up with: FIDE GOODRICH MD [Primary Care Provider] - VIVI MORELAND MD [NON-STAFF PHY W/O PRIVILEGES] -
[2020-08-19] MEDS: NYSTOP POWDER 15 GM TOP SCH (09:51)
[2020-08-19] MEDS: PROTONIX 40 MG IV IV SCH (09:52)
[2020-08-19 11:54] VITALS: BP 97/49; PULSE 82
[2020-08-19] MEDS ORDERED: INTRALIPID 20% 250 ML 250 ML, TPN Electrolytes 20 ML, Multitrace-4 Conc Vial 1 ML*** 1 ... IV SCH ×7 (14:00)
== END 2020-08-19 15:00 | disposition swing bed (61) | DRG 377 ==
LOC: MED SURG 08:44 → UNDOADMIN 08:44
PROVIDERS: ADMIT Family Medicine; ATTEND Family Medicine
PROC: 02HV33Z Insertion of Infusion Device into Superior Vena Cava, Percutaneous Approach (ICD-10-PCS; principal; 2020-08-12)
DX: K92.2 Gastrointestinal hemorrhage, unspecified (principal); S06.5X9A Traumatic subdural hemorrhage with loss of consciousness of unspecified duration, initial encounter; J18.9 Pneumonia, unspecified organism; A41.9 Sepsis, unspecified organism; N39.0 Urinary tract infection, site not specified; R17 Unspecified jaundice; G93.40 Encephalopathy, unspecified; I48.91 Unspecified atrial fibrillation; Z79.899 Other long term (current) drug therapy; R41.0 Disorientation, unspecified; I10 Essential (primary) hypertension; L89.626 Pressure-induced deep tissue damage of left heel; R79.1 Abnormal coagulation profile; H10.32 Unspecified acute conjunctivitis, left eye; R45.1 Restlessness and agitation; M25.552 Pain in left hip; Z96.642 Presence of left artificial hip joint; L89.302 Pressure ulcer of unspecified buttock, stage 2; R68.2 Dry mouth, unspecified; Z79.01 Long term (current) use of anticoagulants
CPT/HCPCS: 36415; 36573; 71045; 74177; 76937; 77001; 80048; 80053; 80202; 81001; 82140; 82947; 83735; 83880; 85025; 85027; 85610; 86850; 86900; 86901; 87086; 87493; 92526; 92610; 94760; 97161; 97530; G0328; 82274; C1769; J1642; J1650; J1815; J1940; J2060; J2270; J2405; A9270-GY; J3370

== ENCOUNTER 2020-08-19 11:18 | Inpatient (IN) | payer MEDICARE, OTHER ==
[2020-08-19] MEDS ORDERED: MORPHINE SULFATE 4 MG INJ IV PRN (15:17)
[2020-08-19] MEDS ORDERED: Aplisol ID ONE (15:17)
[2020-08-19] MEDS: INTRALIPID 20% 250 ML 250 ML, TPN Electrolytes 20 ML, Multitrace-4 Conc Vial 1 ML*** 1 ... IV SCH ×7 (17:02)
[2020-08-19] MEDS: MORPHINE SULFATE 4 MG INJ IV PRN (23:19)
[2020-08-19] MEDS: NYSTOP POWDER 15 GM TOP SCH (23:21)
[2020-08-20] MEDS: MORPHINE SULFATE 4 MG INJ IV PRN ×2 (03:26→10:18)
--- NOTE | 2020-08-20 08:59 | PCM.NOTE ---
Date and Time: 08/20/20 0858 Subjective Assessment: patient is alert but confused this morning. no new concerns. Objective Exam General Appearance: no apparent distress Neurologic Exam: alert, No oriented x 3, No cooperative Wound Assessment: Skin/Wound Assessment Wound/Incision Assessment Start: 08/19/20 15:39 Text: Status: Active Freq: Q6H Protocol: Document 08/20/20 02:00 LB (Rec: 08/20/20 03:39 LB [id number]) Wound/Incision Assessment Left Heel Wound Assessment Shift Assessment Wound Type Pressure Ulcer Wound Stage Unstageable Drainage Amount None General Appearance Open to air Comment barrier cream applied PRN, heel boot, pillows Left Hip Wound Type Incision Wound Stage Non Pressure Wound Dressing Status Dry & Intact Drainage Amount None Comment Dressing CDI Wound Photo Photo Taken No Respiratory Exam: normal breath sounds, lungs clear, No respiratory distress Cardiovascular Exam: regular rate/rhythm, normal heart sounds Gastrointestinal/Abdomen Exam: soft, No tenderness, No mass OBJECTIVE DATA Vital Signs: Vital Signs - 24 hr Temp Pulse Resp BP Pulse Ox 08/20/20 07:33 99.8 F 98 H 18 125/68 92 L 08/20/20 07:27 95 08/20/20 07:16 95 08/20/20 04:02 97.9 F 88 20 121/64 98 08/19/20 19:46 97.9 F 87 19 110/57 94 L 08/19/20 19:15 94 L 08/19/20 15:19 98.9 F 82 16 97/49 95 Pain Assessment - Last Documented Pain Intensity 3 Pain Scale Used [facility] Intake and Output: Intake & Output 08/17/20 08/18/20 08/19/20 08/20/20 11:59 11:59 11:59 11:59 Intake Total 2094 Output Total 800 1750 Balance -800 344 Weight 105.8 kg Lab Results: Lab Results-Last 24 Hours 08/19/20 08/20/20 08/20/20 Range/Units 05:00 00:03 05:32 POC Glucometer 141 H 134 H (74 to 106) mg/dL Hemoglobin A1c 5.59 (4.5-6.0) % Assessment/Plan (1) Altered mental status Current Visit: No Status: Acute Qualifiers: Code(s): R41.82 - ALTERED MENTAL STATUS, UNSPECIFIED (2) S/P hip hemiarthroplasty Current Visit: No Status: Acute Code(s): Z96.649 - PRESENCE OF UNSPECIFIED ARTIFICIAL HIP JOINT (3) Upper GI bleed Current Visit: No Status: Acute Code(s): K92.2 - GASTROINTESTINAL HEMORRHAGE, UNSPECIFIED (4) Atrial fibrillation Current Visit: No Status: Chronic Qualifiers: Code(s): I48.91 - UNSPECIFIED ATRIAL FIBRILLATION (5) Paroxysmal A-fib Current Visit: No Status: Chronic Code(s): I48.0 - PAROXYSMAL ATRIAL FIBRILLATION
[2020-08-20 09:22] LABS: ANION GAP 11.3 MEQ/L (5-15); BLOOD UREA NITROGEN 28 mg/dL (9-20); CHLORIDE 104 mmol/L (98-107); Calcium 8.4 mg/dL (8.4-10.2); Carbon Dioxide 21 mmol/L (22-30); EST GLOMERULAR FILTRATION RATE > 60.0 ML/MIN; Glucose 149 mg/dL (74-106); Potassium 4.5 mmol/L (3.5-5.1); SODIUM 132 mmol/L (137-145)
--- NOTE | 2020-08-20 10:08 | XRAY ---
Exam: AP supine portable chest film from 0931 hours on 08/20/2020. Comparison: AP portable chest films from 08/15/2020 and 08/13/2020. Indication: 80-year-old male for PICC placement verification. Findings: Right-sided PICC line is noted with the tip pointing inferiorly just proximal to the cavoatrial junction. I believe this is similar to the prior study from 08/15/2020. No pneumothorax is seen. The patient's chin partially obscures visualization of the suprasternal notch and left lung apex. The heart size is unchanged with mild left ventricular prominence. Subtle increased markings are again seen at the left lung base, likely due to atelectasis or minimal infiltrate. There may be some less pronounced minor atelectatic changes at the right base as well. I don't believe this represents a change from 08/15/2020. The remainder of the lungs appears clear. No central vascular congestion is seen. Moderate degenerative changes are seen within both shoulders girdles and lower thoracic spine. Impression: 1. Right-sided PICC line appears in essentially unchanged position pointing inferiorly just proximal to the cavoatrial junction at the lower T6 level. No pneumothorax is seen. 2. Minimal bibasilar airspace disease is seen, left greater than right, as discussed above. This appears similar to 08/15/2020.
[2020-08-20] MEDS: PROTONIX 40 MG IV IV SCH (10:18)
[2020-08-20] MEDS: NYSTOP POWDER 15 GM TOP SCH (10:25)
[2020-08-20] MEDS: INTRALIPID 20% 250 ML 250 ML, TPN Electrolytes 20 ML, Multitrace-4 Conc Vial 1 ML*** 1 ... IV SCH ×7 (16:41)
--- NOTE | 2020-08-20 19:42 | XRAY ---
Exam: Modified barium swallow from 08/20/2020. Comparison: None. 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 The patient has a history of a fall with fracture. Findings: The examination was obtained at bedside with both the speech pathologist and radiologist present. The patient was positioned as close as possible to an upright lateral sitting position. The study was video recorded. 1 minute and 13 seconds of fluoroscopy time were utilized. When the patient was given a spoonful of thin liquid barium, much tongue pumping was seen with a delayed swallow. When the swallow did ensue, there was premature roll over into the vallecula and pyriform sinuses. There appeared to be some deep laryngeal penetration. This caused a delayed cough reflex. The patient was given another swallow with thin liquid barium from a spoon. There was no significant laryngeal elevation. This time the laryngeal penetration to the level of the vocal cords was seen indicative of aspiration. Again, a weak delayed cough reflex occurred. The patient was also given a spoonful of honey thickened barium liquid. Oral transit time was delayed with significant tongue pumping. I again saw deep laryngeal penetration to the level of the vocal cords indicating some tracheal aspiration. Impression: 1. The modified barium swallow was markedly abnormal. Most importantly, there was deep laryngeal penetration and aspiration to the level of the vocal cords. Only a weak delayed cough reflex occurred. Please see the speech pathologist's report for further details.
[2020-08-21] MEDS: NYSTOP POWDER 15 GM TOP SCH ×3 (00:05→21:43)
[2020-08-21 05:38] LABS: Hematocrit 30.6 % (42-50); Hemoglobin 9.4 gm/dl (12.5-18.0); Mean Corpuscular Hemoglobin 30.7 pg (26-32); Mean Corpuscular Hgb Concent. 30.7 g/dl (32-36); Mean Platelet Volume 11.2 fl (7.5-11.0); Platelet Count 267 K/mm3 (150-450); Red Blood Count 3.06 M/mm3 (4.1-5.6); White Blood Count 11.5 K/mm3 (4.0-10.5)
[2020-08-21 06:08] LABS: ALBUMIN 2.9 g/dL (3.5-5.0); ALKALINE PHOSPHATASE 375 U/L (38-126); ANION GAP 10.1 MEQ/L (5-15); BLOOD UREA NITROGEN 29 mg/dL (9-20); CHLORIDE 104 mmol/L (98-107); Calcium 8.4 mg/dL (8.4-10.2); Carbon Dioxide 24 mmol/L (22-30); Creatinine 1 1.22 mg/dL (0.66-1.25); EST GLOMERULAR FILTRATION RATE > 60.0 ML/MIN; Glucose 141 mg/dL (74-106); Potassium 4.3 mmol/L (3.5-5.1); SGOT/AST 42 U/L (17-59); SGPT/ALT 35 U/L (0-50); SODIUM 133 mmol/L (137-145)
[2020-08-21 07:15] LABS: BAND 4 % (0.0-2.0); Lymphocytes 10 % (24-44); Metamyelocyte 2 %; Monocyte 7 % (0.0-12.0); Neutrophils 77 % (36.-66.); Total Cells Counted 100
[2020-08-21 07:16] LABS: Hypochromia 1+; Platelet Estimate NORMAL (NORMAL); Polychromasia 1+
[2020-08-21 07:29] LABS: Absolute Neutrophil Ct (ANC) 9.32 (1.4-6.9)
--- NOTE | 2020-08-21 08:59 | PCM.NOTE ---
Date and Time: 08/21/20 0857 Subjective Assessment: patient more alert and conversant this morning, c/o cold but no other complaints. Objective Exam General Appearance: no apparent distress Neurologic Exam: alert, cooperative Wound Assessment: Skin/Wound Assessment Wound/Incision Assessment Start: 08/19/20 15:39 Text: Status: Active Freq: Q6H Protocol: Document 08/21/20 02:00 LB (Rec: 08/21/20 03:11 LB [id number]) Wound/Incision Assessment Left Heel Wound Assessment Shift Assessment Wound Type Pressure Ulcer Wound Stage Unstageable Drainage Amount None General Appearance Open to air Comment pillows, heel boot, barrier cream Left Hip Wound Assessment Shift Assessment Wound Type Incision Wound Stage Non Pressure Wound Dressing Status Changed Drainage Amount Minimal Comment Dressing CDI Wound Photo Photo Taken No Respiratory Exam: normal breath sounds, lungs clear, No respiratory distress Cardiovascular Exam: regular rate/rhythm, normal heart sounds Gastrointestinal/Abdomen Exam: soft, No tenderness, No mass OBJECTIVE DATA Vital Signs: Vital Signs - 24 hr Temp Pulse Resp BP Pulse Ox 08/21/20 08:01 90 L 08/21/20 05:18 97.9 F 82 18 135/54 93 L 08/20/20 21:15 92 L 08/20/20 19:00 99.3 F 88 17 109/59 92 L Pain Assessment - Last Documented Pain Intensity 0 Pain Scale Used 0-10 Pain Scale Intake and Output: Intake & Output 08/18/20 08/19/20 08/20/20 08/21/20 11:59 11:59 11:59 11:59 Intake Total 2094 1080 Output Total 800 1750 700 Balance -800 344 380 Weight 105.8 kg 107.6 kg Lab Results: Lab Results-Last 24 Hours 08/20/20 08/20/20 08/20/20 Range/Units 09:10 11:37 18:18 WBC (4.0-10.5) K/mm3 RBC (4.1-5.6) M/mm3 Hgb (12.5-18.0) gm/dl Hct (42-50) % MCV (78-100) fl MCH (26-32) pg MCHC (32-36) g/dl RDW (11.5-14.0) % Plt Count (150-450) K/mm3 MPV (7.5-11.0) fl Absolute Granulocytes (1.4-6.9) Segmented Neutrophils (36.-66.) % Band Neutrophils (0.0-2.0) % Lymphocytes (Manual) (24-44) % Monocytes (Manual) (0.0-12.0) % Metamyelocytes % Hypochromia Platelet Estimate (NORMAL) RBC Morphology Polychromasia Sodium 132 L (137-145) mmol/L Potassium 4.5 (3.5-5.1) mmol/L Chloride 104 (98-107) mmol/L Carbon Dioxide 21 L (22-30) mmol/L Anion Gap 11.3 (5-15) MEQ/L BUN 28 H (9-20) mg/dL Creatinine 1.10 (0.66-1.25) mg/dL Estimated GFR > 60.0 ML/MIN Glucose 149 H (74-106) mg/dL POC Glucometer 149 H 150 H (74 to 106) mg/dL Calcium 8.4 (8.4-10.2) mg/dL Total Bilirubin (0.2-1.3) mg/dL AST (17-59) U/L ALT (0-50) U/L Alkaline Phosphatase (38-126) U/L Serum Total Protein (6.3-8.2) g/dL Albumin (3.5-5.0) g/dL 08/20/20 08/21/20 08/21/20 Range/Units 23:58 04:20 04:20 WBC 11.5 H (4.0-10.5) K/mm3 RBC 3.06 L (4.1-5.6) M/mm3 Hgb 9.4 L (12.5-18.0) gm/dl Hct 30.6 L (42-50) % MCV 100.0 (78-100) fl MCH 30.7 (26-32) pg MCHC 30.7 L (32-36) g/dl RDW 14.0 (11.5-14.0) % Plt Count 267 (150-450) K/mm3 MPV 11.2 H (7.5-11.0) fl Absolute Granulocytes 9.32 H (1.4-6.9) Segmented Neutrophils 77 H (36.-66.) % Band Neutrophils 4 H (0.0-2.0) % Lymphocytes (Manual) 10 L (24-44) % Monocytes (Manual) 7 (0.0-12.0) % Metamyelocytes 2 % Hypochromia 1+ Platelet Estimate NORMAL (NORMAL) RBC Morphology ABNORMAL Polychromasia 1+ Sodium 133 L (137-145) mmol/L Potassium 4.3 (3.5-5.1) mmol/L Chloride 104 (98-107) mmol/L Carbon Dioxide 24 (22-30) mmol/L Anion Gap 10.1 (5-15) MEQ/L BUN 29 H (9-20) mg/dL Creatinine 1.22 (0.66-1.25) mg/dL Estimated GFR > 60.0 ML/MIN Glucose 141 H (74-106) mg/dL POC Glucometer 141 H (74 to 106) mg/dL Calcium 8.4 (8.4-10.2) mg/dL Total Bilirubin 1.60 H (0.2-1.3) mg/dL AST 42 (17-59) U/L ALT 35 (0-50) U/L Alkaline Phosphatase 375 H (38-126) U/L Serum Total Protein 7.0 (6.3-8.2) g/dL Albumin 2.9 L (3.5-5.0) g/dL 08/21/20 Range/Units 04:35 WBC (4.0-10.5) K/mm3 RBC (4.1-5.6) M/mm3 Hgb (12.5-18.0) gm/dl Hct (42-50) % MCV (78-100) fl MCH (26-32) pg MCHC (32-36) g/dl RDW (11.5-14.0) % Plt Count (150-450) K/mm3 MPV (7.5-11.0) fl Absolute Granulocytes (1.4-6.9) Segmented Neutrophils (36.-66.) % Band Neutrophils (0.0-2.0) % Lymphocytes (Manual) (24-44) % Monocytes (Manual) (0.0-12.0) % Metamyelocytes % Hypochromia Platelet Estimate (NORMAL) RBC Morphology Polychromasia Sodium (137-145) mmol/L Potassium (3.5-5.1) mmol/L Chloride (98-107) mmol/L Carbon Dioxide (22-30) mmol/L Anion Gap (5-15) MEQ/L BUN (9-20) mg/dL Creatinine (0.66-1.25) mg/dL Estimated GFR ML/MIN Glucose (74-106) mg/dL POC Glucometer 128 H (74 to 106) mg/dL Calcium (8.4-10.2) mg/dL Total Bilirubin (0.2-1.3) mg/dL AST (17-59) U/L ALT (0-50) U/L Alkaline Phosphatase (38-126) U/L Serum Total Protein (6.3-8.2) g/dL Albumin (3.5-5.0) g/dL Radiology Exams: Radiology Procedures Category Date Time Status CHEST 1 VIEW (PORTABLE) Routine Exams 08/20/20 09:06 Completed MODIFIED BARIUM SWALLOW (RAD) [MODIFIED BARIUM SWALLOW Exams 08/20/20 13:34 Completed EXAM] Routine Multi-Disciplinary Progress Notes: Multi-Disciplinary Progress Notes 08/20/20 10:30 (created 08/20/20 11:04) Case Management Note by Regine Cramer SPOKE WITH PT'S DAUGHTER HOWIE, INFORMED HER THAT PT WOULD BE HAVING ANOTHER MODIFIED BARIUM SWALLOW STUDY TODAY AND DEPENDING ON RESULTS, SHE AND HER SISTER CHANDA MAY NEED TO DISCUSS OPTIONS. DISCUSSED ALTERNATIVE FEEDING METHOD VIA G- TUBE/PEG TUBE, DISCUSSED THAT TPN IS NOT MEANT FOR RECORDING ARTIST NUTRITION. ALSO, DISCUSSED NO ALTERNATIVE FEEDING/TREATMENT. HOWIE VOICED UNDERSTANDING OF ALL INFORMATION. HOWIE REPORTS THAT SHE WOULD LIKE THIS EXPLAINED TO HER SISTER, CHANDA, WELL. REPORTS THAT CHANDA IS AT WORK NOW, AND CAN NOT HAVE HER PHONE WITH HER. REPORTS THAT SHE IS OFF OF WORK AROUND 5PM AND SHOULD BE BACK IN TOWN AROUND 6PM. REPORTS THAT SHE THINKS THAT CHANDA IS PLANNING TO VISIT HER DAD THIS EVENING. HOWIE DENIES ADDNL QUESTIONS AT THIS TIME. WILL CONTINUE TO FOLLOW. Initialized on 08/20/20 11:04 - END OF NOTE Assessment/Plan (1) Altered mental status Current Visit: No Status: Acute Qualifiers: Assessment & Plan: aspiration noted on MBS, awaiting final decision from family regarding feeding and future plans. Code(s): R41.82 - ALTERED MENTAL STATUS, UNSPECIFIED (2) S/P hip hemiarthroplasty Current Visit: No Status: Acute Code(s): Z96.649 - PRESENCE OF UNSPECIFIED ARTIFICIAL HIP JOINT (3) Upper GI bleed Current Visit: No Status: Acute Assessment & Plan: resolved, h/h stable. no anticoags Code(s): K92.2 - GASTROINTESTINAL HEMORRHAGE, UNSPECIFIED (4) Paroxysmal A-fib Current Visit: No Status: Chronic Code(s): I48.0 - PAROXYSMAL ATRIAL FIBRILLATION
[2020-08-21] MEDS: PROTONIX 40 MG IV IV SCH (11:40)
[2020-08-21] MEDS: MORPHINE SULFATE 4 MG INJ IV PRN (15:19)
[2020-08-21] MEDS: INTRALIPID 20% 250 ML 250 ML, TPN Electrolytes 20 ML, Multitrace-4 Conc Vial 1 ML*** 1 ... IV SCH ×7 (15:20)
[2020-08-22 06:15] LABS: Hematocrit 29.8 % (42-50); Hemoglobin 9.4 gm/dl (12.5-18.0); Mean Cell Volume 98.3 fl (78-100); Mean Corpuscular Hgb Concent. 31.5 g/dl (32-36); Platelet Count 262 K/mm3 (150-450); Red Blood Count 3.03 M/mm3 (4.1-5.6); Red Cell Distribution Width 13.9 % (11.5-14.0); White Blood Count 10.1 K/mm3 (4.0-10.5)
[2020-08-22 06:26] LABS: ALBUMIN 2.7 g/dL (3.5-5.0); ANION GAP 9.8 MEQ/L (5-15); BLOOD UREA NITROGEN 29 mg/dL (9-20); CHLORIDE 105 mmol/L (98-107); Calcium 8.2 mg/dL (8.4-10.2); Carbon Dioxide 20 mmol/L (22-30); Creatinine 1 1.12 mg/dL (0.66-1.25); EST GLOMERULAR FILTRATION RATE > 60.0 ML/MIN; Glucose 140 mg/dL (74-106); MAGNESIUM 2.2 mg/dL (1.6-2.3); SODIUM 131 mmol/L (137-145); Total Protein 6.7 g/dL (6.3-8.2)
--- NOTE | 2020-08-22 08:15 | PCM.NOTE ---
Date and Time: 08/22/20813 Subjective Assessment: doing better - Review of Systems Constitutional: No Fever, No Chills Eyes: No Symptoms Ears, Nose, & Throat: No Symptoms Respiratory: No Cough, No Short Of Breath Cardiac: No Chest Pain, No Edema, No Syncope Abdominal/Gastrointestinal: No Abdominal Pain, No Nausea, No Vomiting, No Diarrhea Genitourinary Symptoms: No Dysuria Musculoskeletal: No Back Pain, No Neck Pain Skin: No Rash Neurological: No Dizziness, No Focal Weakness, No Sensory Changes Psychological: No Symptoms Endocrine: No Symptoms Hematologic/Lymphatic: No Symptoms Immunological/Allergic: No Symptoms Objective Exam General Appearance: no apparent distress, alert Neurologic Exam: alert, oriented x 3, cooperative, normal mood/affect, nml cerebellar function, sensation nml, No motor deficits Skin Exam: normal color, warm, dry Wound Assessment: Skin/Wound Assessment Wound/Incision Assessment Start: 08/19/20 15:39 Text: Status: Active Freq: Q6H Protocol: Document 08/22/20 02:00 LL (Rec: 08/22/20 02:37 LL [id number]) Wound/Incision Assessment Left Heel Wound Assessment Shift Assessment Wound Type Pressure Ulcer Wound Stage Unstageable Drainage Amount None General Appearance Open to air Comment pillows, heel boot, barrier cream Left Hip Wound Assessment Shift Assessment Wound Type Incision Wound Stage Non Pressure Wound Dressing Status Dry & Intact Drainage Amount None Drainage Odor None/Absent Comment 2 [place] intact around open area. Rest of inc edges well approximated and no drainage noted. New island dressing CDI Wound Photo Photo Taken No Eye Exam: PERRL, EOMI, eyes nml inspection Ears, Nose, Throat Exam: normal ENT inspection, pharynx normal, moist mucous membranes Neck Exam: normal inspection, non-tender, supple, full range of motion Respiratory Exam: normal breath sounds, lungs clear, No respiratory distress Cardiovascular Exam: regular rate/rhythm, normal heart sounds Gastrointestinal/Abdomen Exam: soft, No tenderness, No mass Extremity Exam: normal inspection, normal range of motion Back Exam: normal inspection, normal range of motion, No CVA tenderness, No vertebral tenderness Male Genitalia Exam: deferred Rectal Exam: deferred OBJECTIVE DATA Vital Signs: Vital Signs - 24 hr Temp Pulse Resp BP Pulse Ox 08/22/20 07:00 97.5 F 71 16 120/53 93 L 02/27/21 06:43 93 L 08/21/20 22:06 94 L 08/21/20 19:29 98.4 F 67 21 125/60 94 L 08/21/20 14:00 99.5 F 76 16 101/46 91 L Pain Assessment - Last Documented Pain Intensity 0 [facility] Scale [facility] Intake and Output: Intake & Output 08/19/20 08/20/20 08/21/20 08/22/20 11:59 11:59 11:59 11:59 Intake Total 2093 6143 2974 Output Total 800 6250 466 6987 Balance -800 312 677 3826 Weight 105.8 kg 107.6 kg Lab Results: Lab Results-Last 24 Hours 08/21/20 08/21/20 08/21/20 Range/Units 11:19 17:50 23:49 WBC (4.0-10.5) K/mm3 RBC (4.1-5.6) M/mm3 Hgb (12.5-18.0) gm/dl Hct (42-50) % MCV (78-100) fl MCH (26-32) pg MCHC (32-36) g/dl RDW (11.5-14.0) % Plt Count (150-450) K/mm3 MPV (7.5-11.0) fl Sodium (137-145) mmol/L Potassium (3.5-5.1) mmol/L Chloride (98-107) mmol/L Carbon Dioxide (22-30) mmol/L Anion Gap (5-15) MEQ/L BUN (9-20) mg/dL Creatinine (0.66-1.25) mg/dL Estimated GFR ML/MIN Glucose (74-106) mg/dL POC Glucometer 125 H 125 H 119 H (74 to 106) mg/dL Calcium (8.4-10.2) mg/dL Magnesium (1.6-2.3) mg/dL Serum Total Protein (6.3-8.2) g/dL Albumin (3.5-5.0) g/dL 08/22/20 08/22/20 08/22/20 Range/Units 05:31 05:40 05:40 WBC 10.1 (4.0-10.5) K/mm3 RBC 3.03 L (4.1-5.6) M/mm3 Hgb 9.4 L (12.5-18.0) gm/dl Hct 29.8 L (42-50) % MCV 98.3 (78-100) fl MCH 31.0 (26-32) pg MCHC 31.5 L (32-36) g/dl RDW 13.9 (11.5-14.0) % Plt Count 262 (150-450) K/mm3 MPV 11.0 (7.5-11.0) fl Sodium 131 L (137-145) mmol/L Potassium 4.0 (3.5-5.1) mmol/L Chloride 105 (98-107) mmol/L Carbon Dioxide 20 L (22-30) mmol/L Anion Gap 9.8 (5-15) MEQ/L BUN 29 H (9-20) mg/dL Creatinine 1.12 (0.66-1.25) mg/dL Estimated GFR > 60.0 ML/MIN Glucose 140 H (74-106) mg/dL POC Glucometer 123 H (74 to 106) mg/dL Calcium 8.2 L (8.4-10.2) mg/dL Magnesium 2.2 (1.6-2.3) mg/dL Serum Total Protein 6.7 (6.3-8.2) g/dL Albumin 2.7 L (3.5-5.0) g/dL Radiology Exams: Radiology Procedures Category Date Time Status CHEST 1 VIEW (PORTABLE) Routine Exams 08/20/20 09:06 Completed MODIFIED BARIUM SWALLOW (RAD) [MODIFIED BARIUM SWALLOW Exams 08/20/20 13:34 Completed EXAM] Routine Multi-Disciplinary Progress Notes: Multi-Disciplinary Progress Notes 08/21/20 09:27 Nutrition Note by Christine Lucero F/mehnaz Note: MBS results noted; pt with severe minerva-pharyngeal dysphagia with aspiration. ST recommendation is NPO with alt. feeding method. Awaiting family decision. Recommendation for TF placed in RD assessment note. ROBERT Matthews Initialized on 08/21/20 09:27 - END OF NOTE Assessment/Plan (1) S/P hip hemiarthroplasty Current Visit: No Status: Acute Code(s): Z96.649 - PRESENCE OF UNSPECIFIED ARTIFICIAL HIP JOINT
[2020-08-22] MEDS: MORPHINE SULFATE 4 MG INJ IV PRN ×2 (09:53→21:37)
[2020-08-22] MEDS: PROTONIX 40 MG IV IV SCH (09:53)
[2020-08-22] MEDS: NYSTOP POWDER 15 GM TOP SCH ×4 (09:54→22:12)
[2020-08-22 10:18] LABS: BAND 1 % (0.0-2.0); Eosinophil 1 % (0.00-3.0); Lymphocytes 16 % (24-44); Monocyte 3 % (0.0-12.0); Neutrophils 79 % (36.-66.); Total Cells Counted 100
[2020-08-22 10:19] LABS: ANISOCYTOSIS 1+; Platelet Estimate NORMAL (NORMAL); Poikilocytosis 1+; Polychromasia 1+
[2020-08-22] MEDS: INTRALIPID 20% 250 ML 250 ML, TPN Electrolytes 20 ML, Multitrace-4 Conc Vial 1 ML*** 1 ... IV SCH ×7 (15:41)
[2020-08-23] MEDS: NYSTOP POWDER 15 GM TOP SCH ×2 (09:37→22:00)
[2020-08-23] MEDS: PROTONIX 40 MG IV IV SCH (09:37)
--- NOTE | 2020-08-23 10:18 | PCM.NOTE ---
Date and Time: 08/23/20 1017 Subjective Assessment: doing better - Review of Systems Constitutional: No Fever, No Chills Eyes: No Symptoms Ears, Nose, & Throat: No Symptoms Respiratory: No Cough, No Short Of Breath Cardiac: No Chest Pain, No Edema, No Syncope Abdominal/Gastrointestinal: No Abdominal Pain, No Nausea, No Vomiting, No Diarrhea Genitourinary Symptoms: No Dysuria Musculoskeletal: No Back Pain, No Neck Pain Skin: No Rash Neurological: No Dizziness, No Focal Weakness, No Sensory Changes Psychological: No Symptoms Endocrine: No Symptoms Hematologic/Lymphatic: No Symptoms Immunological/Allergic: No Symptoms Objective Exam General Appearance: no apparent distress, alert Neurologic Exam: alert, oriented x 3, cooperative, normal mood/affect, nml cerebellar function, sensation nml, No motor deficits Skin Exam: normal color, warm, dry Wound Assessment: Skin/Wound Assessment Wound/Incision Assessment Start: 08/19/20 15:39 Text: Status: Active Freq: Q6H Protocol: Document 08/23/20 07:43 AR (Rec: 08/23/20 07:[address]) Wound/Incision Assessment Left Heel Wound Assessment Shift Assessment Wound Type Pressure Ulcer Wound Stage Unstageable Drainage Amount None General Appearance Open to air Comment pillows, barrier cream Left Hip Wound Assessment Shift Assessment Wound Type Incision Wound Stage Non Pressure Wound Dressing Status Dry & Intact Primary Dressing seri strips Secondary Dressing island dressing Wound Photo Photo Taken No Eye Exam: PERRL, EOMI, eyes nml inspection Ears, Nose, Throat Exam: normal ENT inspection, pharynx normal, moist mucous membranes Neck Exam: normal inspection, non-tender, supple, full range of motion Respiratory Exam: normal breath sounds, lungs clear, No respiratory distress Cardiovascular Exam: regular rate/rhythm, normal heart sounds Gastrointestinal/Abdomen Exam: soft, No tenderness, No mass Extremity Exam: normal inspection, normal range of motion Back Exam: normal inspection, normal range of motion, No CVA tenderness, No vertebral tenderness Male Genitalia Exam: deferred Rectal Exam: deferred OBJECTIVE DATA Vital Signs: Vital Signs - 24 hr Temp Pulse Resp BP Pulse Ox 08/23/20 07:00 99.2 F 83 24 135/56 91 L 08/22/20 19:45 98.1 F 92 H 24 140/70 94 L 08/22/20 18:59 97 08/22/20 17:12 98.0 F 86 16 127/59 94 L Pain Assessment - Last Documented Pain Intensity 0 Pain Scale Used [facility] Intake and Output: Intake & Output 08/20/20 08/21/20 08/22/20 08/23/20 11:59 11:59 11:59 11:59 Intake Total 2091 1080 2974 9 Output Total 0270 946 2943 Balance 206 330 9124 2078 Weight 105.8 kg 107.6 kg 104.3 kg 106.4 kg Lab Results: Lab Results-Last 24 Hours 08/22/20 08/22/20 08/22/20 Range/Units 05:40 11:24 18:05 Segmented Neutrophils 79 H (36.-66.) % Band Neutrophils 1 (0.0-2.0) % Lymphocytes (Manual) 16 L (24-44) % Monocytes (Manual) 3 (0.0-12.0) % Eosinophils (Manual) 1 (0.00-3.0) % Platelet Estimate NORMAL (NORMAL) RBC Morphology ABNORMAL Polychromasia 1+ Poikilocytosis 1+ Anisocytosis 1+ POC Glucometer 139 H 133 H (74 to 106) mg/dL 08/22/20 08/23/20 Range/Units 23:46 05:31 Segmented Neutrophils (36.-66.) % Band Neutrophils (0.0-2.0) % Lymphocytes (Manual) (24-44) % Monocytes (Manual) (0.0-12.0) % Eosinophils (Manual) (0.00-3.0) % Platelet Estimate (NORMAL) RBC Morphology Polychromasia Poikilocytosis Anisocytosis POC Glucometer 146 H 139 H (74 to 106) mg/dL Assessment/Plan (1) S/P hip hemiarthroplasty Current Visit: Yes Status: Acute Assessment & Plan: Last Vital Signs Temp 99.2 F 08/23/20 07:00 Pulse 83 08/23/20 07:00 Resp 24 08/23/20 07:00 BP 135/56 08/23/20 07:00 Pulse Ox 91 L 08/23/20 07:00 Allergies Sulfa (Sulfonamide Antibiotics) Allergy (Unknown, Verified 07/28/20 13:43) STATES CAN'T REMEMBER THE REACTION, BUT TOLD NOT TO TAKE IT ANYMORE. Penicillins Allergy (Verified 07/28/20 13:43) Active Medications Acetaminophen (Feverall 650 Mg) 650 mg TX Q4H PRN PRN PRN Reason: PAIN AND/OR FEVER Stop: 09/05/20 13:23 Fat Emulsion Intravenous 250 ml/ Parenteral Electrolytes 20 ml/ Chromium/Copper/Manganese /Zinc 1 ml/ Famotidine 40 mg/Insulin Human Regular 15 unit/Sodium Chloride 40 meq/ Amino Acids 2,287 mls @ 90 mls/hr IV .Q24H HALINA Stop: 09/18/20 13:59 Last Admin: 08/22/20 15:41 Dose: 90 mls/hr Documented by: Morphine Sulfate (Morphine Sulfate 4 Mg Inj) 4 mg IV Q4H PRN PRN PRN Reason: PAIN Stop: 08/24/20 22:24 Last Admin: 08/22/20 21:37 Dose: 4 mg Documented by: Nystatin (Nystop Powder 15 Gm) 1 gm TOP BID [facility] Stop: 09/05/20 21:59 Last Admin: 08/23/20 09:37 Dose: 1 gm Documented by: Ondansetron HCl (Zofran 4 Mg/2 Ml Vial) 4 mg IV Q4H PRN PRN PRN Reason: NAUSEA/VOMITING Stop: 09/09/20 14:21 Pantoprazole Sodium (Protonix 40 Mg Iv) 40 mg IV DAILY [facility] Stop: 09/15/20 14:29 Last Admin: 08/23/20 09:37 Dose: 40 mg Documented by: Intake & Output 08/22/20 08/23/20 11:59 11:59 Intake Total 4367 9 Output Total 1028 Balance 1948 2078 Weight 104.3 kg 106.4 kg Lab Tests 08/22/20 08/22/20 08/22/20 05:40 11:24 18:05 Segmented Neutrophils 79 H Band Neutrophils 1 Lymphocytes (Manual) 16 L Monocytes (Manual) 3 Eosinophils (Manual) 1 Platelet Estimate NORMAL RBC Morphology ABNORMAL Polychromasia 1+ Poikilocytosis 1+ Anisocytosis 1+ POC Glucometer 139 H 133 H 08/22/20 08/23/20 23:46 05:31 Segmented Neutrophils Band Neutrophils Lymphocytes (Manual) Monocytes (Manual) Eosinophils (Manual) Platelet Estimate RBC Morphology Polychromasia Poikilocytosis Anisocytosis POC Glucometer 146 H 139 H Code(s): Z96.649 - PRESENCE OF UNSPECIFIED ARTIFICIAL HIP JOINT
[2020-08-23] MEDS: MORPHINE SULFATE 4 MG INJ IV PRN (10:30)
[2020-08-23] MEDS: INTRALIPID 20% 250 ML 250 ML, TPN Electrolytes 20 ML, Multitrace-4 Conc Vial 1 ML*** 1 ... IV SCH ×7 (13:42)
[2020-08-23] MEDS: FEVERALL 650 MG PR PRN (15:41)
[2020-08-23] MEDS ORDERED: Glutose 15 GM ORAL GEL PO ONE (16:30)
[2020-08-24 05:31] LABS: Hemoglobin 9.9 gm/dl (12.5-18.0); Mean Cell Volume 99.1 fl (78-100); Mean Corpuscular Hemoglobin 30.7 pg (26-32); Mean Corpuscular Hgb Concent. 30.9 g/dl (32-36); Platelet Count 254 K/mm3 (150-450); Red Blood Count 3.23 M/mm3 (4.1-5.6); Red Cell Distribution Width 14.2 % (11.5-14.0); White Blood Count 10.4 K/mm3 (4.0-10.5)
[2020-08-24 05:36] LABS: ALBUMIN 2.8 g/dL (3.5-5.0); BLOOD UREA NITROGEN 27 mg/dL (9-20); CHLORIDE 106 mmol/L (98-107); Calcium 8.3 mg/dL (8.4-10.2); Carbon Dioxide 18 mmol/L (22-30); Creatinine 1 1.15 mg/dL (0.66-1.25); EST GLOMERULAR FILTRATION RATE > 60.0 ML/MIN; Glucose 133 mg/dL (74-106); MAGNESIUM 2.3 mg/dL (1.6-2.3); SODIUM 132 mmol/L (137-145)
[2020-08-24 06:08] LABS: ANISOCYTOSIS 1+; Hypochromia 1+; Lymphocytes 16 % (24-44); Monocyte 1 % (0.0-12.0); Neutrophils 83 % (36.-66.); Platelet Estimate NORMAL (NORMAL); Poikilocytosis 1+; Total Cells Counted 100
[2020-08-24] MEDS: FEVERALL 650 MG PR PRN ×2 (07:41→22:06)
--- NOTE | 2020-08-24 08:44 | PCM.NOTE ---
Date and Time: 08/24/20840 Subjective Assessment: patient responds "I'm here" when asking how he is doing today. no new complaints, he requires a willie lift, unable to stand. had aspiration last week on MBS Objective Exam General Appearance: no apparent distress Neurologic Exam: alert Wound Assessment: Skin/Wound Assessment Wound/Incision Assessment Start: 08/19/20 15:39 Text: Status: Active Freq: Q6H Protocol: Document 08/24/20 02:00 SG (Rec: 08/24/20 02:25 SG [id number]) Wound/Incision Assessment Left Heel Wound Assessment Shift Assessment Wound Type Pressure Ulcer Wound Stage Unstageable Drainage Amount None General Appearance Open to air Comment pillows, barrier cream Left Hip Wound Assessment Shift Assessment Wound Type Incision Wound Stage Non Pressure Wound Dressing Status Dry & Intact Primary Dressing seri strips Secondary Dressing island dressing Comment CDI Respiratory Exam: normal breath sounds, lungs clear, No respiratory distress Cardiovascular Exam: regular rate/rhythm, normal heart sounds Gastrointestinal/Abdomen Exam: soft, No tenderness, No mass Extremity Exam: normal inspection, normal range of motion OBJECTIVE DATA Vital Signs: Vital Signs - 24 hr Temp Pulse Resp BP Pulse Ox 08/24/20 08:28 97.7 F 72 18 117/49 91 L 08/24/20 02:00 97.7 F 68 22 105/47 95 Pain Assessment - Last Documented Pain Intensity 5 Pain Scale Used 0-10 Pain Scale Intake and Output: Intake & Output 08/21/20 08/22/20 08/23/20 08/24/20 11:59 11:59 11:59 11:59 Intake Total 7959 2974 2079 2193 Output Total 700 1025 650 Balance 380 1949 2079 1543 Weight 107.6 kg 104.3 kg 106.4 kg Lab Results: Lab Results-Last 24 Hours 08/23/20 08/23/20 08/23/20 Range/Units 11:51 18:39 23:51 WBC (4.0-10.5) K/mm3 RBC (4.1-5.6) M/mm3 Hgb (12.5-18.0) gm/dl Hct (42-50) % MCV (78-100) fl MCH (26-32) pg MCHC (32-36) g/dl RDW (11.5-14.0) % Plt Count (150-450) K/mm3 MPV (7.5-11.0) fl Segmented Neutrophils (36.-66.) % Lymphocytes (Manual) (24-44) % Monocytes (Manual) (0.0-12.0) % Hypochromia Platelet Estimate (NORMAL) RBC Morphology Poikilocytosis Anisocytosis Sodium (137-145) mmol/L Potassium (3.5-5.1) mmol/L Chloride (98-107) mmol/L Carbon Dioxide (22-30) mmol/L Anion Gap (5-15) MEQ/L BUN (9-20) mg/dL Creatinine (0.66-1.25) mg/dL Estimated GFR ML/MIN Glucose (74-106) mg/dL POC Glucometer 128 H 136 H 125 H (74 to 106) mg/dL Calcium (8.4-10.2) mg/dL Magnesium (1.6-2.3) mg/dL Serum Total Protein (6.3-8.2) g/dL Albumin (3.5-5.0) g/dL 08/24/20 08/24/20 08/24/20 Range/Units 04:42 04:42 05:39 WBC 10.4 (4.0-10.5) K/mm3 RBC 3.23 L (4.1-5.6) M/mm3 Hgb 9.9 L (12.5-18.0) gm/dl Hct 32.0 L (42-50) % MCV 99.1 (78-100) fl MCH 30.7 (26-32) pg MCHC 30.9 L (32-36) g/dl RDW 14.2 H (11.5-14.0) % Plt Count 254 (150-450) K/mm3 MPV 11.0 (7.5-11.0) fl Segmented Neutrophils 83 H (36.-66.) % Lymphocytes (Manual) 16 L (24-44) % Monocytes (Manual) 1 (0.0-12.0) % Hypochromia 1+ Platelet Estimate NORMAL (NORMAL) RBC Morphology ABNORMAL Poikilocytosis 1+ Anisocytosis 1+ Sodium 132 L (137-145) mmol/L Potassium 4.0 (3.5-5.1) mmol/L Chloride 106 (98-107) mmol/L Carbon Dioxide 18 L (22-30) mmol/L Anion Gap 12.0 (5-15) MEQ/L BUN 27 H (9-20) mg/dL Creatinine 1.15 (0.66-1.25) mg/dL Estimated GFR > 60.0 ML/MIN Glucose 133 H (74-106) mg/dL POC Glucometer 125 H (74 to 106) mg/dL Calcium 8.3 L (8.4-10.2) mg/dL Magnesium 2.3 (1.6-2.3) mg/dL Serum Total Protein 7.0 (6.3-8.2) g/dL Albumin 2.8 L (3.5-5.0) g/dL Assessment/Plan (1) S/P hip hemiarthroplasty Current Visit: Yes Status: Acute Code(s): Z96.649 - PRESENCE OF UNSPECIFIED ARTIFICIAL HIP JOINT (2) Upper GI bleed Current Visit: No Status: Acute Assessment & Plan: h/h stable, add lovenox 40mg Code(s): K92.2 - GASTROINTESTINAL HEMORRHAGE, UNSPECIFIED (3) Aspiration into airway Current Visit: Yes Status: Acute Assessment & Plan: attempted to call jose Yañez, aspiration on MBS last week. need to decide PEG vs comfort measures, no answer and mailbox full, called Thalia and left voicemail Code(s): T17.908A - UNSP FB IN RESP TRACT, PART UNSP CAUSING OTH INJURY, INIT (4) Altered mental status Current Visit: No Status: Acute Qualifiers: Code(s): R41.82 - ALTERED MENTAL STATUS, UNSPECIFIED (5) Paroxysmal A-fib Current Visit: No Status: Chronic Code(s): I48.0 - PAROXYSMAL ATRIAL FIBRILLATION
[2020-08-24] MEDS: NYSTOP POWDER 15 GM TOP SCH ×2 (09:07→21:09)
[2020-08-24] MEDS: ENOXAPARIN SODIUM SQ SCH (09:07)
[2020-08-24] MEDS: PROTONIX 40 MG IV IV SCH (09:08)
[2020-08-24] MEDS: MORPHINE SULFATE 4 MG INJ IV PRN ×2 (09:10→19:56)
[2020-08-24] MEDS: INTRALIPID 20% 250 ML 250 ML, TPN Electrolytes 20 ML, Multitrace-4 Conc Vial 1 ML*** 1 ... IV SCH ×7 (14:49)
[2020-08-25] MEDS: MORPHINE SULFATE 4 MG INJ IV PRN ×3 (02:53→15:48)
[2020-08-25] MEDS: ENOXAPARIN SODIUM SQ SCH (11:53)
[2020-08-25] MEDS: PROTONIX 40 MG IV IV SCH (11:53)
[2020-08-25] MEDS: NYSTOP POWDER 15 GM TOP SCH ×2 (11:58→22:03)
[2020-08-25] MEDS: FEVERALL 650 MG PR PRN (14:02)
[2020-08-25] MEDS: INTRALIPID 20% 250 ML 250 ML, TPN Electrolytes 20 ML, Multitrace-4 Conc Vial 1 ML*** 1 ... IV SCH ×7 (15:13)
[2020-08-26 04:58] LABS: Hemoglobin 9.5 gm/dl (12.5-18.0); Mean Corpuscular Hemoglobin 30.6 pg (26-32); Mean Corpuscular Hgb Concent. 30.6 g/dl (32-36); Platelet Count 235 K/mm3 (150-450); Red Cell Distribution Width 14.2 % (11.5-14.0); White Blood Count 9.5 K/mm3 (4.0-10.5)
[2020-08-26 05:22] LABS: ALBUMIN 2.6 g/dL (3.5-5.0); ALKALINE PHOSPHATASE 440 U/L (38-126); ANION GAP 9.8 MEQ/L (5-15); BLOOD UREA NITROGEN 28 mg/dL (9-20); CHLORIDE 108 mmol/L (98-107); Carbon Dioxide 19 mmol/L (22-30); Creatinine 1 1.15 mg/dL (0.66-1.25); EST GLOMERULAR FILTRATION RATE > 60.0 ML/MIN; Glucose 135 mg/dL (74-106); MAGNESIUM 2.3 mg/dL (1.6-2.3); Potassium 4.2 mmol/L (3.5-5.1); SGOT/AST 38 U/L (17-59); SGPT/ALT 30 U/L (0-50); SODIUM 132 mmol/L (137-145); Total Protein 6.7 g/dL (6.3-8.2)
[2020-08-26 05:37] LABS: BAND 4 % (0.0-2.0); Eosinophil 4 % (0.00-3.0); Lymphocytes 13 % (24-44); Monocyte 2 % (0.0-12.0); Neutrophils 77 % (36.-66.); Platelet Estimate NORMAL (NORMAL); Total Cells Counted 100
[2020-08-26] MEDS: MORPHINE SULFATE 4 MG INJ IV PRN ×4 (06:13→21:54)
--- NOTE | 2020-08-26 09:10 | PCM.NOTE ---
Date and Time: 08/26/20906 Subjective Assessment: Yannick is alert to self, place and recognizes me today, tells aid "he's the sonia who can get me out of here" he has some pain in the left hip and heel, otherwise states he feels fine, he is hungry and thirsty Objective Exam General Appearance: no apparent distress Neurologic Exam: alert, cooperative Wound Assessment: Skin/Wound Assessment Wound/Incision Assessment Start: 08/19/20 15:39 Text: Status: Active Freq: Q6H Protocol: Document 08/26/20 02:15 LL (Rec: 08/26/20 02:28 LL [id number]) Wound/Incision Assessment Left Heel Wound Assessment Shift Assessment Wound Type Pressure Ulcer Wound Stage Unstageable Drainage Amount None General Appearance Open to air Comment PILLOWS Left Hip Wound Assessment Shift Assessment Wound Type Incision Wound Stage Non Pressure Wound Dressing Status Dry & Intact Drainage Amount None Primary Dressing seri strips Secondary Dressing island dressing Comment CDI Wound Photo Photo Taken No Respiratory Exam: normal breath sounds, lungs clear, No respiratory distress Cardiovascular Exam: regular rate/rhythm, normal heart sounds Gastrointestinal/Abdomen Exam: soft, No tenderness, No mass Extremity Exam: normal inspection, normal range of motion OBJECTIVE DATA Vital Signs: Vital Signs - 24 hr Temp Pulse Resp BP Pulse Ox 08/26/20 07:36 98.9 F 73 18 133/60 92 L 08/25/20 20:12 98.2 F 73 19 107/49 95 Pain Assessment - Last Documented Pain Intensity 8 Pain Scale Used 0-10 Pain Scale Intake and Output: Intake & Output 08/23/20 08/24/20 08/25/20 08/26/20 11:59 11:59 11:59 11:59 Intake Total 2079 3516 1169 1558 Output Total 650 1150 750 Balance 2079 2866 19 808 Weight 106.4 kg 119 kg 120.2 kg Lab Results: Lab Results-Last 24 Hours 08/25/20 08/25/20 08/25/20 Range/Units 12:01 17:43 23:58 WBC (4.0-10.5) K/mm3 RBC (4.1-5.6) M/mm3 Hgb (12.5-18.0) gm/dl Hct (42-50) % MCV (78-100) fl MCH (26-32) pg MCHC (32-36) g/dl RDW (11.5-14.0) % Plt Count (150-450) K/mm3 MPV (7.5-11.0) fl Segmented Neutrophils (36.-66.) % Band Neutrophils (0.0-2.0) % Lymphocytes (Manual) (24-44) % Monocytes (Manual) (0.0-12.0) % Eosinophils (Manual) (0.00-3.0) % Platelet Estimate (NORMAL) RBC Morphology Sodium (137-145) mmol/L Potassium (3.5-5.1) mmol/L Chloride (98-107) mmol/L Carbon Dioxide (22-30) mmol/L Anion Gap (5-15) MEQ/L BUN (9-20) mg/dL Creatinine (0.66-1.25) mg/dL Estimated GFR ML/MIN Glucose (74-106) mg/dL POC Glucometer 127 H 123 H 139 H (74 to 106) mg/dL Calcium (8.4-10.2) mg/dL Magnesium (1.6-2.3) mg/dL Total Bilirubin (0.2-1.3) mg/dL AST (17-59) U/L ALT (0-50) U/L Alkaline Phosphatase (38-126) U/L Serum Total Protein (6.3-8.2) g/dL Albumin (3.5-5.0) g/dL 08/26/20 08/26/20 08/26/20 Range/Units 04:20 04:20 05:23 WBC 9.5 (4.0-10.5) K/mm3 RBC 3.10 L (4.1-5.6) M/mm3 Hgb 9.5 L (12.5-18.0) gm/dl Hct 31.0 L (42-50) % MCV 100.0 (78-100) fl MCH 30.6 (26-32) pg MCHC 30.6 L (32-36) g/dl RDW 14.2 H (11.5-14.0) % Plt Count 235 (150-450) K/mm3 MPV 11.0 (7.5-11.0) fl Segmented Neutrophils 77 H (36.-66.) % Band Neutrophils 4 H (0.0-2.0) % Lymphocytes (Manual) 13 L (24-44) % Monocytes (Manual) 2 (0.0-12.0) % Eosinophils (Manual) 4 H (0.00-3.0) % Platelet Estimate NORMAL (NORMAL) RBC Morphology NORMAL Sodium 132 L (137-145) mmol/L Potassium 4.2 (3.5-5.1) mmol/L Chloride 108 H (98-107) mmol/L Carbon Dioxide 19 L (22-30) mmol/L Anion Gap 9.8 (5-15) MEQ/L BUN 28 H (9-20) mg/dL Creatinine 1.15 (0.66-1.25) mg/dL Estimated GFR > 60.0 ML/MIN Glucose 135 H (74-106) mg/dL POC Glucometer 128 H (74 to 106) mg/dL Calcium 8.0 L (8.4-10.2) mg/dL Magnesium 2.3 (1.6-2.3) mg/dL Total Bilirubin 1.20 (0.2-1.3) mg/dL AST 38 (17-59) U/L ALT 30 (0-50) U/L Alkaline Phosphatase 440 H (38-126) U/L Serum Total Protein 6.7 (6.3-8.2) g/dL Albumin 2.6 L (3.5-5.0) g/dL Multi-Disciplinary Progress Notes: Multi-Disciplinary Progress Notes 08/25/20 12:02 Case Management Note by Concepción Pete ATTEMPTED TO CALL BOTH DAUGHTERS TO DISCUSS IF THEY HAVE TALKED ABOUT PEG TUBE VS COMFORT MEASURES. NO ANSWER AT THIS TIME. MESSAGE LEFT WITH PARI Initialized on 08/25/20 12:02 - END OF NOTE Assessment/Plan (1) S/P hip hemiarthroplasty Current Visit: Yes Status: Acute Code(s): Z96.649 - PRESENCE OF UNSPECIFIED ARTIFICIAL HIP JOINT (2) Upper GI bleed Current Visit: No Status: Acute Assessment & Plan: h/h stable, no further bleeding. continue prophylactic dose of lovenox at this time. Code(s): K92.2 - GASTROINTESTINAL HEMORRHAGE, UNSPECIFIED (3) Aspiration into airway Current Visit: Yes Status: Acute Assessment & Plan: I discussed with Yannick the results of his MBS, he does not want a feeding tube and I spoke with Pari on Monday and family agrees they do not want to pursue a PEG tube, he understands the risk of aspiration but wants to go ahead and try to eat and drink in spite of this risk, his family understands there is significant risk of aspiration as well but he is SCO and again they do not want to pursue alternative feeding methods. plan to start pureed diet and try to be as safe as possible right now with known risk. Code(s): T17.908A - UNSP FB IN RESP TRACT, PART UNSP CAUSING OTH INJURY, INIT (4) Altered mental status Current Visit: No Status: Acute Qualifiers: Code(s): R41.82 - ALTERED MENTAL STATUS, UNSPECIFIED (5) Paroxysmal A-fib Current Visit: No Status: Chronic Code(s): I48.0 - PAROXYSMAL ATRIAL FIBRILLATION
[2020-08-26] MEDS: ENOXAPARIN SODIUM SQ SCH (10:35)
[2020-08-26] MEDS: NYSTOP POWDER 15 GM TOP SCH ×2 (10:38→21:55)
[2020-08-26] MEDS: PROTONIX 40 MG IV IV SCH (10:38)
[2020-08-26] MEDS: INTRALIPID 20% 250 ML 250 ML, TPN Electrolytes 20 ML, Multitrace-4 Conc Vial 1 ML*** 1 ... IV SCH ×7 (16:20)
[2020-08-26] MEDS: FEVERALL 650 MG PR PRN (18:58)
[2020-08-27] MEDS: MORPHINE SULFATE 4 MG INJ IV PRN ×2 (06:51→23:19)
[2020-08-27] MEDS ORDERED: MORPHINE SULFATE 4 MG INJ IV ONE (08:40)
[2020-08-27] MEDS: PROTONIX 40 MG IV IV SCH (09:01)
[2020-08-27] MEDS: NYSTOP POWDER 15 GM TOP SCH ×2 (09:06→21:15)
[2020-08-27] MEDS: ENOXAPARIN SODIUM SQ SCH (09:06)
[2020-08-27] MEDS: FEVERALL 650 MG PR PRN ×2 (10:38→21:10)
[2020-08-27] MEDS ORDERED: Duragesic 25MCG Patch TD SCH (11:30)
[2020-08-28] MEDS: MORPHINE SULFATE 4 MG INJ IV PRN ×2 (03:42→12:01)
[2020-08-28] MEDS: FEVERALL 650 MG PR PRN ×2 (05:05→21:13)
--- NOTE | 2020-08-28 10:21 | PCM.NOTE ---
Date and Time: 08/28/20 1019 Subjective Assessment: required morphine overnight, continues to have significant pain in spite of duragesic patch. c/o pain in left hip and ankle, he is alert and converses well Objective Exam General Appearance: no apparent distress Wound Assessment: Skin/Wound Assessment Wound/Incision Assessment Start: 08/19/20 15:39 Text: Status: Active Freq: Q6H Protocol: Document 08/28/20 08:00 RDUHNE (Rec: 08/28/20 08:44 RDUHNE [id number]) Wound/Incision Assessment Left Heel Wound Assessment Shift Assessment Wound Type Pressure Ulcer Wound Stage Unstageable Drainage Amount None General Appearance Open to air Comment PILLOWS, BARRIER CREAM APPLIED PRN Left Hip Wound Assessment Shift Assessment Wound Type Incision Wound Stage Non Pressure Wound Dressing Status Dry & Intact Drainage Amount None Primary Dressing steri strips Comment CDI Wound Photo Photo Taken No Cardiovascular Exam: regular rate/rhythm, normal heart sounds Gastrointestinal/Abdomen Exam: soft, No tenderness, No mass Extremity Exam: other (left hip dressing intact, superficial ulceration to left heel) OBJECTIVE DATA Vital Signs: Vital Signs - 24 hr Temp Pulse Resp BP Pulse Ox 08/27/20 23:00 97.8 F 73 21 110/53 95 08/27/20 11:50 99 F 99 H 22 120/58 95 Pain Assessment - Last Documented Pain Intensity 5 Pain Scale Used [facility] Intake and Output: Intake & Output 08/25/20 08/26/20 08/27/20 08/28/20 11:59 11:59 11:59 11:59 Intake Total 1169 1558 2056 1230 Output Total 1150 750 800 925 Balance 19 808 1256 305 Weight 120.2 kg 105.4 kg 107.7 kg Lab Results: Lab Results-Last 24 Hours 08/27/20 08/27/20 Range/Units 11:24 18:00 POC Glucometer 143 H 120 H (74 to 106) mg/dL Multi-Disciplinary Progress Notes: Multi-Disciplinary Progress Notes 08/27/20 15:36 ST Plan of Care Note by Aurelia Plascencia Speech Therapy Plan of Care ST Plan of Care Start: 08/27/20 15:29 Freq: Status: Active Protocol: Document 08/27/20 15:29 BM (Rec: 08/27/20 15:36 BM [id number]) Speech Therapy Plan of Care Problem List R13.12 Oropharyngeal Dysphagia Treatments Swallow Treatment Interventions Swallow therapy to include: diet texture analysis diet modification as indicated Safe swallow compensatory education, as needed Precautions Aspiration Functional Goals of Treatment To maintain adequate nutrition /hydration via the least restrictive diet without complications from aspiration. Goal #1 Patient will demonstrate tolerance & safety for oral intake of pureed diet without s/s of aspiration, 90% of trials. Status Initial Goal #2 Patient will demonstrate tolerance & safety for oral intake of honey thick liquids without s/s of aspiration, 90% of trials. Status Initial Goal #3 Patient will increase oral intake volume to 25% of meals Status Initial Frequency of Treatment: 3x/week Duration of Treatment: Hospital Stay Goals & POC discussed with patient/ Yes family Identified Barriers to Goal Achievement Patient recent history of aspiration Patient is aware of diagnosis and Yes prognosis Patient is receptive to plan of care Yes Rehabilitation Potential Fair Patient Discharge Plan Description Shelter Facility Patient Discharge Plan Comment Per Case management, discharge to LTC facility is scheduled for 08/31/20. Initialized on 08/27/20 15:36 - END OF NOTE 08/27/20 13:46 Nutrition Note by Christine Lucero F/u Note: Note PPN to be d/c'd; reduced rate to 45ml/hour x 4hours then reduce to 20ml/hour x 2 hours until bag is empty. Pt and family refuse TF. Pt SCO. Receiving a pureed diet with honey thickened liquids; po intake bites - 15%. glu 143. Note pt to transfer out to facility on 08/31. Will con't to monitor and f/u prn. T.ROBERT Lucero Initialized on 08/27/20 13:46 - END OF NOTE 08/27/20 10:23 Case Management Note by Concepción Pete REFERRAL FAXED TO [facility] PER FAMILY REQUEST AT THIS TIME Initialized on 08/27/20 10:23 - END OF NOTE Assessment/Plan (1) S/P hip hemiarthroplasty Current Visit: Yes Status: Acute Assessment & Plan: increase duragesic from 25 to 50mcg Code(s): Z96.649 - PRESENCE OF UNSPECIFIED ARTIFICIAL HIP JOINT (2) Upper GI bleed Current Visit: No Status: Acute Assessment & Plan: no further bleeding, on IV protonix Code(s): K92.2 - GASTROINTESTINAL HEMORRHAGE, UNSPECIFIED (3) Aspiration into airway Current Visit: Yes Status: Acute Assessment & Plan: family and patient decided no PEG tube, advance feeding in spite of risk, they understand the risk Code(s): T17.908A - UNSP FB IN RESP TRACT, PART UNSP CAUSING OTH INJURY, INIT (4) Altered mental status Current Visit: No Status: Acute Qualifiers: Code(s): R41.82 - ALTERED MENTAL STATUS, UNSPECIFIED (5) Paroxysmal A-fib Current Visit: No Status: Chronic Code(s): I48.0 - PAROXYSMAL ATRIAL FIBRILLATION
[2020-08-28] MEDS ORDERED: Duragesic 50MCG Patch TD SCH (10:30)
[2020-08-28] MEDS: NYSTOP POWDER 15 GM TOP SCH ×2 (11:39→21:13)
[2020-08-28] MEDS: PROTONIX 40 MG IV IV SCH (11:40)
[2020-08-28] MEDS: ENOXAPARIN SODIUM SQ SCH (11:48)
[2020-08-28 11:53] LABS: COVID AG -BINAX NOW RAPID TEST NEGATIVE (NEGATIVE)
[2020-08-28] MEDS ORDERED: Haldol 5 MG IM ONE (21:57)
[2020-08-29] MEDS: FEVERALL 650 MG PR PRN (01:11)
[2020-08-29] MEDS ORDERED: TYLENOL 325 MG PO PRN (08:39)
[2020-08-29] MEDS: PROTONIX 40 MG IV IV SCH (09:09)
[2020-08-29] MEDS: ENOXAPARIN SODIUM SQ SCH (09:09)
[2020-08-29] MEDS: NORCO 5/325 MG PO PRN ×2 (09:09→15:33)
[2020-08-29] MEDS: NYSTOP POWDER 15 GM TOP SCH ×2 (10:29→21:07)
[2020-08-29] MEDS: Zofran 4 MG/2 ML VIAL IV PRN ×3 (11:58→20:32)
[2020-08-29] MEDS: Tums EX 750 MG PO PRN ×2 (15:33→20:32)
[2020-08-30] MEDS: Zofran 4 MG/2 ML VIAL IV PRN (06:57)
[2020-08-30] MEDS: PROTONIX 40 MG IV IV SCH (09:37)
[2020-08-30] MEDS: ENOXAPARIN SODIUM SQ SCH (09:37)
[2020-08-30] MEDS: NYSTOP POWDER 15 GM TOP SCH ×2 (09:37→21:32)
[2020-08-30] MEDS: NORCO 5/325 MG PO PRN (21:31)
[2020-08-31 06:57] VITALS: BP 100/60; PULSE 64; O2SAT 94
--- NOTE | 2020-08-31 08:31 | PCM.DS ---
Discharge Summary Date of Admission: 08/19/20 15:00 Admitting Physician: FIDE GOODRICH Consults: Consults on Case 08/20/20 12:52 Nutritional Consult ROUTINE Primary Care Provider: FIDE GOODRICH Allergies Allergies Sulfa (Sulfonamide Antibiotics) Allergy (Unknown, Verified 07/28/20 13:43) STATES CAN'T REMEMBER THE REACTION, BUT TOLD NOT TO TAKE IT ANYMORE. Penicillins Allergy (Verified 07/28/20 13:43) Hospital Summary - Hospital Course Hospital Course: patient was admitted as a swing bed following left total hip arthroplasty from a fall and subcapital femur fracture, surgery was done at [facility], he de compensated rapidly after admission, sepsis with UTI and bilateral pneumonia, he was treated and improved, had delerium as well. swallowing was a problem, his teeth were lost while he was at [facility] and he has a previous hemorrhagic cva, a fib and was on warfarin prior to incident. - Vitals & Intake/Output Vital Signs: Vital Signs Temperature 97.9 F 08/31/20 06:56 Pulse Rate 64 08/31/20 06:56 Respiratory Rate 16 08/31/20 06:56 Blood Pressure 100/60 08/31/20 06:56 O2 Sat by Pulse Oximetry 94 L 08/31/20 06:56 Intake & Output: Intake & Output 08/28/20 08/29/20 08/30/20 08/31/20 11:59 11:59 11:59 11:59 Intake Total 1230 800 220 70 Output Total 925 810 400 300 Balance 305 -10 -180 -230 Weight 106.6 kg 103.5 kg 103.7 kg 103.9 kg - Lab Result Diagrams: 08/26/20 04:20 08/26/20 04:20 - Procedures and Test Procedures and Tests throughout Hospitalization: Therapy Orders & Screens 08/19/20 15:17 Oxygen Oxymask LPM 2 lpm Comment: Diagnosis: PNEUMONIA, UTI, DELERIUM Speech Therapy Eval & Treat [ST Eval & Mariana ( Order)] .as ordered Comment: Physician Instructions: Reason For Exam: much more alert, please evaluate swallow mechanism Evaluate: Yes Treat: Yes Reason for Eval: altered mental status, has upper gi bleed but much more alert. Diagnosis: PNEUMONIA, UTI, DELERIUM 08/19/20 16:53 PT Eval & Treat ( Order) ONCE Reason for Eval:: swingbed Diagnosis: DECONDITIONING R/T PNEUMONIA, UTI, DELERIUM 08/20/20 09:15 PT Clarification Order ROUTINE Comment: Physician Instructions: Reason For Exam: PT Clarification: P.T. TO RX 5X/WK UNTIL D/C TO ADDRESS FUNCTIONAL MOBILITY TRAINING, THER EX, AND BALANCE ACTIVITIES TO MAXIMIZE FUNCTIONAL INDEPENDENCE. 08/26/20 11:02 Speech Therapy Eval & Treat [ST Eval & Treat (MD Order)] .as ordered Comment: Physician Instructions: Reason For Exam: Evaluate: swallow eval Treat: Yes Reason for Eval: aspiration Diagnosis: DECONDITIONING R/T PNEUMONIA, UTI, DELERIUM 08/27/20 14:51 ST Clarification Order ROUTINE Comment: Physician Instructions: Reason For Exam: ST Clarification: ST 3x/week x hospital stay for dysphagia swallow tx, diet texture analysis, and diet modification as indicated. Discharge Exam General Appearance: no apparent distress, obese Neurologic Exam: alert, oriented x 3, cooperative Respiratory Exam: normal breath sounds, lungs clear, No respiratory distress Cardiovascular Exam: regular rate/rhythm, normal heart sounds Gastrointestinal/Abdomen Exam: soft, No tenderness, No mass Extremity Exam: other (left hip incision well healing, [place] removed), No pedal edema Wound Assessment: Skin/Wound Assessment Wound/Incision Assessment Start: 08/19/20 15:39 Text: Status: Active Freq: Q6H Protocol: Document 08/31/20 02:00 TC (Rec: 08/31/20 02:32 TC [id number]) Wound/Incision Assessment Left Heel Wound Assessment Shift Assessment Wound Type Pressure Ulcer Wound Stage Unstageable Drainage Amount None Drainage Odor None/Absent General Appearance Open to air Surrounding Tissue [place] Comment black, open to air, pt being repositioned and area off loaded. Left Hip Wound Assessment Shift Assessment Wound Type Incision Wound Stage Non Pressure Wound Drainage Amount None Comment open to air Wound Photo Photo Taken No Final Diagnosis/Problem List - Final Discharge Diagnosis/Problem (1) S/P hip hemiarthroplasty Current Visit: Yes Status: Acute Code(s): Z96.649 - PRESENCE OF UNSPECIFIED ARTIFICIAL HIP JOINT (2) Upper GI bleed Current Visit: No Status: Acute Assessment & Plan: resolved, will continue PPI therapy at [facility] Code(s): K92.2 - GASTROINTESTINAL HEMORRHAGE, UNSPECIFIED (3) Aspiration into airway Current Visit: Yes Status: Acute Assessment & Plan: family decided DNR code status and no PEG tube, patient able to understand and make this decision as well. will feed as safely as possible, they understand the risk of aspiration and Code(s): T17.908A - UNSP FB IN RESP TRACT, PART UNSP CAUSING OTH INJURY, INIT (4) Altered mental status Current Visit: No Status: Acute Code(s): R41.82 - ALTERED MENTAL STATUS, UNSPECIFIED (5) Paroxysmal A-fib Current Visit: No Status: Chronic Assessment & Plan: plan low dose eliquis 2.5mg bid, has had no bleeding with prophylactic lovenox. if continues to do well and take po can increase to 5mg bid at a later time for full protection from CVA Code(s): I48.0 - PAROXYSMAL ATRIAL FIBRILLATION - Discharge Disposition: DC TO ANY "OTHER" [facility] Condition: Stable Prescriptions: New Apixaban [Eliquis] 2.5 mg PO BID #60 tablet Hydrocodone/Acetaminophen [Hydrocodone-Acetamin 5-325 mg] 1 tab PO Q4HPRN PRN #30 tablet MDD 6 PRN Reason: Pain Continue Pantoprazole Sodium 40 mg PO DAILY Miconazole Nitrate [Zeasorb AF] 1 applic TP BID Acetaminophen 650 mg [Feverall 650 mg] 650 mg DE Q4H PRN PRN supp.rect PRN Reason: Pain And/Or Fever Discontinued Fat Emulsion 250 ml [Intralipid 20% 250 ml] 250 ml IV .Q24H 10 Days bottle Pantoprazole 40 mg [Protonix 40 mg IV] 40 mg IV DAILY #30 vial Electrolyte Solution [TPN Electrolytes] 20 ml IV .Q24H 10 Days vial
[2020-08-31] MEDS: PROTONIX 40 MG IV IV SCH (10:58)
[2020-08-31] MEDS: NYSTOP POWDER 15 GM TOP SCH (10:58)
[2020-08-31] MEDS: ENOXAPARIN SODIUM SQ SCH (10:58)
== END 2020-08-31 12:50 | DRG 560 ==
LOC: MED SURG 15:00
PROVIDERS: ADMIT Family Medicine; ATTEND Family Medicine
DX: S72.012D Unspecified intracapsular fracture of left femur, subsequent encounter for closed fracture with routine healing (principal); K92.1 Melena; L89.620 Pressure ulcer of left heel, unstageable; R41.82 Altered mental status, unspecified; I48.0 Paroxysmal atrial fibrillation; Z79.899 Other long term (current) drug therapy; Z79.01 Long term (current) use of anticoagulants; T17.908A Unspecified foreign body in respiratory tract, part unspecified causing other injury, initial encounter; M25.552 Pain in left hip; M25.572 Pain in left ankle and joints of left foot; Z96.642 Presence of left artificial hip joint
CPT/HCPCS: 36415; 71045; 74230; 80048; 80053; 82040; 82947; 83036; 83735; 84155; 85025; 94760; 99000; J1650; J1815; J2270; J2405; 97110-GP; A9270-GY